=== PATIENT | male | born 1975 | race Caucasian/White ===

== ENCOUNTER 2018-08-10 09:22 | Emergency (ER) | payer OTHER ==
--- OUTSIDE RECORDS SUMMARY | 2018-08-10 09:33 | XMS REPORT ---
:1975 Author Organization [facility] Address [address] [place] [address] Care Team Providers Name Role Phone Emmie Moore Unavailable Unavailable PROBLEMS Type Condition ICD9-CM LSO20-[id number] Onset Condition SNOMED Code Code Code Dates Status Problem Essential (primary) I10 Active 58795881 hypertension Problem Obstructive sleep apnea G47.33 Active 65528391 (adult) (pediatric) Problem Edema, unspecified R60.9 Active 80894766 Problem Abscess L02.91 Active 017271002 Problem Lung nodule < 6cm on CT R91.1 Active 418787057 Problem Major depressive F32.9 Active 45635117 disorder, single episode, unspecified Problem Generalized anxiety F41.1 Active 11218681 disorder Problem Body mass index (BMI) of Z68.34 Active 883415801 34.0-34.9 in adult Problem Other obesity due to E66.09 Active 617436454 excess calories Problem COPD with acute J44.1 Active 555996843 exacerbation Problem Nicotine dependence, F17.200 Active 514579376 uncomplicated, unspecified nicotine product type Problem Morbid (severe) obesity E66.01 Active 856525216 due to excess calories Problem Venous insufficiency I87.2 Active 68709493 Problem 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 Problem Pure E78.00 Active 553047782 hypercholesterolemia ALLERGIES No Information ENCOUNTERS Encounter Location Date Diagnosis [facility] [address] [facility], [place], [place] [id number] [facility] [address] [facility], [place], [place] [id number] [facility] [address] [facility], [place], Pure hypercholesterolemia E78.00 ; [place] [address] Type 2 diabetes mellitus with diabetic polyneuropathy E11.42 ; Generalized anxiety disorder F41.1 ; Essential (primary) hypertension I10 ; Vitamin deficiency E56.9 ; Encounter for drug screening Z02.83 and COPD with acute exacerbation J44.[address], [place], [place] [id number] [address], [place], [place] [id number] [address], [place] Jun, [address], Mar, Abscess L02.91 ; Lung nodule < 6cm [place] [id number] on [place] R91.1 and Generalized anxiety disorder F41.[address], [place] Mar, Generalized anxiety disorder F41.1 [address], January, Groin abscess L02.214 [place] [id number] [address], [place] January, [address], [place], [place] [id number] [address], [place], Generalized anxiety disorder F41.1 [place] [id number] [address], [place] Nov, [address], [place], [address], [place], [place] [id number] [address], [place], Other obesity due to excess calories [place] [address] E66.09 ; Body mass index (BMI) of 34.0-34.9 in adult Z68.34 and Generalized anxiety disorder F41.[address], [place] Oct, [address], Sep, COPD with acute exacerbation J44.1 ; [place] [id number] Type 2 diabetes mellitus with diabetic polyneuropathy E11.42 ; Major depressive disorder, single episode, unspecified F32.9 ; Pure hypercholesterolemia E78.00 and Nicotine dependence, uncomplicated, unspecified nicotine product type F17.200 [facility] [address] [place], [place] Aug, [address] IMMUNIZATIONS No Known Immunizations SOCIAL HISTORY Never Assessed REASON FOR REFERRAL FUNCTIONAL STATUS PLAN OF CARE VITAL SIGNS MEDICATIONS Unknown Medications PROCEDURES No Known procedures RESULTS No Results REASON FOR VISIT lyrica- no pills left Insurance Providers [facility] Member Patient Patient Patient Patient Patient Subscriber Subscriber Subscriber Group Insurance Plan Plan Plan Plan ID Relationship Address Phone Name Date of ID Name Date of No Type Insurance Insurance Insurance Coverage to Subscriber Address Phone Name Dates BC [address] self Bhargav [id number] Medicaid [id number] [address] [place] [address] [place] self Bhargav [id number] MEDICAID [place] MEDICAID [facility] [id number] Medicaid Computer Medicaid self Bhargav [id number] [facility] Corpor[employer] n [address] [facility] [id number] MEDICAL (GENERAL) HISTORY Type Description Date Medical History Obstructive sleep apnea (adult) (pediatric) Medical History Type 2 diabetes mellitus with diabetic polyneuropathy Medical History COPD with acute exacerbation Medical History Essential (primary) hypertension Medical History Generalized anxiety disorder Medical History Pneumonia, unspecified organism Medical History Morbid (severe) obesity due to excess calories Medical History Major depressive disorder, single episode, unspecified Medical History Acquired absence of other right toe(s) Medical History Pain in right ankle and joints of right foot Medical History Pain in right knee Medical History Pain in right hip Medical History Non-pressure chronic ulcer of other part of unspecified foot with unspecified severity Medical History Venous insufficiency Medical History 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, subsequent encounter Medical History Edema, unspecified Medical History Peripheral vascular disease, unspecified Medical History Venous insufficiency (chronic) (peripheral) Medical History Pure hypercholesterolemia Medical History Nicotine dependence, uncomplicated, unspecified nicotine product type Medical History Allergic rhinitis, unspecified Medical History Dermatophytosis, unspecified Medical History Goiter Medical History History of gastric bypass Surgical History cholecystectomy 1995 Surgical History 3/4 amputation left thumb 2000 Surgical History Thyroid biopsy (benign) 2013 Surgical History drainage Right Groin Abcess with Drain 02/08/2018 placement Hospitalization History chronic obstruction pulmonary disease 12/04-12/07/16 exacerbation & pneumonia Hospitalization History underwent cardiac cath (-) dx with pneumonia 08/28- Hospitalization History pneumonia 09/17--03-01 Hospitalization History gastric bypass 03/2017 Hospitalization History Right Groin Abcess 02/07-02/10/18
--- NOTE | 2018-08-10 10:12 | ED ---
Upper Extremity Pain - HPI Summary HPI Summary: Patient is a 43-year-old male with history of diabetes presenting to the ED after a fall approximately 1 week ago and now complaining of left shoulder pain. He states the pain is not worsening, helpers remaining consistent. Unable to abduct the shoulder, pain improves with abduction and internal rotation. Denies any bruising or ecchymosis. Denies any numbness or tingling. There is no radiation of the pain. The pain is most notable over the superior portion of the shoulder as well as down the humerus midway to the elbow. He is also complaining of a open laceration/sore to the left great toe which is approximately 1.5 cm in length and approximately 0.5 cm in width. He has been using vinegar to cleanse the wound. He does not see a crucible packer, but has good follow-up with his PCP. - History of Current Complaint Chief Complaint: EDShoulderCkatelinvicleInj Stated Complaint: LEFT SHOULDER INJURY FALL A WEEK AGO Time Seen by Provider: 08/10/18 09:28 Hx Obtained From: Patient Mechanism Of Injury: Direct Blow Onset/Duration: Started Hours Ago Timing: Constant Severity Initially: Mild Severity Currently: Mild Character: Aching Aggravating Factor(s): Movement, Lifting, Extension Alleviating Factor(s): Rest, Ice, Compression Associated Signs & Symptoms: Negative: Swelling, Redness, Bruising, Numbness/ Tingling, Nausea, Vomiting Related History: Dominant Hand Right - Risk Factors Non-Orthopedic Risk Factor: Negative Septic Arthritis Risk Factor: Negative Compartment Syndrome Risk Factors: Pain - Allergies/Home Medications Allergies/Adverse Reactions: Allergies Allergy/AdvReac Type Severity Reaction Status Date / Time gabapentin Allergy See Comment Verified 08/10/18 09:30 Home Medications: Home Medications Atorvastatin* [Lipitor*] 80 mg PO 1700 08/10/18 [History Confirmed 08/10/18] Ca/D3/Mag/Zinc/Felicia/Tyron/Mgbor [Caltrate 600-D3-Min Chew Tab] 1 tab PO DAILY [History Confirmed 08/10/18] Cholecalciferol TAB* [Vitamin D TAB*] 5,000 unit PO DAILY 08/10/18 [History Confirmed 08/10/18] Cyanocobalamin TAB* [Vitamin B12 TAB*] 500 mcg PO DAILY 08/10/18 [History Confirmed 08/10/18] Lisinopril/HCTZ 20/12.5(NF) [Zestoretic 20/12.5(NF)] 12.5 mg PO DAILY 08/10/18 [ History Confirmed 08/10/18] Ped Multivit 43/Iron Fumarate [Flintstones Complete Chew Tab] 18 mg PO DAILY [History Confirmed 08/10/18] Pregabalin CAP(*) [Lyrica CAP(*)] 400 mg PO TID 08/10/18 [History Confirmed ] busPIRone TAB* [Buspar *] 30 mg PO BID 08/10/18 [History Confirmed 08/10/18] metFORMIN* [Glucophage 1000 MG TAB *] 1,000 mg PO BID 08/10/18 [History Confirmed 08/10/18] PMH/Surg Hx/FS Hx/Imm Hx Previously Healthy: Yes - Immunization History Hx Pertussis Vaccination: No Immunizations Up to Date: Yes Infectious Disease History: No Infectious Disease History: Denies: Traveled Outside the [place] in Last 30 Days - Social History Occupation: Unemployed Lives: With Family Alcohol Use: None Hx Substance Use: No Substance Use Type: Reports: None Hx Tobacco Use: Yes Smoking Status (MU): Heavy Every Day Tobacco Smoker Review of Systems Negative: Fever, Chills, Fatigue, Skin Diaphoresis Negative: Palpitations, Chest Pain Negative: Abdominal Pain, Vomiting, Diarrhea, Nausea Genitourinary: Negative Positive: no symptoms reported, see HPI Positive: Arthralgia - left shoulder pain Neurological: Negative All Other Systems Reviewed And Are Negative: Yes Physical Exam Triage Information Reviewed: Yes Vital Signs On Initial Exam: Initial Vitals Temp Pulse Resp BP Pulse Ox 98.5 F 51 18 179/96 97 08/10/18 09:26 08/10/18 09:26 08/10/18 09:26 08/10/18 09:26 08/10/18 09:26 Vital Signs Reviewed: Yes Appearance: Positive: Well-Appearing, Well-Nourished Skin: Positive: Warm, Skin Color Reflects Adequate Perfusion Head/Face: Positive: Normal Head/Face Inspection Eyes: Positive: EOMI, FLAVIA, Conjunctiva Clear Neck: Positive: No Lymphadenopathy Respiratory/Lung Sounds: Positive: Clear to Auscultation, Breath Sounds Present Cardiovascular: Positive: RRR, Pulses are Symmetrical in both Upper and Lower Extremities Musculoskeletal: Positive: Pain @ - left shoulder pain Neurological: Positive: Sensory/Motor Intact, Alert, Oriented to Person Place, Time, Speech Normal Psychiatric: Positive: Normal, Affect/Mood Appropriate AVPU Assessment: Alert Diagnostics - Vital Signs Vital Signs Temp Pulse Resp BP Pulse Ox 08/10/18 09:26 98.5 F 51 18 179/96 97 - Laboratory Lab Statement: Any lab studies that have been ordered have been reviewed, and results considered in the medical decision making process. Course/Dx - Course Course Of Treatment: Patient is evaluated for left shoulder pain after a fall approximately one week ago. He denies any ecchymosis, erythema, abrasions or any other signs of trauma. He is unable to abduct the shoulder past 90. Is endorsing pain most notably over the superior and anterior portion of the shoulder which radiates down midway through the humerus to the elbow. Denies any numbness or tingling. Denies any color or temperature changes. Full strength into the ipsilateral arm and hand. He denies any back pain, neck pain or head injury. He is endorsing a laceration/sore to the left great toe which occurred approximately 2 weeks ago after he pulled off a callus. Since that he has been using vinegar and bacitracin, however the area continues to be open. The area does not have any drainage. Patient is a diabetic. X-ray of the shoulder obtained. This shows soft tissue calcification suggestive of a calcific tendinopathy. No acute osseous injury. If symptoms persist, recommend repeat imaging. Discussed with patient the importance of follow soaks , antibiotic ointment and will give 7 days Keflex. He will follow up with his PCP on Friday, 2 days from now as scheduled. - Diagnoses Differential Diagnosis/HQI/PQRI: Positive: Fracture (Open), Fracture (Closed), Strain, Sprain Provider Diagnoses: Calcific tendinitis, Fall, Open toe wound Discharge - Sign-Out/Discharge Documenting (check all that apply): Patient Departure - Discharge Plan Condition: Stable Disposition: HOME Prescriptions: Cephalexin CAP* [Keflex CAP*] 500 mg PO BID #14 cap MDD 2 Patient Education Materials: Acute Wound Care (ED), Calcific Tendinitis (ED) Referrals: No Primary Care Phys,NOPCP [Primary Care Provider] - Additional Instructions: Soak the foot twice daily Keflex twice daily 7 days Arm sling for comfort Ibuprofen 600mg 3 times daily May use [id number]-[id number] icy hot as well Moist heat to the area Follow-up with your PCP in 2 days as scheduled for a wound recheck - Billing Disposition and Condition Condition: STABLE Disposition: Home
[2018-08-10 10:43] VITALS: BP 134/91
== END 2018-08-10 10:49 | disposition home or self-care (01) ==
LOC: ED 09:22
DX: M75.32 Calcific tendinitis of left shoulder (principal); S91.102A Unspecified open wound of left great toe without damage to nail, initial encounter; X58.XXXA Exposure to other specified factors, initial encounter; Y92.9 Unspecified place or not applicable; Z88.8 Allergy status to other drugs, medicaments and biological substances; F17.200 Nicotine dependence, unspecified, uncomplicated
CPT/HCPCS: 99283

== ENCOUNTER 2019-01-06 09:04 | Emergency (ER) | payer BC, MEDICAID ==
--- OUTSIDE RECORDS SUMMARY | 2019-01-06 09:18 | XMS REPORT ---
:1975 Author Organization [facility] Address [address] [place] [address] Care Team Providers Name Role Phone Emmie Moore Unavailable Unavailable PROBLEMS Type Condition ICD9-CM [id number] Onset Condition SNOMED Code Code Code Dates Status Problem 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 392702397 with diabetic polyneuropathy Problem Morbid (severe) obesity E66.01 Active 474003268 due to excess calories Problem Nicotine dependence, F17.200 Active 995220560 uncomplicated, unspecified nicotine product type Problem COPD with acute J44.1 Active 589268084 exacerbation Problem Essential (primary) I10 Active 62392213 hypertension Problem Edema, unspecified R60.9 Active 62761285 Problem Obstructive sleep apnea G47.33 Active 02852851 (adult) (pediatric) Problem Lung nodule < 6cm on CT R91.1 Active 503336120 Problem Pure E78.00 Active 573746911 hypercholesterolemia Problem Abscess L02.91 Active 793814140 Problem Venous insufficiency I87.2 Active 62640904 Problem Generalized anxiety F41.1 Active 70553886 disorder Problem Major depressive F32.9 Active 74267795 disorder, single episode, unspecified Problem Other obesity due to E66.09 Active 408534902 excess calories Problem Body mass index (BMI) of Z68.34 Active 353409212 34.0-34.9 in adult ALLERGIES No Information ENCOUNTERS Encounter Location Date Diagnosis [facility] [address] [facility], [place], [place] [id number] [facility] [address] [facility], [place], Generalized anxiety disorder F41.1 [place] [id number] [facility] [address] [facility], [place], [place] [id number] [facility] [place] [address] [facility], [place], [place] [id number] [address], Nov, Type 2 diabetes mellitus with [place] [address] diabetic polyneuropathy E11.[address], Sep, Type 2 diabetes mellitus with [place] [address] diabetic polyneuropathy E11.[address], [place], [place] [address] [address], [place] Sep, [address], Aug, Type 2 diabetes mellitus with [place] [address] diabetic polyneuropathy E11.42 ; Blister (nonthermal), left great toe, initial encounter S90.422A and Local infection of the skin and subcutaneous tissue, unspecified L08.[address], [place] Jul, [address], [place], [place] [id number] [address], [place], [place] [id number] [address], [place], [place] [id number] [address], Jun, Pure hypercholesterolemia E78.00 ; [place] [address] Type 2 diabetes mellitus with diabetic polyneuropathy E11.42 ; Generalized anxiety disorder F41.1 ; Essential (primary) hypertension I10 ; Vitamin deficiency E56.9 ; Encounter for drug screening Z02.83 and COPD with acute exacerbation J44.[address], [place], [place] [id number] [address], [place], [place] [id number] [address], [place], [address], Mar, Abscess L02.91 ; Lung nodule < 6cm [place] [id number] [place] R91.1 and Generalized anxiety disorder F41.[address], [place] Mar, Generalized anxiety disorder F41.1 [address], January, Groin abscess L02.214 [place] [id number] [address], [place] January, [address], [place], [place] [id number] [address], Dec, Generalized anxiety disorder F41.1 [place] [id number] [address], [place] Nov, [address], [place] Nov, [address], [place], [place] [id number] [address], Nov, Other obesity due to excess calories [place] [address] E66.09 ; Body mass index (BMI) of 34.0-34.9 in adult Z68.34 and Generalized anxiety disorder F41.[address], [place] Oct, [address], Sep, COPD with acute exacerbation J44.1 ; [place] [address] Type 2 diabetes mellitus with diabetic polyneuropathy E11.42 ; Major depressive disorder, single episode, unspecified F32.9 ; Pure hypercholesterolemia E78.00 and Nicotine dependence, uncomplicated, unspecified nicotine product type F17.[address], [place] Aug, [address] IMMUNIZATIONS No Known Immunizations SOCIAL HISTORY Never Assessed REASON FOR REFERRAL FUNCTIONAL STATUS PLAN OF CARE VITAL SIGNS MEDICATIONS Medication Instructions Dosage Frequency Start Date End Date Duration Status Spiriva Inhalation Once a 2 puffs 24h 30 days Active Respimat 2.5 day MCG/ACT PROCEDURES No Known procedures RESULTS No Results REASON FOR VISIT REFILL AND ALSO REFERRAL ISSUE Insurance Providers [facility] Member Patient Patient Patient Patient Patient Subscriber Subscriber Subscriber Group Insurance Plan Plan Plan Plan ID Relationship Address Phone Name Date of ID Name Date of No Type Insurance Insurance Insurance Coverage to Subscriber Address Phone Name Dates Medicaid Computer Medicaid self Bhargav [id number] [facility] [place] [employer] [address] [facility] [id number] [address] self Bhargav [id number] Medicaid [id number] Medicaid [place] [address] [facility] [id number] [address] [place] self Bhargav [id number] MEDICAID [place] [id number] MEDICAL (GENERAL) HISTORY Type Description Date Medical [...]
--- OUTSIDE RECORDS SUMMARY | 2019-01-06 09:18 | XMS REPORT ---
:1975 Author Organization [facility] Address [address] [place] [address] Care Team Providers Name Role Phone Emmie Moore Unavailable Unavailable PROBLEMS Type Condition ICD9-CM [id number] Onset Condition SNOMED Code Code Code Dates Status Problem 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 336732204 with diabetic polyneuropathy Problem Morbid (severe) obesity E66.01 Active 036462179 due to excess calories Problem Nicotine dependence, F17.200 Active 832209372 uncomplicated, unspecified nicotine product type Problem COPD with acute J44.1 Active 684477617 exacerbation Problem Essential (primary) I10 Active 99211368 hypertension Problem Edema, unspecified R60.9 Active 62376658 Problem Obstructive sleep apnea G47.33 Active 12509731 (adult) (pediatric) Problem Lung nodule < 6cm on CT R91.1 Active 821973536 Problem Pure E78.00 Active 274287212 hypercholesterolemia Problem Abscess L02.91 Active 224218633 Problem Venous insufficiency I87.2 Active 23269955 Problem Generalized anxiety F41.1 Active 82803628 disorder Problem Major depressive F32.9 Active 22143307 disorder, single episode, unspecified Problem Other obesity due to E66.09 Active 302008923 excess calories Problem Body mass index (BMI) of Z68.34 Active 159380280 34.0-34.9 in adult ALLERGIES No Information ENCOUNTERS Encounter Location Date Diagnosis [facility] [place] [address] [facility], [place], Generalized anxiety disorder F41.1 [place] [id number] [facility] [place] [address] [place], [place], [place] [id number] [facility] [place] [address] [facility], [place], [place] [id number] [facility] [place] [address] [facility], Nov, Type 2 diabetes mellitus with [place] [address] diabetic polyneuropathy E11.[address], Sep, Type 2 diabetes mellitus with [place] [address] diabetic polyneuropathy E11.[address], [place], [place] [id number] [address], [place] Sep, [address], Aug, Type 2 diabetes mellitus with [place] [address] diabetic polyneuropathy E11.42 ; Blister (nonthermal), left great toe, initial encounter S90.422A and Local infection of the skin and subcutaneous tissue, unspecified L08.[address], [place], [address], [place], [place] [id number] [address], [place], [place] [id number] [address], [place], [place] [address] [address], Jun, Pure hypercholesterolemia E78.00 ; [place] [address] Type 2 diabetes mellitus with diabetic polyneuropathy E11.42 ; Generalized anxiety disorder F41.1 ; Essential (primary) hypertension I10 ; Vitamin deficiency E56.9 ; Encounter for drug screening Z02.83 and COPD with acute exacerbation J44.[address], [place], [place] [id number] [address], [place], [place] [id number] [address], [place], [address], Mar, Abscess L02.91 ; Lung nodule < 6cm [place] [address] on [address] R91.1 and Generalized anxiety disorder F41.[address], [place] Mar, Generalized anxiety disorder F41.1 [address], January, Groin abscess L02.214 [place] [id number] [address], [place] January, [address] [facility] [address] [facility], [place], [place] [id number] [address], [place], Generalized anxiety disorder F41.1 [place] [id number] [address], [place], [address], [place], [address], [place], [place] [id number] [address], Nov, Other obesity due to excess calories [place] [address] E66.09 ; Body mass index (BMI) of 34.0-34.9 in adult Z68.34 and Generalized anxiety disorder F41.[address], [place] Oct, [address], Sep, COPD with acute exacerbation J44.1 ; [place] [address] Type 2 diabetes mellitus with diabetic polyneuropathy E11.42 ; Major depressive disorder, single episode, unspecified F32.9 ; Pure hypercholesterolemia E78.00 and Nicotine dependence, uncomplicated, unspecified nicotine product type F17.[address], [place] Aug, [address] IMMUNIZATIONS No Known Immunizations SOCIAL HISTORY Never Assessed REASON FOR REFERRAL FUNCTIONAL STATUS PLAN OF CARE VITAL SIGNS MEDICATIONS Medication Instructions Dosage Frequency Start Date End Date Duration Status BusPIRone HCl Orally Twice a 1 tablet 12h Nov, 30 days Active 30 MG day 2017 PROCEDURES No Known procedures RESULTS No Results REASON FOR VISIT REFILL Insurance Providers [facility] Member Patient Patient Patient Patient Patient Subscriber Subscriber Subscriber Group Insurance Plan Plan Plan Plan ID Relationship Address Phone Name Date of ID Name Date of No Type Insurance Insurance Insurance Coverage to Subscriber Address Phone Name Dates BC [address] self Bhargav 1975 [id number] Medicaid [facility] Medicaid [facility] [address] [place] [address] [place] [address] [place] self Bhargav [id number] MEDICAID [place] MEDICAID [facility] [id number] Medicaid Computer Medicaid self Bhargav [id number] [facility] [address] [facility] [id number] MEDICAL (GENERAL) HISTORY Type Description Date Medical [...] bypass Surgical History cholecystectomy 1995 Surgical History 11/16 amputation left thumb 2000 Surgical History Thyroid biopsy (benign) 2013 Surgical History drainage Right Groin Abcess with Drain 02/08/2018 placement Hospitalization History chronic obstruction pulmonary disease 12/04-12/07/16 exacerbation & pneumonia Hospitalization History underwent cardiac cath (-) dx with pneumonia 08/28- Hospitalization History pneumonia 09/17--03-01 Hospitalization History gastric bypass 03/2017 Hospitalization History Right Groin Abcess 02/07-02/10/18
--- NOTE | 2019-01-06 11:54 | ED ---
Lower Extremity - HPI Summary HPI Summary: Patient is a 43-year-old male who presents emergency department for a wound to the bottom of his right foot times one week. Patient with a history of diabetes. Patient states he noticed a wound above his right foot about a week ago that is progressed in size and now has a foul odor. Patient has not been on antibiotics for this wound. Patient denies fever, chills, nausea, vomiting. Symptoms are moderate in severity. No current modifying factors. - History of Current Complaint Chief Complaint: EDExtremityLower Stated Complaint: ABCESS ON BOTTOM OF FOOT PER PT Time Seen by Provider: 01/06/19 11:18 Hx Obtained From: Patient Pain Intensity: 0 - Allergies/Home Medications Allergies/Adverse Reactions: Allergies Allergy/AdvReac Type Severity Reaction Status Date / Time gabapentin Allergy See Comment Verified 01/06/19 09:10 PMH/Surg Hx/FS Hx/Imm Hx Previously Healthy: Yes Infectious Disease History: No Infectious Disease History: Denies: Traveled Outside the [place] in Last 30 Days - Family History Known Family History: Positive: Non-Contributory - Social History Occupation: Unemployed Lives: With Family Alcohol Use: None Hx Substance Use: No Substance Use Type: Reports: None Hx Tobacco Use: Yes Smoking Status (MU): Heavy Every Day Tobacco Smoker Review of Systems Constitutional: Negative Negative: Fever, Chills Gastrointestinal: Negative Negative: Vomiting, Nausea Positive: Other - Wound to bottom of right foot All Other Systems Reviewed And Are Negative: Yes Physical Exam Triage Information Reviewed: Yes Vital Signs On Initial Exam: Initial Vitals Temp Pulse Resp BP Pulse Ox 97.0 F 97 17 160/91 100 01/06/19 09:06 01/06/19 09:06 01/06/19 09:06 01/06/19 09:06 01/06/19 09:06 Vital Signs Reviewed: Yes Appearance: Positive: Well-Appearing - Pt. lying on bed in NAD. present. Skin: Positive: Warm, Dry Head/Face: Positive: Normal Head/Face Inspection Eyes: Positive: Normal, EOMI, FLAVIA Neck: Positive: Supple Musculoskeletal: Positive: Other - Chronic venous stasis changes to LEs. Noted to plantar aspect of right foot there is a roughly 4 superficial ulcer with mild surrounding erythema to wound edges. No signficant drainage but wound dressing is wet. Malodorous. No surrounding cellulitis. Neurological: Positive: Normal, CN Intact II-III Psychiatric: Positive: Affect/Mood Appropriate Diagnostics - Vital Signs Vital Signs Temp Pulse Resp BP Pulse Ox 01/06/19 10:14 97.8 F 77 18 124/79 96 01/06/19 09:06 97.0 F 97 17 160/91 100 - Laboratory Result Diagrams: 01/06/19 12:09 01/06/19 12:09 Lab Statement: Any lab studies that have been ordered have been reviewed, and results considered in the medical decision making process. Lower Extremity Course/Dx - Course Course Of Treatment: Pt. presenting for wound to right foot. There does appear to be a localized infection. Pt. is not on antibiotics. Patient is afebrile and well-appearing. Basic labs and x-ray obtained. Labs showed mild elevation of WBC and CRP. X-ray shows no signs of osteomyelitis, reading per radiology. We'll start patient on clindamycin. Patient notes he sees a psychiatrist locally and advised to schedule close follow-up appointment. Return to the ER for worsening drainage, fever, redness, vomiting or if concerned. Patient understands and agrees with plan. - Diagnoses Differential Diagnosis/HQI/PQRI: Positive: Infection, Osteomyelitis Provider Diagnoses: Diabetic foot ulcer, Infected wound Discharge - Sign-Out/Discharge Documenting (check all that apply): Patient Departure Patient Received Moderate/Deep Sedation with Procedure: No - Discharge Plan Condition: Good Disposition: HOME Prescriptions: Clindamycin HCl 300 mg PO QID #40 capsule Patient Education Materials: Acute Wounds (ED) Referrals: [facility] [Outside] Additional Instructions: Call your blending tank tender today to schedule a close follow up appointment for a wound check Take antibiotic as directed Avoid applying pressure to wound Return to ER for fever, increased drainage, redness, vomiting or if concerned - Billing Disposition and Condition Condition: GOOD Disposition: Home
[2019-01-06 12:22] LABS: ABS Basophils 0.1 10^3/ul (0-0.2); ABS Eosinophils 0.3 10^3/ul (0-0.6); ABS Lymphocytes 2.7 10^3/ul (1.0-4.8); ABS Monocytes 0.8 10^3/ul (0-0.8); ABS Neutrophils 8.4 10^3/ul (1.5-7.7); ABS Nucleated RBC 0 10^3/ul; Eosinophil % 2.2 %; Hematocrit 45 % (36-46); Hemoglobin 15.1 g/dL (14.0-18.0); Lymphocyte % 21.7 %; Mean Corpuscular HGB Conc 33 g/dL (31-36); Mean Corpuscular Hemoglobin 29 pg (27-31); Mean Corpuscular Volume 88 fL (80-94); Mean Platelet Volume 8.7 fL (7.4-10.4); Nucleated Red Blood Cells % 0.1; Platelet Count 287 10^3/uL (150-450); Red Blood Count 5.13 10^6 /uL (4.18-5.48); Red Cell Distribution Width 14 % (10.5-15); White Blood Count 12.2 10^3/uL (3.5-10.8)
[2019-01-06 12:37] LABS: Albumin 4.2 g/dL (3.2-5.2); Albumin/Globulin Ratio 1.2 (1-3); BUN/Creatinine Ratio 11.9 (8-20); C Reactive Protein 12.98 mg/L (<8.01); Calcium 9.4 mg/dL (8.6-10.3); EGFR African American 119.6 (>60); EGFR Non-African American 98.8 (>60); Globulin 3.5 g/dL (2-4); Potassium 4.3 mmol/L (3.5-5.0); Total Bilirubin 0.7 mg/dL (0.2-1.0); Total Protein 7.7 g/dL (6.4-8.9)
[2019-01-06 13:15] VITALS: BP 133/83
--- NOTE | 2019-01-08 07:05 | PN ---
Progress Note - Progress Note Date of Service: 01/06/19 Note: Preliminary wound culture growing enterococcus and pasteurella. Pt. on Clindamycin for infected diabetic foot ulcer. Will wait for final sensitivity. No change in treatment at this time.
--- NOTE | 2019-01-09 08:29 | PN ---
Progress Note - Progress Note Date of Service: 01/06/19 Note: Wound culture final grew MRSA negative and staph aureus positive Patient was placed on clindamycin Sensitivities not routinely done with this antibiotic Called patient at 8:30 AM on 01/09/19 Patient states he is feeling improved and also saw his aeronautical project engineer yesterday further opened the wound He denies any worsening symptoms, fevers, sweats, chills At this time we will leave the patient on clindamycin He is encouraged to return to the ED if he develops any worsening symptoms, fevers, sweats, chills Og return precautions
== END 2019-01-06 13:14 | disposition home or self-care (01) ==
LOC: ED 09:04
DX: E11.621 Type 2 diabetes mellitus with foot ulcer (principal); L97.519 Non-pressure chronic ulcer of other part of right foot with unspecified severity; L08.9 Local infection of the skin and subcutaneous tissue, unspecified; M84.477A Pathological fracture, right toe(s), initial encounter for fracture; M19.90 Unspecified osteoarthritis, unspecified site; F17.210 Nicotine dependence, cigarettes, uncomplicated; Z88.8 Allergy status to other drugs, medicaments and biological substances; Z89.411 Acquired absence of right great toe
CPT/HCPCS: 36415; 80053; 85025; 86140; 87070; 87077; 87186; 87205; 87640; 87641; 99282

== ENCOUNTER 2019-09-27 14:36 | Inpatient (IN) | payer BC, OTHER ==
--- OUTSIDE RECORDS SUMMARY | 2019-09-27 14:52 | XMS REPORT | Continuity of Care Document ---
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 Problems Description No Information Available Social History Type Date Description Comments Sex Unknown Tobacco Use Start: 09/15/88 Current Cigarette Smoker 1 Pack Daily Smoking Status Reviewed: 08/31/19 Current Cigarette Smoker 1 Pack Daily ETOH Use Rarely consumes alcohol Tobacco Use Start: Unknown Patient is a current smoker, smokes every day Recreational Drug Use Denies Drug Use Exercise Type/Frequency Does not exercise Limited by physical disability (diabetic foot ulcer) Allergies, Adverse Reactions, Alerts Active Allergies Reaction Severity Comments Date Augmentin rash 06/25/2019 Gabapentin 06/25/2019 Medications Active Medications SIG Qnty Indications Ordering Date Provider Albuterol Sulfate HFA 2 puffs every 8.500gm Unknown 6 hours as 108(90Base) mcg/Act needed Aerosol Atorvastatin Calcium 1 by mouth Unknown 80mg every day Tablets Symbicort 2 puffs twice Unknown 160-4.5mcg/Act a day Aerosol Buspirone HCL take 1 tablet Unknown 30mg Tablets twice a day Cholecalciferol 5000 units by Unknown mouth Furosemide 1 by mouth Unknown 20mg Tablets every day Ertugliflozin 15 MG daily Unknown Ipratropium 1 unit as Unknown [place]/Albuterol needed Sulfate 0.5-2.5(3)mg/3ML Solution Victoza inject 1.8 mg Unknown 18mg/3ML Solution Pen-Inject Losartan 1 by mouth Unknown Potassium/Hydrochlorothi every day azide 50-12.5mg Tablets Metformin HCL take one Unknown 1000mg Tablets tablet by mouth daily Pregabalin 1 by mouth Unknown 150mg Capsules daily Sertraline HCL 2 by mouth Unknown 100mg Tablets every day (currently out 08/31/19) Tiotropium [place] 2 puffs by Unknown mouth every day Immunizations Description No Information Available Vital Signs Date Vital Result Comment 08/31/2019 10:25am Height 76 inches 6'4" Weight 336.00 lb Per pt Heart Rate 98 /min BP Systolic Sitting 124 mmHg Lue large cuff BP Diastolic Sitting 82 mmHg Lue large cuff O2 % BldC Oximetry 96 % On Ra BMI (Body Mass Index) 40.9 kg/m2 Results Description No Information Available Procedures Description No Information Available Medical Devices Description No Information Available Encounters Description No Information Available Assessments Date Code Description Provider 08/31/2019 J44.9 Chronic obstructive pulmonary disease, unspecified Quoc Del Real MD 08/31/2019 G47.30 Sleep apnea, unspecified Quoc Del Real MD Plan of Treatment 08/31/2019 - Quoc Del Real MDJ44.9 Chronic obstructive pulmonary disease, unspecifiedComments:We will continue Symbicort Spiriva and albuterol as needed. The patient will need a chest x-ray full pulmonary function tests. I have also instructed the patient to use a nettipot for sinus difficulties. I have also instructed the patient on abstaining from smoking. The patient reports that he started everything Chantix nicotine patch and gum. He is not willing to quit at this time.Follow up:3 [id number] Sleep apnea, unspecifiedComments:We will start with an overnight oximetry. He may need a CPAP titration. He should exercise care ofand operating machinery. Functional Status Description No Information Available Mental Status Description No Information Available Referrals Description No Information Available
--- OUTSIDE RECORDS SUMMARY | 2019-09-27 14:52 | XMS REPORT | Summary of Care ---
:1975 Author Organization [facility] Address [address] [place] [address] Care Team Providers Name Role Phone Ekaterina Rodriguez Primary Care Provider Reason for Referral Durable Medical Equipment (Routine) Status Reason Specialty Diagnoses / Referred By Referred To Procedures Contact Contact Pending Review Diagnoses JODIE (obstructive sleep apnea) Ekaterina Rodriguez NP [address] [place] [address] Durable Medical Equipment (Routine) Status Reason Specialty Diagnoses / Referred By Referred To Procedures Contact Contact Pending Review Diagnoses JODIE (obstructive sleep apnea) Ekaterina Rodriguez NP [address] [place] [address] Scheduling Instructions When selecting a vendor: [employer]: The order will automatically print to [employer] as well as a copy to the ordering department printer should you want to provide a copy to the patient. ANY OTHER DME VENDOR: The order will print to the department printer and must be faxed to the vendor. 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 (HCC); [address] Chronic obstructive pulmonary disease, unspecified COPD type (HCC); [place], [place] [id number] [place] [address] Essential hypertension; [phone] Dyslipidemia; Diabetic ulcer of right heel associated with type 2 diabetes mellitus, unspecified ulcer stage (HCC) Allergies Active Allergy Reactions Severity Noted Date Comments Augmentin Rash 04/27/2019 Gabapentin Other 04/27/2019 Mood effects (reverse effects) documented as of this encounter (statuses as of 07/31/2019) Medications Medication Sig Dispensed Refills Start End Date Status Date Insulin Pen Needle by Does not 0 Active 30G X 5 MM Does not apply route. apply Misc becaplermin by Topical 0 Active (REGRANEX) 0.01 % route DAILY. Apply externally Gel sertraline (ZOLOFT) Take 200 mg by 0 Active 100 MG Oral Tab mouth DAILY. Cholecalciferol Take 5,000 0 Active (VITAMIN D3) 1000 Units by units Oral Tab mouth. busPIRone HCl 30 MG Take 1 Tab by 60 Tab 0 Active Oral Tab mouth TWICE 9 DAILY. budesonide-formotero Take 2 INHL by 2 Inhaler 0 Active l fumarate inhalation 9 (SYMBICORT) 160-4.5 TWICE DAILY. MCG/ACT Inhalation AerosolIndications: Chronic obstructive pulmonary disease, unspecified COPD type ([facility]) Empagliflozin 10 MG Take 1 Tab by 30 Tab 0 Active Oral Tab mouth DAILY. 9 albuterol Take 2 Puffs 0 Active (PROVENTIL,VENTOLIN) by inhalation 90 mcg/act NEEDED. ipratropium-albutero Take 3 mL by 0 Active l (DUONEB) inhalation NEEDED. atorvastatin Take 1 Tab by 90 Tab 0 Active (LIPITOR) 80 MG Oral mouth DAILY. 9 Tab metFORMIN HCL 1000 Take 1 Tab by 180 Tab 1 Active MG Oral Tab mouth TWICE 9 DAILY. Losartan-Hydrochloro Take 1 Tab by 90 Tab 1 Active thiazide 50-12.5 MG mouth DAILY. 9 Oral Tab furosemide (LASIX) Take 1 Tab by 90 Tab 1 Active 20 MG Oral Tab mouth DAILY. 9 Tiotropium [place] Take 2 Puffs 1 Inhaler 1 Active Monohydrate (SPIRIVA by inhalation 9 RESPIMAT) 2.5 DAILY. MCG/ACT Inhalation Aero SolnIndications: Chronic obstructive pulmonary disease, unspecified COPD type (HCC) Liraglutide Inject 1.8 mg 3 Pre-filled 11 Active (VICTOZA) 18 MG/3ML beneath the Pen Syringe 9 Subcutaneous skin DAILY. Solution Pen-injector Ertugliflozin Take 15 mg by 30 Tab 3 Active L-PyroglutamicAc mouth DAILY. 9 (STEGLATRO) 15 MG Oral TabIndications: Type 2 diabetes mellitus with other circulatory complication, without long-term current use of insulin (HCC) Ertugliflozin Take 1 Tab by 30 Tab 1 07/30/20 Discontinued L-PyroglutamicAc mouth DAILY. 9 19 (STEGLATRO) 5 MG Oral Tab documented as of this encounter (statuses as of 07/31/2019) Active Problems Problem Noted Date JODIE (obstructive sleep apnea) 07/30/2019 COPD (chronic obstructive pulmonary disease) Type 2 diabetes mellitus HTN (hypertension) Dyslipidemia Open wound Overview: seeing podiatry [place] documented as of this encounter (statuses as of 07/31/2019) Immunizations Name Administration Dates Next Due Influenza (IM) Preservative Free 05/28/2019 documented as of this encounter Social History Tobacco Use Types Packs/Day Years Used Date Current Every Day Smoker 2 Smokeless Tobacco: Never Used Alcohol Use Drinks/Week oz/Week Comments Yes rare Sex Assigned at Date Recorded Not on file Job Start Date Occupation Industry Not on file Not on file Not on file Travel History Travel Start Travel End No recent travel history available. documented as of this encounter Last Filed Vital Signs Vital Sign Reading Time Taken Comments Blood Pressure 136/72 07/30/2019 1:33 PM EST Pulse 100 07/30/2019 1:33 PM EST Temperature - - Respiratory Rate - - Oxygen Saturation 97% 07/30/2019 1:33 PM EST Inhaled Oxygen Concentration - - Weight 155.4 kg (342 lb 9.6 oz) 07/30/2019 1:33 PM EST Height 193 cm (6' 4") 07/30/2019 1:33 PM EST Body Mass Index 41.7 07/30/2019 1:33 PM EST documented in this encounter Patient Instructions Patient InstructionsEkaterina Rodriguez NP - 07/30/2019 1:00 PM ESTOrder for new cpap and supplies. Reschedule appointment with wind energy systems installer. Increase Steglatro - 10 mg once daily for the next week, then 15 mg daily. Repeat labs in 3 months - follow up with me one week after labs done. documented in this encounter Progress Notes Ekaterina Rodriguez NP - 07/30/2019 1:00 PM EST PATIENT: Bhargav Castanon : 1975 DATE OF SERVICE: 07/30/2019 CHIEF COMPLAINT: Chief Complaint Patient presents with Follow Up Subjective HISTORY OF PRESENT ILLNESS: Bhargav Castanon is a 44-y.o. male. HPI Follow up on chronic conditions. Chronic wounds on legs - Cellulitis taken care of by dye line operator, put on antibiotics clindamycin and keflex about 10 days ago, infection clearing up, last pill tonight. Has follow up with dye line operator onFriday. He goes weekly. Will get a wound vac on the right side soon. COPD - Usually bad this time of year. Had flare up recently, almost went to the hospital had trouble breathing and sleeping. Increased his neb treatments which helped. He was referred to pulmonary at last visit but missed the appointment. He is going to reschedule this. He needs a new cpap machine. Breathing is better now. Hypertension - taking losartan-hctz, doing well on this medication, no adverse side effects, BP wellcontrolled today in office, not checking at home. Diabetes: Checking sugars twice daily - 160's - 190's consistently. Higher while cellulitis in legs. No hypoglycemia. He gets symptomatic around 130. Diet: Breakfast - coffee Lunch - Apple Dinner: soup Snacks: Bag of potato chips (snack pack bag, bbq). Coffee througout the day, sometimes soda (one glass every 2 days). Activity: Now on scooter, last visit in a wheelchair - able to move around a bit more[place] and scooter doesn't move on dirt road. Feet: Goes to podiatry weekly. Eye Exam: 02/25/19 - no retinopathy. He started steglatro 5mg daily in April. Also currently taking metformin 1000mg bid, and victoza 1.8mg subcu injection daily. Results for BHARGAV CASTANON ( ) as of 07/31/2019 10:28 Ref. Range 04/27/2019 15:32 07/26/2019 08:20 Glycohemoglobin - POCT Latest Ref Range: <=5.6 % 8.0 (H) 8.6 (H) Hyperlipidemia: He stopped the atorvastatin previously, LDL in April was 134. Restarted atorvastatin at last visit, LDL rechecked 07/26/19, result 85. 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 Diabetes Sister Hypertension Brother Lipids Brother hyperlipidemia Lipids Brother hyperlipidemia Hypertension Brother Cancer Sister Thyroid cancer No Known Problems Sister Current Outpatient Medications Medication Sig albuterol (PROVENTIL,VENTOLIN) 90 mcg/act Take 2 Puffs by inhalation NEEDED. atorvastatin (LIPITOR) 80 MG Oral Tab Take 1 Tab by mouth DAILY. becaplermin (REGRANEX) 0.01 % Apply externally Gel by Topical route DAILY. budesonide-formoterol fumarate (SYMBICORT) 160-4.5 MCG/ACT Inhalation Aerosol Take 2 INHL by inhalation TWICE DAILY. busPIRone HCl 30 MG Oral Tab Take 1 Tab by mouth TWICE DAILY. Cholecalciferol (VITAMIN D3) 1000 units Oral Tab Take 5,000 Units by mouth. Empagliflozin 10 MG Oral Tab Take 1 Tab by mouth DAILY. Ertugliflozin L-PyroglutamicAc (STEGLATRO) 15 MG Oral Tab Take 15 mg by mouth DAILY. furosemide (LASIX) 20 MG Oral Tab Take 1 Tab by mouth DAILY. Insulin Pen Needle 30G X 5 MM Does not apply Misc by Does not apply route. ipratropium-albuterol (DUONEB) Take 3 mL by inhalation NEEDED. Liraglutide (VICTOZA) 18 MG/3ML Subcutaneous Solution Pen-injector Inject 1.8 mg beneath the skin DAILY. Losartan-Hydrochlorothiazide 50-12.5 MG Oral Tab Take 1 Tab by mouth DAILY. metFORMIN HCL 1000 MG Oral Tab Take 1 Tab by mouth TWICE DAILY. sertraline (ZOLOFT) 100 MG Oral Tab Take 200 mg by mouth DAILY. Tiotropium [place] Monohydrate (SPIRIVA RESPIMAT) 2.5 MCG/ACT Inhalation Aero Soln Take 2 Puffs by inhalation DAILY. No current facility-administered medications for this visit. Allergies Allergen Reactions Augmentin Rash Gabapentin Other Mood effects (reverse effects) Social History Socioeconomic History Marital status: Spouse name: Not on file Number of children: Not on file Years of education: Not on file Highest education level: Not on file Occupational History Not on file Social Needs Financial resource strain: Not on file Food insecurity: Worry: Not on file Inability: Not on file Transportation needs: Medical: Not on file Non-medical: Not on file Tobacco Use Smoking status: Current Every Day Smoker Packs/day: 2.00 Smokeless tobacco: Never Used Substance and Sexual Activity Alcohol use: Yes Comment: rare Drug use: Not Currently Sexual activity: Not on file Lifestyle Physical activity: Days per week: Not on file Minutes per session: Not on file Stress: Not on file Relationships Social connections: Talks on phone: Not on file Gets together: Not on file Attends nondenominational service: Not on file Active member of club or organization: Not on file Attends meetings of clubs or organizations: Not on file Relationship status: Not on file Intimate partner violence: Fear of current or ex partner: Not on file Emotionally abused: Not on file Physically abused: Not on file Forced sexual activity: Not on file Other Topics Concern Not on file 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 Respiratory: Negative for cough and shortness of breath. Cardiovascular: Negative for chest pain and palpitations. Gastrointestinal: Negative for abdominal pain. Musculoskeletal: Positive for back pain and joint pain (chronic wounds). Skin: Cellulitis healing Objective PHYSICAL EXAM: VITALS: BP 136/72 (BP Location: Left arm, Patient Position: Sitting) | Pulse 100 | Ht 6' 4" (1.93m) | Wt 342 lb 9.6 oz (155.4 kg) | SpO2 97% | BMI 41.70 kg/m Body mass index is 41.7 kg/m. Physical Exam Vitals signs and nursing note reviewed. Constitutional: General: He is not in acute distress. Appearance: Normal appearance. He is well-developed. Cardiovascular: Rate and Rhythm: Normal rate and regular rhythm. Heart sounds: Normal heart sounds. No murmur. No friction rub. No gallop. Pulmonary: Effort: Pulmonary effort is normal. No respiratory distress. Breath sounds: Normal breath sounds. Neurological: Mental Status: He is alert. Psychiatric: Mood and Affect: Mood and affect normal. Speech: Speech normal. Behavior: Behavior normal. Behavior is cooperative. ASSESSMENT / IMPRESSION: ICD-9-CM ICD-10-CM 1. JODIE (obstructive sleep apnea) 327.23 G47.33 DME RESPITATORY ASSIST DEVICE ( AMB) DME RESPIRATORY ASSIST DEVICE (BIPAP/CPAP SUPPLIES) 2. 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 Chronic obstructive pulmonary disease, unspecified COPD type ([facility]) 496 J44.9 4. Essential hypertension 401.9 I10 5. Dyslipidemia 272.4 E78.5 6. Diabetic ulcer of right heel associated with type 2 diabetes mellitus, unspecified ulcer stage ([facility]) 250.80 E11.621 707.14 L97.419 Plan 1. JODIE (obstructive sleep apnea) - DME RESPITATORY ASSIST DEVICE (AMB) - DME RESPIRATORY ASSIST DEVICE (BIPAP/CPAP SUPPLIES) 2. Type 2 diabetes mellitus with other circulatory complication, without long- term current use of insulin ([facility]) Increase steglatro to 15mg - 10mg daily for the next week and then up to 15 mg daily. Recheck a1c in 3 months. - Ertugliflozin L-PyroglutamicAc (STEGLATRO) 15 MG Oral Tab; Take 15 mg by mouth DAILY. Dispense: 30 Tab; Refill: 3 - BASIC METABOLIC PANEL; Future - GLYCOHEMOGLOBIN A1C; Future 3. Chronic obstructive pulmonary disease, unspecified COPD type (HCC) Make appointment with pulmonary as per previous referral. 4. Essential hypertension BP ok today - continue current treatment. 5. Dyslipidemia LDL back down to 85 since restarting statin. Goal <70. Continue atorvastatin. 6. Diabetic ulcer of right heel associated with type 2 diabetes mellitus, unspecified ulcer stage (HCC) Seeing dye line operator twice weekly, will get wound vac in the next couple of weeks. Author: Ekaterina Rodriguez NP 07/31/2019 10:42 documented in this encounter Plan of Treatment Date Type Specialty Care Team Description 10/26/2019 Lab Internal Medicine 11/02/2019 Office Visit Family Practice Ekaterina Rodriguez NP [address] [id number] [phone] Name Type Priority Associated Diagnoses Order Schedule GLYCOHEMOGLOBIN A1C Lab Routine Type 2 diabetes mellitus Expected: 2018 with other circulatory (Approximate), complication, without Expires: 07/30/2020 long-term current use of insulin (HCC) GLUCOSE, BLOOD FASTING Lab Routine Type 2 diabetes mellitus Expected: 07/31 with other circulatory (Approximate), complication, without Expires: 07/31/2020 long-term current use of insulin (HCC) Name Type Priority Associated Diagnoses Order Schedule DME RESPITATORY ASSIST Referral Routine JODIE (obstructive sleep Ordered: DEVICE (AMB) apnea) DME RESPIRATORY ASSIST Referral Routine JODIE (obstructive sleep Ordered: DEVICE (BIPAP/CPAP apnea) SUPPLIES) Health Maintenance Due Date Last Done Comments PNEUMOCOCCAL 0-64 YRS (1 of 1979 1 - PPSV23) HEMOGLOBIN A1C 10/26/2019 07/26/2019, 04/27/2019 Diabetic Eye Exam 02/26/2020 02/25/2019 DEPRESSION SCREENING 04/27/2020 04/27/2019, 04/27/2019 FOOT EXAM 05/28/2020 05/28/2019, 05/28/2019, 05/28/2019, Additional history exists LIPID DISORDER SCREENING 07/26/2020 07/26/2019, 05/31/2019, 04/27/2019 HIV SCREENING Completed 05/28/2014 INFLUENZA VACCINE Completed 05/28/2019 HPV IMMUNIZATION SERIES Aged Out No longer eligible based on patient's age to complete this topic MENINGOCOCCAL VACCINE IMM Aged Out No longer eligible based on patient's age to complete this topic documented as of this encounter Goals Goal Patient Goal Associated Recent Patient-Stated? Author Type Problems Progress Blood Pressure Blood Pressure 136/72 No Michael, < 140/90 (07/30/2019 Ekaterina, 1:33 PM EST) KAILA Note: This is an individualized treatment (blood pressure) goal for Bhargav Castanon: Displayed above (on the left) is your goal for blood pressure control. Your most recent blood pressure is also shown above, on the right. You should try to achieve blood pressures that are lower than your goal listed above (on the left). Smoking Cessation COPD Ekaterina Valderrama NP Note: This is an individualized treatment (COPD) goal for Bhargav Castanon: Quit smoking immediately! Your provider has information and resources that may help you to quit. Glycohemoglobin A1c < 7.0 Diabetes 8.6 (07/26/2019 8:20 Ekaterina Valderrama NP AM EST) Note: This is an individualized treatment (diabetes control, HgbA1C) goal for Bhargav Castanon: Displayed above is your progress towards your HgbA1C goal. Your goal is shown above (on the left); your most recent HgbA1C is shown on the right. Note that lower numbers are better. Weight loss vs. 18 mo Lifestyle 2.8 (07/30/2019 1:33 PM Ekaterina Valderrama NP max (lbs) >= 10 EST) Note: This is an individualized lifestyle goal for Bhargav Castanon: Your body mass index (BMI) is more than 30. You should lose weight. A reasonable starting goal is to lose 10 pounds. Displayed above is how many pounds you have lost thus far towards your 10 pound weight loss goal. Keep immunizations current Lifestyle Ekaterina Valderrama NP Note: This is an individualized lifestyle goal for Bhargav Castanon: Please be sure to keep up-to-date on recommended immunizations. For example, this would include a yearly influenza vaccine. Immunization status can be seen by looking at the Health Maintenance sections of your [facility], Plan of Care, and any After Visit Summaries. Take all prescribed medications as Self-management Ekaterina Valderrama NP directed Note: This is an individualized self-management goal for Bhargav Castanon: Please take all prescribed medications as directed. 1. Do not skip doses. If you cannot afford your medications, talk with your doctor. 2. Use a pill reminder system such as a pill box if needed. Your pharmacist can help you with this. 3. Contact your Pharmacy 5 days before your medication runs out. If you cannot take your medications for any reasons, talk with your doctor. 4. Please bring all of your medication bottles and inhalers (or a list of all your medications/inhalers) with you to every visit. Potential barriers to meeting all of your care plan goals will continue to be addressed on an ongoing basis. documented as of this encounter Results Not on filedocumented in this encounter Visit Diagnoses Diagnosis JODIE (obstructive sleep apnea) - Primary Obstructive sleep apnea (adult) (pediatric) Type 2 diabetes mellitus with other circulatory complication, without long-term current use of insulin (HCC) Chronic obstructive pulmonary disease, unspecified COPD type (HCC) Essential hypertension Unspecified essential hypertension Dyslipidemia Other and unspecified hyperlipidemia Diabetic ulcer of right heel associated with type 2 diabetes mellitus, unspecified ulcer stage (HCC) documented in this encounter
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
[2019-09-27 15:36] LABS: ABS Basophils 0.1 10^3/ul (0-0.2); ABS Eosinophils 0.1 10^3/ul (0-0.6); ABS Lymphocytes 2.1 10^3/ul (1.0-4.8); ABS Monocytes 0.8 10^3/ul (0-0.8); ABS Neutrophils 8.9 10^3/ul (1.5-7.7); Eosinophil % 1.2 %; Hematocrit 47 % (42-52); Hemoglobin 15.9 g/dL (14.0-18.0); Lymphocyte % 17.3 %; Mean Corpuscular HGB Conc 34 g/dL (31-36); Mean Corpuscular Hemoglobin 30 pg (27-31); Mean Corpuscular Volume 88 fL (80-94); Mean Platelet Volume 8.7 fL (7.4-10.4); Platelet Count 237 10^3/uL (150-450); Red Blood Count 5.38 10^6 /uL (4.18-5.48); Red Cell Distribution Width 15 % (10-15)
[2019-09-27 16:13] LABS: ALT 17 U/L (7-52); AST 15 U/L (13-39); Albumin 4.1 g/dL (3.2-5.2); Albumin/Globulin Ratio 1.2 (1-3); Alkaline Phosphatase 78 U/L (34-104); Anion Gap 8 mmol/L (2-11); BUN/Creatinine Ratio 13.3 (8-20); Blood Urea Nitrogen 10 mg/dL (6-24); CO2 Carbon Dioxide 24 mmol/L (22-32); Calcium 8.9 mg/dL (8.6-10.3); Chloride 103 mmol/L (101-111); EGFR African American 135.7 (>60); EGFR Non-African American 112.1 (>60); Globulin 3.4 g/dL (2-4); Glucose 194 mg/dL (70-100); Potassium 3.7 mmol/L (3.5-5.0); Sodium 135 mmol/L (135-145); Total Protein 7.5 g/dL (6.4-8.9)
[2019-09-27] MEDS ORDERED: Acetaminophen TAB* 325 MG PO ONE (16:17)
[2019-09-27 16:28] LABS: Acetaminophen < 15 mcg/mL; Alcohol < 10 mg/dL (<10); Salicylate < 2.50 mg/dL (<30)
[2019-09-27 16:36] LABS: TSH (Thyroid Stimulating Horm) 1.09 mcIU/mL (0.34-5.60)
[2019-09-27 16:37] LABS: Urine Appearance Cloudy; Urine Bilirubin Negative (Negative); Urine Blood Negative (Negative); Urine Color Yellow; Urine Glucose 1+(50 mg/dL) (Negative); Urine Ketones Negative (Negative); Urine Nitrite Negative (Negative); Urine Protein 2+(100 mg/dL) (Negative); Urine Specific Gravity 1.023 (1.010-1.030); Urine Urobilinogen Negative (Negative)
[2019-09-27 16:40] LABS: Urine Bacteria 1+ (Absent); Urine Red Blood Cell 1+(3-5/hpf) (Absent); Urine Squamous Epithelial Cell Present (Absent); Urine White Blood Cell 2+(11-20/hpf) (Absent)
[2019-09-27] MEDS ORDERED: Acetaminophen TAB* 325 MG PO PRN (16:42)
[2019-09-27] MEDS ORDERED: Al Hydrox/Mg Hydrox/Simet LIQ* 30 ML UDC PO PRN (16:42)
[2019-09-27] MEDS ORDERED: Albuterol HFA INHALER* 8 gm MDI INH PRN ×2 (16:43→22:00)
[2019-09-27] MEDS ORDERED: Albuterol/Ipratropium NEB.SOL* Albuterol 2.5 MG/Ipratropium 0.5 MG 3 ML INH PRN (16:43)
[2019-09-27 17:29] LABS: Urine Benzodiazepine Screen None Detected (None Detect); Urine Opiates Screen None Detected (None Detect)
[2019-09-27] MEDS: Atorvastatin* 80 MG TAB PO SCH (18:33)
[2019-09-27] MEDS ORDERED: Budesonide/Formote 160/4.5(NF) MDI INH SCH (21:00)
[2019-09-27] MEDS ORDERED: metFORMIN* 1,000 MG TAB PO SCH (21:00)
[2019-09-27] MEDS ORDERED: busPIRone TAB* 30 MG PO SCH (21:00)
[2019-09-27] MEDS: metFORMIN* 1,000 MG TAB PO SCH ×2 (22:40→22:41)
[2019-09-27] MEDS: busPIRone TAB* 30 MG PO SCH (22:41)
--- NOTE | 2019-09-27 23:38 | CONSULT ---
Subjective Date of Service: 09/27/19 Interval History: Hospitalist Consult Note 44 M PMH NIDDM c/b R foot ulcer, currently on wound vac, depression and anxiety , and s/p gastric bypass who presented for voluntary admission to the [facility] in the setting of acute SI with plan. Hospitalist asked to evaluate pt's wound vac and involve wound care. pt reports R heel ulcer has been healing well, albeit slowly and he has bee compliant with wound recommendations. he denies fever worsening foot pain or any other associated sx of uncontrolled cellultitis. His VSS and labs show mild leukocytosis and hypergly to the 190s. He is seen in the ER and is pleasant and well with no other acute medical complaints. PMH: As above PSHx: As per H&P Family Hx: As per H&P Social Hx: As per H&P Family History: Unchanged from Admission Social History: Unchanged from Admission Past Medical History: Unchanged from Admission Review of Systems - Measurements Intake and Output: Intake and Output Last 24 Hours 09/25/19 09/26/19 09/27/19 09/28/19 06:59 06:59 06:59 06:59 Weight 337 lb - Review of Systems General Comments: As per HPI Objective Active Medications: Acetaminophen (Tylenol Tab*) 650 mg PO Q4H PRN PRN Reason: for pain; or Temp >101 F Al Hydrox/Mg Hydrox/Simethicone (Maalox Plus*) 30 ml PO Q4H PRN PRN Reason: INDIGESTION Albuterol (Ventolin Hfa Inhaler*) 2 puff INH Q6H PRN PRN Reason: SHORTNESS OF BREATH Albuterol/Ipratropium (Duoneb (Albuterol 2.5 Mg/Ipratropium 0.5 Mg)) 1 neb INH Q6H PRN PRN Reason: SHORTNESS OF BREATH Atorvastatin Calcium (Lipitor*) 80 mg PO 1700 [facility] Last Admin: 09/27/19 18:33 Dose: 80 mg Buspirone HCl (Buspar Tab*) 30 mg PO BID [facility] Last Admin: 09/27/19 22:41 Dose: 30 mg Cholecalciferol (Vitamin D Tab*) 5,000 units PO DAILY [facility] Empagliflozin (Jardiance (Nf)) 10 mg PO DAILY [facility] Furosemide (Lasix Tab*) 20 mg PO DAILY [facility] Hydrochlorothiazide (Hydrodiuril Tab*) 12.5 mg PO DAILY [facility] Hydroxyzine HCl (Atarax Tab*) 50 mg PO Q6H PRN PRN Reason: anxiety Liraglutide (Victoza (Nf)) 1.8 mg SUBCUT DAILY [facility] Losartan Potassium (Cozaar Tab*) 50 mg PO DAILY [facility] Metformin HCl (Glucophage*) 1,000 mg PO BID [facility] Last Admin: 09/27/19 22:41 Dose: 1,000 mg Mometasone Furoate/Formoterol Fumar (Dulera 200/5 Mdi*) 2 puff INH BID [facility]; Protocol Nft: Ertugliflozin Pidolate [Steglatro] 15 Mg) 15 mg PO DAILY [facility] Sertraline HCl (Zoloft*) 200 mg PO DAILY [facility] Tiotropium [place] (Spiriva Respimat 2.5 Mcg) 2 puff INH DAILY [facility] Vital Signs - 8 hr 09/27/19 09/27/19 09/27/19 18:35 21:24 22:10 Temperature 98.1 F 98.0 F Pulse Rate 102 100 Respiratory 16 16 20 Rate Blood Pressure 161/90 159/87 (mmHg) O2 Sat by Pulse 97 98 Oximetry 09/27/19 23:14 Temperature 97.5 F Pulse Rate 94 Respiratory 20 Rate Blood Pressure 149/82 (mmHg) O2 Sat by Pulse 96 Oximetry Appearance: Pleasant well appearing man laying on bed Eyes: No Scleral Icterus, PERRLA Ears/Nose/Mouth/Throat: NL Teeth, Lips, Gums Neck: NL Appearance and Movements; NL JVP Respiratory: Symmetrical Chest Expansion and Respiratory Effort, Clear to Auscultation Cardiovascular: NL Sounds; No Murmurs; No JVD, RRR Abdominal: NL Sounds; No Tenderness; No Distention Lymphatic: No Cervical Adenopathy Extremities: - - R foot wrapped with wound vac attatched, LLE with chronic venous stasis Skin: No Rash or Ulcers Neurological: Alert and Oriented x 3 Result Diagrams: 09/27/19 15:29 09/27/19 15:29 Assessment/Plan - Billing 44 M PMH NIDDM c/b R foot ulcer, currently on wound vac, depression and anxiety , and s/p gastric bypass who presented for voluntary admission to the [facility] in the setting of acute SI with plan. Hospitalist asked to evaluate pt's wound vac and involve wound care. pt reports R heel ulcer has been healing well, albeit slowly and he has bee compliant with wound recommendations. he denies fever worsening foot pain or any other associated sx of uncontrolled cellultitis. 1. R foot DM Ulcer: Wound Care Consult in place, keep current dressing in place until recommendations are put forth -Order for wound vac to be on and continued is placed. 2. NIDDM: On Metformin, of note, on med rec pt is listed to be on both Jardiance and Steglator-this is inappropriate to be on 2 meds of the same class and there is no indication for this, I suspect it is actually an error in med rec, I have placed the order to stop Steglaro -Victoza and metformin can be continued as pharmacy allows -Pt is appropriately optimized on BP meds ARB, and statin -No indication for daily blood glu at this time as he is not insulin dependent 3. Chronic Venous Stasis: Can continue Lasix 4. HTN On Lasix and HCTZ and [place] -If SBP sustained > 130 over 4 seperate readings, please increase the Losartan from 50mg to 100mg 5. Anxiety and depression: Per psych recommendations DVT PPX: NA, ambulatory Thanks for this consult, we will sign off for now but don't hesitate to re contact us if help is needed. Anticipate wound care to leave recs in the next 24 -48 hours.
[2019-09-28] MEDS ORDERED: ERTUGLIFLOZIN PIDOLATE 15 MG PO SCH ×2 (09:00)
[2019-09-28] MEDS ORDERED: Liraglutide (NF) 18 MG/3 ML SUBCUT SCH (09:00)
[2019-09-28] MEDS ORDERED: LOSARTAN PO SCH (09:00)
[2019-09-28] MEDS ORDERED: HYDROCHLOROTHIAZIDE PO SCH (09:00)
[2019-09-28] MEDS ORDERED: Cholecalciferol TAB* 1000 UNITS PO SCH (09:00)
[2019-09-28] MEDS ORDERED: Empaglifozin (NF) 10 MG TABLET PO SCH (09:00)
[2019-09-28] MEDS: Losartan TAB* 25 MG PO SCH (09:43)
[2019-09-28] MEDS: metFORMIN* 1,000 MG TAB PO SCH ×2 (09:44→21:27)
[2019-09-28] MEDS: Cholecalciferol TAB* 1000 UNITS PO SCH (09:44)
[2019-09-28] MEDS: Sertraline* 100 MG TAB PO SCH (09:45)
[2019-09-28] MEDS: busPIRone TAB* 30 MG PO SCH ×2 (09:45→21:26)
[2019-09-28] MEDS: SPIRIVA Respimat* (tiotropium) 2.5 mcg/inh Inhaler INH SCH (09:47)
[2019-09-28] MEDS: Hydrochlorothiazide TAB* 25 MG PO SCH (09:48)
[2019-09-28] MEDS: Mometasone/Formoter 200/5 MDI INH SCH ×2 (09:48→21:28)
[2019-09-28] MEDS: Empaglifozin (NF) 10 MG TABLET PO SCH (09:53)
[2019-09-28] MEDS: PTO - Liraglutide (NF) 18 MG/3 ML SUBCUT SCH (09:53)
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
[2019-09-28] MEDS: Furosemide TAB* 20 MG PO SCH (10:43)
[2019-09-28] MEDS: Venlafaxine EXT RELEASE CAP* 75 MG PO SCH (12:22)
[2019-09-28] MEDS: Pregabalin 50 mg CAP (*) PO SCH ×2 (15:20→21:27)
[2019-09-28] MEDS: Atorvastatin* 80 MG TAB PO SCH (17:33)
--- NOTE | 2019-09-28 18:07 | CONSULT ---
Subjective Date of Service: 09/28/19 Interval History: Mr. Dean is a 44 yo male with PMH significant for chronic right foot ulcers, depression, anxiety, s/p gastric bypass, morbid obesity, venous stasis, DM2, sleep apnea, COPD, and HTN; who presented to the hospital with reports of SI in the setting of depression and chronic foot wounds. He was admitted to the Behavioral Services Unit. He presented to the hospital with a known chronic right heel ulcer. He states that this wound has been present for about 8 months. He has been following with Dr. Huitron (Podiatry) for this. He has been using a wound vac for 7 weeks with plans for about 4 more weeks. He also has a chronic wound to the midfoot that was initially being treated with Regranex, but now being treated with Medihoney gel. He reports that the midfoot wound is improving since switching to Medihoney. Patient seen and examined at bedside. Verbal consent obtained for wound consultation and photography. Family History: Unchanged from Admission Social History: Unchanged from Admission Past Medical History: Unchanged from Admission Review of Systems - Measurements Intake and Output: Intake and Output Last 24 Hours 09/26/19 09/27/19 09/28/19 09/29/19 06:59 06:59 06:59 06:59 Weight 337 lb - Review of Systems Constitutional Symptoms: Negative: Fever, Other Dermatology: Positive: Other - Ulcers to left foot Endocrinology: Positive: Obesity, Diabetes Mellitus Objective Active Medications: Acetaminophen (Tylenol Tab*) 650 mg PO Q4H PRN Reason: for pain; or Temp >101 F Al Hydrox/Mg Hydrox/Simethicone (Maalox Plus*) 30 ml PO Q4H PRN Reason: INDIGESTION Albuterol (Ventolin Hfa Inhaler*) 2 puff INH Q6H PRN Reason: SHORTNESS OF BREATH Albuterol/Ipratropium (Duoneb (Albuterol 2.5 Mg/Ipratropium 0.5 Mg)) 1 neb INH Q6H PRN Reason: SHORTNESS OF BREATH Atorvastatin Calcium (Lipitor*) 80 mg PO 1700 [facility] Buspirone HCl (Buspar Tab*) 30 mg PO BID [facility] Cholecalciferol (Vitamin D Tab*) 5,000 units PO DAILY [facility] Empagliflozin (Jardiance (Nf)) 10 mg PO DAILY [facility] Furosemide (Lasix Tab*) 20 mg PO DAILY [facility] Hydrochlorothiazide (Hydrodiuril Tab*) 12.5 mg PO DAILY [facility] Hydroxyzine HCl (Atarax Tab*) 50 mg PO Q6H PRN Reason: anxiety Liraglutide (Victoza (Nf)) 1.8 mg SUBCUT DAILY [facility] Losartan Potassium (Cozaar Tab*) 50 mg PO DAILY [facility] Metformin HCl (Glucophage*) 1,000 mg PO BID [facility] Mometasone Furoate/Formoterol Fumar (Dulera 200/5 Mdi*) 2 puff INH BID [facility]; Protocol Pregabalin (Lyrica 50 Mg Cap (*)) 150 mg PO TID [facility] Sertraline HCl (Zoloft*) 200 mg PO DAILY [facility] Tiotropium [place] (Spiriva Respimat 2.5 Mcg) 2 puff INH DAILY [facility] Venlafaxine HCl (Effexor Xr Cap*) 75 mg PO DAILY [facility] Vital Signs - 8 hr 09/28/19 09/28/19 09/28/19 13:19 15:20 17:32 Temperature 97.8 F Pulse Rate 116 Respiratory 18 16 18 Rate Blood Pressure 159/83 (mmHg) O2 Sat by Pulse 97 Oximetry Appearance: NAD, sitting up on the side of the bed Ears/Nose/Mouth/Throat: Mucous Membranes Moist Respiratory: Symmetrical Chest Expansion and Respiratory Effort Extremities: No Edema, - - + DP pulse on the right Skin: - - See skin note below Neurological: Alert and Oriented x 3 Nutrition: Taking PO's Result Diagrams: 09/27/19 15:29 09/27/19 15:29 Additional Lab and Data: Laboratory Tests 09/27/19 09/27/19 15:29 15:29 Total Protein 7.5 Albumin 4.1 Microbiology and Other Data: Microbiology 07/15/19 13:52 Foot Right Gram Stain - Final 07/15/19 13:52 Foot Right Wound Culture - Final Pseudomonas Aeruginosa Strep Dysgalactiae (Grp C) 01/06/19 12:11 Foot Right Skin and Soft Tissue MRSA/MSSA (PCR - Final 01/06/19 12:11 Foot Right Wound Culture - Final Mrsa Negative S.aureus Positive Enterococcus Faecalis Pasteurella Multocida Normal Alanis Staphylococcus Aureus Diagnostic Imagin. Exam Date: 07/16/19 - MRI LOWER EXTREMITY RIGHT W/WO IMPRESSION: #. Soft tissue ulcer at the lateral plantar aspect of the heel with associated soft tissue inflammatory change without soft tissue plane abscess. #. No evidence for osteomyelitis. 2. Exam Date: 09/18/18 - VL ANK/BRACHIAL INDICES Ankle-brachial index on the right 1.77. Ankle-brachial index on the left is 1.1. Doppler interrogation demonstrates triphasic waveform throughout the dorsalis pedis and posterior tibial arteries bilaterally. Plethysmography demonstrates sharp upstroke and adequate amplitudes. IMPRESSION: Normal ankle-brachial indices. Skin Deviation Note - Skin Deviation Findings Right plantar foot - There are 2 ulcers present on the plantar aspect of the foot. The ulcer on the midfoot, measures 1 cm x 0.8 cm x 0.6 cm. The wound base is 100% dark red granulation tissue. The surrounding skin is intact and calloused. No erythema. There is scant serous drainage present. The ulcer on the heel, measures 2.3 cm x 2.1 cm x 1.3 cm. The wound base is 100% dark red granulation tissue. The immediate periwound is macerated. The surrounding skin is calloused and the total area involved measures 3.7 cm x 3.2 cm. There is scan serous drainage. Wound Problem/Plan Assessment: Mr. Dean is a 44 yo male with PMH significant for chronic right foot ulcers, depression, anxiety, s/p gastric bypass, morbid obesity, venous stasis, DM2, sleep apnea, COPD, and HTN; who presented to the hospital with reports of SI in the setting of depression and chronic foot wounds. He presented to the hospital with a known chronic right heel and midfoot ulcers. 1. Right foot, chronic non-pressure ulcers. Suspect these are multifactorial ( Charcot foot and neuropathic). Normal ABIs 1 year ago in 09/2018. MRI in July 2019 with no signs of osteomyelitis. NO signs of infection at this time. Recommend washing the foot with soap and water on day of dressing changes (can shower prior to dressing changes). Continue wound vac to heel, set at 125 mmHg. Dressing change dressing every Friday, Friday, and Friday. This week the dressing will be changed on Friday, then resume regular schedule. Midfoot ulcer - Apply medihoney gel, followed by non-adherent dressing (i.e. Telfa), can use rolled gauze or tape to hold in place, change daily or as needed for soiling. Continue following with Podiatry outpatient, consider referral to wound clinic at discharge. He may also benefit from an orthopedic consult in the setting of Charcot foot. 2. DM2. No HgA1C in our system, could consider adding on here or have PCP follow -up outpatient. Maintain good glycemic control to allow for wound healing. 3. Morbid obesity with sleep apnea. BMI ~ 41. 4. Nutrition. Recommend meeting nutrition requirements to assist with wound healing (Protein 1.2-1.5 grams/kg per day and Calories 30-35 kcal/kg per day). Regular diet with limited caffeine. 5. Code Status. Full Code Status. 6. Disposition. Inpatient, disposition per primary team. TIME SPENT: Time for this wound consultation was 60 minutes and 45 minutes was spent with the patient discussing past medical history; removing the old dressing; assessing, measuring, and photographing the wounds; and replacing the wound vac and midfoot dressing. Is Patient a Wound Clinic Patient: No Attending: Keya Valenzuela
[2019-09-29] MEDS: Venlafaxine EXT RELEASE CAP* 75 MG PO SCH (08:51)
[2019-09-29] MEDS: busPIRone TAB* 30 MG PO SCH ×2 (08:51→20:48)
[2019-09-29] MEDS: Losartan TAB* 25 MG PO SCH (08:52)
[2019-09-29] MEDS: Hydrochlorothiazide TAB* 25 MG PO SCH (08:53)
[2019-09-29] MEDS: metFORMIN* 1,000 MG TAB PO SCH ×2 (08:54→20:49)
[2019-09-29] MEDS: Cholecalciferol TAB* 1000 UNITS PO SCH (08:54)
[2019-09-29] MEDS: Sertraline* 100 MG TAB PO SCH (08:55)
[2019-09-29] MEDS: Pregabalin 50 mg CAP (*) PO SCH ×3 (08:55→20:51)
[2019-09-29] MEDS: Mometasone/Formoter 200/5 MDI INH SCH ×2 (08:56→20:52)
[2019-09-29] MEDS: Furosemide TAB* 20 MG PO SCH (08:57)
[2019-09-29] MEDS: SPIRIVA Respimat* (tiotropium) 2.5 mcg/inh Inhaler INH SCH (08:57)
[2019-09-29] MEDS: Empaglifozin (NF) 10 MG TABLET PO SCH (08:57)
[2019-09-29] MEDS: PTO - Liraglutide (NF) 18 MG/3 ML SUBCUT SCH (08:59)
--- NOTE | 2019-09-29 09:57 | PN ---
Subjective - Subjective Date of Service: 09/29/19 Service Type: 17405 Hosp care 35 min high complexity Subjective: Nursing Report: Patient was visible on unit, no behavioral incidents. Slept overnight. He is attending group activities. CC: " I want to get through this" Patient was seen and evaluated in the common room. The patient is sad that his wants to leave him. He reported he feels that she was everything to him. Patient reported feeling less anxious today. He reported having adequate sleep. The patient reports attending and participating in day groups. Per nursing no behavioral issues or overnight events reported. Patient reported that he is tolerating medications without side effects. Patient expressed it is hard to ask for help, his brought his wound vac candy starch mold printer and told him not to contact her. Objective - General Observations Appearance: Neat Appears Stated Age: Yes Stature: Overweight Posture: Slumped Eye Contact: Average Behavior/Activity: Slowed - Interaction Observations Attitude Towards Examiner: Anxious Stated Mood: Dysphoric Affect: Restricted Speech Pattern/Tone: Appropriate Thought Process: Goal Directed Perception: WNL Thought Content: Self-Deprecatory Thought Process: Lethality: Passive Wish Hallucination Type: Denies Delusion Type: Denies - Cognitive Function Orientation: A&O x 4 Level of Consciousness: Awake - Medication Compliance Cooperative with Inpatient Medication Regimen: Yes - Group Participation Participates in Group Activities: Yes Assessment - Assessment Merits Inpatient Hospitalization: For Immediate Safety Clinical Impression: 44 year old male with history of depression came to the hospital with suicidal ideation and plan to cut his wrist with a knife and was admitted to the [facility] at [facility]. Plan - Plan Treatment Plan: Name: LEONEL CASTANON Birthdate: 1975 [id number] #Constant observation. # The patient requires psychiatric inpatient admission at this time to assure safety, receive treatment and work toward stabilization. # Right foot diabetic foot ulcer - Wound care consulted and appreciate recommendations # Obtain collateral information once release is signed. # Collaboration with Social Work, patients claims he is unable to return home. # Continue to Monitor Vital signs # Continue Effexor 75mg daily blood pressure doesnt seem to be increasing as a result of starting medication. #Decrease zoloft to 150mg daily with plan to taper down Tobacco use disorder: nicotine supplement offered and put in place. #Goals before discharge include: To eliminate/ reduce suicidal ideation Tentative Discharge: Pending psychiatric stabilization Vital Signs Temp Pulse Resp BP Pulse Ox 97.6 F 88 16 148/73 98 09/29/19 08:13 09/29/19 08:13 09/29/19 08:55 09/29/19 08:13 09/29/19 08:13 Continued Medication Management: Continue Outpt Medication Medications: Current Medications Acetaminophen (Tylenol Tab*) 650 mg PO Q4H PRN PRN Reason: for pain; or Temp >101 F Al Hydrox/Mg Hydrox/Simethicone (Maalox Plus*) 30 ml PO Q4H PRN PRN Reason: INDIGESTION Albuterol (Ventolin Hfa Inhaler*) 2 puff INH Q6H PRN PRN Reason: SHORTNESS OF BREATH Albuterol/Ipratropium (Duoneb (Albuterol 2.5 Mg/Ipratropium 0.5 Mg)) 1 neb INH Q6H PRN PRN Reason: SHORTNESS OF BREATH Atorvastatin Calcium (Lipitor*) 80 mg PO 1700 [facility] Last Admin: 09/28/19 17:33 Dose: 80 mg Buspirone HCl (Buspar Tab*) 30 mg PO BID [facility] Last Admin: 09/29/19 08:51 Dose: 30 mg Cholecalciferol (Vitamin D Tab*) 5,000 units PO DAILY [facility] Last Admin: 09/29/19 08:54 Dose: 5,000 units Empagliflozin (Jardiance (Nf)) 10 mg PO DAILY [facility] Last Admin: 09/29/19 08:57 Dose: Not Given Furosemide (Lasix Tab*) 20 mg PO DAILY [facility] Last Admin: 09/29/19 08:57 Dose: 20 mg Hydrochlorothiazide (Hydrodiuril Tab*) 12.5 mg PO DAILY [facility] Last Admin: 09/29/19 08:53 Dose: 12.5 mg Hydroxyzine HCl (Atarax Tab*) 50 mg PO Q6H PRN PRN Reason: anxiety Liraglutide (Victoza (Nf)) 1.8 mg SUBCUT DAILY [facility] Last Admin: 09/29/19 08:59 Dose: 1.8 mg Losartan Potassium (Cozaar Tab*) 50 mg PO DAILY [facility] Last Admin: 09/29/19 08:52 Dose: 50 mg Metformin HCl (Glucophage*) 1,000 mg PO BID [facility] Last Admin: 09/29/19 08:54 Dose: 1,000 mg Mometasone Furoate/Formoterol Fumar (Dulera 200/5 Mdi*) 2 puff INH BID [facility]; Protocol Last Admin: 09/29/19 08:56 Dose: 2 puff Pregabalin (Lyrica 50 Mg Cap (*)) 150 mg PO TID [facility] Last Admin: 09/29/19 08:55 Dose: 150 mg Sertraline HCl (Zoloft*) 200 mg PO DAILY [facility] Last Admin: 09/29/19 08:55 Dose: 200 mg Tiotropium [place] (Spiriva Respimat 2.5 Mcg) 2 puff INH DAILY [facility] Last Admin: 09/29/19 08:57 Dose: 2 puff Venlafaxine HCl (Effexor Xr Cap*) 75 mg PO DAILY [facility] Last Admin: 09/29/19 08:51 Dose: 75 mg - Discharge Plan Discharge Plan: Inpatient Hospitalization
[2019-09-29] MEDS: Nicotine PATCH 14 MG/24 HR* PATCH TRANSDERM SCH (15:31)
[2019-09-29] MEDS: Atorvastatin* 80 MG TAB PO SCH (17:45)
[2019-09-30] MEDS: Nicotine Patch Removal NOTE PATCH OFF SCH (06:09)
[2019-09-30] MEDS: PTO - Liraglutide (NF) 18 MG/3 ML SUBCUT SCH (07:46)
[2019-09-30] MEDS: Hydrochlorothiazide TAB* 25 MG PO SCH (07:48)
[2019-09-30] MEDS: metFORMIN* 1,000 MG TAB PO SCH ×2 (07:50→20:36)
[2019-09-30] MEDS: Cholecalciferol TAB* 1000 UNITS PO SCH (07:50)
[2019-09-30] MEDS: Venlafaxine EXT RELEASE CAP* 75 MG PO SCH (07:51)
[2019-09-30] MEDS: Losartan TAB* 25 MG PO SCH (07:51)
[2019-09-30] MEDS: busPIRone TAB* 30 MG PO SCH ×2 (07:51→20:35)
[2019-09-30] MEDS: Furosemide TAB* 20 MG PO SCH (07:52)
[2019-09-30] MEDS: Empaglifozin (NF) 10 MG TABLET PO SCH (07:53)
[2019-09-30] MEDS: SPIRIVA Respimat* (tiotropium) 2.5 mcg/inh Inhaler INH SCH (07:54)
[2019-09-30] MEDS: Mometasone/Formoter 200/5 MDI INH SCH ×2 (07:55→20:39)
[2019-09-30] MEDS: Sertraline* 100 MG TAB PO SCH (07:56)
[2019-09-30] MEDS ORDERED: Sertraline* 100 MG TAB PO SCH (09:00)
[2019-09-30] MEDS: Pregabalin 50 mg CAP (*) PO SCH ×3 (09:00→20:37)
[2019-09-30] MEDS ORDERED: Venlafaxine EXT RELEASE CAP* 75 MG PO SCH (09:00)
[2019-09-30] MEDS ORDERED: Venlafaxine EXT RELEASE CAP* 37.5 MG PO SCH (09:00)
--- NOTE | 2019-09-30 09:02 | PN ---
Subjective - Subjective Date of Service: 09/30/19 Service Type: 08012 Hosp care 35 min high complexity Subjective: Nursing Report: Patient was visible on unit, no behavioral incidents. Slept overnight. He is attending group activities. CC: "I received a protection order from my " Patient was seen and evaluated in the common room. The patient reported he feels suicidal and is thinking about putting his head through the window. Patient said that his support includes his Niece and that he can stay with her. He has questions about his diabetic foot ulcer and the possibility of a skin flap. He reported having adequate appetite and sleep. The patient reports attending and participating in day groups. Per nursing no behavioral issues or overnight events reported. Patient reported that he is tolerating medications without side effects. Patient reported that zoloft is not working, he said I have stopped taking it for several days and did not notice a difference. He mentions a decreased level of anxiety. Objective - General Observations Appearance: Neat Appears Stated Age: Yes Stature: WNL Posture: Slumped Eye Contact: Avoidant Behavior/Activity: Slowed - Interaction Observations Attitude Towards Examiner: Cooperative Stated Mood: Dysphoric Affect: Restricted Speech Pattern/Tone: Appropriate Thought Process: Coherent Perception: WNL Thought Content: Self-Deprecatory Thought Process: Lethality: Suicidal Planning Hallucination Type: None Delusion Type: None - Cognitive Function Orientation: A&O x 4 Level of Consciousness: Awake - Medication Compliance Cooperative with Inpatient Medication Regimen: Yes - Group Participation Participates in Group Activities: Yes Assessment - Assessment Merits Inpatient Hospitalization: For Immediate Safety Clinical Impression: 44 year old male with history of depression came to the hospital with suicidal ideation and plan to cut his wrist with a knife and was admitted to the B[facility] at [facility]. Plan - Plan Treatment Plan: Name: LEONEL CASTANON Birthdate: 1975 [id number] #Continue constant observation. # The patient requires psychiatric inpatient admission at this time to assure safety, receive treatment and work toward stabilization. # Right foot diabetic foot ulcer - Wound care contacted today and plan to follow up with the patient. # Obtain collateral information once release is signed. # Collaboration with Social Work, # Patient received protection order from his , # Plans to live with Niece upon discharge # Continue to Monitor Vital signs # Increase Effexor 112.5 mg daily - Vital signs show so far no effect on increasing blood pressure. #Decrease zoloft to 100mg daily with plan to taper down Tobacco use disorder: nicotine supplement offered and put in place. #Goals before discharge include: To eliminate/ reduce suicidal ideation Tentative Discharge: Pending psychiatric stabilization Vital Signs Temp Pulse Resp BP Pulse Ox 97.9 F 83 16 128/78 98 09/30/19 07:45 09/30/19 07:45 09/30/19 07:45 09/30/19 07:45 09/30/19 07:45 Continued Medication Management: Continue Outpt Medication Medications: Current Medications Acetaminophen (Tylenol Tab*) 650 mg PO Q4H PRN PRN Reason: for pain; or Temp >101 F Al Hydrox/Mg Hydrox/Simethicone (Maalox Plus*) 30 ml PO Q4H PRN PRN Reason: INDIGESTION Albuterol (Ventolin Hfa Inhaler*) 2 puff INH Q6H PRN PRN Reason: SHORTNESS OF BREATH Albuterol/Ipratropium (Duoneb (Albuterol 2.5 Mg/Ipratropium 0.5 Mg)) 1 neb INH Q6H PRN PRN Reason: SHORTNESS OF BREATH Atorvastatin Calcium (Lipitor*) 80 mg PO 1700 [facility] Last Admin: 09/29/19 17:45 Dose: 80 mg Buspirone HCl (Buspar Tab*) 30 mg PO BID [facility] Last Admin: 09/30/19 07:51 Dose: 30 mg Cholecalciferol (Vitamin D Tab*) 5,000 units PO DAILY [facility] Last Admin: 09/30/19 07:50 Dose: 5,000 units Empagliflozin (Jardiance (Nf)) 10 mg PO DAILY [facility] Last Admin: 09/30/19 07:53 Dose: Not Given Furosemide (Lasix Tab*) 20 mg PO DAILY [facility] Last Admin: 09/30/19 07:52 Dose: 20 mg Hydrochlorothiazide (Hydrodiuril Tab*) 12.5 mg PO DAILY [facility] Last Admin: 09/30/19 07:48 Dose: 12.5 mg Hydroxyzine HCl (Atarax Tab*) 50 mg PO Q6H PRN PRN Reason: anxiety Liraglutide (Victoza (Nf)) 1.8 mg SUBCUT DAILY [facility] Last Admin: 09/30/19 07:46 Dose: 1.8 mg Losartan Potassium (Cozaar Tab*) 50 mg PO DAILY [facility] Last Admin: 09/30/19 07:51 Dose: 50 mg Metformin HCl (Glucophage*) 1,000 mg PO BID [facility] Last Admin: 09/30/19 07:50 Dose: 1,000 mg Mometasone Furoate/Formoterol Fumar (Dulera 200/5 Mdi*) 2 puff INH BID [facility]; Protocol Last Admin: 09/30/19 07:55 Dose: 2 puff Nicotine (Nicotine Patch 14 Mg/24 Hr*) 1 patch TRANSDERM DAILY [facility] Last Admin: 09/29/19 15:31 Dose: 1 patch Pharmacy Profile Note (Nicotine Patch Removal Note*) 1 note PATCH OFF 0600 [facility] Last Admin: 09/30/19 06:09 Dose: 1 note Pregabalin (Lyrica 50 Mg Cap (*)) 150 mg PO TID [facility] Last Admin: 09/29/19 20:51 Dose: 150 mg Sertraline HCl (Zoloft*) 150 mg PO DAILY [facility] Last Admin: 09/30/19 07:56 Dose: 150 mg Tiotropium [place] (Spiriva Respimat 2.5 Mcg) 2 puff INH DAILY [facility] Last Admin: 09/30/19 07:54 Dose: 2 puff Venlafaxine HCl (Effexor Xr Cap*) 75 mg PO DAILY [facility] Last Admin: 09/30/19 08:57 Dose: Not Given Venlafaxine HCl (Effexor Xr Cap*) 37.5 mg PO DAILY [facility] - Discharge Plan Discharge Plan: Inpatient Hospitalization
[2019-09-30] MEDS: Nicotine PATCH 14 MG/24 HR* PATCH TRANSDERM SCH (12:25)
[2019-09-30] MEDS: Atorvastatin* 80 MG TAB PO SCH (17:02)
[2019-09-30] MEDS ORDERED: Pantoprazole TAB * 40 MG TAB ONE (18:36)
[2019-09-30] MEDS: Pantoprazole TAB * 40 MG TAB PO SCH (22:12)
[2019-10-01] MEDS: Nicotine PATCH 14 MG/24 HR* PATCH TRANSDERM SCH (07:36)
[2019-10-01] MEDS: Cholecalciferol TAB* 1000 UNITS PO SCH (08:54)
[2019-10-01] MEDS: Hydrochlorothiazide TAB* 25 MG PO SCH (08:55)
--- NOTE | 2019-10-01 08:55 | PN ---
Subjective - Subjective Date of Service: 10/01/19 Service Type: 14557 Hosp care 35 min high complexity Subjective: Nursing Report: Patient was visible on unit, no behavioral incidents. He is attending group activities. CC: "My roommate woke me up" Patient reported that his roommate woke him up playing a game and he did not get good sleep because of it. He spoke to his niece who he plans to stay with upon discharge. He expressed that he knows he will get through his leaving him. He was hoping to get foot surgery while he was in the hospital but the executive relations specialist recommended that he have it done in the outpatient setting. Patient was seen and evaluated in the common room. He reported having adequate appetite. The patient reports attending and participating in day groups. Per nursing no behavioral issues or overnight events reported. Patient reported that he is tolerating medications without side effects. Objective - General Observations Appearance: Disheveled Appears Stated Age: Yes Stature: WNL Posture: Slumped Eye Contact: Average Behavior/Activity: WNL - Interaction Observations Attitude Towards Examiner: Cooperative Stated Mood: Dysphoric Affect: Restricted Speech Pattern/Tone: Appropriate Thought Process: Coherent Perception: WNL Thought Content: Self-Deprecatory Hallucination Type: None Delusion Type: None - Cognitive Function Orientation: A&O x 4 Level of Consciousness: Awake - Medication Compliance Cooperative with Inpatient Medication Regimen: Yes - Group Participation Participates in Group Activities: Yes Assessment - Assessment Merits Inpatient Hospitalization: For Immediate Safety Clinical Impression: 44 year old male with history of depression came to the hospital with suicidal ideation and plan to cut his wrist with a knife and was admitted to the BSU at [facility]. Plan - Plan Treatment Plan: Name: LEONEL CASTANON Birthdate: 1975 [id number] #Continue constant observation while patient is in his room due to wound vac equipment. # The patient requires psychiatric inpatient admission at this time to assure safety, receive treatment and work toward stabilization. # Right foot diabetic foot ulcer - Wound care followed up yesterday and answered patients questions # Obtain collateral information once release is signed. # Collaboration with Social Work # Patient received protection order from his # Plans to live with Niece upon discharge # Will follow up with PCP and [facility] # Continue to Monitor Vital signs # Increase Effexor 150 mg daily - Vital signs show so far no effect on increasing blood pressure. #Decrease zoloft to 50mg daily with plan to taper off Tobacco use disorder: nicotine supplement offered and put in place. #Goals before discharge include: To eliminate/ reduce suicidal ideation Tentative Discharge: Friday Vital Signs Temp Pulse Resp BP Pulse Ox 97.8 F 81 16 128/66 98 10/01/19 08:00 10/01/19 08:00 10/01/19 10:34 10/01/19 08:00 10/01/19 08:00 Continued Medication Management: Continue Outpt Medication Medications: Current Medications Acetaminophen (Tylenol Tab*) 650 mg PO Q4H PRN PRN Reason: for pain; or Temp >101 F Al Hydrox/Mg Hydrox/Simethicone (Maalox Plus*) 30 ml PO Q4H PRN PRN Reason: INDIGESTION Albuterol (Ventolin Hfa Inhaler*) 2 puff INH Q6H PRN PRN Reason: SHORTNESS OF BREATH Albuterol/Ipratropium (Duoneb (Albuterol 2.5 Mg/Ipratropium 0.5 Mg)) 1 neb INH Q6H PRN PRN Reason: SHORTNESS OF BREATH Atorvastatin Calcium (Lipitor*) 80 mg PO 1700 [facility] Last Admin: 09/30/19 17:02 Dose: 80 mg Buspirone HCl (Buspar Tab*) 30 mg PO BID [facility] Last Admin: 09/30/19 20:35 Dose: 30 mg Cholecalciferol (Vitamin D Tab*) 5,000 units PO DAILY [facility] Last Admin: 09/30/19 07:50 Dose: 5,000 units Empagliflozin (Jardiance (Nf)) 10 mg PO DAILY [facility] Last Admin: 09/30/19 07:53 Dose: Not Given Furosemide (Lasix Tab*) 20 mg PO DAILY [facility] Last Admin: 09/30/19 07:52 Dose: 20 mg Hydrochlorothiazide (Hydrodiuril Tab*) 12.5 mg PO DAILY [facility] Last Admin: 09/30/19 07:48 Dose: 12.5 mg Hydroxyzine HCl (Atarax Tab*) 50 mg PO Q6H PRN PRN Reason: anxiety Liraglutide (Victoza (Nf)) 1.8 mg SUBCUT DAILY [facility] Last Admin: 09/30/19 07:46 Dose: 1.8 mg Losartan Potassium (Cozaar Tab*) 50 mg PO DAILY [facility] Last Admin: 09/30/19 07:51 Dose: 50 mg Metformin HCl (Glucophage*) 1,000 mg PO BID [facility] Last Admin: 09/30/19 20:36 Dose: 1,000 mg Mometasone Furoate/Formoterol Fumar (Dulera 200/5 Mdi*) 2 puff INH BID [facility]; Protocol Last Admin: 09/30/19 20:39 Dose: 2 puff Nicotine (Nicotine Patch 14 Mg/24 Hr*) 1 patch TRANSDERM DAILY [facility] Last Admin: 10/01/19 07:36 Dose: 1 patch Pantoprazole Sodium (Protonix Tab*) 40 mg PO DAILY [facility] Last Admin: 09/30/19 22:12 Dose: Not Given Pharmacy Profile Note (Nicotine Patch Removal Note*) 1 note PATCH OFF 0600 [facility] Last Admin: 09/30/19 06:09 Dose: 1 note Pregabalin (Lyrica 50 Mg Cap (*)) 150 mg PO TID [facility] Last Admin: 09/30/19 20:37 Dose: 150 mg Sertraline HCl (Zoloft*) 150 mg PO DAILY [facility] Last Admin: 09/30/19 07:56 Dose: 150 mg Tiotropium [place] (Spiriva Respimat 2.5 Mcg) 2 puff INH DAILY [facility] Last Admin: 09/30/19 07:54 Dose: 2 puff Venlafaxine HCl (Effexor Xr Cap*) 75 mg PO DAILY [facility] Last Admin: 09/30/19 08:57 Dose: Not Given Venlafaxine HCl (Effexor Xr Cap*) 37.5 mg PO DAILY [facility] Last Admin: 09/30/19 08:59 Dose: 37.5 mg - Discharge Plan Discharge Plan: Inpatient Hospitalization
[2019-10-01] MEDS: busPIRone TAB* 30 MG PO SCH ×2 (08:56→20:34)
[2019-10-01] MEDS: metFORMIN* 1,000 MG TAB PO SCH ×2 (08:56→20:34)
[2019-10-01] MEDS: Pregabalin 50 mg CAP (*) PO SCH ×3 (08:57→20:35)
[2019-10-01] MEDS: Sertraline* 100 MG TAB PO SCH (08:58)
[2019-10-01] MEDS: Pantoprazole TAB * 40 MG TAB PO SCH (08:59)
[2019-10-01] MEDS ORDERED: Sertraline* 100 MG TAB PO SCH (09:00)
[2019-10-01] MEDS: SPIRIVA Respimat* (tiotropium) 2.5 mcg/inh Inhaler INH SCH (09:00)
[2019-10-01] MEDS: Losartan TAB* 25 MG PO SCH (09:00)
[2019-10-01] MEDS: Furosemide TAB* 20 MG PO SCH (09:01)
[2019-10-01] MEDS: Empaglifozin (NF) 10 MG TABLET PO SCH (09:01)
[2019-10-01] MEDS: Mometasone/Formoter 200/5 MDI INH SCH ×2 (09:01→20:37)
[2019-10-01] MEDS: PTO - Liraglutide (NF) 18 MG/3 ML SUBCUT SCH (09:04)
[2019-10-01] MEDS: Venlafaxine EXT RELEASE CAP* 75 MG PO SCH (09:08)
--- NOTE | 2019-10-01 11:23 | PN ---
BSU: Group Therapy Note - Service Type Service Type: 26608 Group Psychotherapy - Cognitive Behavioral Group Therapy ( CBT):Patient was attentive and participatory in CBT programming this morning, and remained in good behavioral control. Patient expressed positive insights regarding relevant treatment interventions and goals.
--- NOTE | 2019-10-01 17:13 | PN ---
Progress Note - Progress Note Date of Service: 10/01/19 Note: Wound Care Consult Followup: S: Pt requesting to see wound care yesterday. Pt was seen at bedside and discussed with Pt regarding his concerns about the wound not healing and possible need for a skin graft as the next option. I told him that I would call Dr. Huitron today and discuss the case with him. Called Dr. Huitron today and discussed the case with him. He has been treating the wound with a wound vac, and reports that the last time he measured the heel ulcer it was 0.5 cm deep. He states that if the patient needs to have a flap procedure he will need to be seen by plastics. He recommended wound consult while the patient was in the hospital. Patient seen at bedside and discussed Dr. Huitron's recommendations for plastics referral if the patient is interested in flap procedure. We discussed that local plastics doesn't perform flaps for wounds and that he would need to be referred out of the area. O: Wound vac changed with Wound Clinic RN. Right heel ulcer measures 1.9 cm x 1.8 cm x 1 cm. The wound base is 100% red granulation tissue. The surrounding skin is calloused. Midfoot plantar wound not visualized as DSG had already been changed today. There is no surrounding erythema or warmth. No signs of infection. A: 1. Chronic right heel neuropathic ulcer. No signs of infection. Wound vac changed today. 2. DM2 with peripheral neuropathy. Maintain good glycemic control to allow for wound healing. P: Discussed with Pt that if he is is interested in a possible flap he would need to go outside the area for a plastics consultation, he would like to go to [place]. Recommend that he followup with Dr. Huitron outpatient and he can refer the patient to plastics. We also discussed that he could get another opinion from the wound clinic or orthopedics. Consider referral to [facility] for Wound healing at discharge and/or Orthopedics. Pt would like to continue to follow with Dr. Huitron for the time being. Continue wound vac at current settings. Next dressing change due Friday10/04/19. He will likely require debridement of the periwound soon, as it appears he is starting to develop an area of epibole along the wound edge. TIME SPENT: Time for this wound consultation followup was 90 minutes, with > 50 % face to face with the patient at bedside assisting with dressing change, and discussing recommendations with the patient.
[2019-10-01] MEDS: Nicotine Patch Removal NOTE PATCH OFF SCH (18:03)
[2019-10-01] MEDS: Atorvastatin* 80 MG TAB PO SCH (18:04)
[2019-10-02] MEDS: Nicotine Patch Removal NOTE PATCH OFF SCH (08:17)
[2019-10-02] MEDS: Mometasone/Formoter 200/5 MDI INH SCH ×2 (08:18→20:17)
[2019-10-02] MEDS: SPIRIVA Respimat* (tiotropium) 2.5 mcg/inh Inhaler INH SCH (08:19)
[2019-10-02] MEDS: Sertraline* 50 MG TAB PO SCH (08:20)
[2019-10-02] MEDS: Venlafaxine EXT RELEASE CAP* 75 MG PO SCH (08:21)
[2019-10-02] MEDS: Losartan TAB* 25 MG PO SCH (08:21)
[2019-10-02] MEDS: Hydrochlorothiazide TAB* 25 MG PO SCH (08:21)
[2019-10-02] MEDS: metFORMIN* 1,000 MG TAB PO SCH ×2 (08:21→20:14)
[2019-10-02] MEDS: busPIRone TAB* 30 MG PO SCH ×2 (08:21→20:14)
[2019-10-02] MEDS: Cholecalciferol TAB* 1000 UNITS PO SCH (08:22)
[2019-10-02] MEDS: Furosemide TAB* 20 MG PO SCH (08:22)
[2019-10-02] MEDS: PTO - Liraglutide (NF) 18 MG/3 ML SUBCUT SCH (08:23)
[2019-10-02] MEDS: Empaglifozin (NF) 10 MG TABLET PO SCH (08:24)
[2019-10-02] MEDS: Nicotine PATCH 14 MG/24 HR* PATCH TRANSDERM SCH (08:24)
[2019-10-02] MEDS: Pantoprazole TAB * 40 MG TAB PO SCH (08:27)
[2019-10-02] MEDS: Pregabalin 50 mg CAP (*) PO SCH ×3 (10:33→20:15)
[2019-10-02] MEDS: hydrOXYzine HCL TAB* 50 MG PO PRN (17:42)
[2019-10-02] MEDS: Atorvastatin* 80 MG TAB PO SCH (17:42)
[2019-10-03] MEDS: PTO - Liraglutide (NF) 18 MG/3 ML SUBCUT SCH (08:57)
[2019-10-03] MEDS: Mometasone/Formoter 200/5 MDI INH SCH ×2 (08:57→19:36)
[2019-10-03] MEDS: SPIRIVA Respimat* (tiotropium) 2.5 mcg/inh Inhaler INH SCH (08:57)
[2019-10-03] MEDS: Furosemide TAB* 20 MG PO SCH (08:58)
[2019-10-03] MEDS: Pregabalin 50 mg CAP (*) PO SCH ×3 (08:59→19:35)
[2019-10-03] MEDS: Losartan TAB* 25 MG PO SCH (08:59)
[2019-10-03] MEDS: Pantoprazole TAB * 40 MG TAB PO SCH (08:59)
[2019-10-03] MEDS: Venlafaxine EXT RELEASE CAP* 75 MG PO SCH (08:59)
[2019-10-03] MEDS: metFORMIN* 1,000 MG TAB PO SCH ×2 (08:59→19:35)
[2019-10-03] MEDS: Sertraline* 50 MG TAB PO SCH (09:00)
[2019-10-03] MEDS: Hydrochlorothiazide TAB* 25 MG PO SCH (09:00)
[2019-10-03] MEDS: Cholecalciferol TAB* 1000 UNITS PO SCH (09:00)
[2019-10-03] MEDS: Nicotine PATCH 14 MG/24 HR* PATCH TRANSDERM SCH (09:01)
[2019-10-03] MEDS: Empaglifozin (NF) 10 MG TABLET PO SCH (09:01)
[2019-10-03] MEDS: busPIRone TAB* 30 MG PO SCH ×2 (09:01→19:34)
[2019-10-03] MEDS: Nicotine Patch Removal NOTE PATCH OFF SCH (09:01)
[2019-10-03] MEDS: Atorvastatin* 80 MG TAB PO SCH (16:49)
--- NOTE | 2019-10-03 19:23 | PN ---
Subjective - Subjective Date of Service: 10/03/19 Service Type: 33610 Hosp care 25 min moderate complexity Subjective: Bhargav appears to be at his baseline mental status and didn't have any psychiatric or physical complaints. Says he hasn't been suicidal for last 3 days. Toleratind medication titration well. Objective - General Observations Appearance: Disheveled Stature: Overweight Posture: WNL Eye Contact: Average Behavior/Activity: WNL - Interaction Observations Attitude Towards Examiner: Cooperative Stated Mood: Euthymic Affect: Full Speech Pattern/Tone: Clear, Appropriate, Normal Volume Thought Process: Coherent, Goal Directed Perception: WNL Thought Content: WNL Hallucination Type: Denies Delusion Type: Denies - Cognitive Function Orientation: A&O x 4 Level of Consciousness: Awake, Alert, Appropriate Cognition: WNL Estimated Intelligence: Normal Insight: WNL Judgment Within Normal Limits: Yes - Medication Compliance Cooperative with Inpatient Medication Regimen: Yes - Group Participation Participates in Group Activities: Yes Assessment - Assessment Merits Inpatient Hospitalization: Consolidate Improvements, For Discharge Planning Clinical Impression: 44 year old male with history of depression came to the hospital with suicidal ideation and plan to cut his wrist with a knife and was admitted to the [facility] at [facility]. Plan - Plan Treatment Plan: Name: BHARGAV CASTANON Birthdate: 1975 [id number] #Continue constant observation while patient is in his room due to wound vac equipment. # The patient requires psychiatric inpatient admission at this time to assure safety, receive treatment and work toward stabilization. # Right foot diabetic foot ulcer - Wound care followed up yesterday and answered patients questions # Obtain collateral information once release is signed. # Collaboration with Social Work # Patient received protection order from his # Plans to live with Niece upon discharge # Will follow up with PCP and [facility] # Continue to Monitor Vital signs # Increase Effexor 150 mg daily - Vital signs show so far no effect on increasing blood pressure. #Decrease zoloft to 50mg daily with plan to taper off Tobacco use disorder: nicotine supplement offered and put in place. #Goals before discharge include: To eliminate/ reduce suicidal ideation Tentative Discharge: Friday Vital Signs Temp Pulse Resp BP Pulse Ox 97.8 F 81 16 128/66 98 10/01/19 08:00 10/01/19 08:00 10/01/19 10:34 10/01/19 08:00 10/01/19 08:00 Continued Medication Management: Continue Outpt Medication Medications: Current Medications Acetaminophen (Tylenol Tab*) 650 mg PO Q4H PRN PRN Reason: for pain; or Temp >101 F Al Hydrox/Mg Hydrox/Simethicone (Maalox Plus*) 30 ml PO Q4H PRN PRN Reason: INDIGESTION Albuterol (Ventolin Hfa Inhaler*) 2 puff INH Q6H PRN PRN Reason: SHORTNESS OF BREATH Albuterol/Ipratropium (Duoneb (Albuterol 2.5 Mg/Ipratropium 0.5 Mg)) 1 neb INH Q6H PRN PRN Reason: SHORTNESS OF BREATH Atorvastatin Calcium (Lipitor*) 80 mg PO 1700 [facility] Last Admin: 10/03/19 16:49 Dose: 80 mg Buspirone HCl (Buspar Tab*) 30 mg PO BID [facility] Last Admin: 10/03/19 09:01 Dose: 30 mg Cholecalciferol (Vitamin D Tab*) 5,000 units PO DAILY [facility] Last Admin: 10/03/19 09:00 Dose: 5,000 units Empagliflozin (Jardiance (Nf)) 10 mg PO DAILY [facility] Last Admin: 10/03/19 09:01 Dose: Not Given Furosemide (Lasix Tab*) 20 mg PO DAILY [facility] Last Admin: 10/03/19 08:58 Dose: 20 mg Hydrochlorothiazide (Hydrodiuril Tab*) 12.5 mg PO DAILY [facility] Last Admin: 10/03/19 09:00 Dose: 12.5 mg Hydroxyzine HCl (Atarax Tab*) 50 mg PO Q6H PRN PRN Reason: anxiety Last Admin: 10/02/19 17:42 Dose: 50 mg Liraglutide (Victoza (Nf)) 1.8 mg SUBCUT DAILY [facility] Last Admin: 10/03/19 08:57 Dose: 1.8 mg Losartan Potassium (Cozaar Tab*) 50 mg PO DAILY [facility] Last Admin: 10/03/19 08:59 Dose: 50 mg Metformin HCl (Glucophage*) 1,000 mg PO BID [facility] Last Admin: 10/03/19 08:59 Dose: 1,000 mg Mometasone Furoate/Formoterol Fumar (Dulera 200/5 Mdi*) 2 puff INH BID [facility]; Protocol Last Admin: 10/03/19 08:57 Dose: 2 puff Nicotine (Nicotine Patch 14 Mg/24 Hr*) 1 patch TRANSDERM DAILY [facility] Last Admin: 10/03/19 09:01 Dose: 1 patch Pantoprazole Sodium (Protonix Tab*) 40 mg PO DAILY [facility] Last Admin: 10/03/19 08:59 Dose: Not Given Pharmacy Profile Note (Nicotine Patch Removal Note*) 1 note PATCH OFF 0600 [facility] Last Admin: 10/03/19 09:01 Dose: Not Given Pregabalin (Lyrica 50 Mg Cap (*)) 150 mg PO TID [facility] Last Admin: 10/03/19 13:40 Dose: 150 mg Sertraline HCl (Zoloft*) 50 mg PO DAILY [facility] Last Admin: 10/03/19 09:00 Dose: 50 mg Tiotropium [place] (Spiriva Respimat 2.5 Mcg) 2 puff INH DAILY [facility] Last Admin: 10/03/19 08:57 Dose: 2 puff Venlafaxine HCl (Effexor Xr Cap*) 150 mg PO DAILY [facility] Last Admin: 10/03/19 08:59 Dose: 150 mg - Discharge Plan Discharge Plan: Outpatient Follow Up Outpatient Program: [facility]
[2019-10-03] MEDS: hydrOXYzine HCL TAB* 50 MG PO PRN (19:34)
[2019-10-04] MEDS ORDERED: Pregabalin 25 mg CAP (*) PO ONE ×2 (08:00→14:30)
[2019-10-04] MEDS ORDERED: Pregabalin 100 mg CAP (*) PO ONE ×2 (08:00→14:30)
[2019-10-04] MEDS: Nicotine Patch Removal NOTE PATCH OFF SCH (08:41)
[2019-10-04] MEDS: PTO - Liraglutide (NF) 18 MG/3 ML SUBCUT SCH (08:42)
[2019-10-04] MEDS: Hydrochlorothiazide TAB* 25 MG PO SCH (08:43)
[2019-10-04] MEDS: metFORMIN* 1,000 MG TAB PO SCH (08:45)
[2019-10-04] MEDS: busPIRone TAB* 30 MG PO SCH (08:46)
[2019-10-04] MEDS: Furosemide TAB* 20 MG PO SCH (08:46)
[2019-10-04] MEDS: Venlafaxine EXT RELEASE CAP* 75 MG PO SCH (08:47)
[2019-10-04] MEDS: SPIRIVA Respimat* (tiotropium) 2.5 mcg/inh Inhaler INH SCH (08:49)
[2019-10-04] MEDS: Losartan TAB* 25 MG PO SCH (08:49)
[2019-10-04] MEDS: Mometasone/Formoter 200/5 MDI INH SCH (08:50)
[2019-10-04] MEDS: Cholecalciferol TAB* 1000 UNITS PO SCH (08:51)
[2019-10-04] MEDS: Empaglifozin (NF) 10 MG TABLET PO SCH (08:52)
[2019-10-04] MEDS: Nicotine PATCH 14 MG/24 HR* PATCH TRANSDERM SCH (08:53)
[2019-10-04 08:55] VITALS: BP 139/72
[2019-10-04] MEDS: Pantoprazole TAB * 40 MG TAB PO SCH (10:10)
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
[2019-10-04] MEDS ORDERED: Pregabalin 50 mg CAP (*) PO SCH ×2 (14:00→21:00)
== END 2019-10-04 15:00 | disposition home or self-care (01) | DRG 751 ==
LOC: ED 14:36 → BSU 16:42 → ED 21:24
PROVIDERS: ADMIT Psychiatry & Neurology Psychiatry; ATTEND Psychiatry & Neurology Psychiatry
PROC: GZHZZZZ Group Psychotherapy (ICD-10-PCS; principal; 2019-10-01)
DX: F32.2 Major depressive disorder, single episode, severe without psychotic features (principal); R45.851 Suicidal ideations; L97.419 Non-pressure chronic ulcer of right heel and midfoot with unspecified severity; Z68.41 Body mass index [BMI] 40.0-44.9, adult; F17.210 Nicotine dependence, cigarettes, uncomplicated; Z62.810 Personal history of physical and sexual abuse in childhood; F41.9 Anxiety disorder, unspecified; E78.5 Hyperlipidemia, unspecified; I10 Essential (primary) hypertension; E11.65 Type 2 diabetes mellitus with hyperglycemia; D72.829 Elevated white blood cell count, unspecified; E11.621 Type 2 diabetes mellitus with foot ulcer; I87.8 Other specified disorders of veins; E66.01 Morbid (severe) obesity due to excess calories; J44.9 Chronic obstructive pulmonary disease, unspecified; G47.30 Sleep apnea, unspecified; E11.42 Type 2 diabetes mellitus with diabetic polyneuropathy; Z88.1 Allergy status to other antibiotic agents; Z88.0 Allergy status to penicillin; Z98.84 Bariatric surgery status; Z91.5 Personal history of self-harm; Z79.84 Long term (current) use of oral hypoglycemic drugs; Z88.8 Allergy status to other drugs, medicaments and biological substances
CPT/HCPCS: 36415; 80053; 80307; 80320; 80329; 81003; 81015; 84443; 85025; 87086; 90853; 99222; 99232; 99233; 99238; 99284; A9270-GY; G0480; J3535

== ENCOUNTER 2019-10-24 15:13 | Inpatient (IN) | payer OTHER ==
--- NOTE | 2019-10-24 15:32 | ED ---
Lower Extremity - HPI Summary HPI Summary: This patient is a 44 year old male brought in by EMS with a Hx of diabetes presenting to [facility] with a chief complaint of right foot pain/ulcer. The patient states he was changing the dressing on his right foot when he noticed another bleeding blister. He states he first noticed pain two days ago. Earlier this week he stated he experienced nausea and vomiting. He states he still has nausea. - History of Current Complaint Stated Complaint: RIGHT FOOT PAIN AND A BLISTER PER EMS Time Seen by Provider: 10/24/19 15:25 Hx Obtained From: Patient Onset of Pain: Hours - Allergies/Home Medications Allergies/Adverse Reactions: Allergies Allergy/AdvReac Type Severity Reaction Status Date / Time amoxicillin [From Augmentin] Allergy Anaphylatic Verified 10/24/19 16:17 Shock clavulanic acid Allergy Anaphylatic Verified 10/24/19 16:17 [From Augmentin] Shock gabapentin Allergy See Comment Verified 10/24/19 16:17 PMH/Surg Hx/FS Hx/Imm Hx Endocrine/Hematology History: Reports: Hx Diabetes Cardiovascular History: Reports: Hx Hypercholesterolemia, Hx Hypertension Denies: Hx Pacemaker/ICD Respiratory History: Reports: Hx Chronic Obstructive Pulmonary Disease (COPD) Denies: Hx Sleep Apnea GI History: Reports: Other GI Disorders - gall bladder removed for gall stones History: Denies: Hx Renal Disease Sensory History: Reports: Hx Contacts or Glasses - glasses Denies: Hx Hearing Aid Opthamlomology History: Reports: Hx Contacts or Glasses - glasses Neurological History: Reports: Other Neuro Impairments/Disorders - neuropathy Psychiatric History: Reports: Hx Anxiety, Hx Depression, Hx Community Mental Health Tx, Hx Suicide Attempt Denies: Hx Eating Disorder, Hx Panic Disorder, Hx Post Traumatic Stress Disorder, Hx Inpatient Treatment, Hx Schizophrenia, Hx Bipolar Disorder, Hx of Violent Episodes Against Others, Hx Substance Abuse - Surgical History Surgery Procedure, Year, and Place: GASTRIC BYPASS. GALLBLADDER. RIGHT TOE REMOVED. REATTACHED PART OF LEFT THUMB - Family History Known Family History: Positive: Non-Contributory Negative: Renal Disease - Social History Alcohol Use: None Alcohol Amount: 1 beer a month Hx Substance Use: No Substance Use Type: Reports: Marijuana Substance Use Comment - Amount & Last Used: once and a while Hx Tobacco Use: Yes Smoking Status (MU): Heavy Every Day Tobacco Smoker Type: Cigarettes Review of Systems Positive: Vomiting, Nausea Positive: Other - Right foot/leg pain Positive: Other - Foot blister/ulcer All Other Systems Reviewed And Are Negative: Yes Physical Exam - Summary Physical Exam Summary: Appearance: The patient is well-nourished in no acute distress and in no acute pain. Skin: The skin is warm and dry and skin color reflects adequate perfusion. HEENT: The head is normocephalic and atraumatic. The pupils are equal and reactive. The conjunctivae are clear and without drainage. Nares are patent and without drainage. Mouth reveals moist mucous membranes and the throat is without erythema and exudate. The external ears are intact. The ear canals are patent and without drainage. The tympanic membranes are intact. Neck: The neck is supple with full range of motion and non-tender. There are no carotid bruits. There is no neck vein distension. Respiratory: Chest is non-tender. Lungs are clear to auscultation and breath sounds are symmetrical and equal. Cardiovascular: Heart is regular rate and rhythm. There is no murmur or rub auscultated. There is no peripheral edema and pulses are symmetrical and equal. Abdomen: The abdomen is soft and non-tender. There are normal bowel sounds heard in all four quadrants and there is no organomegaly palpated. Musculoskeletal: There is no back tenderness noted. Extremities are non-tender with full range of motion. There is good capillary refill. There is no peripheral edema or calf tenderness elicited. Right foot swelling, two ulcers and an erythemetous blister, previous great toe amputation. Neurological: Patient is alert and oriented to person, place and time. The patient has symmetrical motor strength in all four extremities. Cranial nerves are grossly intact. Deep tendon reflexes are symmetrical and equal in all four extremities. Psychiatric: The patient has an appropriate affect and does not exhibit any anxiety or depression. Triage Information Reviewed: Yes Vital Signs Reviewed: Yes Procedures - Sedation Patient Received Moderate/Deep Sedation with Procedure: No Diagnostics - Laboratory Result Diagrams: 10/24/19 17:55 10/24/19 17:55 Lab Statement: Any lab studies that have been ordered have been reviewed, and results considered in the medical decision making process. - Radiology Right foot XR Radiology Interpretation Completed By: ED Physician Summary of Radiographic Findings: Cellulitis. Pending official radiologist report. Lower Extremity Course/Dx - Course Course Of Treatment: Mr. Dean presented with a diabetic foot ulcer. He was seen in the wound clinic last week but has worsened. He has begun to experience pain in his right below the knee area. He has neuropathy and does not normally experience pain in his lower leg. Labs revealed a leukocytosis of 21,000. X-ray did not show any gas in the tissue but looked more like a cellulitic picture to me. I did not see any evidence for osteomyelitis. He is allergic to Augmentin and was given Levaquin and Flagyl here in the department as well as IV fluids. I spoke with the hospitalist service about admission. - Diagnoses Provider Diagnoses: Diabetic foot ulcer - Critical Care Time Critical Care Time: 30-74 min Discharge ED - Sign-Out/Discharge Documenting (check all that apply): Patient Departure - Admission, accepted by Dr. Trevino. - Discharge Plan Condition: Stable Disposition: ADMITTED TO [facility] Referrals: Ekaterina Rodriguez, MVA OPERATOR [Primary Care Provider] - - Billing Disposition and Condition Condition: STABLE Disposition: Admitted to [facility] - Attestation Statements Document Initiated by Zenaida: Yes Documenting Laylaibe: Giuliano Schroeder Provider For Whom Zenaida is Documenting (Include Credential): Kun Grover MD Scribe Attestation: I, Giuliano Schroeder, scribed for Kun Grover MD on 10/24/19 at 1911. Scribe Documentation Reviewed: Yes Provider Attestation: The documentation as recorded by the Giuliano knapp accurately reflects the service I personally performed and the decisions made by me, Kun Grover MD Status of Scribe Document: Viewed
[2019-10-24] MEDS: NS 0.9% 1000 ML** 1,000 ML IV ONE ×2 (17:58→19:20)
[2019-10-24 18:10] LABS: Hematocrit 45 % (42-52); Hemoglobin 15.1 g/dL (14.0-18.0); Mean Corpuscular HGB Conc 33 g/dL (31-36); Mean Corpuscular Hemoglobin 29 pg (27-31); Mean Corpuscular Volume 86 fL (80-94); Mean Platelet Volume 8.8 fL (7.4-10.4); Platelet Count 303 10^3/uL (150-450); Red Blood Count 5.26 10^6 /uL (4.18-5.48); Red Cell Distribution Width 15 % (10-15); White Blood Count 21.3 10^3/uL (3.5-10.8)
[2019-10-24 18:27] LABS: Albumin/Globulin Ratio 0.9 (1-3); BUN/Creatinine Ratio 9.1 (8-20); C Reactive Protein 313.33 mg/L (<8.01); Calcium 9.3 mg/dL (8.6-10.3); EGFR African American 131.6 (>60); EGFR Non-African American 108.8 (>60); Globulin 4.7 g/dL (2-4); Potassium 3.1 mmol/L (3.5-5.0); Total Bilirubin 1.5 mg/dL (0.2-1.0); Total Protein 8.7 g/dL (6.4-8.9)
[2019-10-24 18:33] LABS: ABS Basophils 0.1 10^3/ul (0-0.2); ABS Eosinophils 0.1 10^3/ul (0-0.6); ABS Monocytes 2.1 10^3/ul (0-0.8); Eosinophil % 0.5 %; Lymphocyte % 4.8 %
[2019-10-24] MEDS ORDERED: Levofloxacin 750 MG IVPREMIX(* 750 MG/150 ML BAG IVPB ONE (18:37)
[2019-10-24] MEDS ORDERED: metroNIDAZOLE IV 500 MG/100ML* 500 MG/100 ML BAG IVPB ONE (18:37)
[2019-10-24] MEDS ORDERED: Vancomycin(*) 1,000 MG in NS 0.9% 250 ML* 250 ML IVPB ONE (19:37)
[2019-10-24] MEDS ORDERED: Dextrose 50% Syringe 50 ML* 25 GM/50 ML SYRINGE IV PUSH PRN (19:37)
[2019-10-24] MEDS ORDERED: Ondansetron INJ* 2 MG/ML VIAL IV PRN (19:37)
[2019-10-24] MEDS ORDERED: NS 0.9% IV ONE (19:45)
[2019-10-24] MEDS ORDERED: Vancomycin(*) 2,000 MG in NS 0.9% 500 ML* 500 ML IVPB ONE (20:00)
[2019-10-24] MEDS ORDERED: Vancomycin per Pharmacy* NOTE FOLLOW UP SCH (20:00)
[2019-10-24 20:05] LABS: Activated Partial Thrombo Time 38.5 seconds (26.0-38.0); INR 1.29 (0.82-1.09)
[2019-10-24] MEDS: Cefepime 1 GM in Dextrose(*) 1 GM/50 ML BAG IV SCH (20:41)
[2019-10-24] MEDS ORDERED: Insulin GLARGINE(*) 1 UNITS UNIT SUBCUT SCH (21:00)
[2019-10-24 21:01] LABS: Erythrocyte Sed Rate 52 mm/Hr (0-14)
[2019-10-24] MEDS: Pregabalin 50 mg CAP (*) PO SCH (21:36)
[2019-10-24] MEDS: busPIRone TAB* 30 MG PO SCH (21:37)
[2019-10-24] MEDS: Heparin VIAL(*) 5000 UNITS/ML VIAL (FIVE THOUSAND) SUBCUT SCH (21:38)
[2019-10-24] MEDS: Mometasone/Formoter 200/5 MDI INH SCH (21:38)
[2019-10-24] MEDS: KCL 10 MEQ/50 ML IVPREMIX* 10 MEQ/50 ML BAG IV SCH (22:10)
--- NOTE | 2019-10-24 22:45 | HP ---
CC: Ekaterina Rodriguez NP; Dr. Sandoval, Dr. Farr * HISTORY AND PHYSICAL: DATE OF ADMISSION: 10/24/19 PRIMARY CARE PROVIDER: Ekaterina Rodriguez NP ATTENDING PHYSICIAN WHILE IN THE HOSPITAL: Dr. Molina * (report dictated by Edgardo Telles NP) CHIEF COMPLAINT: 1. Not feeling well. 2. Blister on right foot. HISTORY OF PRESENT ILLNESS: Mr. Dean is a 44-year-old male patient, he carries a history of depression, recently admitted for a suicidal ideation about a month ago, history of diabetes, hypertension, hyperlipidemia, venous stasis, COPD, he has a chronic right foot and heel ulcer and the history of neuropathy. He comes in to our ER today stating that on Friday he was at the wound clinic. He had a wound VAC on his chronic heel ulcer, this was removed. There was some local debridement that was done and the patient initially was feeling well, however, over the weekend he started feeling nauseated. He was not feeling well. He felt warm. He noted that today that he developed a new ulcer on the plantar aspect of his foot in the midfoot area on the lateral side. He does not know how it happened. He was concerned because he was not feeling well, the new blister forming, the foot was reddened. He came into the ER, ultimately was evaluated and found to be septic and we are asked to evaluate for admission. He denies any chest pain. He does admit to feeling nauseated, but denies any abdominal pain. Denies any shortness of breath, no recent cough or cold like symptoms. REVIEW OF SYSTEMS: There is no documented fever. He denied having any significant weight change. There is no double vision. He denied having any ear discharge. There is no rhinorrhea. There is no sore throat, no thyroid enlargement. He denied having any chest pain. There was no orthopnea, no nocturnal dyspnea. There was no abdominal pain. There was nausea, but no vomiting, no dysuria, no frequency, no seizure. There was no loss of consciousness. There are skin ulcers. Review of 14 systems completed, all others negative. PAST MEDICAL HISTORY: Significant for: 1. Depression. 2. Diabetes. 3. Hypertension. 4. Hyperlipidemia. 5. Venous stasis. 6. COPD. 7. Right heel ulcer. 8. Neuropathy. PAST SURGICAL HISTORY: 1. The patient has had gastric bypass. 2. Cardiac catheterization. 3. Right great toe amputation. 4. Right thumb surgery. FAMILY HISTORY: The patient and his mother was a diabetic. She had end-stage renal disease. Father of a heart attack. SOCIAL HISTORY: He is a 3-pack a day smoker for about 35 years. He does not drink alcohol. He smokes marijuana occasionally. Surrogate decision maker is his . He is . MEDICATIONS: Home medications include: 1. Metformin 1000 mg p.o. b.i.d. 2. BuSpar 30 mg p.o. b.i.d. 3. Effexor 150 mg p.o. daily. 4. Spiriva 1 cap inhaled daily. 5. Lyrica 150 mg p.o. t.i.d. 6. Protonix 40 mg daily. 7. Dulera 2 puffs inhaled b.i.d. 8. Losartan/hydrochlorothiazide 1 tablet daily. 9. Victoza 1.8 mg subcu daily. 10. Hydrochlorothiazide 12.5 mg daily. 11. Lasix 20 mg daily. 12. Steglatro 15 mg daily. 13. Jardiance 10 mg p.o. daily. 14. Vitamin D 5000 units p.o. daily. 15. Symbicort 2 puffs inhaled b.i.d. 16. Regranex 15 g topically daily. 17. Lipitor 80 mg daily. 18. DuoNeb 1 neb inhaled every 6 hours as needed. 19. Ventolin 2 puffs inhaled every 6 hours as needed. ALLERGIES TO MEDICATIONS: Include AUGMENTIN, which causes hives and GABAPENTIN , he has tolerated Keflex in the past. PHYSICAL EXAMINATION GENERAL: At this time, Mr. Dean is a 44-year-old male patient. He is morbidly obese, he is sitting in the ED stretcher. He does not appear to be in any acute distress. VITAL SIGNS: Blood pressure 119/80 with a pulse 108, respirations 20, O2 sat 95 %, temperature 99.7. HEENT: Head: Atraumatic, normocephalic. Eyes: EOMs are intact. Sclerae anicteric and not pale. Throat: Oral mucosa appears to be moist. No oropharyngeal erythema. NECK: Supple. LUNGS: Clear to auscultation. No wheezes, rales, or rhonchi. HEART: Heart sounds S1, S2. He is tachycardic. No murmurs, rubs, or gallops. ABDOMEN: Soft, flat, nontender. Bowel sounds present. EXTREMITIES: Pulses 2+ throughout. He is moving all 4 extremities with 5/5 strength. NEUROLOGICAL: He is awake, alert, oriented x3. Tongue is midline revolving field assembler are equal. He has no gross focal deficits. SKIN: He has an open ulcer to the right heel. He also has again noted a blister formed to the lateral aspect of his right midfoot area. There is an erythema surrounding that area in the midfoot as well as the blister is filled with what appears to be a sanguineous type fluid. DIAGNOSTIC STUDIES/LAB DATA: Old medical records were reviewed. ASSESSMENT AND PLAN: Mr. Dean is a 44-year-old male patient coming into the ED today with complaints of right foot pain, new blistering, evaluation found that he is septic. He will be admitted under inpatient status for: 1. Sepsis. I suspect the source is related to the patient's right foot. He has had blood cultures obtained. A lactic acid has been ordered and is received. I do note that he has again an elevated heart rate greater than 90 and his white count is greater than 12,000. I do not see any end-organ dysfunction, however, that being said. I will be giving him 30 cc/kg fluid bolus given the sepsis. I do note that his blood pressure is trending down and because of this, I do want to be aggressive and get his blood pressure little bit better controlled. When he was here last month, his baseline appeared to be between 140 and 150. His last blood pressure was 119/88, so again I am going to give him the fluid bolus. I will place him on cefepime, vancomycin, and Flagyl. I will also consult Infectious Disease and Orthopedics and I also ordered an MRI of that foot to make sure we are not dealing with the osteomyelitis. I do note that his CRP was greater than 300. I will also check ESR tomorrow and a CRP tomorrow and we will continue to follow for the time being. I also have consulted wound care, advised nursing staff to change the dressing to a dry sterile dressing for the time being. We will continue to follow. 2. Diabetes. We will place him on Lispro sliding scale and small dose of 24- hour long-acting Lantus. We will hold his home medications. 3. Depression. Continue with supportive care and his meds prescribed. He was recently here with the suicidal ideation. He denied that today. 4. Hypertension. In the setting of his acute illness, I am holding all of his blood pressure meds. 5. Hyperlipidemia. Continue statin therapy. 6. History of venous status. Continue with current medical regimen. 7. Chronic obstructive pulmonary disease. He does not appear to be in any acute flare. I will continue his p.r.n. albuterol. I will continue his Spiriva and I will also continue his Symbicort. 8. Right heel ulcer. Again, we will be consulting wound care and again Orthopedics has been consulted as well. 9. Neuropathy. Continue with Lyrica. 10. DVT prophylaxis: He is high risk. He will be placed on heparin subcu. 11. Code status: Full code. 12. Fluids, electrolytes, and nutrition: He can have a consistent carb diet. I do note that he has some hypokalemia. I am replacing his potassium and we will repeat this in the morning. TIME SPENT: On the admission 60 minutes, greater than half the time was spent face- to-face with the patient obtaining my history and physical. Other half of the time was spent going over the plan of care with the patient and implementing the plan of care. I did discuss the plan of care with my attending Dr. Molina, he is in agreement. [place]O TE[place]ES NP [id number]/[facility] #: [id number] GAGAN
[2019-10-24] MEDS ORDERED: NS 0.9% 1000 ML** 1,000 ML IV SCH (23:30)
[2019-10-25] MEDS: KCL 10 MEQ/50 ML IVPREMIX* 10 MEQ/50 ML BAG IV SCH ×2 (00:01→03:06)
[2019-10-25] MEDS: metroNIDAZOLE IV 500 MG/100ML* 500 MG/100 ML BAG IVPB SCH ×4 (05:14→22:32)
[2019-10-25] MEDS: Heparin VIAL(*) 5000 UNITS/ML VIAL (FIVE THOUSAND) SUBCUT SCH ×3 (05:14→20:47)
[2019-10-25 06:44] LABS: ABS Basophils 0.1 10^3/ul (0-0.2); ABS Eosinophils 0.2 10^3/ul (0-0.6); ABS Lymphocytes 1.4 10^3/ul (1.0-4.8); ABS Monocytes 1.5 10^3/ul (0-0.8); ABS Neutrophils 13.2 10^3/ul (1.5-7.7); Eosinophil % 1.3 %; Hematocrit 37 % (42-52); Hemoglobin 12.8 g/dL (14.0-18.0); Lymphocyte % 8.8 %; Mean Corpuscular HGB Conc 34 g/dL (31-36); Mean Corpuscular Hemoglobin 29 pg (27-31); Mean Corpuscular Volume 85 fL (80-94); Mean Platelet Volume 8.4 fL (7.4-10.4); Platelet Count 220 10^3/uL (150-450); Red Blood Count 4.36 10^6 /uL (4.18-5.48); Red Cell Distribution Width 15 % (10-15); White Blood Count 16.5 10^3/uL (3.5-10.8)
[2019-10-25 06:48] LABS: INR 1.47 (0.82-1.09)
[2019-10-25 06:59] LABS: BUN/Creatinine Ratio 12.5 (8-20); C Reactive Protein 271.15 mg/L (<8.01); Calcium 8.1 mg/dL (8.6-10.3); EGFR African American 190.1 (>60); EGFR Non-African American 157.1 (>60)
[2019-10-25] MEDS: Insulin LISPRO* 1 UNITS UNIT SUBCUT SCH ×5 (07:57→20:46)
[2019-10-25] MEDS: Cefepime 1 GM in Dextrose(*) 1 GM/50 ML BAG IV SCH (08:19)
[2019-10-25] MEDS: Pregabalin 50 mg CAP (*) PO SCH ×3 (08:20→20:52)
[2019-10-25] MEDS: Venlafaxine EXT RELEASE CAP* 75 MG PO SCH (08:20)
[2019-10-25] MEDS: Pantoprazole TAB * 40 MG TAB PO SCH ×2 (08:21→13:28)
[2019-10-25] MEDS: Mometasone/Formoter 200/5 MDI INH SCH ×2 (08:32→19:39)
[2019-10-25] MEDS: SPIRIVA Respimat* (tiotropium) 2.5 mcg/inh Inhaler INH SCH (08:32)
[2019-10-25] MEDS: Vancomycin(*) 1,500 MG in NS 0.9% 250 ML* 250 ML IVPB SCH ×2 (09:10→20:01)
[2019-10-25] MEDS: busPIRone TAB* 30 MG PO SCH ×2 (09:10→22:32)
[2019-10-25 10:19] LABS: Erythrocyte Sed Rate 110 mm/Hr (0-14)
[2019-10-25 11:22] LABS: Urine Appearance Cloudy; Urine Bilirubin Negative (Negative); Urine Blood Negative (Negative); Urine Color Amber; Urine Glucose 3+(>=500 mg/dL) (Negative); Urine Ketones 1+ (Negative); Urine Nitrite Negative (Negative); Urine Protein 1+(30 mg/dL) (Negative); Urine Specific Gravity 1.029 (1.010-1.030); Urine Urobilinogen Positive (Negative)
[2019-10-25 11:25] LABS: Urine Bacteria Absent (Absent); Urine Red Blood Cell 3+(>10/hpf) (Absent); Urine Squamous Epithelial Cell Present (Absent); Urine White Blood Cell 3+(>20/hpf) (Absent)
[2019-10-25] MEDS ORDERED: DiMENhydriNATE IV* 50 MG/ML VIAL IV PUSH ONE (11:48)
[2019-10-25] MEDS ORDERED: Buffered Lidocaine 1% SYRIN* 1 ML/SYRINGE INTRADERM ONE (11:48)
[2019-10-25] MEDS ORDERED: Ondansetron ODT TAB* 4 MG PO ONE (11:48)
[2019-10-25] MEDS ORDERED: Lactated Ringers 1000 ML Bag* 1,000 ML IV SCH ×2 (12:00→19:15)
[2019-10-25] MEDS: KCL 20 MEQ/100 ML IVPREMIX* 20 MEQ/100 ML BAG IV SCH ×2 (13:05→18:15)
[2019-10-25] MEDS: Acetaminophen TAB* 325 MG PO PRN (13:27)
--- NOTE | 2019-10-25 13:30 | CONS ---
CONSULTATION REPORT: DATE OF CONSULT: 10/25/19 REQUESTING PROVIDER: Edgardo Telles NP. CONSULTING SERVICE: Infectious Disease. REASON FOR CONSULT: Right foot infection. IMPRESSION: 1. Chronic wounds on the right foot with an abscess on the right plantar and lateral foot arising from chronic wound on the calcaneus. He has an abscess that has started to drain on its own with particularly foul odor and I suspect polymicrobial with definite anaerobic component. 2. Type 2 diabetes with peripheral neuropathy. 3. Chronic right heel ulcer. 4. History of right great toe amputation. 5. Sepsis present on admission, resolved. RECOMMENDATIONS: Continue vancomycin and Flagyl. Increase cefepime 2 g IV every 12 hours and take a culture of purulent fluid, currently flowing from the large blister on his medial foot. He is going to be taken to the OR later today for incision and debridement and will stay n.p.o. at this point. Probability of underlying osteomyelitis is high. HISTORY OF PRESENT ILLNESS: This is a 44-year-old diabetic man with right foot wound and swelling. He had been following with the Wound Clinic for calcaneus and 2 other distal foot wounds, had a VAC dressing of his calcaneus until last week. It came off and then shortly thereafter that he developed fevers, sweats, and chills on Friday. He sat it out at home for couple days before coming to the hospital last night. He was febrile and tachycardic and started on hydration and broad-spectrum antibiotics. He had noticed a new blister arising from the heel out to the medial foot which was filled with fluid over the last day or so as well. He does not have any prosthetic material present. This morning, he feels overall little bit better but the left foot collection had opened up when he was walking and significant amount of bloody purulent fluid spread out, which he had noticed had quite a foul odor. PAST MEDICAL HISTORY: 1. Morbid obesity. 2. Type 2 diabetes mellitus. 3. Peripheral neuropathy. 4. Depression. 5. Hypertension. 6. Hyperlipidemia. 7. Venous stasis. 8. COPD. 9. Chronic foot ulcer. 10. Status post gastric bypass surgery. 11. Status post right great toe amputation. 12. Status post right thumb surgery. MEDICATIONS: 1. Lipitor. 2. BuSpar. 3. Cefepime 1 g IV every 12 hours. 4. Heparin subcutaneous injection. 5. Insulin glargine. 6. Flagyl 500 mg every 8 hours. 7. Pantoprazole. 8. Pregabalin. 9. Vancomycin 1500 mg IV every 8 hours. 10. Effexor. ALLERGIES: AMOXICILLIN cause hives, GABAPENTIN. FAMILY HISTORY: Mother was diabetic and father had coronary artery disease. SOCIAL HISTORY: He smokes tobacco and marijuana. He does not drink alcohol. He is from his , who is his surrogate decision maker. REVIEW OF SYSTEMS: All negative except as noted above to a 14-point review of systems. PHYSICAL EXAM: Vital Signs: Temperature is 36.8, heart rate 77, respiratory rate 18, blood pressure 107/66, oxygen saturation 97% on room air. In general, he is awake, not in distress. Neurologic: He is oriented x3, follows all commands. HEENT: There is no conjunctival hemorrhage. Oropharynx without lesions. Teeth in poor dentition. Neck: Neck is supple without mass. Heart is regular rate and rhythm without murmurs, rubs, or gallops. Lungs are clear to auscultation bilaterally. Abdomen: Soft, nontender, nondistended. There are bowel sounds present. Skin: There is no rash or splinter hemorrhage. Musculoskeletal: Right foot, there is diffuse erythema on the medial foot and calcaneus up to the distal leg. There is a 6 cm area of fluctuance on the medial foot with easily expressible purulent bloody fluid with foul odor. His right great toe was surgically absent, that incision is healed. I do not palpate the dorsalis pedis pulse but is detected by Doppler. DIAGNOSTIC STUDIES/LAB DATA: White blood cell count 15 down from 21, hemoglobin 12.8, platelets 220. Creatinine 0.5. CRP 271. Please see impression and recommendations outlined above, which I have discussed with GAVIOTA Harley. Thank you for asking me to see Mr. Dean in consultation. [id number]/[facility] #: [id number] GAGAN
--- NOTE | 2019-10-25 13:40 | PN ---
Progress Note - Progress Note Date of Service: 10/25/19 Note: Please see full dictated note for detail. Patient has infection of RLE with ulceration and probable osteomyelitis. Will have an MRI to evaluate extent of infection. I have tentatively booked him for a R BKA today with Dr Alvarado, with the suspicion that there is osteomyelitis as well as extensive soft tissue infection of the foot and ankle. The patient is aware of and in agreement to this procedure. If infection is more limited and BKA is not required, he agrees to I&D of the right foot.
--- NOTE | 2019-10-25 15:04 | PN ---
Subjective Date of Service: 10/25/19 Interval History: No pain. Feet are numb. Appetite diminished. Objective Active Medications: Acetaminophen (Tylenol Tab*) 650 mg PO Q4H PRN PRN Reason: PAIN - MILD Last Admin: 10/25/19 13:27 Dose: 650 mg Albuterol/Ipratropium (Duoneb (Albuterol 2.5 Mg/Ipratropium 0.5 Mg)) 1 neb INH Q6H PRN PRN Reason: SHORTNESS OF BREATH Atorvastatin Calcium (Lipitor*) 80 mg PO DAILY@1700 [facility] Buspirone HCl (Buspar Tab*) 30 mg PO BID [facility] Last Admin: 10/25/19 09:10 Dose: 30 mg Dextrose (D50w Syringe 50 Ml*) 12.5 gm IV PUSH .FOR FS < 60 - SS PRN PRN Reason: FS < 60 Dimenhydrinate (Dramamine Iv*) 25 mg IV PUSH ONCE ONE Stop: 10/25/19 11:49 Heparin Sodium (Porcine) (Heparin Vial(*)) 5,000 units SUBCUT Q8HR [facility] Last Admin: 10/25/19 12:32 Dose: Not Given Metronidazole/Sodium Chloride (Flagyl 500 Mg Ivpb*) 500 mg in 100 mls @ 100 mls /hr IVPB Q8H [facility] Last Admin: 10/25/19 13:26 Dose: 100 mls/hr Vancomycin HCl 1,500 mg/ (Sodium Chloride) 250 mls @ 166.667 mls/hr IVPB Q8H [facility] Last Admin: 10/25/19 09:10 Dose: 166.667 mls/hr Cefepime HCl (Maxipime 2 Gm In Dextrose Duplex (*)) 2 gm in 50 mls @ 100 mls/ hr IV Q12H [facility] Lactated Ringer's (Lactated Ringers 1000 Ml Bag*) 1,000 mls @ 125 mls/hr IV PER RATE [facility] Potassium Chloride (Potassium Chloride 20 Meq/100 Ml Ivpremix*) 20 meq in 100 mls @ 50 mls/hr IV Q2H [facility] Stop: 10/25/19 16:59 Last Admin: 10/25/19 13:05 Dose: 50 mls/hr Insulin Glargine (Lantus(*)) 20 units SUBCUT Q24H [facility] Last Admin: 10/24/19 21:37 Dose: 20 unit Insulin Human Lispro (Humalog*) 0 units SUBCUT AC [facility]; Protocol Last Admin: 10/25/19 13:54 Dose: Not Given Lidocaine/Sodium Bicarbonate (Buffered Lidocaine 1% Syrin*) 0.2 ml INTRADERM ONCE ONE Stop: 10/25/19 11:49 Mometasone Furoate/Formoterol Fumar (Dulera 200/5 Mdi*) 2 puff INH BID [facility]; Protocol Last Admin: 10/25/19 08:32 Dose: 2 puff Ondansetron HCl (Zofran Inj*) 4 mg IV Q6H PRN PRN Reason: NAUSEA Pantoprazole Sodium (Protonix Tab*) 40 mg PO DAILY [facility] Last Admin: 10/25/19 13:28 Dose: 40 mg Pharmacy Consult (Vancomycin Per Pharmacy*) 1 note FOLLOW UP .VANC PER PHARMACY [facility]; Protocol Pregabalin (Lyrica 50 Mg Cap (*)) 150 mg PO TID [facility] Last Admin: 10/25/19 13:28 Dose: 150 mg Tiotropium [place] (Spiriva Respimat 2.5 Mcg) 2 puff INH DAILY [facility] Last Admin: 10/25/19 08:32 Dose: 2 puff Venlafaxine HCl (Effexor Xr Cap*) 150 mg PO DAILY [facility] Last Admin: 10/25/19 08:20 Dose: 150 mg Vital Signs - 8 hr 10/25/19 10/25/19 10/25/19 08:00 08:12 08:20 Temperature 98.3 F Pulse Rate 77 Respiratory 18 18 18 Rate Blood Pressure 107/66 (mmHg) O2 Sat by Pulse 97 Oximetry 10/25/19 10/25/19 10/25/19 08:34 11:04 11:15 Temperature 97.8 F Pulse Rate 80 80 Respiratory 15 18 24 Rate Blood Pressure 119/67 (mmHg) O2 Sat by Pulse 94 94 Oximetry 10/25/19 13:28 Temperature Pulse Rate Respiratory 20 Rate Blood Pressure (mmHg) O2 Sat by Pulse Oximetry Oxygen Devices in Use Now: None Appearance: Alert, partly up in bed. In fair spirits. Looks comfortable. Eyes: No Scleral Icterus Respiratory: Symmetrical Chest Expansion and Respiratory Effort, Clear to Auscultation, Clear to Percussion Cardiovascular: NL Sounds; No Murmurs; No JVD, RRR, No Edema, - Abdominal: NL Sounds; No Tenderness; No Distention, No Hepatosplenomegaly, - - very obese Extremities: No Clubbing, Cyanosis, - - R foot bandaged, also L great toe Skin: No Nodules or Sclerosis Neurological: Alert and Oriented x 3, - - No tremor. Result Diagrams: 10/25/19 06:34 10/25/19 06:34 Microbiology and Other Data: Microbiology 10/25/19 10:35 Skin and Soft Tissue MRSA/MSSA (PCR - Final Foot Right Mrsa Negative S.aureus Positive Gram Stain - Final 10/25/19 09:00 Gram Stain - Final Foot Right Assess/Plan/Problems-Billing Assessment: - Patient Problems (1) Chronic ulcer of right foot Current Visit: Yes Status: Acute Code(s): L97.519 - NON-PRS CHRONIC ULCER OTH PRT RIGHT FOOT W UNSP SEVERITY SNOMED Code(s): 271634416 Comment: MRI showed some fluid around 4th digit R foot. I&D planned for PM. Continue cefepime, metro, vanco. (2) Diabetes Current Visit: Yes Status: Acute Code(s): E11.9 - TYPE 2 DIABETES MELLITUS WITHOUT COMPLICATIONS SNOMED Code(s): 83439616 Comment: Reduce Lantus to 12 U start 10/25 PM. Lispro by SS. (3) Diabetic neurogenic arthropathy Current Visit: Yes Status: Acute Code(s): E11.610 - TYPE 2 DIABETES MELLITUS W DIABETIC NEUROPATHIC ARTHROPATHY SNOMED Code(s): 400935894 Comment: Patient does not think he has benefited from pregabalin. Dose reduced to 100 mg tid on 10/25, can continue to slowly taper off completely. (4) COPD (chronic obstructive pulmonary disease) Current Visit: Yes Status: Acute Code(s): J44.9 - CHRONIC OBSTRUCTIVE PULMONARY DISEASE, UNSPECIFIED SNOMED Code(s): 03940293 Comment: Continue mometasone/formoterol and prn albuterol/ipratropium (5) Tobacco abuse Current Visit: Yes Status: Acute Code(s): Z72.0 - TOBACCO USE SNOMED Code( s): 922500106 Comment: Pt states he just quit. Pt advised to quit smoking and avoid second hand smoke. (6) Morbid obesity Current Visit: Yes Status: Acute Code(s): E66.01 - MORBID (SEVERE) OBESITY DUE TO EXCESS CALORIES SNOMED Code(s): 236197171 Comment: BMI 40.2
[2019-10-25] MEDS ORDERED: Dextrose 50% VIAL 50 ml IV PUSH PRN (15:10)
--- NOTE | 2019-10-25 15:18 | CONS ---
CONSULTATION REPORT: DATE OF CONSULT: 10/25/19 ATTENDING ORTHOPEDIC PROVIDER: Dr. Giuliano Alvarado. PRIMARY CARE PROVIDER: Ekaterina Rodriguez NP CHIEF COMPLAINT: Blister, right foot. HISTORY OF PRESENT ILLNESS: The patient is a 44-year-old male. He has a history of depression, diabetes, hypertension, hyperlipidemia, venous stasis, COPD, and right heel ulcer. We have been consulted today due to worsening ulceration and sepsis. The patient reports that since December he has been seeing manager body, Dr. Huitron, for 2 chronic ulcers on the plantar aspect of his right foot. The ulcer located on the midfoot has drained clear serous fluid chronically. Roughly 1 week ago, it began to have a foul odor and began to drain purulent material. At this time, he also developed large blister over the right medial heel. He has had several bedside debridements by Dr. Huitron and was sent to the wound care clinic 1 week ago. Upon return to the wound clinic, a wound VAC was placed. The patient states that he has not been on any antibiotics. He presented to the emergency room on 10/24/19 due to fever and chills. He has densely neuropathic feet upon arrival to the emergency room. He was found to be septic. The patient has no history of heart attack, stroke, or blood clot. His last ABIs were 1 year ago, and Dr. Huitron had intended to repeat the study. PAST MEDICAL HISTORY: Depression, diabetes, hypertension, hyperlipidemia, venous stasis, COPD, right heel ulcer, neuropathy. PAST SURGICAL HISTORY: Gastric bypass, cardiac catheterization, right great toe amputation, right thumb surgery. HOME MEDICATIONS: 1. Metformin 1000 mg p.o. b.i.d. 2. BuSpar 30 mg p.o. b.i.d. 3. Effexor 150 mg p.o. daily. 4. Spiriva 1 cap inhaled daily. 5. Lyrica 150 mg p.o. t.i.d. 6. Protonix 40 mg daily. 7. Dulera 2 puffs inhaled b.i.d. 8. Losartan/hydrochlorothiazide 1 tab daily. 9. Victoza 1.8 mg subcu daily. 10. Hydrochlorothiazide 12.5 mg p.o. daily. 11. Lasix 20 mg daily. 12. Steglatro 15 mg daily. 13. Jardiance 10 mg p.o. daily. 14. Vitamin D 5000 units daily. 15. Symbicort 2 puffs inhaled b.i.d. 16. Regranex 15 g topically daily. 17. Lipitor 80 mg daily. 18. DuoNeb 1 neb inhaled every 6 hours as needed. 19. Ventolin 2 puffs inhaled q.6 hours as needed. ALLERGIES TO MEDICATIONS: AUGMENTIN, GABAPENTIN. FAMILY HISTORY: Mother was diabetic with end-stage renal disease. Father , [place]. SOCIAL HISTORY: Three-pack a day smoker for 35 years. Does not drink alcohol. Smokes marijuana. REVIEW OF SYSTEMS: General: Positive for fever and chills. HEENT: No headache. Cardiac: No history of heart attack. No chest pain. Respiratory: No shortness of breath. Abdomen: No nausea, vomiting, diarrhea. : No dysuria. Musculoskeletal: Positive for 2 chronic ulcerations and 1 new blister of the right foot. He also has a chronic ulceration on the left foot. Neuro: Neuropathy of bilateral feet to mid calf. PHYSICAL EXAM: Vital Signs: Temperature 97.8, pulse 80, respiratory rate 24, oxygen saturation 94%, and blood pressure 119/67. T-max on this admission was 101.1. General: Nontoxic-appearing, in no acute distress. HEENT: Normocephalic, atraumatic. Extraocular movements intact. Lungs: Normal rate and effort of breathing. Cardiovascular: Capillary refill roughly 3 seconds distally in the right lower extremity. DP and PT pulses are not easily palpable. Abdomen: Nondistended. Extremities: Moves bilateral upper extremities well. Skin envelope intact. Nontender to palpation. Lower extremities: Right lower extremity: The patient has 2 ulcerations on the plantar aspect of his foot roughly dime-sized, 1 over the heel and 1 over the midfoot, both of these with expressible purulent drainage. There is also a large bulla that measures roughly 6 cm across on the medial hindfoot. There is erythema on the medial foot and ankle. His right great toe is surgically absent. This incision is well healed. He is able to flex and extend MTPs and ankle without pain. The patient is nontender to palpation as he is neuropathic. Left lower extremity: The patient's skin envelope is intact aside from ulcer noted on great toe. Nontender to palpation. Neuropathy of the foot to mid calf. There is a 0.5 x 1 cm dry ulceration of the medial great toe. DIAGNOSTIC STUDIES: Foot x-ray without any acute fracture and no reported abscess. Awaiting results of MRI. Ankle-brachial index on the left side 1.48, on the right 1.18. ASSESSMENT: Cellulitis, diabetic ulcerations with possible osteomyelitis of the right lower extremity, Charcot foot. PLAN: Anticipate the patient will at very least need surgical debridement. He very well may need a below- knee amputation. He will have an MRI today to evaluate extent of infection. He has been booked for the OR for a right below- knee amputation today. Course of treatment to be finalized after MRI is complete. Dr. Alvarado is aware and in agreement with this plan for this patient. GAVIOTA MCKEON [id number]/CPS #: [id number] GAGAN
[2019-10-25] MEDS ORDERED: fentaNYL* 50 MCG/ML 2 ML VIAL (100 MCG VIAL) ONE (17:17)
[2019-10-25] MEDS: Cefepime 2 GM in Dextrose(*) 2 GM/50 ML BAG IV SCH (18:53)
[2019-10-25] MEDS: Atorvastatin* 80 MG TAB PO SCH (20:01)
[2019-10-25] MEDS: Insulin GLARGINE(*) 1 UNITS UNIT SUBCUT SCH (20:46)
--- NOTE | 2019-10-26 04:10 | OP ---
DATE OF OPERATION: 10/25/19 - ROOM #410 DATE OF : 71 SURGEON: Giuliano Alvarado MD. CABLE TENDER: Tanmay Valdez PA-C. PRE-OP DIAGNOSIS: Extensive soft tissue abscess, plantar aspect, right foot. POST-OP DIAGNOSIS: Extensive soft tissue abscess, plantar aspect, right foot. OPERATIVE PROCEDURE: Extensive aggressive debridement, right plantar skin, subcutaneous tissue and muscle. DESCRIPTION OF PROCEDURE: The patient was taken to the operating room where he was noted to have a chronic ulcer in the mid portion of his plantar foot and the mid portion of the heel, and then a large bullous, foul-smelling abscess along the plantar medial aspect of the mid foot. With the thigh tourniquet inflated, I used a 10 blade to circumferentially excise this large soft tissue defect. The foul-smelling petrified tissues were removed en catherine back to good clean tissue leaving a defect at least 8 cm x 8 cm. Also, I circumferentially excised the ulcer at the heel as well as the mid foot. There was some petrified soft tissue tracking down to mid foot ulcer. These were scraped and debrided back to what appeared to be healthy tissue. Cultures were sent. We then used a 3 L pulsatile lavage to clean the bottom of the foot and tourniquet was dropped to allow hemostasis. We packed the big soft tissue defect with Betadine-soaked Kerlix and then a compression dressing over the top. All of the soft tissues were sent to Pathology as well as the cultures to the lab. [id number]/CPS #: [id number] MTDRuben
[2019-10-26] MEDS: Cefepime 2 GM in Dextrose(*) 2 GM/50 ML BAG IV SCH ×2 (04:21→15:49)
[2019-10-26] MEDS: Vancomycin(*) 1,500 MG in NS 0.9% 250 ML* 250 ML IVPB SCH ×2 (04:21→13:32)
[2019-10-26] MEDS: metroNIDAZOLE IV 500 MG/100ML* 500 MG/100 ML BAG IVPB SCH ×3 (05:38→21:30)
[2019-10-26] MEDS: Heparin VIAL(*) 5000 UNITS/ML VIAL (FIVE THOUSAND) SUBCUT SCH ×4 (05:38→21:24)
[2019-10-26] MEDS: SPIRIVA Respimat* (tiotropium) 2.5 mcg/inh Inhaler INH SCH (07:28)
[2019-10-26] MEDS: Mometasone/Formoter 200/5 MDI INH SCH ×2 (07:28→19:52)
[2019-10-26] MEDS: Insulin LISPRO* 1 UNITS UNIT SUBCUT SCH ×4 (07:37→21:19)
--- NOTE | 2019-10-26 09:49 | PN ---
Subjective Date of Service: 10/26/19 Interval History: HOSPITALIST PROGRESS NOTE Patient seen and examined at bedside. Care reviewed and d/w Andreina Sharp RN. He offers no new complaints today. Denies pain. Received his wound vac that had been ordered as outpatient prior to admission and surgery. Family History: Unchanged from Admission Social History: Unchanged from Admission Past Medical History: Unchanged from Admission Objective Active Medications: Acetaminophen (Tylenol Tab*) 650 mg PO Q4H PRN PRN Reason: PAIN - MILD Last Admin: 10/25/19 13:27 Dose: 650 mg Albuterol/Ipratropium (Duoneb (Albuterol 2.5 Mg/Ipratropium 0.5 Mg)) 1 neb INH Q6H PRN PRN Reason: SHORTNESS OF BREATH Atorvastatin Calcium (Lipitor*) 80 mg PO DAILY@1700 [facility] Last Admin: 10/25/19 20:01 Dose: 80 mg Buspirone HCl (Buspar Tab*) 30 mg PO BID [facility] Last Admin: 10/25/19 22:32 Dose: 30 mg Dextrose (Dextrose 50% Vial 50 Ml*) 25 ml IV PUSH .FOR FS < 60 - SS PRN PRN Reason: FS < 60 Heparin Sodium (Porcine) (Heparin Vial(*)) 5,000 units SUBCUT Q8HR [facility] Last Admin: 10/26/19 05:38 Dose: 5,000 units Metronidazole/Sodium Chloride (Flagyl 500 Mg Ivpb*) 500 mg in 100 mls @ 100 mls /hr IVPB Q8H [facility] Last Admin: 10/26/19 05:38 Dose: 100 mls/hr Cefepime HCl (Maxipime 2 Gm In Dextrose Duplex (*)) 2 gm in 50 mls @ 100 mls/ hr IV Q12H [facility] Last Admin: 10/26/19 04:21 Dose: 100 mls/hr Lactated Ringer's (Lactated Ringers 1000 Ml Bag*) 1,000 mls @ 125 mls/hr IV PER RATE [facility] Vancomycin HCl 1,500 mg/ (Sodium Chloride) 250 mls @ 166.667 mls/hr IVPB 0400, 1200,2200 [facility] Last Admin: 10/26/19 04:21 Dose: 166.667 mls/hr Insulin Glargine (Lantus(*)) 12 units SUBCUT Q24H [facility] Last Admin: 10/25/19 20:46 Dose: 12 unit Insulin Human Lispro (Humalog*) 0 units SUBCUT ACHS [facility]; Protocol Last Admin: 10/26/19 07:37 Dose: Not Given Mometasone Furoate/Formoterol Fumar (Dulera 200/5 Mdi*) 2 puff INH BID [facility]; Protocol Last Admin: 10/26/19 07:28 Dose: 2 puff Ondansetron HCl (Zofran Inj*) 4 mg IV Q6H PRN PRN Reason: NAUSEA Oxycodone HCl (Roxycodone Tab*) 5 mg PO Q4H PRN PRN Reason: PAIN - SEVERE Pantoprazole Sodium (Protonix Tab*) 40 mg PO DAILY [facility] Last Admin: 10/25/19 13:28 Dose: 40 mg Pharmacy Consult (Vancomycin Per Pharmacy*) 1 note FOLLOW UP .VANC PER PHARMACY [facility]; Protocol Pregabalin (Lyrica 50 Mg Cap (*)) 100 mg PO TID [facility] Last Admin: 10/25/19 20:52 Dose: Not Given Tiotropium [place] (Spiriva Respimat 2.5 Mcg) 2 puff INH DAILY [facility] Last Admin: 10/26/19 07:28 Dose: 2 puff Tramadol HCl (Ultram*) 50 mg PO Q6H PRN PRN Reason: PAIN - MODERATE Venlafaxine HCl (Effexor Xr Cap*) 150 mg PO DAILY [facility] Last Admin: 10/25/19 08:20 Dose: 150 mg Vital Signs - 8 hr 10/26/19 10/26/19 10/26/19 03:15 07:15 07:29 Temperature 97.4 F 97.4 F Pulse Rate 65 76 79 Respiratory 18 18 16 Rate Blood Pressure 100/56 110/78 (mmHg) O2 Sat by Pulse 92 96 90 Oximetry 10/26/19 07:39 Temperature Pulse Rate Respiratory 18 Rate Blood Pressure (mmHg) O2 Sat by Pulse Oximetry Oxygen Devices in Use Now: None Appearance: Pleasant middle aged gentleman sitting up in bed in NAD Eyes: No Scleral Icterus Ears/Nose/Mouth/Throat: Mucous Membranes Moist Neck: Trachea Midline Respiratory: Symmetrical Chest Expansion and Respiratory Effort, Clear to Auscultation Cardiovascular: RRR - Normal S1 and S2 Abdominal: NL Sounds; No Tenderness; No Distention Extremities: - - CDI to right foot Neurological: Alert and Oriented x 3, NL Muscle Strength and Tone, - - No sensation to feet Result Diagrams: 10/25/19 06:34 10/25/19 06:34 Microbiology and Other Data: Microbiology 10/25/19 10:35 Skin and Soft Tissue MRSA/MSSA (PCR - Final Foot Right Mrsa Negative S.aureus Positive Gram Stain - Final 10/25/19 09:00 Gram Stain - Final Foot Right Assess/Plan/Problems-Billing Assessment: Mr Dean is a 44yo M with PMH of depression, type 2 DM with peripheral neuropathy, HTN, HLD, chronic venous insufficiency, chronic right heel ulcer, who presented to ED with diabetic foot infection. - Patient Problems (1) Sepsis Comment: - Presentation compatible with sepsis with tachycardia and leukocytosis. - Source is diabetic foot infection. (2) Diabetic foot infection Comment: - Has chronic heel ulcer, now found to have plantar medial abscess s/p aggressive debridment by Dr Alvarado 10/25/2019. - Continue Cefepime and Flagyl, d/c Vanco as per ID and follow cultures. - D/c planning pending decision about outpatient IV antibiotics and wound vac placement. (3) Diabetes Comment: - Check A1c. - FS are controlled for now - continue Lantus 12 units and Lispro SS. (4) Diabetic neuropathy Comment: - As per Dr Obrien's note, patient does not think he has benefited from pregabalin. Dose reduced to 100 mg tid on 10/25, can continue to slowly taper off completely. (5) COPD (chronic obstructive pulmonary disease) Comment: - Continue bronchodilators and inhaled steroids. (6) Tobacco abuse Comment: Pt states he just quit. Pt advised to quit smoking and avoid second hand smoke. (7) DVT prophylaxis Comment: - SQ heparin. (8) Full code status Status and Disposition: Inpatient.
[2019-10-26] MEDS: Pregabalin 50 mg CAP (*) PO SCH ×3 (11:25→21:26)
[2019-10-26] MEDS: Pantoprazole TAB * 40 MG TAB PO SCH (11:26)
[2019-10-26] MEDS: Venlafaxine EXT RELEASE CAP* 75 MG PO SCH (11:26)
[2019-10-26] MEDS ORDERED: Vancomycin Trough Check NOTE FOLLOW UP ONE (11:30)
[2019-10-26] MEDS: busPIRone TAB* 30 MG PO SCH ×2 (12:02→21:25)
--- NOTE | 2019-10-26 15:31 | PN ---
Progress Note - Progress Note Date of Service: 10/26/19 SOAP: Subjective: CC: right foot infection HPI: 44 year old man with diabetic neuropathy and chronic wounds right foot, developed fever and malaise along with swelling and redness right foot. Abscess started draining purulent fluid here. Had I&D which he tolerated well. No foot pain. Redness receding down his leg. Appetite is excellent. No fever, rash, or diarrhea. Objective: Vital Signs Temp 36.5 C 10/26/19 11:15 Pulse 74 10/26/19 11:15 Resp 18 10/26/19 11:25 BP 102/59 10/26/19 11:15 Pulse Ox 98 10/26/19 11:15 Intake & Output 10/25/19 10/26/19 10/26/19 18:59 06:59 18:59 Intake Total 970 3170 1200 Output Total 650 1200 Balance 970 2520 0 Weight 330 lb Intake: IV Fluids 160 2690 Flagyl 200 LR 100 1900 NS 60 90 Vanco 500 IVPB 450 Flagyl 200 Vanco 250 Oral 656 767 5072 Output: Urine 650 1200 Other: Estimated Void Large Date of Last Bowel [id number] Movement # Bowel Movements 1 0 # Voids 2 1 Gen:awake, no distress HEENT: no thrush Heart:Regular, no murmur Lungs:CTA BL ABd:+BS NTND soft Skin: no rash MSK: R foot wrapped, erythema lower leg Microbiology 10/25/19 09:00 Gram Stain - Final Foot Right Wound Culture - Preliminary Strep Agalactiae - (Group B) Staphylococcus Aureus 10/25/19 10:35 Skin and Soft Tissue MRSA/MSSA (PCR - Final Foot Right Mrsa Negative S.aureus Positive Gram Stain - Final Wound Culture - Preliminary Strep Agalactiae - (Group B) 10/25/19 16:41 Skin and Soft Tissue MRSA/MSSA (PCR - Final Foot Right Mrsa Negative S.aureus Positive Gram Stain - Final Wound Culture - Preliminary Strep Agalactiae - (Group B) 10/25/19 10:30 Urine Culture - Final Urine Nisa Albicans 10/25/19 16:41 Anaerobic Culture - Preliminary Wound 10/24/19 17:55 Aerobic Blood Culture - Preliminary Blood Venous No Growth Day 1 Anaerobic Blood Culture - Preliminary No Growth Day 1 10/24/19 17:55 Aerobic Blood Culture - Preliminary Blood Venous No Growth Day 1 Anaerobic Blood Culture - Preliminary No Growth Day 1 Assessment: 1. polymicrobial right foot abscess, infectious mysositis, limb threatening infection 2. morbid obesity 3. diabetes with neuropathy 4. tobacco abuse in brief remission Plan: 1. DC vancomycin, continue cefepime and flagyl, final cultures pending, will plan on long course of antibiotics, hold on PICC for now pending cultures.
--- NOTE | 2019-10-26 16:25 | PN ---
Progress Note - Progress Note Date of Service: 10/26/19 SOAP: Subjective: []Pt seen at bedside. He feels well without fever, chills, CP, SOB, dizziness, nausea. Objective: []Gen: NAD, nontoxic appearing RLE: Dressing CDI, insensate midcalf distally which is baseline. Cap refill less than two seconds distally calves supple without palpable cords Assessment: []POD 1 sp I&D right foot soft tissue abscess Plan: []NWB RLE Plan for return to OR thurs for probable BKA, possible syme amputation ABX per ID Vital Signs Temp 98.6 F 10/27/19 07:15 Pulse 76 10/27/19 07:45 Resp 19 10/27/19 10:09 BP 107/64 10/27/19 07:15 Pulse Ox 97 10/27/19 07:45 Intake & Output 10/26/19 10/27/19 10/27/19 18:59 06:59 18:59 Intake Total 3179 200 120 Output Total 1750 780 Balance 1429 -580 120 Intake: IV Fluids 1438 200 Flagyl 200 LR 1438 IVPB 436 ABX - CEFEPIME 56 Flagyl 108 Vanco 272 Oral 1305 0 120 Output: Urine 1750 780 Other: Estimated Void Large Medium Date of Last Bowel 10/25/19 Movement # Bowel Movements 0 # Voids 1 1 Laboratory Last Values WBC 11.5 10^3/uL (3.5-10.8) H 10/27/19 07:37 RBC 4.27 10^6 /uL (4.18-5.48) 10/27/19 07:37 Hgb 12.3 g/dL (14.0-18.0) L 10/27/19 07:37 Hct 37 % (42-52) L 10/27/19 07:37 MCV 86 fL (80-94) 10/27/19 07:37 MCH 29 pg (27-31) 10/27/19 07:37 MCHC 34 g/dL (31-36) 10/27/19 07:37 RDW 15 % (10-15) 10/27/19 07:37 Plt Count 226 10^3/uL (150-450) 10/27/19 07:37 MPV 9.0 fL (7.4-10.4) 10/27/19 07:37 Neut % (Auto) 78.0 % 10/27/19 07:37 Lymph % (Auto) 10.6 % 10/27/19 07:37 [place] % (Auto) 9.3 % 10/27/19 07:37 Eos % (Auto) 1.6 % 10/27/19 07:37 Baso % (Auto) 0.5 % 10/27/19 07:37 Absolute Neuts (auto) 8.9 10^3/ul (1.5-7.7) H 10/27/19 07:37 Absolute Lymphs (auto) 1.2 10^3/ul (1.0-4.8) 10/27/19 07:37 Absolute Monos (auto) 1.1 10^3/ul (0-0.8) H 10/27/19 07:37 Absolute Eos (auto) 0.2 10^3/ul (0-0.6) 10/27/19 07:37 Absolute Basos (auto) 0.1 10^3/ul (0-0.2) 10/27/19 07:37 Absolute Nucleated RBC 0.0 10^3/ul 10/27/19 07:37 Nucleated RBC % 0.1 10/27/19 07:37 ESR 110 mm/Hr (0-14) H 10/25/19 06:34 INR (Anticoag Therapy) 1.47 (0.82-1.09) H 10/25/19 06:34 APTT 38.5 seconds (26.0-38.0) H 10/24/19 17:55 Sodium 133 mmol/L (135-145) L 10/27/19 07:37 Potassium 3.0 mmol/L (3.5-5.0) L 10/27/19 07:37 Chloride 99 mmol/L (101-111) L 10/27/19 07:37 Carbon Dioxide 25 mmol/L (22-32) 10/27/19 07:37 Anion Gap 9 mmol/L (2-11) 10/27/19 07:37 BUN 6 mg/dL (6-24) 10/27/19 07:37 Creatinine 0.66 mg/dL (0.67-1.17) L 10/27/19 07:37 Est GFR ( Amer) 157.2 (>60) 10/27/19 07:37 Est GFR (Non-Af Amer) 129.9 (>60) 10/27/19 07:37 BUN/Creatinine Ratio 9.1 (8-20) 10/27/19 07:37 Glucose 106 mg/dL (70-100) H 10/27/19 07:37 POC Glucose (mg/dL) 149 mg/dL (70-100) H 10/27/19 11:46 Glucose Meter Confirm 132 mg/dL (70-100) H 10/26/19 20:33 Hemoglobin A1c 7.8 % (4.0-5.6) H 10/27/19 07:37 Lactic Acid 1.2 mmol/L (0.5-2.0) 10/24/19 19:57 Calcium 8.0 mg/dL (8.6-10.3) L 10/27/19 07:37 Total Bilirubin 1.50 mg/dL (0.2-1.0) H 10/24/19 17:55 AST 33 U/L (13-39) 10/24/19 17:55 ALT 27 U/L (7-52) 10/24/19 17:55 Alkaline Phosphatase 115 U/L (34-104) H 10/24/19 17:55 C-Reactive Protein 271.15 mg/L (<8.01) H 10/25/19 06:34 Total Protein 8.7 g/dL (6.4-8.9) 10/24/19 17:55 Albumin 4.0 g/dL (3.2-5.2) 10/24/19 17:55 Globulin 4.7 g/dL (2-4) H 10/24/19 17:55 Albumin/Globulin Ratio 0.9 (1-3) L 10/24/19 17:55 Urine Color Lynnette 10/25/19 10:30 Urine Appearance Cloudy 10/25/19 10:30 Urine pH 6.0 (5-9) 10/25/19 10:30 Ur Specific [place] 1.029 (1.010-1.030) 10/25/19 10:30 Urine Protein 1+(30 mg/dl) (Negative) A 10/25/19 10:30 Urine Ketones 1+ (Negative) A 10/25/19 10:30 Urine Blood Negative (Negative) 10/25/19 10:30 Urine Nitrate Negative (Negative) 10/25/19 10:30 Urine Bilirubin Negative (Negative) 10/25/19 10:30 Urine Urobilinogen Positive (Negative) A 10/25/19 10:30 Ur Leukocyte Esterase 3+ (Negative) A 10/25/19 10:30 Urine WBC (Auto) 3+(>20/hpf) (Absent) A 10/25/19 10:30 Urine RBC (Auto) 3+(>10/hpf) (Absent) A 10/25/19 10:30 Ur Squamous Epith Cells Present (Absent) A 10/25/19 10:30 Urine Bacteria Absent (Absent) 10/25/19 10:30 Urine Glucose 3+(>=500 mg/dl) (Negative) A 10/25/19 10:30 Vancomycin Trough 9.3 mcg/mL 10/26/19 12:20
[2019-10-26] MEDS: Atorvastatin* 80 MG TAB PO SCH (17:01)
[2019-10-26] MEDS: Insulin GLARGINE(*) 1 UNITS UNIT SUBCUT SCH (21:22)
[2019-10-27] MEDS: Acetaminophen TAB* 325 MG PO PRN (00:13)
[2019-10-27] MEDS: Cefepime 2 GM in Dextrose(*) 2 GM/50 ML BAG IV SCH ×2 (03:36→14:54)
[2019-10-27] MEDS: metroNIDAZOLE IV 500 MG/100ML* 500 MG/100 ML BAG IVPB SCH ×3 (04:32→20:12)
[2019-10-27] MEDS: Heparin VIAL(*) 5000 UNITS/ML VIAL (FIVE THOUSAND) SUBCUT SCH ×3 (05:42→21:47)
[2019-10-27] MEDS: SPIRIVA Respimat* (tiotropium) 2.5 mcg/inh Inhaler INH SCH (07:42)
[2019-10-27] MEDS: Mometasone/Formoter 200/5 MDI INH SCH ×2 (07:42→19:35)
[2019-10-27 08:14] LABS: ABS Basophils 0.1 10^3/ul (0-0.2); ABS Eosinophils 0.2 10^3/ul (0-0.6); ABS Lymphocytes 1.2 10^3/ul (1.0-4.8); ABS Monocytes 1.1 10^3/ul (0-0.8); ABS Neutrophils 8.9 10^3/ul (1.5-7.7); Eosinophil % 1.6 %; Hematocrit 37 % (42-52); Hemoglobin 12.3 g/dL (14.0-18.0); Lymphocyte % 10.6 %; Mean Corpuscular HGB Conc 34 g/dL (31-36); Mean Corpuscular Hemoglobin 29 pg (27-31); Mean Corpuscular Volume 86 fL (80-94); Nucleated Red Blood Cells % 0.1; Platelet Count 226 10^3/uL (150-450); Red Blood Count 4.27 10^6 /uL (4.18-5.48); Red Cell Distribution Width 15 % (10-15); White Blood Count 11.5 10^3/uL (3.5-10.8)
[2019-10-27] MEDS: Insulin LISPRO* 1 UNITS UNIT SUBCUT SCH ×4 (08:17→20:12)
[2019-10-27 08:25] LABS: BUN/Creatinine Ratio 9.1 (8-20); EGFR African American 157.2 (>60); EGFR Non-African American 129.9 (>60)
[2019-10-27] MEDS: busPIRone TAB* 30 MG PO SCH ×2 (10:09→20:12)
[2019-10-27] MEDS: Pregabalin 50 mg CAP (*) PO SCH ×3 (10:09→20:11)
[2019-10-27] MEDS: Venlafaxine EXT RELEASE CAP* 75 MG PO SCH (10:09)
[2019-10-27] MEDS: Pantoprazole TAB * 40 MG TAB PO SCH (10:09)
[2019-10-27] MEDS ORDERED: Vancomycin Trough Check NOTE FOLLOW UP ONE (11:30)
--- NOTE | 2019-10-27 11:49 | PN ---
Progress Note - Progress Note Date of Service: 10/27/19 SOAP: Subjective: CC: Right foot infection with abscess HPI: Mr. Dean is a 44 yo male with PMH significant for morbid obesity, DM2, peripheral neuropathy, depression, HTN, HLD, venous insufficiency, COPD, and chronic right foot ulcers; who presented to the hospital with right foot abscess. Denies chills, nausea, diarrhea. Reports intermittent fevers, and emesis this AM. Objective: Vital Signs - 8 hr 10/27/19 10/27/19 10/27/19 07:15 07:45 08:00 Temperature 98.6 F Pulse Rate 76 76 Respiratory 20 15 20 Rate Blood Pressure 107/64 (mmHg) O2 Sat by Pulse 96 97 Oximetry Physical Exam: General: NAD, sitting up in a chair Neurological: Alert and Oriented HEENT: Moist MM Cardiovascular: Heart rate regular. Edema to the right LE Respiratory: Lung sounds clear Abdominal: Bowel sounds present; ABD soft, large, and non tender MSK: BOBO Skin: DIANE wrap dressing to the right foot. Mild erythema above the dressing on the lower leg Laboratory Results - last 24 hr 10/26/19 10/27/19 10/27/19 20:33 07:37 07:37 WBC 11.5 H RBC 4.27 Hgb 12.3 L Hct 37 L MCV 86 MCH 29 MCHC 34 RDW 15 Plt Count 226 MPV 9.0 Neut % (Auto) 78.0 Lymph % (Auto) 10.6 [place] % (Auto) 9.3 Eos % (Auto) 1.6 Baso % (Auto) 0.5 Absolute Neuts (auto) 8.9 H Absolute Lymphs (auto) 1.2 Absolute Monos (auto) 1.1 H Absolute Eos (auto) 0.2 Absolute Basos (auto) 0.1 Absolute Nucleated RBC 0.0 Nucleated RBC % 0.1 Sodium 133 L Potassium 3.0 L Chloride 99 L Carbon Dioxide 25 Anion Gap 9 BUN 6 Creatinine 0.66 L Est GFR ( Amer) 157.2 Est GFR (Non-Af Amer) 129.9 BUN/Creatinine Ratio 9.1 Glucose 106 H POC Glucose (mg/dL) Glucose Meter Confirm 132 H Hemoglobin A1c Calcium 8.0 L Vancomycin Trough Microbiology 10/25/19 10:35 Skin and Soft Tissue MRSA/MSSA (PCR - Final Foot Right Mrsa Negative S.aureus Positive Gram Stain - Final Wound Culture - Preliminary Strep Agalactiae - (Group B) 10/25/19 09:00 Gram Stain - Final Foot Right Wound Culture - Preliminary Strep Agalactiae - (Group B) Staphylococcus Aureus 10/24/19 17:55 Aerobic Blood Culture - Preliminary Blood Venous No Growth Day 2 Anaerobic Blood Culture - Preliminary No Growth Day 2 10/24/19 17:55 Aerobic Blood Culture - Preliminary Blood Venous No Growth Day 2 Anaerobic Blood Culture - Preliminary No Growth Day 2 10/25/19 16:41 Skin and Soft Tissue MRSA/MSSA (PCR - Final Foot Right Mrsa Negative S.aureus Positive Gram Stain - Final Wound Culture - Preliminary Strep Agalactiae - (Group B) 10/25/19 10:30 Urine Culture - Final Urine Nisa Albicans 10/25/19 16:41 Anaerobic Culture - Preliminary Wound Assessment: 1. Right foot abscess, infectious mysositis, with limb threatening infection. Polymicrobial. Low grade fever of 100.0 overnight. Leukopcytosis and CRP trending down. Blood cultures with no growth to date. 2. DM2 with peripheral neuropathy. 3. Morbid obesity. BMI 40.2. Plan: Continue cefepime and flagyl. Will plan on long course of antibiotics, final recommendations will be based on the surgical procedure tomorrow and final culture results.
[2019-10-27] MEDS ORDERED: Buffered Lidocaine 1% SYRIN* 1 ML/SYRINGE INTRADERM ONE (11:52)
--- NOTE | 2019-10-27 13:37 | PN ---
Progress Note - Progress Note Date of Service: 10/27/19 SOAP: Subjective: []Pt seen and examined at bedside. He denies fever, chills, CP, SOB, dizziness, nausea. Mild R foot pain. Objective: []Gen: NAD, nontoxic appearing RLE: Dressing CDI, insensate midcalf distally which is baseline. Cap refill less than two seconds distally calves supple without palpable cords, tender R medial calf Assessment: []POD 1 sp I&D right foot soft tissue abscess Plan: []NWB RLE Plan for return to OR thurs for probable BKA, possible syme amputation ABX per ID Dopplar ordered NPO and hold chem dvt prophy at midnight Vital Signs Temp 98.6 F 10/27/19 07:15 Pulse 76 10/27/19 07:45 Resp 19 10/27/19 10:09 BP 107/64 10/27/19 07:15 Pulse Ox 97 10/27/19 07:45 Intake & Output 10/26/19 10/27/19 10/27/19 18:59 06:59 18:59 Intake Total 3179 200 120 Output Total 1750 780 Balance 1429 -580 120 Intake: IV Fluids 1438 200 Flagyl 200 LR 1438 IVPB 436 ABX - CEFEPIME 56 Flagyl 108 Vanco 272 Oral 1305 0 120 Output: Urine 1750 780 Other: Estimated Void Large Medium Date of Last Bowel 10/25/19 Movement # Bowel Movements 0 # Voids 1 1 Laboratory Last Values WBC 11.5 10^3/uL (3.5-10.8) H 10/27/19 07:37 RBC 4.27 10^6 /uL (4.18-5.48) 10/27/19 07:37 Hgb 12.3 g/dL (14.0-18.0) L 10/27/19 07:37 Hct 37 % (42-52) L 10/27/19 07:37 MCV 86 fL (80-94) 10/27/19 07:37 MCH 29 pg (27-31) 10/27/19 07:37 MCHC 34 g/dL (31-36) 10/27/19 07:37 RDW 15 % (10-15) 10/27/19 07:37 Plt Count 226 10^3/uL (150-450) 10/27/19 07:37 MPV 9.0 fL (7.4-10.4) 10/27/19 07:37 Neut % (Auto) 78.0 % 10/27/19 07:37 Lymph % (Auto) 10.6 % 10/27/19 07:37 [place] % (Auto) 9.3 % 10/27/19 07:37 Eos % (Auto) 1.6 % 10/27/19 07:37 Baso % (Auto) 0.5 % 10/27/19 07:37 Absolute Neuts (auto) 8.9 10^3/ul (1.5-7.7) H 10/27/19 07:37 Absolute Lymphs (auto) 1.2 10^3/ul (1.0-4.8) 10/27/19 07:37 Absolute Monos (auto) 1.1 10^3/ul (0-0.8) H 10/27/19 07:37 Absolute Eos (auto) 0.2 10^3/ul (0-0.6) 10/27/19 07:37 Absolute Basos (auto) 0.1 10^3/ul (0-0.2) 10/27/19 07:37 Absolute Nucleated RBC 0.0 10^3/ul 10/27/19 07:37 Nucleated RBC % 0.1 10/27/19 07:37 ESR 110 mm/Hr (0-14) H 10/25/19 06:34 INR (Anticoag Therapy) 1.47 (0.82-1.09) H 10/25/19 06:34 APTT 38.5 seconds (26.0-38.0) H 10/24/19 17:55 Sodium 133 mmol/L (135-145) L 10/27/19 07:37 Potassium 3.0 mmol/L (3.5-5.0) L 10/27/19 07:37 Chloride 99 mmol/L (101-111) L 10/27/19 07:37 Carbon Dioxide 25 mmol/L (22-32) 10/27/19 07:37 Anion Gap 9 mmol/L (2-11) 10/27/19 07:37 BUN 6 mg/dL (6-24) 10/27/19 07:37 Creatinine 0.66 mg/dL (0.67-1.17) L 10/27/19 07:37 Est GFR ( Amer) 157.2 (>60) 10/27/19 07:37 Est GFR (Non-Af Amer) 129.9 (>60) 10/27/19 07:37 BUN/Creatinine Ratio 9.1 (8-20) 10/27/19 07:37 Glucose 106 mg/dL (70-100) H 10/27/19 07:37 POC Glucose (mg/dL) 149 mg/dL (70-100) H 10/27/19 11:46 Glucose Meter Confirm 132 mg/dL (70-100) H 10/26/19 20:33 Hemoglobin A1c 7.8 % (4.0-5.6) H 10/27/19 07:37 Lactic Acid 1.2 mmol/L (0.5-2.0) 10/24/19 19:57 Calcium 8.0 mg/dL (8.6-10.3) L 10/27/19 07:37 Total Bilirubin 1.50 mg/dL (0.2-1.0) H 10/24/19 17:55 AST 33 U/L (13-39) 10/24/19 17:55 ALT 27 U/L (7-52) 10/24/19 17:55 Alkaline Phosphatase 115 U/L (34-104) H 10/24/19 17:55 C-Reactive Protein 271.15 mg/L (<8.01) H 10/25/19 06:34 Total Protein 8.7 g/dL (6.4-8.9) 10/24/19 17:55 Albumin 4.0 g/dL (3.2-5.2) 10/24/19 17:55 Globulin 4.7 g/dL (2-4) H 10/24/19 17:55 Albumin/Globulin Ratio 0.9 (1-3) L 10/24/19 17:55 Urine Color Lynnette 10/25/19 10:30 Urine Appearance Cloudy 10/25/19 10:30 Urine pH 6.0 (5-9) 10/25/19 10:30 Ur Specific [place] 1.029 (1.010-1.030) 10/25/19 10:30 Urine Protein 1+(30 mg/dl) (Negative) A 10/25/19 10:30 Urine Ketones 1+ (Negative) A 10/25/19 10:30 Urine Blood Negative (Negative) 10/25/19 10:30 Urine Nitrate Negative (Negative) 10/25/19 10:30 Urine Bilirubin Negative (Negative) 10/25/19 10:30 Urine Urobilinogen Positive (Negative) A 10/25/19 10:30 Ur Leukocyte Esterase 3+ (Negative) A 10/25/19 10:30 Urine WBC (Auto) 3+(>20/hpf) (Absent) A 10/25/19 10:30 Urine RBC (Auto) 3+(>10/hpf) (Absent) A 10/25/19 10:30 Ur Squamous Epith Cells Present (Absent) A 10/25/19 10:30 Urine Bacteria Absent (Absent) 10/25/19 10:30 Urine Glucose 3+(>=500 mg/dl) (Negative) A 10/25/19 10:30 Vancomycin Trough 9.3 mcg/mL 10/26/19 12:20
--- NOTE | 2019-10-27 13:55 | PN ---
Subjective Date of Service: 10/27/19 Interval History: HOSPITALIST PROGRESS NOTE Patient seen and examined at bedside. Care reviewed and d/w Andreina Velazquez RN. He states he felt a little anxious this AM, but it is now improved. Denies any foot pain; both feet are numb. Denies c/o exertional chest pain or dyspnea. Family History: Unchanged from Admission Social History: Unchanged from Admission Past Medical History: Unchanged from Admission Objective Active Medications: Acetaminophen (Tylenol Tab*) 650 mg PO Q4H PRN PRN Reason: PAIN - MILD Last Admin: 10/27/19 00:13 Dose: 650 mg Albuterol/Ipratropium (Duoneb (Albuterol 2.5 Mg/Ipratropium 0.5 Mg)) 1 neb INH Q6H PRN PRN Reason: SHORTNESS OF BREATH Atorvastatin Calcium (Lipitor*) 80 mg PO DAILY@1700 [facility] Last Admin: 10/26/19 17:01 Dose: 80 mg Buspirone HCl (Buspar Tab*) 30 mg PO BID [facility] Last Admin: 10/27/19 10:09 Dose: 30 mg Dextrose (Dextrose 50% Vial 50 Ml*) 25 ml IV PUSH .FOR FS < 60 - SS PRN PRN Reason: FS < 60 Heparin Sodium (Porcine) (Heparin Vial(*)) 5,000 units SUBCUT Q8HR [facility] Stop: 10/27/19 23:59 Last Admin: 10/27/19 05:42 Dose: 5,000 units Metronidazole/Sodium Chloride (Flagyl 500 Mg Ivpb*) 500 mg in 100 mls @ 100 mls /hr IVPB Q8H [facility] Last Admin: 10/27/19 13:41 Dose: 100 mls/hr Cefepime HCl (Maxipime 2 Gm In Dextrose Duplex (*)) 2 gm in 50 mls @ 100 mls/ hr IV Q12H [facility] Last Admin: 10/27/19 03:36 Dose: 100 mls/hr Lactated Ringer's (Lactated Ringers 1000 Ml Bag*) 1,000 mls @ 125 mls/hr IV PER RATE [facility] Insulin Glargine (Lantus(*)) 12 units SUBCUT Q24H [facility] Last Admin: 10/26/19 21:22 Dose: 12 unit Insulin Human Lispro (Humalog*) 0 units SUBCUT ACHS [facility]; Protocol Last Admin: 10/27/19 12:12 Dose: 2 unit Mometasone Furoate/Formoterol Fumar (Dulera 200/5 Mdi*) 2 puff INH BID [facility]; Protocol Last Admin: 10/27/19 07:42 Dose: 2 puff Ondansetron HCl (Zofran Inj*) 4 mg IV Q6H PRN PRN Reason: NAUSEA Oxycodone HCl (Roxycodone Tab*) 5 mg PO Q4H PRN PRN Reason: PAIN - SEVERE Pantoprazole Sodium (Protonix Tab*) 40 mg PO DAILY [facility] Last Admin: 10/27/19 10:09 Dose: 40 mg Pregabalin (Lyrica 50 Mg Cap (*)) 100 mg PO TID [facility] Last Admin: 10/27/19 10:09 Dose: 100 mg Tiotropium Almyra (Spiriva Respimat 2.5 Mcg) 2 puff INH DAILY [facility] Last Admin: 10/27/19 07:42 Dose: 2 puff Tramadol HCl (Ultram*) 50 mg PO Q6H PRN PRN Reason: PAIN - MODERATE Venlafaxine HCl (Effexor Xr Cap*) 150 mg PO DAILY [facility] Last Admin: 10/27/19 10:09 Dose: 150 mg Vital Signs - 8 hr 10/27/19 10/27/19 10/27/19 07:15 07:45 08:00 Temperature 98.6 F Pulse Rate 76 76 Respiratory 20 15 20 Rate Blood Pressure 107/64 (mmHg) O2 Sat by Pulse 96 97 Oximetry 10/27/19 10:09 Temperature Pulse Rate Respiratory 19 Rate Blood Pressure (mmHg) O2 Sat by Pulse Oximetry Oxygen Devices in Use Now: None Appearance: Pleasant middle aged gentleman sitting up in a chair in NAD Eyes: No Scleral Icterus Ears/Nose/Mouth/Throat: Mucous Membranes Moist Neck: Trachea Midline Respiratory: Symmetrical Chest Expansion and Respiratory Effort, Clear to Auscultation Cardiovascular: RRR - Normal S1 and S2 Extremities: - - CDI to right foot Neurological: Alert and Oriented x 3, NL Muscle Strength and Tone, - - Bilateral feet numbness Result Diagrams: 10/27/19 07:37 10/27/19 07:37 Microbiology and Other Data: Microbiology 10/25/19 10:35 Skin and Soft Tissue MRSA/MSSA (PCR - Final Foot Right Mrsa Negative S.aureus Positive Gram Stain - Final 10/25/19 09:00 Gram Stain - Final Foot Right Assess/Plan/Problems-Billing Assessment: Mr Dean is a 44yo M with PMH of depression, type 2 DM with peripheral neuropathy, HTN, HLD, chronic venous insufficiency, chronic right heel ulcer, who presented to ED with diabetic foot infection. - Patient Problems (1) Sepsis Comment: - Presentation compatible with sepsis with tachycardia and leukocytosis. - Source is diabetic foot infection. (2) Diabetic foot infection Comment: - Has chronic heel ulcer, now found to have plantar medial abscess s/p aggressive debridment by Dr Alvarado 10/25/2019. - Continue Cefepime and Flagyl, d/c Vanco as per ID and follow cultures. - Ortho input appreciated - plan for BKA or Syme amputation on 10/28/2019. - Patient has no complaints of chest pain or dyspnea at rest or with exertion. - EKG showed NSR at 78bpm with no ischemic changes. - RCRI is 1 predicting a 1-1.3% of MACE. - As per NSQIP calculator patient is at above then average risk for surgical site infection, sepsis, and renal failure. - Patient is optimized for proposed procedures. (3) Diabetes Comment: - A1c is 7.8. - Decrease Lantus to 6 units as he'll be NPO for surgery and Lispro SS. (4) Diabetic neuropathy Comment: - As per Dr Obrien's note, patient does not think he has benefited from pregabalin. Dose reduced to 100 mg tid on 10/25, can continue to slowly taper off completely. (5) COPD (chronic obstructive pulmonary disease) Comment: - Continue bronchodilators and inhaled steroids. (6) Tobacco abuse Comment: Pt states he just quit. Pt advised to quit smoking and avoid second hand smoke. (7) DVT prophylaxis Comment: - SQ heparin on hold after MN for surgery in AM. (8) Full code status Status and Disposition: Inpatient.
[2019-10-27] MEDS: Atorvastatin* 80 MG TAB PO SCH (16:27)
[2019-10-27] MEDS: Insulin GLARGINE(*) 1 UNITS UNIT SUBCUT SCH (20:12)
--- NOTE | 2019-10-28 03:35 | CONS ---
CONSULTATION REPORT: DATE OF CONSULT: 10/27/19 HISTORY OF PRESENT ILLNESS: Bhargav is in bed 410, sitting up comfortably. He had extensive debridement of the plantar surface of his right foot yesterday. He currently just has a Betadine pack dressing. He is growing multiple romario from the cultures. He is on 2 different antibiotics and has been afebrile, but in his mind still feels like there is some infection left in his body, although it is a vague sensation. We have had together about a 20-minute discussion of options for treatment going forward. He would be a long shot to keep any of the distal right leg such as a Syme amputation because the heel pad itself is aggressively debrided except the posterior half. Also, it would require more of a marginal level in terms of the residual infection and would need extensive antibiotic coverage, possibly with high relapse as a possibility of transtibial amputation higher up would give us better blood supply, a wider margin for control of the infection and more prompt healing potential. He has elected for that latter option and I agree wholeheartedly with it. The plan tomorrow would be a right transtibial amputation. He understands my colleague most likely will be doing the surgery and I will try with my schedule to be there as well for him. [id number]/[facility] #: [id number] GAGAN
[2019-10-28] MEDS: Cefepime 2 GM in Dextrose(*) 2 GM/50 ML BAG IV SCH (04:09)
[2019-10-28] MEDS: metroNIDAZOLE IV 500 MG/100ML* 500 MG/100 ML BAG IVPB SCH ×3 (05:07→18:27)
[2019-10-28] MEDS: Lactated Ringers 1000 ML Bag* 1,000 ML IV SCH ×2 (06:01→18:24)
[2019-10-28 06:17] LABS: Hematocrit 35 % (42-52); Hemoglobin 11.8 g/dL (14.0-18.0); Mean Corpuscular HGB Conc 34 g/dL (31-36); Mean Corpuscular Hemoglobin 29 pg (27-31); Mean Corpuscular Volume 86 fL (80-94); Mean Platelet Volume 8.7 fL (7.4-10.4); Platelet Count 208 10^3/uL (150-450); Red Blood Count 4.06 10^6 /uL (4.18-5.48); Red Cell Distribution Width 15 % (10-15); White Blood Count 12.9 10^3/uL (3.5-10.8)
[2019-10-28 06:21] LABS: INR 1.5 (0.82-1.09)
[2019-10-28 06:36] LABS: BUN/Creatinine Ratio 8.8 (8-20); Calcium 7.9 mg/dL (8.6-10.3); EGFR African American 186.2 (>60); EGFR Non-African American 153.9 (>60); Potassium 2.9 mmol/L (3.5-5.0)
[2019-10-28] MEDS: Mometasone/Formoter 200/5 MDI INH SCH ×2 (07:22→20:30)
[2019-10-28] MEDS: SPIRIVA Respimat* (tiotropium) 2.5 mcg/inh Inhaler INH SCH (07:23)
[2019-10-28] MEDS: Insulin LISPRO* 1 UNITS UNIT SUBCUT SCH ×4 (07:32→21:19)
[2019-10-28 07:50] LABS: Magnesium 1.9 mg/dL (1.9-2.7)
[2019-10-28] MEDS: KCL 10 MEQ/50 ML IVPREMIX* 10 MEQ/50 ML BAG IV SCH ×4 (09:02→21:16)
--- NOTE | 2019-10-28 09:28 | PN ---
Progress Note - Progress Note Date of Service: 10/28/19 Note: I saw and examined remi and this morning. Bhargav is a 44-year-old male with diabetic neuropathy. He is currently not working. He reports that he started having his current problem of the right foot in December,. He developed an ulcer, which ended up growing and becoming 2 ulcers. He has been treated extensively at the wound care clinic. Last week, things acutely worsened and the ulcers became purulent. He is admitted to the hospital and underwent an irrigation and debridement 3 days ago with my colleague, Dr. Alvarado. There was extensive infection and extensive infected soft tissue was removed. There is exposed bone. His cultures from the surgery are growing multiple bacteria. He is followed by infectious disease and is currently on IV antibiotics. He did have ABIs were performed, which were more abnormal on the left than the right. He has an ulcer on his left great toe, which has been present for greater than one year. It is currently dry without purulence. On examination of his right lower extremity, he does have some chronic venous stasis changes of the lower leg. He has a large soft tissue wound, which takes up the majority of his plantar foot, and almost all of his heel pad. This wound is down to bone. There is no active purulence on exam today. He has diminished sensation in the foot. He has had a prior hallux amputation. On examination of his left lower extremity, he does also have some chronic venous stasis changes of the lower leg. He does have a dry ulcer at the medial aspect of the hallux, which is about 1 cm in diameter. No active drainage, erythema, or malodor. Imaging of his right foot shows a prior hallux amputation. No obvious osteomyelitis. Imaging of his left foot shows questionable osteomyelitis at the distal phalanx of the hallux. I had a long discussion with Bhargav this morning, about his difficult problem and treatment options. He is understandably frustrated by the duration of this problem and the fact that it has only worsened. Given his large soft tissue defect, I think salvaging this foot will be difficult. We did discuss that option, as well as amputation options. We discussed both a Syme amputation, as well as a below the knee amputation. We did discuss the risks and benefits of each. I think a Syme amputation may be possible, but will be difficult with his poor heel pad soft tissue. I do think there is likely a higher chance of failure with this. We also discussed a below the knee amputation. He is adamant that he would prefer to move forward with a below the knee amputation. He is reasonable and his reasoning for this. I think this is a reasonable decision given the difficult circumstances. We did discuss with the surgery and recovery would entail. We will plan on performing a right BKA later today. Again, we did also offer him limb salvage options. I would recommend getting Dr. Gonzalez involved for examination of his left lower extremity. Miquel Hernandez MD
[2019-10-28] MEDS: Venlafaxine EXT RELEASE CAP* 75 MG PO SCH (09:41)
[2019-10-28] MEDS: Pregabalin 50 mg CAP (*) PO SCH ×3 (09:42→21:17)
[2019-10-28] MEDS: Pantoprazole TAB * 40 MG TAB PO SCH (09:44)
[2019-10-28] MEDS: busPIRone TAB* 15 MG PO SCH ×2 (09:45→21:17)
--- NOTE | 2019-10-28 10:14 | PN ---
Progress Note - Progress Note Date of Service: 10/28/19 SOAP: Subjective: CC: right foot infection HPI: 44 year old man with diabetic neuropathy and chronic wounds right foot, developed fever and malaise along with swelling and redness right foot. Had I& D of abscess which he tolerated well. Initial redness receding down his leg. No fever, rash, or diarrhea. Planning for below knee amputation. Wound on left great toe for a year. Objective: Vital Signs Temp 36.8 C 10/28/19 07:15 Pulse 77 10/28/19 07:15 Resp 16 10/28/19 09:42 BP 123/72 10/28/19 07:15 Pulse Ox 94 10/28/19 07:15 Intake & Output 10/27/19 10/28/19 10/28/19 18:59 06:59 18:59 Intake Total 763 340 0 Output Total 100 1025 Balance 663 -685 0 Weight 330 lb Intake: IV Fluids 130 Flagyl 100 NS 30 IVPB 163 210 ABX - CEFEPIME 55 50 Flagyl 108 100 NS 60 Oral 600 0 0 Output: Urine 100 1025 Other: # Voids 3 Gen:awake, no distress HEENT: no thrush Heart:Regular, no murmur Lungs:CTA BL ABd:+BS NTND soft Skin: no rash MSK: R foot large defect medial foot, scant bleeding. Microbiology 10/25/19 09:00 Gram Stain - Final Foot Right Wound Culture - Preliminary Strep Agalactiae - (Group B) Staphylococcus Aureus 10/25/19 10:35 Skin and Soft Tissue MRSA/MSSA (PCR - Final Foot Right Mrsa Negative S.aureus Positive Gram Stain - Final Wound Culture - Preliminary Strep Agalactiae - (Group B) 10/25/19 16:41 Skin and Soft Tissue MRSA/MSSA (PCR - Final Foot Right Mrsa Negative S.aureus Positive Gram Stain - Final Wound Culture - Preliminary Strep Agalactiae - (Group B) 10/25/19 10:30 Urine Culture - Final Urine Nsia Albicans 10/25/19 16:41 Anaerobic Culture - Preliminary Wound 10/24/19 17:55 Aerobic Blood Culture - Preliminary Blood Venous No Growth Day 1 Anaerobic Blood Culture - Preliminary No Growth Day 1 10/24/19 17:55 Aerobic Blood Culture - Preliminary Blood Venous No Growth Day 1 Anaerobic Blood Culture - Preliminary No Growth Day 1 Assessment: 1. polymicrobial right foot abscess, infectious mysositis, BKA planned 2. left toe ulcer, MRI equivocal, nothing to culture 3. morbid obesity 4. diabetes with neuropathy 5. tobacco abuse in brief remission Plan: 1. change cefepime to ceftriaxone, continue flagyl. Long course IV antibiotics to cover left great toe infection.
--- NOTE | 2019-10-28 10:51 | PN ---
Subjective Date of Service: 10/28/19 Interval History: HOSPITALIST PROGRESS NOTE Patient seen and examined at bedside. Care reviewed and d/w Altagracia Gordon RN. He offers no new complaints today. Anxious for surgery today, "just want to get it done". Family History: Unchanged from Admission Social History: Unchanged from Admission Past Medical History: Unchanged from Admission Objective Active Medications: Acetaminophen (Tylenol Tab*) 650 mg PO Q4H PRN PRN Reason: PAIN - MILD Last Admin: 10/27/19 00:13 Dose: 650 mg Albuterol/Ipratropium (Duoneb (Albuterol 2.5 Mg/Ipratropium 0.5 Mg)) 1 neb INH Q6H PRN PRN Reason: SHORTNESS OF BREATH Atorvastatin Calcium (Lipitor*) 80 mg PO DAILY@1700 [facility] Last Admin: 10/27/19 16:27 Dose: 80 mg Buspirone HCl (Buspar Tab *) 30 mg PO BID [facility] Last Admin: 10/28/19 09:45 Dose: 30 mg Dextrose (Dextrose 50% Vial 50 Ml*) 25 ml IV PUSH .FOR FS < 60 - SS PRN PRN Reason: FS < 60 Metronidazole/Sodium Chloride (Flagyl 500 Mg Ivpb*) 500 mg in 100 mls @ 100 mls /hr IVPB Q8H [facility] Last Admin: 10/28/19 05:07 Dose: 100 mls/hr Lactated Ringer's (Lactated Ringers 1000 Ml Bag*) 1,000 mls @ 125 mls/hr IV PER RATE [facility] Last Admin: 10/28/19 06:01 Dose: 125 mls/hr Potassium Chloride (Potassium Chloride 10 Meq/50 Ml Ivpremix*) 10 meq in 50 mls @ 50 mls/hr IV Q1H [facility] Stop: 10/28/19 11:59 Last Admin: 10/28/19 09:02 Dose: 50 mls/hr Ceftriaxone Sodium 2 gm/ (Sodium Chloride) 100 mls @ 200 mls/hr IVPB Q24H [facility] Insulin Glargine (Lantus(*)) 6 units SUBCUT Q24H [facility] Last Admin: 10/27/19 20:12 Dose: 6 units Insulin Human Lispro (Humalog*) 0 units SUBCUT [facility]; Protocol Last Admin: 10/28/19 07:32 Dose: Not Given Mometasone Furoate/Formoterol Fumar (Dulera 200/5 Mdi*) 2 puff INH BID [facility]; Protocol Last Admin: 10/28/19 07:22 Dose: 2 puff Ondansetron HCl (Zofran Inj*) 4 mg IV Q6H PRN PRN Reason: NAUSEA Oxycodone HCl (Roxycodone Tab*) 5 mg PO Q4H PRN PRN Reason: PAIN - SEVERE Pantoprazole Sodium (Protonix Tab*) 40 mg PO DAILY [facility] Last Admin: 10/28/19 09:44 Dose: 40 mg Pregabalin (Lyrica 50 Mg Cap (*)) 100 mg PO TID [facility] Last Admin: 10/28/19 09:42 Dose: 100 mg Tiotropium [place] (Spiriva Respimat 2.5 Mcg) 2 puff INH DAILY [facility] Last Admin: 10/28/19 07:23 Dose: 2 puff Tramadol HCl (Ultram*) 50 mg PO Q6H PRN PRN Reason: PAIN - MODERATE Venlafaxine HCl (Effexor Xr Cap*) 150 mg PO DAILY [facility] Last Admin: 10/28/19 09:41 Dose: 150 mg Vital Signs - 8 hr 10/28/19 10/28/19 10/28/19 03:09 07:15 07:24 Temperature 97.5 F 98.2 F Pulse Rate 82 77 Respiratory 20 22 16 Rate Blood Pressure 125/61 123/72 (mmHg) O2 Sat by Pulse 93 94 Oximetry 10/28/19 10/28/19 08:00 09:42 Temperature Pulse Rate Respiratory 20 16 Rate Blood Pressure (mmHg) O2 Sat by Pulse Oximetry Oxygen Devices in Use Now: None Appearance: Middle aged gentleman sitting up in a chair in NAD Eyes: No Scleral Icterus Ears/Nose/Mouth/Throat: Mucous Membranes Moist Neck: Trachea Midline Respiratory: Symmetrical Chest Expansion and Respiratory Effort, Clear to Auscultation Cardiovascular: RRR - Normal S1 and S2 Extremities: - - CDI to right foot, left hallux ulcer Neurological: Alert and Oriented x 3, NL Muscle Strength and Tone Result Diagrams: 10/28/19 06:04 10/28/19 06:04 Microbiology and Other Data: Microbiology Microbiology 10/25/19 16:41 Foot Right Skin and Soft Tissue MRSA/MSSA (PCR - Final 10/25/19 16:41 Foot Right Gram Stain - Final Mrsa Negative S.aureus Positive 10/25/19 10:35 Foot Right Skin and Soft Tissue MRSA/MSSA (PCR - Final 10/25/19 10:35 Foot Right Gram Stain - Final Mrsa Negative S.aureus Positive 10/25/19 10:30 Urine Urine Culture - Final Nisa Albicans 10/25/19 09:00 Foot Right Gram Stain - Final 10/25/19 16:41 Wound Anaerobic Culture - Preliminary Bacteroides Species 10/25/19 16:41 Foot Right Wound Culture - Preliminary Strep Agalactiae - (Group B) 10/25/19 10:35 Foot Right Wound Culture - Preliminary Strep Agalactiae - (Group B) Staphylococcus Aureus Pasteurella Multocida Peptoniphilus Asaccharolyticus 10/25/19 09:00 Foot Right Wound Culture - Preliminary Strep Agalactiae - (Group B) Staphylococcus Aureus Alcaligenes Species 10/24/19 17:55 Blood Venous Aerobic Blood Culture - Preliminary 10/24/19 17:55 Blood Venous Anaerobic Blood Culture - Preliminary No Growth Day 3 No Growth Day 3 10/24/19 17:55 Blood Venous Aerobic Blood Culture - Preliminary 10/24/19 17:55 Blood Venous Anaerobic Blood Culture - Preliminary No Growth Day 3 No Growth Day 3 Assess/Plan/Problems-Billing Assessment: Mr Dean is a 44yo M with PMH of depression, type 2 DM with peripheral neuropathy, HTN, HLD, chronic venous insufficiency, chronic right heel ulcer, who presented to ED with diabetic foot infection. - Patient Problems (1) Sepsis Comment: - Presentation compatible with sepsis with tachycardia and leukocytosis. - Source is diabetic foot infection. (2) Diabetic foot infection Comment: - Has chronic heel ulcer, now found to have plantar medial abscess s/p aggressive debridment by Dr Alvarado 10/25/2019. - ID input appreciated - changed Cefepime to Ceftriaxone and continue Flagyl. - Ortho input appreciated - plan for BKA on 10/28/2019. - Left foot MRI shows equivocal findings for osteomyelitis - he will need a long course of antibiotics after his surgery to cover probable left hallux osteo as well. - Patient has no complaints of chest pain or dyspnea at rest or with exertion. - EKG showed NSR at 78bpm with no ischemic changes. - RCRI is 1 predicting a 1-1.3% of MACE. - As per NSQIP calculator patient is at above then average risk for surgical site infection, sepsis, and renal failure. - Patient is optimized for proposed procedure. (3) Hypokalemia Comment: - Replete. (4) Diabetes Comment: - A1c is 7.8. - Decrease Lantus to 6 units as he'll be NPO for surgery and Lispro SS. (5) Diabetic neuropathy Comment: - As per Dr Obrien's note, patient does not think he has benefited from pregabalin. Dose reduced to 100 mg tid on 10/25, can continue to slowly taper off completely. (6) COPD (chronic obstructive pulmonary disease) Comment: - Continue bronchodilators and inhaled steroids. (7) Tobacco abuse Comment: - Advised to quit smoking and avoid second hand smoke. (8) DVT prophylaxis Comment: - SQ heparin on hold for surgery. (9) Full code status Status and Disposition: Inpatient.
--- NOTE | 2019-10-28 12:14 | CONSULT ---
Consult Consult: Date of Service: 10/28/19 Admission Date: 10/24/19 Reason for Consultation: Arterial evaluation in a patient with lower extremity wounds ("right foot blister") Requesting Providers: Elissa MEEK and Dr. Shetty CC: Ekaterina Rodriguez NP; Dr. Sandoval, Dr. Farr, Giuliano Alvarado MD PRIMARY CARE PROVIDER: Ekaterina Rodriguez NP HISTORY OF PRESENT ILLNESS: Mr. Dean is a 44-year-old male patient, history of diabetes, hypertension, hyperlipidemia, venous stasis, COPD, he has a chronic right foot and heel ulcer and the history of neuropathy. He presented to the ER 10/24/19 regarding a wound on his right heel. He was not feeling well and complained of fatigue, nausea and subjective fever. He developed a new ulcer on the plantar aspect of his foot in the midfoot area on the lateral side. He denies any chest pain. He does admit to feeling nauseated, but denies any abdominal pain. Denies any shortness of breath, no recent cough or cold like symptoms. Prior to developing wounds the patient denies symptoms characteristic of claudication. He states he sometimes had right worse than left lower leg "cramps" that occurred approximately 3 times weekly. Sometimes he would "stretch out his legs in bed" and sometimes he would stand up and stretch to relieve the pain. REVIEW OF SYSTEMS: There is no documented fever. He denied having any significant weight change. There is no double vision. He denied having any ear discharge. There is no rhinorrhea. There is no sore throat, no thyroid enlargement. He denied having any chest pain. There was no orthopnea, no nocturnal dyspnea. There was no abdominal pain. There was nausea, but no vomiting, no dysuria, no frequency, no seizure. There was no loss of consciousness. There are skin ulcers. Review of 14 systems completed, all others negative. PAST MEDICAL HISTORY: 1. Depression. 2. Diabetes. 3. Hypertension. 4. Hyperlipidemia. 5. Venous stasis. 6. COPD. 7. Right heel ulcer. 8. Neuropathy. PAST SURGICAL HISTORY: 1. The patient has had gastric bypass. 2. Cardiac catheterization. 3. Right great toe amputation. 4. Right thumb surgery. FAMILY HISTORY: The patient and his mother are diabetic. Mother with end- stage renal disease. Father of a heart attack. SOCIAL HISTORY: He is a 3-pack a day smoker for about 35 years. He does not drink alcohol. He smokes marijuana occasionally. Surrogate decision maker is his . He is . (HOME) MEDICATIONS: 1. Metformin 1000 mg p.o. b.i.d. 2. BuSpar 30 mg p.o. b.i.d. 3. Effexor 150 mg p.o. daily. 4. Spiriva 1 cap inhaled daily. 5. Lyrica 150 mg p.o. t.i.d. 6. Protonix 40 mg daily. 7. Dulera 2 puffs inhaled b.i.d. 8. Losartan/hydrochlorothiazide 1 tablet daily. 9. Victoza 1.8 mg subcu daily. 10. Hydrochlorothiazide 12.5 mg daily. 11. Lasix 20 mg daily. 12. Steglatro 15 mg daily. 13. Jardiance 10 mg p.o. daily. 14. Vitamin D 5000 units p.o. daily. 15. Symbicort 2 puffs inhaled b.i.d. 16. Regranex 15 g topically daily. 17. Lipitor 80 mg daily. 18. DuoNeb 1 neb inhaled every 6 hours as needed. 19. Ventolin 2 puffs inhaled every 6 hours as needed. ALLERGIES TO MEDICATIONS: Include AUGMENTIN, which causes hives and GABAPENTIN , he has tolerated Keflex in the past. RELEVANT LABS: Laboratory Tests 10/24/19 10/24/19 10/25/19 17:55 17:55 06:34 WBC 21.3 H 16.5 H RBC Hgb Hct INR (Anticoag Therapy) APTT 38.5 H BUN Creatinine Est GFR ( Amer) Est GFR (Non-Af Amer) POC Glucose (mg/dL) Urine Protein Urine Ketones Urine Urobilinogen Ur Leukocyte Esterase Urine WBC (Auto) Urine RBC (Auto) Urine Glucose 10/25/19 10/27/19 10/27/19 10:30 07:37 11:46 WBC 11.5 H RBC Hgb Hct INR (Anticoag Therapy) APTT BUN Creatinine Est GFR ( Amer) Est GFR (Non-Af Amer) POC Glucose (mg/dL) 149 H Urine Protein 1+(30 mg/dl) A Urine Ketones 1+ A Urine Urobilinogen Positive A Ur Leukocyte Esterase 3+ A Urine WBC (Auto) 3+(>20/hpf) A Urine RBC (Auto) 3+(>10/hpf) A Urine Glucose 3+(>=500 mg/dl) A 10/27/19 10/27/19 10/28/19 17:11 19:19 06:04 WBC 12.9 H RBC 4.06 L Hgb 11.8 L Hct 35 L INR (Anticoag Therapy) APTT BUN Creatinine Est GFR ( Amer) Est GFR (Non-Af Amer) POC Glucose (mg/dL) 158 H 159 H Urine Protein Urine Ketones Urine Urobilinogen Ur Leukocyte Esterase Urine WBC (Auto) Urine RBC (Auto) Urine Glucose 10/28/19 10/28/19 10/28/19 06:04 06:04 06:21 WBC RBC Hgb Hct INR (Anticoag Therapy) 1.50 H APTT BUN 5 L Creatinine 0.57 L Est GFR ( Amer) 186.2 Est GFR (Non-Af Amer) 153.9 POC Glucose (mg/dL) 137 H Urine Protein Urine Ketones Urine Urobilinogen Ur Leukocyte Esterase Urine WBC (Auto) Urine RBC (Auto) Urine Glucose 10/28/19 11:31 WBC RBC Hgb Hct INR (Anticoag Therapy) APTT BUN Creatinine Est GFR ( Amer) Est GFR (Non-Af Amer) POC Glucose (mg/dL) 144 H Urine Protein Urine Ketones Urine Urobilinogen Ur Leukocyte Esterase Urine WBC (Auto) Urine RBC (Auto) Urine Glucose RELEVANT IMAGING: Patient Name: LEONEL DEAN Medical Record#: [id number] Ordering Physician: Elissa MEEK Acct.#: [id number] : 1975 Age: 44 Sex: M Location: [address] [place] [address] - MEDICAL Exam Date: 10/25/19 0904 ADM Status: ADM IN Order Information: VL ANK/ BRACHIAL INDICES Accession Number: [id number] CPT: 07406 Indication: Nonhealing wounds plantar aspect RIGHT foot and LEFT great toe. Post amputation RIGHT great toe in 2015. Bilateral claudication. Multiple risk factors for peripheral vascular disease. Comparison: No relevant prior exams available on the [facility] PACS for comparison. Technique: Ankle and brachial blood pressure measurement. Calculated ankle- brachial indices. REPORT: RIGHT: #. Ankle brachial index: 1.18 within normal range. #. Arterial spectral waveforms: Mildly blunted triphasic dorsalis pedis and posterior tibial waveforms. #. Ankle pulse volume recordings: Significant loss of reflected waves. LEFT: #. Ankle brachial index: 1.48 indicating reduced arterial compressibility limiting assessment. #. Arterial spectral waveforms: Normal triphasic dorsalis pedis and posterior tibial waveforms. #. Ankle pulse volume recordings: Normal. IMPRESSION: #. Reduced arterial compressibility due to calcific arteriopathy limits assessment with ankle brachial index and values may be spuriously elevated. #. Mildly blunted triphasic waveforms at the RIGHT dorsalis pedis and posterior tibial arteries and loss of significant reflected waves at the RIGHT ankle pulse volume recordings. If there is persistent clinical concern for vascular insufficiency consider exercise EVANS or CT angiogram runoff for further assessment. <Electronically signed by Jackson Wylie MD in OV> 10/25/19 1022 Dictated By: Jackson Wylie MD Dictated Date/Time: 10/25/19 1012 Transcribed Date/Time: 10/25/19 1012 PHYSICAL EXAMINATION: NAD, AAO x 3, sitting up in bed and conversant CN 2-12 are grossly intact PERLAA, EOMI RRR, S1/S2 CTAB Abdomen is soft, nontender 2+ pulses are palpated the bilateral common femoral arteries and 1+ pulses are palpated the bilateral popliteal arteries Pedal pulses are not palpable bilaterally The right lower leg is wrapped in elastic [place] wrap. Blood is noted on the plantar surface of the right foot wrapped. There is gauze surrounding the left great toe. 1+ pitting edema is observed bilaterally. Assessment: 44 -year-old male, history of (suspected) poorly controlled diabetes and tobacco abuse, with bilateral lower extremity wounds, far more severe on the right than the left. The patient's physical exam findings and recent EVANS indicate advanced infrapopliteal calcified atherosclerosis. The best means of determining if there is flow-limiting arterial insufficiency that can be corrected to support wound healing and prevent further amputation is catheter arteriography. Plan: 1. The patient is due to undergo right below the knee amputation. 2. Assuming the patient does not experience any complications related to the surgery, the plan is to perform catheter arteriography in the late morning of 10/29/2019. Selected Entries 10/28/19 11:15 Temperature 98.3 F Temperature Oral Source Pulse Rate 71 Respiratory 18 Rate Blood Pressure 112/70 (mmHg) Blood Pressure 84 Mean O2 Sat by Pulse 96 Oximetry Patient on Room Yes Air
[2019-10-28] MEDS ORDERED: Rocuronium* 10 MG/ML VIAL ONE (13:39)
[2019-10-28] MEDS ORDERED: KETAMINE HCL* 50 MG/ML 10 ML VIAL ONE (13:39)
[2019-10-28] MEDS ORDERED: fentaNYL* 50 MCG/ML 5 ML VIAL (250 MCG VIAL) ONE (13:39)
[2019-10-28] MEDS ORDERED: Midazolam* 1 MG/ML 5 ML VIAL (5 MG) ONE (13:39)
[2019-10-28] MEDS ORDERED: DiMENhydriNATE IV* 50 MG/ML VIAL IV PUSH PRN (15:18)
[2019-10-28] MEDS ORDERED: HYDROmorphone INJ1* 1 MG/ML SYRINGE IV PRN (15:18)
[2019-10-28] MEDS ORDERED: fentaNYL* 50 MCG/ML 2 ML VIAL (100 MCG VIAL) IV PRN (15:18)
[2019-10-28] MEDS ORDERED: Naloxone* 0.4 MG/ML 1 ML VIAL IV PRN (15:18)
[2019-10-28] MEDS ORDERED: PROCHLORPERAZINE INJ 5 MG/ML 2 ML VIAL IV PRN (15:18)
[2019-10-28] MEDS ORDERED: Propofol* 10 MG/ML 20 ML BTL ONE (15:30)
[2019-10-28] MEDS ORDERED: HYDROmorphone INJ1* 1 MG/ML SYRINGE ONE ×2 (15:30→17:42)
[2019-10-28] MEDS ORDERED: PROCHLORPERAZINE INJ 5 MG/ML 2 ML VIAL ONE (15:30)
[2019-10-28] MEDS ORDERED: Labetalol IV* 5 MG/ML 20 ML VIAL ONE (16:22)
--- NOTE | 2019-10-28 16:38 | OP ---
Operative Report - Blank - Operative Report Date of Operation: 10/28/19 Note: PATIENT: Bhargav Dean DATE OF : 1975 DATE OF SURGERY: 10/28/2019 SURGEON: Miquel Hernandez MD AR[facility] FURNACE OPERATOR: GAVIOTA Velez, whos assistance was necessary for positioning, retraction, help with instrumentation, and closure. ANESTHESIOLOGIST: Dr. Vela PREOPERATIVE DIAGNOSIS: Right diabetic foot infection with large plantar foot wound POSTOPERATIVE DIAGNOSIS: Right diabetic foot infection with large plantar foot wound OPERATION: Right below the knee amputation ANESTHESIA: GETA IMPLANTS: none TOURNIQUET TIME: Less than 1 hour with a well-padded thigh tourniquet at 250mmHg. SPECIMENS: Foot sent to pathology ESTIMATED BLOOD LOSS: minimal COMPLICATIONS: none STATUS: Stable from the operating room to the recovery room and then back to the hospital floor. INDICATIONS FOR PROCEDURE: Bhargav has had long-standing right-sided diabetic foot ulcers that progressed to an extensive infection. He underwent a prior debridement, which left him with a large plantar foot wound. Both operative and non operative treatment alternatives were reviewed. Limb salvage was also offered. Further, the nature and risks of surgery were reviewed in careful detail. Our discussions regarding the risks of surgery included, but were not limited to, infection, wound problems, nerve injury, neuroma, RSD, persistent symptoms, blood clot, persistent or worsening infection, phantom limb pain, failure of the surgery, need for further amputation, and even the remote chance of catastrophic complication. DESCRIPTION OF PROCEDURE: The patient was seen in the preoperative holding unit and informed written consent was obtained. The appropriate extremity was marked. The patient was then brought to the operating room and carefully positioned on the operating room table. Anesthesia was induced. All bony prominences were padded with great care. A well-padded thigh tourniquet was placed. A chlorhexidine based pre- scrub was performed followed by a chloraprep prep and drape in standard sterile fashion. A surgical safety pause was then conducted in which we confirmed the appropriate patient, extremity, planned procedure, availability of equipment, indication and administration of antibiotics, and DVT prophylaxis in the form of a compression boot on the non-surgical extremity. We began with Esmarch exsanguination of the limb, avoiding the involved foot, and inflated the tourniquet. I utilized a posterior flap-based incision. The tibial osteotomy was measured to be about 18cm below the level of the knee joint. I carefully planned out the incision and then began the incision anteriorly. I dissected down through the anterior compartment musculature and identified the peroneal nerves and anterior tibial neurovascular bundle. The bundle was carefully tied off with 0 silk hand ties and the nerves were transected proximally in the soft tissue. The dissection was carried down to the intermuscular septum. I then dissected medially from the tibial crest. The saphenous nerve and vein were identified and transected proximally and ligated, respectively. I then continued the incision distally both medially and laterally with great care taken to maintain hemostasis. At this point, a malleable retractor was placed posterior to the tibia. I performed a tibial and then fibular osteotomy with an oscillating saw. The fibular osteotomy was made a couple of centimeters proximal to the tibial osteotomy. The leg was then flexed through the osteotomy site and I dissected down the posterior aspect of the tibia and fibula and removed the specimen after completing the posterior incision and coming across the posterior flap distally. The posterior flap was maintained at approximately 18cm in length. Hemostasis was obtained after the leg was passed off to be sent to pathology. I then dissected out the posterior neurovascular bundle. The tibial artery and vein were ligated with 0 silk hand ties. The tibial nerve was then transected proximal to the stump of the remnant tibia. I debulked the posterior flap and removed excess skin and soft tissue from the posterior flap. I identified the sural nerve and transected this as far proximally as possible. I beveled the anterior tibia with a small oscillating saw and used a rasp to smooth the stump. There were no longer any sharp edges. The tourniquet was deflated and meticulous hemostasis was achieved. The wound was copiously irrigated. I then used a 2.5 mm drill to drill 2 holes into the distal tibia through which #2 Ethibond was passed and then also passed into the Achilles to perform a myodesis, bringing the gastroc-soleus complex and Achilles tendon up to the remnant tibia. This nicely covered the tibial stump. The wound was again copiously irrigated and then meticulously closed in layers utilizing #1 Vicryl, 3-0 Monocryl, and leslie on the skin. Xeroform and a sterile dressing were then applied followed by a posterior splint with the knee fully extended. The patient was then awakened from anesthesia and transferred to the recovery room in stable condition. There were no complications. All needle and sponge counts were correct at the end of the case. ATTESTATION: I attest I was present and scrubbed and performed the critical portions of the procedure myself. POSTOPERATIVE PLAN: The patient will be readmitted to the hospitalist service postoperatively. Antibiotics guided by the infectious disease service.
[2019-10-28] MEDS ORDERED: Heparin VIAL(*) 5000 UNITS/ML VIAL (FIVE THOUSAND) SUBCUT SCH (16:45)
[2019-10-28] MEDS: cefTRIAXone(*) 2 GM in NS 0.9% 100 ML* 100 ML IVPB SCH (17:34)
[2019-10-28] MEDS ORDERED: oxyCODONE TAB* 5 MG TAB ONE (17:41)
[2019-10-28] MEDS: oxyCODONE TAB* 5 MG TAB PO PRN ×2 (17:44→21:45)
[2019-10-28] MEDS ORDERED: metroNIDAZOLE IV 500 MG/100ML* 500 MG/100 ML BAG IVPB SCH (18:00)
[2019-10-28] MEDS ORDERED: KCL 10 MEQ/50 ML IVPREMIX* 10 MEQ/50 ML BAG ONE (18:19)
[2019-10-28] MEDS: Atorvastatin* 80 MG TAB PO SCH (18:35)
[2019-10-28] MEDS: Insulin GLARGINE(*) 1 UNITS UNIT SUBCUT SCH (21:17)
[2019-10-28] MEDS: traMADol TAB* 50 MG PO PRN (23:16)
[2019-10-29] MEDS ORDERED: Morphine INJ* 4 MG/ML 1 ML SYRINGE (NEW SYRINGE VERSION) IV ONE (00:13)
[2019-10-29] MEDS: metroNIDAZOLE IV 500 MG/100ML* 500 MG/100 ML BAG IVPB SCH ×3 (02:18→17:59)
[2019-10-29] MEDS: Lactated Ringers 1000 ML Bag* 1,000 ML IV SCH ×2 (02:23→16:39)
[2019-10-29] MEDS: oxyCODONE TAB* 5 MG TAB PO PRN ×2 (03:44→23:17)
[2019-10-29] MEDS ORDERED: Dextrose 50% Syringe 50 ML* 25 GM/50 ML SYRINGE IV PUSH PRN (03:55)
[2019-10-29 06:40] LABS: ABS Basophils 0.1 10^3/ul (0-0.2); ABS Eosinophils 0.1 10^3/ul (0-0.6); ABS Lymphocytes 1.3 10^3/ul (1.0-4.8); ABS Monocytes 0.8 10^3/ul (0-0.8); ABS Neutrophils 7.8 10^3/ul (1.5-7.7); Eosinophil % 1.4 %; Hematocrit 34 % (42-52); Hemoglobin 11.5 g/dL (14.0-18.0); Lymphocyte % 12.7 %; Mean Corpuscular HGB Conc 34 g/dL (31-36); Mean Corpuscular Hemoglobin 29 pg (27-31); Mean Corpuscular Volume 87 fL (80-94); Mean Platelet Volume 9.1 fL (7.4-10.4); Platelet Count 208 10^3/uL (150-450); Red Blood Count 3.94 10^6 /uL (4.18-5.48); Red Cell Distribution Width 15 % (10-15)
[2019-10-29 06:59] LABS: Potassium 3.4 mmol/L (3.5-5.0)
[2019-10-29 07:05] LABS: BUN/Creatinine Ratio 8.3 (8-20); EGFR African American 175.5 (>60)
[2019-10-29] MEDS: Pregabalin 50 mg CAP (*) PO SCH ×3 (07:37→22:32)
[2019-10-29] MEDS: Pantoprazole TAB * 40 MG TAB PO SCH (07:37)
[2019-10-29] MEDS: busPIRone TAB* 15 MG PO SCH ×2 (07:37→22:31)
[2019-10-29] MEDS: Venlafaxine EXT RELEASE CAP* 75 MG PO SCH (07:38)
[2019-10-29] MEDS ORDERED: HYDROmorphone INJ* 0.5 MG/0.5 ML SYRINGE IV SLOW PU ONE (08:31)
[2019-10-29] MEDS: Insulin LISPRO* 1 UNITS UNIT SUBCUT SCH ×4 (09:09→22:34)
[2019-10-29] MEDS: Heparin VIAL(*) 5000 UNITS/ML VIAL (FIVE THOUSAND) SUBCUT SCH ×2 (09:09→17:59)
[2019-10-29] MEDS: Mometasone/Formoter 200/5 MDI INH SCH ×2 (09:31→19:08)
[2019-10-29] MEDS: SPIRIVA Respimat* (tiotropium) 2.5 mcg/inh Inhaler INH SCH (09:31)
[2019-10-29] MEDS ORDERED: HYDROmorphone INJ* 0.5 MG/0.5 ML SYRINGE IV SLOW PU PRN (10:01)
[2019-10-29] MEDS ORDERED: Pregabalin 50 mg CAP (*) PO ONE (10:02)
--- NOTE | 2019-10-29 10:10 | PN ---
Subjective Date of Service: 10/29/19 Interval History: HOSPITALIST PROGRESS NOTE Patient seen and examined at bedside. Care reviewed and d/w Rg Hayes RN. He c/o severe right lower extremity shooting, burning, at the surgical site. Also has phantom pain around ankle level. Family History: Unchanged from Admission Social History: Unchanged from Admission Past Medical History: Unchanged from Admission Objective Active Medications: Acetaminophen (Tylenol Tab*) 650 mg PO Q4H PRN PRN Reason: PAIN - MILD Last Admin: 10/27/19 00:13 Dose: 650 mg Albuterol/Ipratropium (Duoneb (Albuterol 2.5 Mg/Ipratropium 0.5 Mg)) 1 neb INH Q6H PRN PRN Reason: SHORTNESS OF BREATH Atorvastatin Calcium (Lipitor*) 80 mg PO DAILY@1700 [facility] Last Admin: 10/28/19 18:35 Dose: 80 mg Buspirone HCl (Buspar Tab *) 30 mg PO BID [facility] Last Admin: 10/29/19 07:37 Dose: Not Given Dextrose (D50w Syringe 50 Ml*) 12.5 gm IV PUSH .FOR FS < 60 - SS PRN PRN Reason: FS < 60 Heparin Sodium (Porcine) (Heparin Vial(*)) 5,000 units SUBCUT Q8H [facility] Last Admin: 10/29/19 09:09 Dose: 5,000 units Hydromorphone HCl (Dilaudid Inj*) 1 mg IV SLOW PU Q4H PRN PRN Reason: PAIN - SEVERE Lactated Ringer's (Lactated Ringers 1000 Ml Bag*) 1,000 mls @ 125 mls/hr IV PER RATE [facility] Last Admin: 10/29/19 02:23 Dose: 125 mls/hr Ceftriaxone Sodium 2 gm/ (Sodium Chloride) 100 mls @ 200 mls/hr IVPB Q24H [facility] Last Admin: 10/28/19 17:34 Dose: Not Given Metronidazole/Sodium Chloride (Flagyl 500 Mg Ivpb*) 500 mg in 100 mls @ 100 mls /hr IVPB Q8H [facility] Last Admin: 10/29/19 09:34 Dose: 100 mls/hr Insulin Glargine (Lantus(*)) 6 units SUBCUT Q24H [facility] Last Admin: 10/28/19 21:17 Dose: 6 units Insulin Human Lispro (Humalog*) 0 units SUBCUT ACHS [facility]; Protocol Last Admin: 10/29/19 09:09 Dose: 2 unit Mometasone Furoate/Formoterol Fumar (Dulera 200/5 Mdi*) 2 puff INH BID [facility]; Protocol Last Admin: 10/29/19 09:31 Dose: 2 puff Ondansetron HCl (Zofran Inj*) 4 mg IV Q6H PRN PRN Reason: NAUSEA Oxycodone HCl (Roxycodone Tab*) 5 mg PO Q4H PRN PRN Reason: PAIN - SEVERE Last Admin: 10/29/19 03:44 Dose: 5 mg Pantoprazole Sodium (Protonix Tab*) 40 mg PO DAILY [facility] Last Admin: 10/29/19 07:37 Dose: Not Given Pregabalin (Lyrica 50 Mg Cap (*)) 150 mg PO TID [facility] Tiotropium [place] (Spiriva Respimat 2.5 Mcg) 2 puff INH DAILY [facility] Last Admin: 10/29/19 09:31 Dose: 2 puff Tramadol HCl (Ultram*) 50 mg PO Q6H PRN PRN Reason: PAIN - MODERATE Last Admin: 10/28/19 23:16 Dose: 50 mg Venlafaxine HCl (Effexor Xr Cap*) 150 mg PO DAILY [facility] Last Admin: 10/29/19 07:38 Dose: Not Given Vital Signs - 8 hr 10/29/19 10/29/19 10/29/19 03:43 03:44 06:33 Temperature 97.6 F Pulse Rate 87 Respiratory 18 18 18 Rate Blood Pressure 111/64 (mmHg) O2 Sat by Pulse 95 Oximetry 10/29/19 10/29/19 10/29/19 07:30 08:30 09:06 Temperature 97.6 F Pulse Rate 74 Respiratory 16 19 18 Rate Blood Pressure 106/61 (mmHg) O2 Sat by Pulse 93 Oximetry Oxygen Devices in Use Now: None Appearance: Middle aged gentleman lying in bed in moderate distress secondary to pain. Eyes: No Scleral Icterus Ears/Nose/Mouth/Throat: Mucous Membranes Moist Neck: Trachea Midline Respiratory: Symmetrical Chest Expansion and Respiratory Effort, Clear to Auscultation Cardiovascular: RRR - Normal S1 and S2 Extremities: - - CDI to RLE, left foot ulcer is dry Neurological: Alert and Oriented x 3, NL Muscle Strength and Tone Result Diagrams: 10/29/19 06:30 10/29/19 06:30 Microbiology and Other Data: Microbiology Microbiology 10/25/19 16:41 Foot Right Skin and Soft Tissue MRSA/MSSA (PCR - Final 10/25/19 16:41 Foot Right Gram Stain - Final Mrsa Negative S.aureus Positive 10/25/19 10:35 Foot Right Skin and Soft Tissue MRSA/MSSA (PCR - Final 10/25/19 10:35 Foot Right Gram Stain - Final Mrsa Negative S.aureus Positive 10/25/19 10:30 Urine Urine Culture - Final Nisa Albicans 10/25/19 09:00 Foot Right Gram Stain - Final 10/25/19 16:41 Wound Anaerobic Culture - Preliminary Bacteroides Species 10/25/19 16:41 Foot Right Wound Culture - Preliminary Strep Agalactiae - (Group B) 10/25/19 10:35 Foot Right Wound Culture - Preliminary Strep Agalactiae - (Group B) Staphylococcus Aureus Pasteurella Multocida Peptoniphilus Asaccharolyticus 10/25/19 09:00 Foot Right Wound Culture - Preliminary Strep Agalactiae - (Group B) Staphylococcus Aureus Alcaligenes Species 10/24/19 17:55 Blood Venous Aerobic Blood Culture - Preliminary 10/24/19 17:55 Blood Venous Anaerobic Blood Culture - Preliminary No Growth Day 3 No Growth Day 3 10/24/19 17:55 Blood Venous Aerobic Blood Culture - Preliminary 10/24/19 17:55 Blood Venous Anaerobic Blood Culture - Preliminary No Growth Day 3 No Growth Day 3 Assess/Plan/Problems-Billing Assessment: Mr Dean is a 44yo M with PMH of depression, type 2 DM with peripheral neuropathy, HTN, HLD, chronic venous insufficiency, chronic right heel ulcer, who presented to ED with diabetic foot infection. - Patient Problems (1) Sepsis Comment: - Presentation compatible with sepsis with tachycardia and leukocytosis. - Source is diabetic foot infection. (2) Diabetic foot infection Comment: - Has chronic heel ulcer, now found to have plantar medial abscess s/p aggressive debridment by Dr Alvraado 10/25/2019. - ID input appreciated - continue Ceftriaxone and continue Flagyl. 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 - Left foot MRI shows equivocal findings for osteomyelitis - he will need a long course of antibiotics after his surgery to cover probable left hallux osteo as well. - Will add hydromorphone IV for post op pain, increase Lyrica back to 150 TID. - Pain management consult requested with Dr Angel. - Dr Gonzalez input appreciated - plan for arteriography today. (3) Ventricular tachycardia, non-sustained Comment: - Patient had 7 beats of Vtach, asymptomatic. - Likely secondary to hypokalemia - already being repleted. - Continue to monitor on Telemetry. - Magnesium is 2. - Check echocardiogram. (4) Hypokalemia Comment: - Continue to replete. (5) Diabetes Comment: - A1c is 7.8. - Increase Lantus back to 12 units and continue Lispro SS. (6) COPD (chronic obstructive pulmonary disease) Comment: - Continue bronchodilators and inhaled steroids. (7) Tobacco abuse Comment: - Advised to quit smoking and avoid second hand smoke. (8) DVT prophylaxis Comment: - SQ heparin. (9) Full code status Status and Disposition: Inpatient.
[2019-10-29] MEDS ORDERED: LORazepam TAB(*) 1 MG PO ONE (12:00)
--- NOTE | 2019-10-29 12:01 | PN ---
Progress Note - Progress Note Date of Service: 10/29/19 SOAP: Subjective: CC: Right foot infection with abscess HPI: Mr. Dean is a 44 yo male with PMH significant for morbid obesity, DM2, peripheral neuropathy, depression, HTN, HLD, venous insufficiency, COPD, and chronic right foot ulcers; who presented to the hospital with a right foot abscess. Also noted to have a left 1st toe ulcer. Now s/P BKA. Denies fever, chills, nausea, vomiting, diarrhea. Reports significant amount of pain in the right LE and anxiety due to upcoming procedure for the left LE today. Objective: Vital Signs - 8 hr 10/29/19 10/29/19 10/29/19 06:33 07:30 08:30 Temperature 97.6 F Pulse Rate 74 Respiratory 18 16 19 Rate Blood Pressure 106/61 (mmHg) O2 Sat by Pulse 93 Oximetry Physical Exam: General: NAD, laying on a stretcher Neurological: Alert and Oriented HEENT: Moist MM Cardiovascular: Heart rate regular Respiratory: Lung sounds clear Abdominal: Bowel sounds present; ABD soft, large, and non tender MSK: BOBO Skin: Surgical DSG to right LE; clean, dry and intact. Chronic skin changes to the left LE. DSG to left 1st toe; clean, dry and intact and no surrounding erythema. Laboratory Results - last 24 hr 10/28/19 10/28/19 10/29/19 17:04 20:57 06:30 WBC 10.0 RBC 3.94 L Hgb 11.5 L Hct 34 L MCV 87 MCH 29 MCHC 34 RDW 15 Plt Count 208 MPV 9.1 Neut % (Auto) 77.3 Lymph % (Auto) 12.7 [place] % (Auto) 7.9 Eos % (Auto) 1.4 Baso % (Auto) 0.7 Absolute Neuts (auto) 7.8 H Absolute Lymphs (auto) 1.3 Absolute Monos (auto) 0.8 Absolute Eos (auto) 0.1 Absolute Basos (auto) 0.1 Absolute Nucleated RBC 0.0 Nucleated RBC % 0.0 POC Glucose (mg/dL) 121 H 202 H 10/29/19 Sodium 135 Potassium 3.4 L Chloride 100 L Carbon Dioxide 27 Anion Gap 8 BUN 5 L Creatinine 0.60 L Est GFR ( Amer) 175.5 Est GFR (Non-Af Amer) 145.0 BUN/Creatinine Ratio 8.3 Glucose 118 H Calcium 8.0 L Magnesium 2.0 Microbiology 10/25/19 16:41 Anaerobic Culture - Preliminary Wound Bacteroides Species 10/25/19 09:00 Gram Stain - Final Foot Right Wound Culture - Final Strep Agalactiae - (Group B) Staphylococcus Aureus Alcaligenes Species 10/25/19 10:35 Skin and Soft Tissue MRSA/MSSA (PCR - Final Foot Right Mrsa Negative S.aureus Positive Gram Stain - Final Wound Culture - Final Strep Agalactiae - (Group B) Staphylococcus Aureus Pasteurella Multocida Peptoniphilus Asaccharolyticus 10/24/19 17:55 Aerobic Blood Culture - Preliminary Blood Venous No Growth Day 4 Anaerobic Blood Culture - Preliminary No Growth Day 4 10/24/19 17:55 Aerobic Blood Culture - Preliminary Blood Venous No Growth Day 4 Anaerobic Blood Culture - Preliminary No Growth Day 4 10/25/19 16:41 Skin and Soft Tissue MRSA/MSSA (PCR - Final Foot Right Mrsa Negative S.aureus Positive Gram Stain - Final Wound Culture - Preliminary Strep Agalactiae - (Group B) 10/25/19 10:30 Urine Culture - Final Urine Nisa Albicans Assessment: 1. Right foot abscess, infectious myositis. MRI with no definitive signs of osteomyelitis. S/P BKA, POD #1. Polymicrobial with group B strep, staph aureus, pasteuella, peptoniphilis, alcaligenes, and bacteroides. Blood cultures with no growth to date. Afebrile and leukocytosis has resolved. 2. Left 1st toe ulcer. No area to culture. MRI with possible osteomyelitis. Pending catheter arteriography with Dr. Gonzalez today. 3. DM2 with peripheral neuropathy. 4. Morbid obesity. BMI 40.2. Plan: Continue ceftraixone and flagyl. Will plan on long course of antibiotics ( likely 4-6 weeks IV), final recommendations final culture results and surgical pathology. Weekly labs while on IV ABX: CBC, CMP, and CRP.
[2019-10-29] MEDS ORDERED: LORazepam TAB(*) 1 MG ONE (12:02)
[2019-10-29] MEDS: Potassium Chlor TAB* 20 MEQ TAB.ER PO SCH ×2 (12:05→16:23)
[2019-10-29] MEDS ORDERED: Iodixanol 320 (CONTRAST) 100 ML SDV ONE (12:20)
[2019-10-29] MEDS ORDERED: Heparin 2 UNITS/ML IVPREMIX* 2,000 ML IV ONE (12:20)
[2019-10-29] MEDS ORDERED: Lidocaine 1% INJ* 10 MG/ML 30 ML SDV ONE (12:20)
[2019-10-29] MEDS ORDERED: Iohexol 350 (CONTRAST) 200 ML MDV IV ONE ×2 (12:20→13:17)
[2019-10-29] MEDS ORDERED: Midazolam* 1 MG/ML 5 ML VIAL (5 MG) ONE (12:50)
[2019-10-29] MEDS ORDERED: fentaNYL* 50 MCG/ML 2 ML VIAL (100 MCG VIAL) ONE ×2 (12:50→14:07)
--- NOTE | 2019-10-29 15:12 | PN ---
Progress Note - Progress Note Date of Service: 10/29/19 SOAP: Subjective: [Pt was seen lying in bed this morning. States that he is having trouble with phantom limb pain, he complains of ankle pain in the right which no longer has an ankle present. He does not have any active pain of the left at this point. ] Objective: [General: Pt is alert and oriented x3. NAD MSK: RLE dressing is c/d/i. No TTP proximally. LLE reveals an ulcer on the left first toe. No drainage present.] Vital Signs Temp 97.6 F 10/29/19 08:30 Pulse 84 10/29/19 15:00 Resp 24 10/29/19 15:00 BP 131/81 10/29/19 14:49 Pulse Ox 94 10/29/19 15:00 Intake & Output 10/28/19 10/29/19 10/29/19 18:59 06:59 18:59 Intake Total 530 2557 Output Total 500 Balance 530 2057 Intake: IV Fluids 50 967 LR 967 NS 50ML, Ceftriazone 1G 50 IVPB 210 Flagyl 210 Oral 480 1380 Output: Urine 500 Other: Estimated Void Medium Date of Last Bowel 509000 Movement # Bowel Movements 1 Estimated Stool Amount Medium # Voids 2 1 Assessment: [POD 1 Right BKA. Left 1st toe ulcer ] Plan: Pt will obtain angiogrophy of the left leg today. We will follow up based on results PER ID: Continue ceftraixone and flagyl. Will plan on long course of antibiotics (likely 4-6 weeks IV), final recommendations final culture results and surgical pathology. Pain medication was changed per the hospitalist medicine team today ]
[2019-10-29] MEDS: cefTRIAXone(*) 2 GM in NS 0.9% 100 ML* 100 ML IVPB SCH (16:24)
[2019-10-29] MEDS: traMADol TAB* 50 MG PO PRN (16:24)
[2019-10-29] MEDS: Atorvastatin* 80 MG TAB PO SCH (16:24)
[2019-10-29] MEDS ORDERED: HYDROmorphone INJ1* 1 MG/ML SYRINGE IV SLOW PU PRN ×2 (18:25→19:50)
--- NOTE | 2019-10-29 19:33 | CONSULT ---
Consult Consult: October 29, 2019 INPATIENT PAIN CONSULTATION Bhargav Dean is a 44 year old man with a medical history significant for diabetes and obesity. He is also a 1-2 ppd smoker, and has PVD. About a year ago , he developed an ulcer over his right foot. He treated it initially with local care. The wound seemed to worsen with time. He was evfentually sent to the wound clinic by his primary care provider. He was started on a wound VAC. Last weekend, he felt warm and nauseated. He was changing his bandage when he noted a large pustule. He was brought to the ER at [facility] [place] on October 24 and found to have a white count of 21,000. He was started on antibiotics and admitted. He went to the OR for debridement and I&D of the malodorous abcess. Cultures grew out multiple organisms. He was seen by ID/Dr. Farr and was on broad spectrum antibiotics. He went back to the OR yesterday for a right BKA. He was placed in a post-op cast and had a lot of pain post op. I was asked to see him. He did have a procedure with Dr. Gonzalez today to assess his vascular status in the left leg PAST MEDICAL HISTORY: Diabetes, DPN, PVD, COPD, Depression, HTN Allergies Allergy/AdvReac Type Severity Reaction Status Date / Time amoxicillin [From Augmentin] Allergy Anaphylatic Verified 10/24/19 20:26 Shock clavulanic acid Allergy Anaphylatic Verified 10/24/19 16:17 [From Augmentin] Shock gabapentin Allergy See Comment Verified 10/24/19 16:17 Current Medications Acetaminophen (Tylenol Tab*) 650 mg PO Q4H PRN PRN Reason: PAIN - MILD Last Admin: 10/27/19 00:13 Dose: 650 mg Albuterol/Ipratropium (Duoneb (Albuterol 2.5 Mg/Ipratropium 0.5 Mg)) 1 neb INH Q6H PRN PRN Reason: SHORTNESS OF BREATH Atorvastatin Calcium (Lipitor*) 80 mg PO DAILY@1700 [facility] Last Admin: 10/29/19 16:24 Dose: 80 mg Buspirone HCl (Buspar Tab *) 30 mg PO BID [facility] Last Admin: 10/29/19 07:37 Dose: Not Given Dextrose (D50w Syringe 50 Ml*) 12.5 gm IV PUSH .FOR FS < 60 - SS PRN PRN Reason: FS < 60 Heparin Sodium (Porcine) (Heparin Vial(*)) 5,000 units SUBCUT Q8H [facility] Last Admin: 10/29/19 17:59 Dose: 5,000 units Hydromorphone HCl (Dilaudid Inj1s*) 1 mg IV SLOW PU Q3H PRN PRN Reason: PAIN - SEVERE Lactated Ringer's (Lactated Ringers 1000 Ml Bag*) 1,000 mls @ 125 mls/hr IV PER RATE [facility] Last Admin: 10/29/19 16:39 Dose: 125 mls/hr Ceftriaxone Sodium 2 gm/ (Sodium Chloride) 100 mls @ 200 mls/hr IVPB Q24H [facility] Last Admin: 10/29/19 16:24 Dose: 200 mls/hr Metronidazole/Sodium Chloride (Flagyl 500 Mg Ivpb*) 500 mg in 100 mls @ 100 mls /hr IVPB Q8H [facility] Last Admin: 10/29/19 17:59 Dose: 100 mls/hr Insulin Glargine (Lantus(*)) 12 units SUBCUT Q24H [facility] Insulin Human Lispro (Humalog*) 0 units SUBCUT ACHS [facility]; Protocol Last Admin: 10/29/19 18:03 Dose: 2 unit Mometasone Furoate/Formoterol Fumar (Dulera 200/5 Mdi*) 2 puff INH BID [facility]; Protocol Last Admin: 10/29/19 19:08 Dose: 2 puff Ondansetron HCl (Zofran Inj*) 4 mg IV Q6H PRN PRN Reason: NAUSEA Oxycodone HCl (Roxycodone Tab*) 5 mg PO Q4H PRN PRN Reason: PAIN - SEVERE Last Admin: 10/29/19 03:44 Dose: 5 mg Pantoprazole Sodium (Protonix Tab*) 40 mg PO DAILY [facility] Last Admin: 10/29/19 07:37 Dose: Not Given Pregabalin (Lyrica 50 Mg Cap (*)) 150 mg PO TID [facility] Last Admin: 10/29/19 16:23 Dose: 150 mg Tiotropium [place] (Spiriva Respimat 2.5 Mcg) 2 puff INH DAILY [facility] Last Admin: 10/29/19 09:31 Dose: 2 puff Tramadol HCl (Ultram*) 50 mg PO Q6H PRN PRN Reason: PAIN - MODERATE Last Admin: 10/29/19 16:24 Dose: 50 mg Venlafaxine HCl (Effexor Xr Cap*) 150 mg PO DAILY [facility] Last Admin: 10/29/19 07:38 Dose: Not Given SOCIAL HISTORY: Smoker, 1-2ppd, no alcohol, occasional marijuana. Was living with his niece in a trailer, plans to move in with his nephew in apartments across from hospital REVIEW OF SYSTEMS: No CP or SOB. Reports pain is much better since his post-op cast removed and placed in Ampu-Shield Vital Signs Temp Pulse Resp BP Pulse Ox 98.0 F 102 16 133/57 95 10/29/19 16:22 10/29/19 19:09 10/29/19 19:09 10/29/19 16:22 10/29/19 19:09 EXAM: HEENT: EOMI LUNGS: Clear HEART: reg rhythm ABDOMEN: Soft, +BS EXTREMITIES: Right stump in behavior management specialist and Ampu-Shield. Left great toe ulcer NEUROLOGIC: Dminished sensation, left foot. Able to move all 4 extremities ASSESSMENT: 1. Right BKA 2. DPN PLAN: He has much less pain out of the cast. Would cut back IV dilaudid and increase oral oxycodone. He is allergic to gabapentin and is on Lyrica. I will follow. Have added a probiotic.
[2019-10-29] MEDS ORDERED: traMADol TAB* 50 MG PO PRN (19:50)
[2019-10-29] MEDS ORDERED: oxyCODONE TAB* 5 MG TAB PO PRN (19:50)
[2019-10-29] MEDS: Insulin GLARGINE(*) 1 UNITS UNIT SUBCUT SCH (22:37)
[2019-10-30] MEDS: metroNIDAZOLE IV 500 MG/100ML* 500 MG/100 ML BAG IVPB SCH ×3 (02:28→17:37)
[2019-10-30] MEDS: Heparin VIAL(*) 5000 UNITS/ML VIAL (FIVE THOUSAND) SUBCUT SCH (02:28)
[2019-10-30] MEDS: Lactated Ringers 1000 ML Bag* 1,000 ML IV SCH (02:34)
[2019-10-30 06:03] LABS: Albumin 2.7 g/dL (3.2-5.2); Calcium 7.8 mg/dL (8.6-10.3); Potassium 3.3 mmol/L (3.5-5.0); Total Bilirubin 0.5 mg/dL (0.2-1.0)
[2019-10-30 06:09] LABS: Albumin/Globulin Ratio 0.6 (1-3); BUN/Creatinine Ratio 7.5 (8-20); EGFR African American 154.5 (>60); EGFR Non-African American 127.7 (>60); Globulin 4.2 g/dL (2-4); Total Protein 6.9 g/dL (6.4-8.9)
[2019-10-30] MEDS ORDERED: Potassium Chlor TAB* 20 MEQ TAB.ER PO ONE (07:36)
[2019-10-30] MEDS ORDERED: Famotidine TAB* 20 MG PO PRN (07:37)
--- NOTE | 2019-10-30 07:56 | PN ---
Subjective Date of Service: 10/30/19 Interval History: No acute events overnight. Pain well controlled. Patient very relieved after changing stump shield. Denies fevers, chills. Looking forward to rehab. Objective Active Medications: Acetaminophen (Tylenol Tab*) 650 mg PO Q4H PRN PRN Reason: PAIN - MILD Last Admin: 10/27/19 00:13 Dose: 650 mg Albuterol/Ipratropium (Duoneb (Albuterol 2.5 Mg/Ipratropium 0.5 Mg)) 1 neb INH Q6H PRN PRN Reason: SHORTNESS OF BREATH Atorvastatin Calcium (Lipitor*) 80 mg PO DAILY@1700 [facility] Last Admin: 10/29/19 16:24 Dose: 80 mg Buspirone HCl (Buspar Tab *) 30 mg PO BID [facility] Last Admin: 10/29/19 22:31 Dose: 30 mg Dextrose (D50w Syringe 50 Ml*) 12.5 gm IV PUSH .FOR FS < 60 - SS PRN PRN Reason: FS < 60 Enoxaparin Sodium (Lovenox(*)) 40 mg SUBCUT BEDTIME [facility] Famotidine (Pepcid Tab*) 20 mg PO BID PRN PRN Reason: HEARTBURN Ceftriaxone Sodium 2 gm/ (Sodium Chloride) 100 mls @ 200 mls/hr IVPB Q24H [facility] Last Admin: 10/29/19 16:24 Dose: 200 mls/hr Metronidazole/Sodium Chloride (Flagyl 500 Mg Ivpb*) 500 mg in 100 mls @ 100 mls /hr IVPB Q8H [facility] Last Admin: 10/30/19 02:28 Dose: 100 mls/hr Insulin Glargine (Lantus(*)) 12 units SUBCUT Q24H [facility] Last Admin: 10/29/19 22:37 Dose: 12 units Insulin Human Lispro (Humalog*) 0 units SUBCUT AC [facility]; Protocol Lactobacillus Rhamnosus (Lactobacillus Acidophilus*) 1 tab PO DAILY [facility] Mometasone Furoate/Formoterol Fumar (Dulera 200/5 Mdi*) 2 puff INH BID [facility]; Protocol Last Admin: 10/29/19 19:08 Dose: 2 puff Ondansetron HCl (Zofran Inj*) 4 mg IV Q6H PRN PRN Reason: NAUSEA Oxycodone HCl (Roxycodone Tab*) 5 mg PO Q4H PRN PRN Reason: PAIN - MODERATE Oxycodone HCl (Roxycodone Tab*) 10 mg PO Q4H PRN PRN Reason: PAIN - SEVERE Last Admin: 10/29/19 23:17 Dose: 10 mg Pregabalin (Lyrica 50 Mg Cap (*)) 150 mg PO TID [facility] Last Admin: 10/29/19 22:32 Dose: 150 mg Tiotropium [place] (Spiriva Respimat 2.5 Mcg) 2 puff INH DAILY [facility] Last Admin: 10/29/19 09:31 Dose: 2 puff Tramadol HCl (Ultram*) 50 mg PO Q6H PRN PRN Reason: PAIN - MILD Venlafaxine HCl (Effexor Xr Cap*) 150 mg PO DAILY [facility] Last Admin: 10/29/19 07:38 Dose: Not Given Vital Signs - 8 hr 10/30/19 10/30/19 10/30/19 00:18 03:08 07:42 Temperature 98.4 F 98.0 F 98.2 F Pulse Rate 87 80 72 Respiratory 17 16 18 Rate Blood Pressure 128/71 127/79 131/60 (mmHg) O2 Sat by Pulse 95 93 98 Oximetry Oxygen Devices in Use Now: None Appearance: well appearing, sitting on edge of bed; alert and interactive; in good spirits Eyes: No Scleral Icterus Ears/Nose/Mouth/Throat: Clear Oropharnyx, Mucous Membranes Moist Neck: NL Appearance and Movements; NL JVP, Trachea Midline Respiratory: Symmetrical Chest Expansion and Respiratory Effort, Clear to Auscultation Cardiovascular: NL Sounds; No Murmurs; No JVD, RRR Abdominal: - - protuberant, soft, ntnd Extremities: - - RLE BKA stump in c/d/i dressing Result Diagrams: 10/29/19 06:30 10/30/19 05:34 Microbiology and Other Data: Microbiology Microbiology 10/25/19 16:41 Foot Right Skin and Soft Tissue MRSA/MSSA (PCR - Final 10/25/19 16:41 Foot Right Gram Stain - Final Mrsa Negative S.aureus Positive 10/25/19 10:35 Foot Right Skin and Soft Tissue MRSA/MSSA (PCR - Final 10/25/19 10:35 Foot Right Gram Stain - Final Mrsa Negative S.aureus Positive 10/25/19 10:30 Urine Urine Culture - Final Nisa Albicans 10/25/19 09:00 Foot Right Gram Stain - Final 10/25/19 16:41 Wound Anaerobic Culture - Preliminary Bacteroides Species 10/25/19 16:41 Foot Right Wound Culture - Preliminary Strep Agalactiae - (Group B) 10/25/19 10:35 Foot Right Wound Culture - Preliminary Strep Agalactiae - (Group B) Staphylococcus Aureus Pasteurella Multocida Peptoniphilus Asaccharolyticus 10/25/19 09:00 Foot Right Wound Culture - Preliminary Strep Agalactiae - (Group B) Staphylococcus Aureus Alcaligenes Species 10/24/19 17:55 Blood Venous Aerobic Blood Culture - Preliminary 10/24/19 17:55 Blood Venous Anaerobic Blood Culture - Preliminary No Growth Day 3 No Growth Day 3 10/24/19 17:55 Blood Venous Aerobic Blood Culture - Preliminary 10/24/19 17:55 Blood Venous Anaerobic Blood Culture - Preliminary No Growth Day 3 No Growth Day 3 Assess/Plan/Problems-Billing Assessment: 44M with DM2 c/b neuropathy and chronic R heel ulcer, active tobacco use, depression, HTN, chronic venous insufficiency, presents with diabetic foot infection, now s/p R BKA. - Patient Problems (1) Diabetic foot infection Comment: Chronic heel ulcer, now found to have plantar medial abscess s/p aggressive debridment by Dr Alvarado 10/25/2019. Now s/p Right BKA 10/28. Also with possible Left foot osteomyelitis. - ID input appreciated - continue CTX/Flagyl (10/24 - ) - Pain management consult requested with Dr Angel; on pregabalin with oxycodone prns (2) Diabetes Comment: HgbA1c is 7.8%. - cont insulin glargine 12 units with insulin lispro SS. - continue statin - hold home: metformin, empaglifozin, liraglutide subq (3) COPD (chronic obstructive pulmonary disease) Comment: - continue triple therapy, tobacco cessation (4) Depression with anxiety Comment: - cont home venlafaxine and buspirone (5) Tobacco abuse Comment: - Advised to quit smoking and avoid second hand smoke. (6) DVT prophylaxis Comment: - lovenox (7) Full code status Status and Disposition: Inpatient.
[2019-10-30] MEDS ORDERED: Senna TAB 8.6 mg* TAB PO PRN (08:00)
[2019-10-30] MEDS ORDERED: Magnesium Hydroxide LIQ* 30 ML UDC PO PRN (08:00)
[2019-10-30] MEDS: Insulin LISPRO* 1 UNITS UNIT SUBCUT SCH ×3 (08:00→17:47)
[2019-10-30] MEDS: Venlafaxine EXT RELEASE CAP* 75 MG PO SCH (08:55)
[2019-10-30] MEDS: busPIRone TAB* 15 MG PO SCH ×2 (08:55→21:38)
[2019-10-30] MEDS: Pregabalin 50 mg CAP (*) PO SCH ×3 (08:55→21:38)
[2019-10-30] MEDS: Mometasone/Formoter 200/5 MDI INH SCH ×2 (08:56→19:21)
[2019-10-30] MEDS: Lactobacillus Acidophilus* 1 TAB PO SCH (08:56)
[2019-10-30] MEDS: SPIRIVA Respimat* (tiotropium) 2.5 mcg/inh Inhaler INH SCH (08:57)
--- NOTE | 2019-10-30 12:10 | PN ---
Progress Note - Progress Note Date of Service: 10/30/19 Note: POD 2 S/P right BKA: Patient resting in bed. Denies CP, SOB or dizziness. He continues to have some discomfort in the "right ankle". His dressing to the right extremity is C/D/I. Left great toe ulceration remains benign in appearance. Angiography report not available or not yet completed. Continue abx as per ID and we appreciate medicine's guidance. We will continue to follow with an evolving plan based on study results.
[2019-10-30] MEDS: cefTRIAXone(*) 2 GM in NS 0.9% 100 ML* 100 ML IVPB SCH (16:06)
[2019-10-30] MEDS: Atorvastatin* 80 MG TAB PO SCH (17:37)
[2019-10-30] MEDS: Enoxaparin(*) 40 MG/0.4 ML SYR SUBCUT SCH (21:39)
[2019-10-30] MEDS: Insulin GLARGINE(*) 1 UNITS UNIT SUBCUT SCH (21:41)
[2019-10-31] MEDS: metroNIDAZOLE IV 500 MG/100ML* 500 MG/100 ML BAG IVPB SCH ×3 (02:13→17:58)
[2019-10-31] MEDS: oxyCODONE TAB* 5 MG TAB PO PRN (03:35)
[2019-10-31 05:54] LABS: Calcium 7.9 mg/dL (8.6-10.3); Magnesium 2.1 mg/dL (1.9-2.7); Potassium 3.3 mmol/L (3.5-5.0)
[2019-10-31 06:00] LABS: C Reactive Protein 92.64 mg/L (<8.01); EGFR African American 186.2 (>60); EGFR Non-African American 153.9 (>60)
[2019-10-31] MEDS ORDERED: Potassium Chlor TAB* 20 MEQ TAB.ER PO ONE (08:15)
--- NOTE | 2019-10-31 08:17 | PN ---
Subjective Date of Service: 10/31/19 Interval History: No acute events overnight. Pt in good spirits and reading about amputations. Denies pain at stump site - currently shield is on. Sleeping well. Objective Active Medications: Acetaminophen (Tylenol Tab*) 650 mg PO Q4H PRN PRN Reason: PAIN - MILD Last Admin: 10/27/19 00:13 Dose: 650 mg Albuterol/Ipratropium (Duoneb (Albuterol 2.5 Mg/Ipratropium 0.5 Mg)) 1 neb INH Q6H PRN PRN Reason: SHORTNESS OF BREATH Atorvastatin Calcium (Lipitor*) 80 mg PO DAILY@1700 [facility] Last Admin: 10/30/19 17:37 Dose: 80 mg Buspirone HCl (Buspar Tab *) 30 mg PO BID [facility] Last Admin: 10/30/19 21:38 Dose: 30 mg Dextrose (D50w Syringe 50 Ml*) 12.5 gm IV PUSH .FOR FS < 60 - SS PRN PRN Reason: FS < 60 Enoxaparin Sodium (Lovenox(*)) 40 mg SUBCUT BEDTIME [facility] Last Admin: 10/30/19 21:39 Dose: 40 mg Famotidine (Pepcid Tab*) 20 mg PO BID PRN PRN Reason: HEARTBURN Last Admin: 10/30/19 08:02 Dose: 20 mg Ceftriaxone Sodium 2 gm/ (Sodium Chloride) 100 mls @ 200 mls/hr IVPB Q24H [facility] Last Admin: 10/30/19 16:06 Dose: 200 mls/hr Metronidazole/Sodium Chloride (Flagyl 500 Mg Ivpb*) 500 mg in 100 mls @ 100 mls /hr IVPB Q8H [facility] Last Admin: 10/31/19 02:13 Dose: 100 mls/hr Insulin Glargine (Lantus(*)) 12 units SUBCUT Q24H [facility] Last Admin: 10/30/19 21:41 Dose: 12 units Insulin Human Lispro (Humalog*) 0 units SUBCUT AC [facility]; Protocol Last Admin: 10/30/19 17:47 Dose: 2 unit Lactobacillus Rhamnosus (Lactobacillus Acidophilus*) 1 tab PO DAILY [facility] Last Admin: 10/30/19 08:56 Dose: 1 tab Magnesium Hydroxide (Milk Of Magnesia Liq*) 30 ml PO BID PRN PRN Reason: CONSTIPATION Mometasone Furoate/Formoterol Fumar (Dulera 200/5 Mdi*) 2 puff INH BID [facility]; Protocol Last Admin: 10/30/19 19:21 Dose: 2 puff Ondansetron HCl (Zofran Inj*) 4 mg IV Q6H PRN PRN Reason: NAUSEA Oxycodone HCl (Roxycodone Tab*) 5 mg PO Q4H PRN PRN Reason: PAIN - MODERATE Oxycodone HCl (Roxycodone Tab*) 10 mg PO Q4H PRN PRN Reason: PAIN - SEVERE Last Admin: 10/31/19 03:35 Dose: 10 mg Pregabalin (Lyrica 50 Mg Cap (*)) 150 mg PO TID [facility] Last Admin: 10/30/19 21:38 Dose: 150 mg Senna (Senokot 8.6 Mg Tab*) 1 tab PO BEDTIME PRN PRN Reason: CONSTIPATION Tiotropium [place] (Spiriva Respimat 2.5 Mcg) 2 puff INH DAILY [facility] Last Admin: 10/30/19 08:57 Dose: 2 puff Tramadol HCl (Ultram*) 50 mg PO Q6H PRN PRN Reason: PAIN - MILD Venlafaxine HCl (Effexor Xr Cap*) 150 mg PO DAILY [facility] Last Admin: 10/30/19 08:55 Dose: 150 mg Vital Signs - 8 hr 10/31/19 10/31/19 10/31/19 00:17 03:11 03:35 Temperature 97.6 F Pulse Rate 68 Respiratory 16 18 18 Rate Blood Pressure 117/70 (mmHg) O2 Sat by Pulse 96 Oximetry 10/31/19 10/31/19 05:39 07:32 Temperature 97.9 F Pulse Rate 85 Respiratory 16 18 Rate Blood Pressure 124/72 (mmHg) O2 Sat by Pulse 98 Oximetry Oxygen Devices in Use Now: None Appearance: well appearing, NAD Eyes: No Scleral Icterus Ears/Nose/Mouth/Throat: Clear Oropharnyx, Mucous Membranes Moist Neck: NL Appearance and Movements; NL JVP, Trachea Midline Respiratory: Symmetrical Chest Expansion and Respiratory Effort, Clear to Auscultation Cardiovascular: NL Sounds; No Murmurs; No JVD, RRR Extremities: No Edema, - - R BKA dressing c/d/i Neurological: Alert and Oriented x 3 Result Diagrams: 10/29/19 06:30 11/01/19 05:20 Assess/Plan/Problems-Billing Assessment: 44M with DM2 c/b neuropathy and chronic R heel ulcer, active tobacco use, depression, HTN, chronic venous insufficiency, presents with diabetic foot infection, now s/p R BKA. - Patient Problems (1) Diabetic foot infection Comment: Chronic heel ulcer, now found to have plantar medial abscess s/p aggressive debridment by Dr Alvarado 10/25/2019. Now s/p Right BKA 10/28. Also with possible Left foot osteomyelitis. - ID input appreciated - continue CTX/Flagyl (10/24 - ) - Pain management consult requested with Dr Angel; on pregabalin with oxycodone prns (2) Diabetes Comment: HgbA1c is 7.8%. - cont insulin glargine 12 units with insulin lispro SS. - continue statin - hold home: metformin, empaglifozin, liraglutide subq (3) COPD (chronic obstructive pulmonary disease) Comment: - continue triple therapy, tobacco cessation (4) Depression with anxiety Comment: - cont home venlafaxine and buspirone (5) Tobacco abuse Comment: - Advised to quit smoking and avoid second hand smoke. (6) DVT prophylaxis Comment: - lovenox (7) Full code status Status and Disposition: Inpatient.
[2019-10-31] MEDS: Insulin LISPRO* 1 UNITS UNIT SUBCUT SCH ×3 (09:23→17:57)
[2019-10-31] MEDS: KCL 20 MEQ/100 ML IVPREMIX* 20 MEQ/100 ML BAG IV SCH ×2 (09:24→13:28)
[2019-10-31] MEDS: Lactobacillus Acidophilus* 1 TAB PO SCH (09:31)
[2019-10-31] MEDS: busPIRone TAB* 15 MG PO SCH ×2 (09:31→21:23)
[2019-10-31] MEDS: Pregabalin 50 mg CAP (*) PO SCH ×3 (09:31→21:24)
[2019-10-31] MEDS: Venlafaxine EXT RELEASE CAP* 75 MG PO SCH (09:31)
[2019-10-31] MEDS: Mometasone/Formoter 200/5 MDI INH SCH ×2 (09:36→19:30)
[2019-10-31] MEDS: SPIRIVA Respimat* (tiotropium) 2.5 mcg/inh Inhaler INH SCH (09:37)
--- NOTE | 2019-10-31 10:20 | PN ---
Progress Note - Progress Note Date of Service: 10/31/19 Note: POD 3 S/P right BKA: Patient resting in bed. Denies CP, SOB or dizziness. He denies uncontrolled pain today. His dressing to the right extremity is C/D/I. Left great toe ulceration remains benign in appearance and is redressed today. Angiography report still not available or not yet completed. Continue abx as per ID and we appreciate medicine's guidance. Dr. Alvarado is in the OR tomorrow, so we will discuss plan for left great toe ulceration and will continue to follow.
[2019-10-31] MEDS: cefTRIAXone(*) 2 GM in NS 0.9% 100 ML* 100 ML IVPB SCH (16:12)
[2019-10-31] MEDS: Atorvastatin* 80 MG TAB PO SCH (17:13)
[2019-10-31] MEDS: Enoxaparin(*) 40 MG/0.4 ML SYR SUBCUT SCH (21:25)
[2019-10-31] MEDS: Insulin GLARGINE(*) 1 UNITS UNIT SUBCUT SCH (21:26)
[2019-11-01] MEDS: metroNIDAZOLE IV 500 MG/100ML* 500 MG/100 ML BAG IVPB SCH ×3 (02:01→16:30)
[2019-11-01 05:49] LABS: Calcium 7.9 mg/dL (8.6-10.3); Potassium 3.7 mmol/L (3.5-5.0)
[2019-11-01] MEDS ORDERED: fentaNYL* 50 MCG/ML 2 ML VIAL (100 MCG VIAL) IV PRN (05:54)
[2019-11-01] MEDS ORDERED: Naloxone* 0.4 MG/ML 1 ML VIAL IV PRN (05:54)
[2019-11-01] MEDS ORDERED: oxyCODONE TAB* 5 MG TAB PO PRN ×2 (05:54→15:17)
[2019-11-01 05:55] LABS: EGFR African American 154.5 (>60); EGFR Non-African American 127.7 (>60)
[2019-11-01] MEDS ORDERED: Potassium Chlor TAB* 20 MEQ TAB.ER PO ONE (07:41)
--- NOTE | 2019-11-01 07:47 | PN ---
Subjective Date of Service: 11/01/19 Interval History: No acute events noted overnight. Pt had 2.6 second pause on tele, asymptomatic and BP stable. Pt in good spirits and motivated to go to [facility], possibly as early as tomorrow. Denies pain, fevers, chills, night sweats. Objective Active Medications: Acetaminophen (Tylenol Tab*) 975 mg PO Q8H PRN PRN Reason: PAIN - MILD Albuterol/Ipratropium (Duoneb (Albuterol 2.5 Mg/Ipratropium 0.5 Mg)) 1 neb INH Q6H PRN PRN Reason: SHORTNESS OF BREATH Atorvastatin Calcium (Lipitor*) 80 mg PO DAILY@1700 [facility] Last Admin: 10/31/19 17:13 Dose: 80 mg Buspirone HCl (Buspar Tab *) 30 mg PO BID [facility] Last Admin: 11/01/19 11:20 Dose: Not Given Dextrose (D50w Syringe 50 Ml*) 12.5 gm IV PUSH .FOR FS < 60 - SS PRN PRN Reason: FS < 60 Enoxaparin Sodium (Lovenox(*)) 40 mg SUBCUT BEDTIME [facility] Last Admin: 10/31/19 21:25 Dose: 40 mg Famotidine (Pepcid Tab*) 20 mg PO BID PRN PRN Reason: HEARTBURN Last Admin: 10/30/19 08:02 Dose: 20 mg Ceftriaxone Sodium 2 gm/ (Sodium Chloride) 100 mls @ 200 mls/hr IVPB Q24H [facility] Last Admin: 10/31/19 16:12 Dose: 200 mls/hr Metronidazole/Sodium Chloride (Flagyl 500 Mg Ivpb*) 500 mg in 100 mls @ 100 mls /hr IVPB Q8H [facility] Last Admin: 11/01/19 10:45 Dose: 100 mls/hr Insulin Glargine (Lantus(*)) 12 units SUBCUT Q24H [facility] Last Admin: 10/31/19 21:26 Dose: 12 units Insulin Human Lispro (Humalog*) 0 units SUBCUT AC [facility]; Protocol Last Admin: 11/01/19 13:14 Dose: Not Given Lactobacillus Rhamnosus (Lactobacillus Acidophilus*) 1 tab PO DAILY [facility] Last Admin: 11/01/19 11:20 Dose: Not Given Magnesium Hydroxide (Milk Of Magnesia Liq*) 30 ml PO BID PRN PRN Reason: CONSTIPATION Mometasone Furoate/Formoterol Fumar (Dulera 200/5 Mdi*) 2 puff INH BID [facility]; Protocol Last Admin: 11/01/19 08:54 Dose: 2 puff Oxycodone HCl (Roxycodone Tab*) 5 mg PO Q4H PRN PRN Reason: Pain - Moderate to Severe Pregabalin (Lyrica 50 Mg Cap (*)) 150 mg PO TID [facility] Last Admin: 11/01/19 12:53 Dose: Not Given Senna (Senokot 8.6 Mg Tab*) 1 tab PO BEDTIME PRN PRN Reason: CONSTIPATION Tiotropium [place] (Spiriva Respimat 2.5 Mcg) 2 puff INH DAILY [facility] Last Admin: 11/01/19 08:54 Dose: 2 puff Venlafaxine HCl (Effexor Xr Cap*) 150 mg PO DAILY [facility] Last Admin: 11/01/19 11:20 Dose: Not Given Vital Signs - 8 hr 11/01/19 11/01/19 11/01/19 00:00 03:57 07:29 Temperature 98 F 97 F Pulse Rate 83 75 Respiratory 16 16 17 Rate Blood Pressure 126/73 129/75 (mmHg) O2 Sat by Pulse 98 97 Oximetry Oxygen Devices in Use Now: None Appearance: well appearing, sitting at edge of bed reading Eyes: No Scleral Icterus Ears/Nose/Mouth/Throat: Clear Oropharnyx, Mucous Membranes Moist Neck: NL Appearance and Movements; NL JVP, Trachea Midline Respiratory: Symmetrical Chest Expansion and Respiratory Effort, Clear to Auscultation Cardiovascular: NL Sounds; No Murmurs; No JVD, RRR Abdominal: - - protuberant, soft, nontender Extremities: No Edema, - - RLE with BKA dressing c/d/i and shield on; L foot with ulcer of medical first toe, no purulence Neurological: Alert and Oriented x 3 Result Diagrams: 10/29/19 06:30 11/01/19 05:20 Microbiology and Other Data: Microbiology Microbiology 10/25/19 16:41 Foot Right Skin and Soft Tissue MRSA/MSSA (PCR - Final 10/25/19 16:41 Foot Right Gram Stain - Final Mrsa Negative S.aureus Positive 10/25/19 10:35 Foot Right Skin and Soft Tissue MRSA/MSSA (PCR - Final 10/25/19 10:35 Foot Right Gram Stain - Final Mrsa Negative S.aureus Positive 10/25/19 10:30 Urine Urine Culture - Final Nisa Albicans 10/25/19 09:00 Foot Right Gram Stain - Final 10/25/19 16:41 Wound Anaerobic Culture - Preliminary Bacteroides Species 10/25/19 16:41 Foot Right Wound Culture - Preliminary Strep Agalactiae - (Group B) 10/25/19 10:35 Foot Right Wound Culture - Preliminary Strep Agalactiae - (Group B) Staphylococcus Aureus Pasteurella Multocida Peptoniphilus Asaccharolyticus 10/25/19 09:00 Foot Right Wound Culture - Preliminary Strep Agalactiae - (Group B) Staphylococcus Aureus Alcaligenes Species 10/24/19 17:55 Blood Venous Aerobic Blood Culture - Preliminary 10/24/19 17:55 Blood Venous Anaerobic Blood Culture - Preliminary No Growth Day 3 No Growth Day 3 10/24/19 17:55 Blood Venous Aerobic Blood Culture - Preliminary 10/24/19 17:55 Blood Venous Anaerobic Blood Culture - Preliminary No Growth Day 3 No Growth Day 3 Assess/Plan/Problems-Billing Assessment: 44M with DM2 c/b neuropathy and chronic R heel ulcer, active tobacco use, depression, HTN, chronic venous insufficiency, presents with diabetic foot infection, now s/p R BKA. - Patient Problems (1) Diabetic foot infection Comment: Chronic heel ulcer, now found to have plantar medial abscess s/p aggressive debridment by Dr Alvarado 10/25/2019. Now s/p Right BKA 10/28. Also with possible Left foot osteomyelitis. - ID input appreciated - continue CTX/Flagyl (10/24 - ) - Pain management consult requested with Dr Angel; on pregabalin with oxycodone prns (2) Diabetes Comment: HgbA1c is 7.8%. - cont insulin glargine 12 units with insulin lispro SS. - continue statin - hold home: metformin, empaglifozin, liraglutide subq (3) COPD (chronic obstructive pulmonary disease) Comment: - continue triple therapy, tobacco cessation (4) Depression with anxiety Comment: - cont home venlafaxine and buspirone (5) Tobacco abuse Comment: - Advised to quit smoking and avoid second hand smoke. (6) DVT prophylaxis Comment: - clairex (7) Full code status Status and Disposition: Inpatient.
[2019-11-01] MEDS: SPIRIVA Respimat* (tiotropium) 2.5 mcg/inh Inhaler INH SCH (08:54)
[2019-11-01] MEDS: Mometasone/Formoter 200/5 MDI INH SCH ×2 (08:54→20:03)
[2019-11-01] MEDS: Insulin LISPRO* 1 UNITS UNIT SUBCUT SCH ×3 (10:42→17:43)
[2019-11-01] MEDS: Pregabalin 50 mg CAP (*) PO SCH ×3 (11:20→21:26)
[2019-11-01] MEDS: busPIRone TAB* 15 MG PO SCH ×2 (11:20→21:26)
[2019-11-01] MEDS: Lactobacillus Acidophilus* 1 TAB PO SCH (11:20)
[2019-11-01] MEDS: Venlafaxine EXT RELEASE CAP* 75 MG PO SCH (11:20)
--- NOTE | 2019-11-01 13:30 | PN ---
Progress Note - Progress Note Date of Service: 11/01/19 SOAP: Subjective: CC: Right foot infection with abscess and left 1st toe infection HPI: Mr. Dean is a 44 yo male with PMH significant for morbid obesity, DM2, peripheral neuropathy, depression, HTN, HLD, venous insufficiency, COPD, and chronic right foot ulcers; who presented to the hospital with a right foot abscess. Also noted to have a left 1st toe ulcer. Now S/P right BKA. Denies fever, chills, nausea, vomiting, diarrhea. Pain in the right LE mostly resolved. He would like to have the left 1st toe amputated. Objective: Vital Signs - 8 hr 11/01/19 11/01/19 11/01/19 07:29 07:39 11:34 Temperature 97 F 98.2 F Pulse Rate 75 71 Respiratory 17 18 16 Rate Blood Pressure 129/75 120/69 (mmHg) O2 Sat by Pulse 97 95 Oximetry Physical Exam: General: NAD, laying on a stretcher Neurological: Alert and Oriented HEENT: Moist MM Cardiovascular: Heart rate regular Respiratory: Lung sounds clear Abdominal: Bowel sounds present; ABD soft, large, and non tender MSK: BOBO Skin: No rash. DSG to right LE; clean, dry and intact. Chronic skin changes to the left LE. There is an ulcer to the medial aspect of the left 1st toe with necrotic tissue in the wound base Laboratory Results - last 24 hr 10/31/19 11/01/19 17:12 05:20 Sodium 138 Potassium 3.7 Chloride 104 Carbon Dioxide 29 Anion Gap 5 BUN 6 Creatinine 0.67 Est GFR ( Amer) 154.5 Est GFR (Non-Af Amer) 127.7 BUN/Creatinine Ratio 9.0 Glucose 107 H POC Glucose (mg/dL) 210 H Calcium 7.9 L Magnesium 2.0 Microbiology 10/25/19 10:35 Skin and Soft Tissue MRSA/MSSA (PCR - Final Foot Right Mrsa Negative S.aureus Positive Gram Stain - Final Wound Culture - Final Strep Agalactiae - (Group B) Staphylococcus Aureus Pasteurella Multocida Peptoniphilus Asaccharolyticus 10/24/19 17:55 Aerobic Blood Culture - Final Blood Venous No Growth Day 5 Anaerobic Blood Culture - Final No Growth Day 5 10/24/19 17:55 Aerobic Blood Culture - Final Blood Venous No Growth Day 5 Anaerobic Blood Culture - Final No Growth Day 5 10/25/19 16:41 Skin and Soft Tissue MRSA/MSSA (PCR - Final Foot Right Mrsa Negative S.aureus Positive Gram Stain - Final Wound Culture - Final Strep Agalactiae - (Group B) Staphylococcus Aureus 10/25/19 16:41 Anaerobic Culture - Final Wound Bacteroides Species 10/25/19 09:00 Gram Stain - Final Foot Right Wound Culture - Final Strep Agalactiae - (Group B) Staphylococcus Aureus Alcaligenes Species 10/25/19 10:30 Urine Culture - Final Urine Nisa Albicans Assessment: 1. Right foot abscess and infectious myositis. MRI with no definitive signs of osteomyelitis. S/P BKA, POD #4. Polymicrobial with group B strep, staph aureus, pasteuella, peptoniphilis, alcaligenes, and bacteroides. Blood cultures with no growth to date. Surgical pathology pending. Afebrile and leukocytosis has resolved. 2. Left 1st toe ulcer. MRI with possible osteomyelitis. Plan for possible amputation of the 1st toe later today, will discuss with Orthopedics. Wound with moist necrotic base, will not obtain culture as wound is chronic and likely polymicrobial and colonized. No erythema or warmth. 3. DM2 with peripheral neuropathy. 4. Morbid obesity. BMI 40.2. Plan: Continue ceftraixone and flagyl. Will plan on long course of antibiotics ( likely 4-6 weeks IV), final recommendations based on final culture results and surgical pathology. Weekly labs while on IV ABX: CBC, CMP, and CRP. Continue wound care for the left 1st toe. 25 minutes floor time: > 50 % was spent with the patient discussing options of prolonged ABX vs left 1st toe amputation, and combination of both.
[2019-11-01] MEDS ORDERED: Acetaminophen TAB* 325 MG PO PRN (15:16)
[2019-11-01] MEDS: cefTRIAXone(*) 2 GM in NS 0.9% 100 ML* 100 ML IVPB SCH (17:29)
[2019-11-01] MEDS: Atorvastatin* 80 MG TAB PO SCH (17:33)
[2019-11-01] MEDS: Enoxaparin(*) 40 MG/0.4 ML SYR SUBCUT SCH (21:27)
[2019-11-01] MEDS: Insulin GLARGINE(*) 1 UNITS UNIT SUBCUT SCH (21:27)
--- NOTE | 2019-11-01 23:26 | DS ---
CC: Ekaterina Rodriguez NP * DISCHARGE SUMMARY: DATE OF ADMISSION: 10/24/19 DATE OF DISCHARGE: 11/03/19 PRIMARY CARE PHYSICIAN: Ekaterina Rodriguez. PRIMARY DIAGNOSES: 1. Right foot diabetic foot wound complicated by abscess. 2. Left first toe diabetic ulcer. SECONDARY DIAGNOSES: 1. Diabetes type 2, not on insulin. 2. Chronic obstructive pulmonary disease, on triple therapy. 3. Depression with anxiety. 4. Active tobacco use. CONSULTS: Dr. Gonzalez of IR; Dr. Giuliano Alvarado of Orthopedic Surgery; Dr. Jason Farr of Infectious Disease; Dr. Zack Angel of Pain Management. PROCEDURES: 1. Debridement of right foot abscess on 10/25/19. 2. [id number] amputation on the right on 10/28/19. DISCHARGE MEDICATIONS: 1. Ceftriaxone 2 g IV daily. 2. Metronidazole 500 mg IV every 8 hours. 3. Metformin 1 g twice a day. 4. Liraglutide 1.8 mg subcutaneous daily. 5. Tiotropium 1 inhalation daily. 6. Symbicort 2 puffs twice a day. 7. Venlafaxine 150 mg daily. 8. Buspirone 30 mg twice a day. 9. Pregabalin 150 mg t.i.d. 10. Acetaminophen 975 every 8 hours as needed for mild pain. 11. Oxycodone 5 mg every 4 hours as needed for itpksgla-ow-mifkot pain. 12. Albuterol 2 puffs every 6 hours as needed for shortness of breath. 13. Atorvastatin 80 mg in the evening. 14. Vitamin D3 5000 units daily. 15. Senna 8.6 mg at bedtime as needed for constipation. 16. Milk of magnesia 30 mL twice a day as needed for constipation. 17. Lactobacillus 1 capsule daily. 18. Famotidine 20 mg twice a day as needed for heartburn. HISTORY OF PRESENT ILLNESS: Mr. Dean is a 44-year-old morbidly obese man with diabetes complicated by chronic foot ulcers and neuropathy, hypertension, COPD with active tobacco use, depression with recent admission for suicidal ideation, who is presenting due to generally not feeling well. He presents to the ER stating that 4 days prior to presentation at wound clinic, he had a wound VAC on his chronic right heel ulcer removed. Local debridement was performed and the patient was initially feeling well. However, after a couple of days, he began to feel nauseated, warm and then eventually developed a new ulcer on the plantar aspect of his right mid foot. He does not remember trauma to the area. He is overall feeling malaise with new blister forming and foot with worsening erythema. He presented to the emergency room. HOSPITAL COURSE: In the emergency room, the patient was noted to have leukocytosis to 21 with temperature 101.1 and tachycardia to 106. He was given Levaquin and Flagyl with IV fluids. Orthopedic Surgery and Infectious Disease were called for consultation. Given sepsis on presentation, his antihypertensives were held. An MRI was ordered to explore for osteomyelitis. MRI showed dense soft tissue swelling without evidence of osteomyelitis. Orthopedic surgery saw and evaluated the patient and recommended surgical debridement, which was performed the next on 10/25/19. The patient had foul smelling petrified tissue in an area at least 8 cm x 8 cm and ulcer was excised at the heel as well as the mid food and was noted to have petrified soft tissue tracking down to the ulcerations. Given the extensive nature of his foot wounds, it was recommended that the patient pursue a right [id number] amputation and extensive discussion was held between the orthopedic surgery team and patient and this was performed on 10/28/19. The patient also underwent an MRI of left lower extremity, which was equivocal for osteomyelitis. Infectious Disease saw and evaluated the patient and recommended to continue the patient on cefepime and Flagyl until more culture data was back. Eventually, they recommended to narrow antibiotics to ceftriaxone with continuation on metronidazole, which the patient remained on until his discharge. Of note throughout hospitalization, the patient was not restarted on his antihypertensives and he remained with blood pressures at goal. His A1c on admission was noted to be 7.8% and his blood glucose is well controlled with glargine 12 units with low doses of short acting sliding scale with mealtime. There was discussion between Orthopedic Surgery and patient regarding left toe amputation. However, given that patient had better peripheral blood flow to this foot, decision was made to discontinue antibiotics and follow up with Orthopedic Surgery after discharge. PERTINENT DIAGNOSTIC STUDIES: CBC with WBC on presentation 21, which decreased to normal after 5 days on antibiotics. Hemoglobin 11.5 likely related to debridement and surgery with normal MCV. BMP notable for creatinine of 0.67. Also persistent hypokalemia that did not improve until the patient's PPI was discontinued. Foot x-ray, right with suspected ulceration and soft tissue swelling about the plantar surface of the heel, similar erosive changes about the second and third PIPs and MTPs, first MTP irrigation, vascular calcifications, pes planus morphology. Right foot MRI with diffuse soft tissue swelling, no definite evidence of osteomyelitis is noted. Although fluid surrounds the proximal phalanx of the fourth digit. Right lower extremity Doppler. No evidence for right lower extremity DVT. Left foot MRI with equivocal marrow edema involving the distal first phalanx. This is not confirmed in all sequences. Osteomyelitis could not be excluded. Small effusion, soft tissue swelling of the dorsum of the foot. There is a small ulceration at the plantar medial aspect of the great toe with mild swelling. Patchy muscle edema suggestive of myositis or diabetic myopathy. Right lower extremity arterial duplex scan with patent left lower extremity arteries without evidence for stenosis. DISCHARGE PLAN: 1. For patient's recent amputation, ongoing left diabetic foot wound with concern for osteomyelitis, he will be continued on IV antibiotics per Infectious Disease team. He is currently on ceftriaxone and Flagyl, which was started on 10/24/19 and is recommended that he continue these for at least a few weeks. He should follow up in orthopedic surgery clinic for his recent right lower extremity amputation and left known diabetic foot ulcer and he should also followup in ID Clinic for ongoing management of his IV antibiotics. For pain control, he will be discharged on Tylenol for mild pain and oxycodone 5 mg p.o. for moderate to severe. He is continued on venlafaxine and pregabalin for chronic pain from diabetic neuropathy. He will be discharged to [facility] for acute rehab. 2. Diabetes: The patient will be continued on his home doses of metformin and liraglutide. In rehab, he should continue a healthy diet, low in processed foods especially low in carbohydrates and sugars. His SGLT-2 inhibitors were discontinued given risk of association with lower extremity amputations. He should be continued on his home dose of atorvastatin 80 mg in the evening. 3. COPD: The patient will be continued on triple therapy with his home inhalers of Spiriva and Symbicort, with albuterol inhaler as needed and DuoNeb nebulizers as needed. The patient reports he quit smoking just 1 day prior to presenting to the hospital and he declines nicotine replacement therapy or other medical adjuncts. He should continue to abstain from cigarette smoking and avoid second hand smoke. 4. Depression with anxiety: The patient will continue on his home doses of venlafaxine and buspirone. He should be considered for referral for psychotherapy as an outpatient. 5. For hypertension, all of the patient's home blood pressure medications were held in the hospital. His blood pressures remained at goal, so he will not be continued on any blood pressure medications after discharge. 6. History of heartburn: The patient's PPI was stopped given electrolyte abnormalities, which have now resolved. He rarely used famotidine p.r.n. while admitted and can continue on H2 slaly after discharge. 7. While the patient is on narcotics for pain, he should be continued on a bowel regimen, notably with milk of magnesia and senna as needed for constipation. While on antibiotics, he can remain on lactobacillus 1 capsule daily as well. DIET: Low carbohydrate, low sugar diet for weight loss and blood glucose control. ACTIVITY: As tolerated with rehab per PMRU. DISPOSITION: PMRU. CONDITION: Good. TIME SPENT: Approximately 60 minutes was spent on discharge of this patient, more than half of which was spent with care coordination at bedside for interview and exam. [id number]/CPS #: [id number] GAGAN
[2019-11-02] MEDS: metroNIDAZOLE IV 500 MG/100ML* 500 MG/100 ML BAG IVPB SCH ×3 (02:11→18:20)
[2019-11-02] MEDS: Insulin LISPRO* 1 UNITS UNIT SUBCUT SCH ×3 (07:46→17:48)
--- NOTE | 2019-11-02 08:09 | PN ---
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 Pt was requesting psych consult but he has no acute SI/HI, and generally feels they are mostly social work issues and agrees to continue to work with social work as he does not need inpatient psych eval, did inform Dr. Garcia pt requesting a bit of a social visit. Otherwise doing OK, no acute other issues, seen Family History: Unchanged from Admission Social History: Unchanged from Admission Past Medical History: Unchanged from Admission Objective Active Medications: Acetaminophen (Tylenol Tab*) 975 mg PO Q8H PRN PRN Reason: PAIN - MILD Last Admin: 11/02/19 06:08 Dose: 975 mg Albuterol/Ipratropium (Duoneb (Albuterol 2.5 Mg/Ipratropium 0.5 Mg)) 1 neb INH Q6H PRN PRN Reason: SHORTNESS OF BREATH Atorvastatin Calcium (Lipitor*) 80 mg PO DAILY@1700 [facility] Last Admin: 11/01/19 17:33 Dose: 80 mg Buspirone HCl (Buspar Tab *) 30 mg PO BID [facility] Last Admin: 11/01/19 21:26 Dose: 30 mg Dextrose (D50w Syringe 50 Ml*) 12.5 gm IV PUSH .FOR FS < 60 - SS PRN PRN Reason: FS < 60 Enoxaparin Sodium (Lovenox(*)) 40 mg SUBCUT BEDTIME [facility] Last Admin: 11/01/19 21:27 Dose: 40 mg Famotidine (Pepcid Tab*) 20 mg PO BID PRN PRN Reason: HEARTBURN Last Admin: 10/30/19 08:02 Dose: 20 mg Metronidazole/Sodium Chloride (Flagyl 500 Mg Ivpb*) 500 mg in 100 mls @ 100 mls /hr IVPB Q8H [facility] Last Admin: 11/02/19 02:11 Dose: 100 mls/hr Ceftriaxone Sodium 2 gm/ (Sodium Chloride) 100 mls @ 200 mls/hr IVPB 1730 [facility] Insulin Glargine (Lantus(*)) 12 units SUBCUT Q24H [facility] Last Admin: 11/01/19 21:27 Dose: 12 units Insulin Human Lispro (Humalog*) 0 units SUBCUT AC [facility]; Protocol Last Admin: 11/02/19 07:46 Dose: Not Given Lactobacillus Rhamnosus (Lactobacillus Acidophilus*) 1 tab PO DAILY [facility] Last Admin: 11/01/19 11:20 Dose: Not Given Magnesium Hydroxide (Milk Of Mychal Taylorq*) 30 ml PO BID PRN PRN Reason: CONSTIPATION Mometasone Furoate/Formoterol Fumar (Dulera 200/5 Mdi*) 2 puff INH BID [facility]; Protocol Last Admin: 11/01/19 20:03 Dose: 2 puff Oxycodone HCl (Roxycodone Tab*) 5 mg PO Q4H PRN PRN Reason: Pain - Moderate to Severe Pregabalin (Lyrica 50 Mg Cap (*)) 150 mg PO TID [facility] Last Admin: 11/01/19 21:26 Dose: 150 mg Senna (Senokot 8.6 Mg Tab*) 1 tab PO BEDTIME PRN PRN Reason: CONSTIPATION Tiotropium [place] (Spiriva Respimat 2.5 Mcg) 2 puff INH DAILY [facility] Last Admin: 11/01/19 08:54 Dose: 2 puff Venlafaxine HCl (Effexor Xr Cap*) 150 mg PO DAILY [facility] Last Admin: 11/01/19 11:20 Dose: Not Given Vital Signs - 8 hr 11/02/19 11/02/19 11/02/19 00:16 03:38 07:29 Temperature 97.9 F 97.4 F 97.9 F Pulse Rate 64 69 83 Respiratory 16 16 20 Rate Blood Pressure 115/69 121/70 141/84 (mmHg) O2 Sat by Pulse 98 98 98 Oximetry 11/02/19 07:41 Temperature Pulse Rate Respiratory 18 Rate Blood Pressure (mmHg) O2 Sat by Pulse Oximetry Oxygen Devices in Use Now: None Appearance: Pleasant man in a wheelchair Eyes: No Scleral Icterus Ears/Nose/Mouth/Throat: NL Teeth, Lips, Gums Neck: NL Appearance and Movements; NL JVP Respiratory: Clear to Auscultation Cardiovascular: NL Sounds; No Murmurs; No JVD, RRR Abdominal: NL Sounds; No Tenderness; No Distention, No Hepatosplenomegaly Lymphatic: No Cervical Adenopathy Extremities: - - RLE BKA Neurological: Alert and Oriented x 3 Result Diagrams: 10/29/19 06:30 11/01/19 05:20 Microbiology and Other Data: Microbiology Microbiology 10/25/19 16:41 Foot Right Skin and Soft Tissue MRSA/MSSA (PCR - Final 10/25/19 16:41 Foot Right Gram Stain - Final Mrsa Negative S.aureus Positive 10/25/19 10:35 Foot Right Skin and Soft Tissue MRSA/MSSA (PCR - Final 10/25/19 10:35 Foot Right Gram Stain - Final Mrsa Negative S.aureus Positive 10/25/19 10:30 Urine Urine Culture - Final Nisa Albicans 10/25/19 09:00 Foot Right Gram Stain - Final 10/25/19 16:41 Wound Anaerobic Culture - Preliminary Bacteroides Species 10/25/19 16:41 Foot Right Wound Culture - Preliminary Strep Agalactiae - (Group B) 10/25/19 10:35 Foot Right Wound Culture - Preliminary Strep Agalactiae - (Group B) Staphylococcus Aureus Pasteurella Multocida Peptoniphilus Asaccharolyticus 10/25/19 09:00 Foot Right Wound Culture - Preliminary Strep Agalactiae - (Group B) Staphylococcus Aureus Alcaligenes Species 10/24/19 17:55 Blood Venous Aerobic Blood Culture - Preliminary 10/24/19 17:55 Blood Venous Anaerobic Blood Culture - Preliminary No Growth Day 3 No Growth Day 3 10/24/19 17:55 Blood Venous Aerobic Blood Culture - Preliminary 10/24/19 17:55 Blood Venous Anaerobic Blood Culture - Preliminary No Growth Day 3 No Growth Day 3 Assess/Plan/Problems-Billing Assessment: 44M PMH NIDDM c/b neuropathy and chronic R heel ulcer, active tobacco use, COPD , depression, chronic venous insufficiency, presented with R diabetic foot infection, 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 Also with possible left foot osteomyelitis. - ID input appreciated - continue CTX/Flagyl (10/24 - ) - Pain management consult requested with Dr Angel; on pregabalin with oxycodone prns (2) Diabetic neuropathy Current Visit: Yes Status: Acute Code(s): E11.40 - TYPE 2 DIABETES MELLITUS WITH DIABETIC NEUROPATHY, UNSP SNOMED Code(s): 481271862 Comment: Appreciate pain recs - Lyrica initially dose reduced to 100 mg tid on 10/25, then increased back up to 150 TID (home dose) after consultation with pain - Continue home dose Oxy (3) Diabetes Current Visit: Yes Status: Acute Code(s): E11.9 - TYPE 2 DIABETES MELLITUS WITHOUT COMPLICATIONS SNOMED Code(s): 41318141 Comment: HgbA1c is 7.8%. - Insulin glargine 12 units with insulin lispro SS-not on insulin prior to this admission - continue statin - hold home: metformin, liraglutide subq, per admission note was on Steglatro AND Jardiance, though med rec not reflecting this, will need to consult with pharmacy today (4) COPD (chronic obstructive pulmonary disease) Current Visit: Yes Status: Acute Code(s): J44.9 - CHRONIC OBSTRUCTIVE PULMONARY DISEASE, UNSPECIFIED SNOMED Code(s): 29174872 Comment: - continue triple therapy, tobacco cessation (5) Depression with anxiety Current Visit: Yes Status: Acute Code(s): F41.8 - OTHER SPECIFIED ANXIETY DISORDERS SNOMED Code(s): 665458431 Comment: Some superimposed adjustment d/o with grief appropriate, did touch base with Dr. Dahl who will come see him if he has time - cont home venlafaxine and buspirone (6) Tobacco abuse Current Visit: Yes Status: Acute Code(s): Z72.0 - TOBACCO USE SNOMED Code( s): 909229752 Comment: - Advised cessation, offered nicotine replacement therapy (7) DVT prophylaxis Current Visit: Yes Status: Acute Code(s): Z29.9 - ENCOUNTER FOR PROPHYLACTIC MEASURES, UNSPECIFIED SNOMED Code(s): 266527228 Comment: - lovenox (8) Full code status Current Visit: Yes Status: Acute Code(s): Z78.9 - OTHER SPECIFIED HEALTH STATUS SNOMED Code(s): 095741046 Status and Disposition: Inpatient. Awaiting placement
[2019-11-02] MEDS: Mometasone/Formoter 200/5 MDI INH SCH ×2 (09:06→19:58)
[2019-11-02] MEDS: Pregabalin 50 mg CAP (*) PO SCH ×3 (09:07→21:13)
[2019-11-02] MEDS: SPIRIVA Respimat* (tiotropium) 2.5 mcg/inh Inhaler INH SCH (09:07)
[2019-11-02] MEDS: Lactobacillus Acidophilus* 1 TAB PO SCH (09:07)
[2019-11-02] MEDS: busPIRone TAB* 15 MG PO SCH ×2 (09:08→21:14)
[2019-11-02] MEDS: Venlafaxine EXT RELEASE CAP* 75 MG PO SCH (09:11)
--- NOTE | 2019-11-02 12:54 | PN ---
Progress Note - Progress Note Date of Service: 11/02/19 SOAP: Subjective: []Pt seen at bedside. He feels well and is in good spirits regarding BKA. Denies fever, chills, CP, SOB, dizziness, nausea. Objective: []Gen: NAD RLE: Dressing CDI, no erythema proximal, thigh soft LLE: Great toe with ulcer dime sized on medial aspect, slough at base no active drainage. Assessment: []SP R BKA L great toe ulcer Plan: []Stump shield R side Wound care LLE - no surgical plan at this time ceftriaxone per ID, abx likely x 6 weeks lovenox 40 mg subq qd during period of immobility Ready for DC from ortho standpoint Vital Signs Temp 97.5 F 11/02/19 11:09 Pulse 75 11/02/19 11:09 Resp 17 11/02/19 11:09 BP 125/73 11/02/19 11:09 Pulse Ox 99 11/02/19 11:09 Intake & Output 11/01/19 11/02/19 11/02/19 18:59 06:59 18:59 Intake Total 560 1180 210 Output Total 500 200 Balance 560 680 10 Intake: IV Fluids 200 ABX - CEFTRIAXONE 100 Flagyl 100 IVPB 100 Flagyl 100 Oral 360 1080 210 Output: Urine 500 200 Other: Estimated Void Large Small Date of Last Bowel 11/01/2019 Movement # Bowel Movements 1 Estimated Stool Amount Medium Small Large # Voids 3 1 Laboratory Last Values WBC 10.0 10^3/uL (3.5-10.8) 10/29/19 06:30 RBC 3.94 10^6 /uL (4.18-5.48) L 10/29/19 06:30 Hgb 11.5 g/dL (14.0-18.0) L 10/29/19 06:30 Hct 34 % (42-52) L 10/29/19 06:30 MCV 87 fL (80-94) 10/29/19 06:30 MCH 29 pg (27-31) 10/29/19 06:30 MCHC 34 g/dL (31-36) 10/29/19 06:30 RDW 15 % (10-15) 10/29/19 06:30 Plt Count 208 10^3/uL (150-450) 10/29/19 06:30 MPV 9.1 fL (7.4-10.4) 10/29/19 06:30 Neut % (Auto) 77.3 % 10/29/19 06:30 Lymph % (Auto) 12.7 % 10/29/19 06:30 Sanders % (Auto) 7.9 % 10/29/19 06:30 Eos % (Auto) 1.4 % 10/29/19 06:30 Baso % (Auto) 0.7 % 10/29/19 06:30 Absolute Neuts (auto) 7.8 10^3/ul (1.5-7.7) H 10/29/19 06:30 Absolute Lymphs (auto) 1.3 10^3/ul (1.0-4.8) 10/29/19 06:30 Absolute Monos (auto) 0.8 10^3/ul (0-0.8) 10/29/19 06:30 Absolute Eos (auto) 0.1 10^3/ul (0-0.6) 10/29/19 06:30 Absolute Basos (auto) 0.1 10^3/ul (0-0.2) 10/29/19 06:30 Absolute Nucleated RBC 0.0 10^3/ul 10/29/19 06:30 Nucleated RBC % 0.0 10/29/19 06:30 ESR 110 mm/Hr (0-14) H 10/25/19 06:34 INR (Anticoag Therapy) 1.50 (0.82-1.09) H 10/28/19 06:04 APTT 38.5 seconds (26.0-38.0) H 10/24/19 17:55 Sodium 138 mmol/L (135-145) 11/01/19 05:20 Potassium 3.7 mmol/L (3.5-5.0) 11/01/19 05:20 Chloride 104 mmol/L (101-111) 11/01/19 05:20 Carbon Dioxide 29 mmol/L (22-32) 11/01/19 05:20 Anion Gap 5 mmol/L (2-11) 11/01/19 05:20 BUN 6 mg/dL (6-24) 11/01/19 05:20 Creatinine 0.67 mg/dL (0.67-1.17) 11/01/19 05:20 Est GFR ( Amer) 154.5 (>60) 11/01/19 05:20 Est GFR (Non-Af Amer) 127.7 (>60) 11/01/19 05:20 BUN/Creatinine Ratio 9.0 (8-20) 11/01/19 05:20 Glucose 107 mg/dL (70-100) H 11/01/19 05:20 POC Glucose (mg/dL) 129 mg/dL (70-100) H 11/02/19 07:35 Glucose Meter Confirm 132 mg/dL (70-100) H 10/26/19 20:33 Hemoglobin A1c 7.8 % (4.0-5.6) H 10/27/19 07:37 Lactic Acid 1.2 mmol/L (0.5-2.0) 10/24/19 19:57 Calcium 7.9 mg/dL (8.6-10.3) L 11/01/19 05:20 Magnesium 2.0 mg/dL (1.9-2.7) 11/01/19 05:20 Total Bilirubin 0.50 mg/dL (0.2-1.0) 10/30/19 05:34 AST 29 U/L (13-39) 10/30/19 05:34 ALT 21 U/L (7-52) 10/30/19 05:34 Alkaline Phosphatase 67 U/L (34-104) 10/30/19 05:34 C-Reactive Protein 92.64 mg/L (<8.01) H 10/31/19 05:32 Total Protein 6.9 g/dL (6.4-8.9) 10/30/19 05:34 Albumin 2.7 g/dL (3.2-5.2) L 10/30/19 05:34 Globulin 4.2 g/dL (2-4) H 10/30/19 05:34 Albumin/Globulin Ratio 0.6 (1-3) L 10/30/19 05:34 Urine Color Lynnette 10/25/19 10:30 Urine Appearance Cloudy 10/25/19 10:30 Urine pH 6.0 (5-9) 10/25/19 10:30 Ur Specific [place] 1.029 (1.010-1.030) 10/25/19 10:30 Urine Protein 1+(30 mg/dl) (Negative) A 10/25/19 10:30 Urine Ketones 1+ (Negative) A 10/25/19 10:30 Urine Blood Negative (Negative) 10/25/19 10:30 Urine Nitrate Negative (Negative) 10/25/19 10:30 Urine Bilirubin Negative (Negative) 10/25/19 10:30 Urine Urobilinogen Positive (Negative) A 10/25/19 10:30 Ur Leukocyte Esterase 3+ (Negative) A 10/25/19 10:30 Urine WBC (Auto) 3+(>20/hpf) (Absent) A 10/25/19 10:30 Urine RBC (Auto) 3+(>10/hpf) (Absent) A 10/25/19 10:30 Ur Squamous Epith Cells Present (Absent) A 10/25/19 10:30 Urine Bacteria Absent (Absent) 10/25/19 10:30 Urine Glucose 3+(>=500 mg/dl) (Negative) A 10/25/19 10:30 Vancomycin Trough 9.3 mcg/mL 10/26/19 12:20
--- NOTE | 2019-11-02 15:53 | CONSULT ---
Consult Consult: Consult Reason: Psychiatric Evaluation S: Psychiatry is asked to evaluate this 44 year old recently male. He is currently living with his niece and plans to live with his cousin at a [address] He is being treated on the post surgical unit for a recent below the knee amputation. He stated "I am doing well despite having my foot cut off." I plan to go full force in recovery mode. He went to [facility] and met with Henry whom he found that he could continue a therapeutic relationship with. Past Psychiatric history: Major depressive disorder in partial remission. O: 44 year old male appears older than stated age , dressed in patient gown, calm, cooperative. Euthymic affect. Linear and goal directed thoughts. No delusions or preoccupations. He denied suicidal ideation, intent or plan. He denied homicidal ideation intent or plan. No perceptual disturbances. Good Insight and judgment . He is aware of the name of his current location, month, day and year. A/P: DX: Major depressive disorder in partial remission. Patient does not require inpatient psychiatric care at this time Patient plans to follow up with [facility] for outpatient care Patient to continue Effexor 150mg daily for depression and Buspar 30mg BID for anxiety Psychiatry will sign off please call if you have any questions. Patient informed call 911 in the event of a emergency. He was also notified 24 hour/ 7 day week availability of the ER. Luigi Dahl M.D. #[id number] Acetaminophen (Tylenol Tab*) 975 mg PO Q8H PRN PRN Reason: PAIN - MILD Last Admin: 11/02/19 06:08 Dose: 975 mg Albuterol/Ipratropium (Duoneb (Albuterol 2.5 Mg/Ipratropium 0.5 Mg)) 1 neb INH Q6H PRN PRN Reason: SHORTNESS OF BREATH Atorvastatin Calcium (Lipitor*) 80 mg PO DAILY@1700 [facility] Last Admin: 11/01/19 17:33 Dose: 80 mg Buspirone HCl (Buspar Tab *) 30 mg PO BID [facility] Last Admin: 11/02/19 09:08 Dose: 30 mg Dextrose (D50w Syringe 50 Ml*) 12.5 gm IV PUSH .FOR FS < 60 - SS PRN PRN Reason: FS < 60 Enoxaparin Sodium (Lovenox(*)) 40 mg SUBCUT BEDTIME [facility] Last Admin: 11/01/19 21:27 Dose: 40 mg Famotidine (Pepcid Tab*) 20 mg PO BID PRN PRN Reason: HEARTBURN Last Admin: 10/30/19 08:02 Dose: 20 mg Metronidazole/Sodium Chloride (Flagyl 500 Mg Ivpb*) 500 mg in 100 mls @ 100 mls /hr IVPB Q8H [facility] Last Admin: 11/02/19 09:43 Dose: 100 mls/hr Ceftriaxone Sodium 2 gm/ (Sodium Chloride) 100 mls @ 200 mls/hr IVPB 1730 [place] Insulin Glargine (Lantus(*)) 12 units SUBCUT Q24H [facility] Last Admin: 11/01/19 21:27 Dose: 12 units Insulin Human Lispro (Humalog*) 0 units SUBCUT AC [facility]; Protocol Last Admin: 11/02/19 14:45 Dose: 3 unit Lactobacillus Rhamnosus (Lactobacillus Acidophilus*) 1 tab PO DAILY [facility] Last Admin: 11/02/19 09:07 Dose: 1 tab Magnesium Hydroxide (Milk Of Magnmarianne Liq*) 30 ml PO BID PRN PRN Reason: CONSTIPATION Mometasone Furoate/Formoterol Fumar (Dulera 200/5 Mdi*) 2 puff INH BID [facility]; Protocol Last Admin: 11/02/19 09:06 Dose: 2 puff Oxycodone HCl (Roxycodone Tab*) 5 mg PO Q4H PRN PRN Reason: Pain - Moderate to Severe Pregabalin (Lyrica 50 Mg Cap (*)) 150 mg PO TID [facility] Last Admin: 11/02/19 14:45 Dose: 150 mg Senna (Senokot 8.6 Mg Tab*) 1 tab PO BEDTIME PRN PRN Reason: CONSTIPATION Tiotropium [place] (Spiriva Respimat 2.5 Mcg) 2 puff INH DAILY [facility] Last Admin: 11/02/19 09:07 Dose: 2 puff Venlafaxine HCl (Effexor Xr Cap*) 150 mg PO DAILY [facility] Last Admin: 11/02/19 09:11 Dose: 150 mg
[2019-11-02] MEDS: Atorvastatin* 80 MG TAB PO SCH (17:10)
[2019-11-02] MEDS ORDERED: cefTRIAXone(*) 2 GM in NS 0.9% 100 ML* 100 ML IVPB SCH (17:30)
--- NOTE | 2019-11-02 18:30 | CONSULT ---
Subjective Date of Service: 11/02/19 Interval History: Mr. Dean is a 44 yo male with PMH significant for chronic right foot ulcers, depression, anxiety, s/p gastric bypass, morbid obesity, venous stasis, DM2, sleep apnea, COPD, and HTN; who presented to the hospital with a blister to the right foot and feeling unwell. He was admitted for a right foot infection and is S/P right BKA. He presented to the hospital with a known chronic right heel and midfoot ulcers. The wounds had been present for about 9 months. He had been following with Dr. Huitron (Podiatry) and then the wound clinic most recently. He also presented to the hospital with a known chronic ulcer to the left 1st toe, this has been present for about 1 year according to the patient. Patient seen and examined at bedside. Verbal consent obtained for wound consultation and photography. Family History: Unchanged from Admission Social History: Unchanged from Admission Past Medical History: Unchanged from Admission Review of Systems - Measurements Intake and Output: Intake and Output Last 24 Hours 10/31/19 11/01/19 11/02/19 11/03/19 06:59 06:59 06:59 06:59 Intake Total 3777 2697 1740 740 Output Total 1600 500 500 900 Balance 2177 2197 1240 -160 Intake: IV Fluids 957 857 200 ABX - CEFEPIME 105 ABX - CEFTRIAXONE 110 100 Flagyl 318 210 100 LR 474 NS 60 332 kcl 205 IVPB 100 Flagyl 100 Oral 2820 1840 1440 740 Output: Urine 1600 500 500 900 Other: Estimated Void Large Large Small Date of Last Bowel 10/30/2019 11/01/2019 Movement # Bowel Movements 2 1 1 Estimated Stool Amount Large Medium Small Large # Voids 2 1 3 1 - Review of Systems Constitutional Symptoms: Negative: Fever, Other - chills Dermatology: Positive: Other - Ulcer to left 1st toe Endocrinology: Positive: Obesity, Diabetes Mellitus Objective Active Medications: Acetaminophen (Tylenol Tab*) 975 mg PO Q8H PRN Reason: PAIN - MILD Albuterol/Ipratropium (Duoneb (Albuterol 2.5 Mg/Ipratropium 0.5 Mg)) 1 neb INH Q6H PRN Reason: SHORTNESS OF BREATH Atorvastatin Calcium (Lipitor*) 80 mg PO DAILY@1700 SALOME Buspirone HCl (Buspar Tab *) 30 mg PO BID [facility] Dextrose (D50w Syringe 50 Ml*) 12.5 gm IV PUSH PRN FS < 60 Enoxaparin Sodium (Lovenox(*)) 40 mg SUBCUT BEDTIME SALOME Famotidine (Pepcid Tab*) 20 mg PO BID PRN Reason: HEARTBURN Metronidazole/Sodium Chloride (Flagyl 500 Mg Ivpb*) 500 mg in 100 mls @ 100 mls /hr IVPB Q8H [facility]OME Ceftriaxone Sodium 2 gm/ (Sodium Chloride) 100 mls @ 200 mls/hr IVPB 1730 SALOME Insulin Glargine (Lantus(*)) 12 units SUBCUT Q24H [facility]OME Insulin Human Lispro (Humalog*) 0 units SUBCUT AC SALOME; Protocol Lactobacillus Rhamnosus (Lactobacillus Acidophilus*) 1 tab PO DAILY [facility] Magnesium Hydroxide (Milk Of Mychal Liq*) 30 ml PO BID PRN Reason: CONSTIPATION Mometasone Furoate/Formoterol Fumar (Dulera 200/5 Mdi*) 2 puff INH BID [facility]; Protocol Oxycodone HCl (Roxycodone Tab*) 5 mg PO Q4H PRN Reason: Pain - Moderate to Severe Pregabalin (Lyrica 50 Mg Cap (*)) 150 mg PO TID [facility] Senna (Senokot 8.6 Mg Tab*) 1 tab PO BEDTIME PRN Reason: CONSTIPATION Tiotropium [place] (Spiriva Respimat 2.5 Mcg) 2 puff INH DAILY [facility] Venlafaxine HCl (Effexor Xr Cap*) 150 mg PO DAILY [facility] Vital Signs 11/02/19 11/02/19 11/02/19 11:09 14:45 15:50 Temperature 97.5 F 97.4 F Pulse Rate 75 77 Respiratory 17 18 18 Rate Blood Pressure 125/73 132/71 (mmHg) O2 Sat by Pulse 99 96 Oximetry Oxygen Devices in Use Now: None Appearance: NAD, sitting up in a chair Ears/Nose/Mouth/Throat: Mucous Membranes Moist Respiratory: Symmetrical Chest Expansion and Respiratory Effort Extremities: - - 1-2+ edema in the left LE Skin: - - See skin note below Neurological: Alert and Oriented x 3 Nutrition: Taking PO's Result Diagrams: 10/29/19 06:30 11/01/19 05:20 Additional Lab and Data: Above labs were pulled into the chart, when the note was edited prior to signing. See labs below from day of consultation. Laboratory Tests 10/27/19 10/30/19 10/31/19 07:37 05:34 05:32 Hemoglobin A1c 7.8 H C-Reactive Protein 92.64 H Total Protein 6.9 Albumin 2.7 L 11/01/19 05:20 Sodium 138 Potassium 3.7 Chloride 104 Carbon Dioxide 29 BUN 6 Creatinine 0.67 Glucose 107 H Microbiology and Other Data: Microbiology 10/25/19 10:35 Skin and Soft Tissue MRSA/MSSA (PCR - Final Foot Right Mrsa Negative S.aureus Positive Gram Stain - Final Wound Culture - Final Strep Agalactiae - (Group B) Staphylococcus Aureus Pasteurella Multocida Peptoniphilus Asaccharolyticus 10/24/19 17:55 Aerobic Blood Culture - Final Blood Venous No Growth Day 5 Anaerobic Blood Culture - Final No Growth Day 5 10/24/19 17:55 Aerobic Blood Culture - Final Blood Venous No Growth Day 5 Anaerobic Blood Culture - Final No Growth Day 5 10/25/19 16:41 Skin and Soft Tissue MRSA/MSSA (PCR - Final Foot Right Mrsa Negative S.aureus Positive Gram Stain - Final Wound Culture - Final Strep Agalactiae - (Group B) Staphylococcus Aureus 10/25/19 16:41 Anaerobic Culture - Final Wound Bacteroides Species 10/25/19 09:00 Gram Stain - Final Foot Right Wound Culture - Final Strep Agalactiae - (Group B) Staphylococcus Aureus Alcaligenes Species 10/25/19 10:30 Urine Culture - Final Urine Nisa Albicans Diagnostic Imagin. Exam Date: 11/01/19 0800 - VL LOWER EXT ART DUPLEX LEFT IMPRESSION: PATENT LEFT LOWER EXTREMITY ARTERIES WITHOUT EVIDENCE FOR STENOSIS. 2. Exam Date: 10/27/19 1553 - MRI LOWER EXTREMITY LEFT W/O IMPRESSION: 1. There is equivocal marrow edema involving the distal 1st phalanx. This is not confirmed on all sequences. Osteomyelitis cannot be excluded. 2. Small effusions. 3. Soft tissue swelling of the dorsum of the foot. There is a small ulceration at the plantar medial aspect of the great toe, with mild swelling. 4. Patchy muscle edema, suggestive of myositis or diabetic myopathy. 5. Additional findings described above. 3. Exam Date: 10/27/19 1230 - VL LOWER EXT VEINS RIGHT IMPRESSION: No evidence for RIGHT lower extremity deep venous thrombosis. 4. Exam Date: 10/25/19 0904 - VL ANK/BRACHIAL INDICES RIGHT: #. Ankle brachial index: 1.18 within normal range. #. Arterial spectral waveforms: Mildly blunted triphasic dorsalis pedis and posterior tibial waveforms. #. Ankle pulse volume recordings: Significant loss of reflected waves. LEFT: #. Ankle brachial index: 1.48 indicating reduced arterial compressibility limiting assessment. #. Arterial spectral waveforms: Normal triphasic dorsalis pedis and posterior tibial waveforms. #. Ankle pulse volume recordings: Normal. IMPRESSION: #. Reduced arterial compressibility due to calcific arteriopathy limits assessment with ankle brachial index and values may be spuriously elevated. #. Mildly blunted triphasic waveforms at the RIGHT dorsalis pedis and posterior tibial arteries and loss of significant reflected waves at the RIGHT ankle pulse volume recordings. If there is persistent clinical concern for vascular insufficiency consider exercise EVANS or CT angiogram runoff for further assessment. Skin Deviation Note - Skin Deviation Findings -- -- Wound Problem/Plan Assessment: 1. Chronic neuropathic ulcer to left 1st toe, suspect there may also be a component of pressure. ABIs during this admission. MRI showed osteomyelitis. Recommend washing the foot with soap and water. Apply medihoney alginate to the open area, followed by rolled gauze and change every 3 days. 2. Left 1st toe osteomyelitis. Treatment per ID, plan for long course of IV ABX. 3. Right LE infection with abscess. S/P right BKA. 4. DM2. HgA1C was 7.8 during this admission. Maintain good glycemic control to allow for wound healing. 5. Morbid obesity with sleep apnea. BMI 40.2. 6. Nutrition. Recommend meeting nutrition requirements to assist with wound healing (Protein 1.2-1.5 grams/kg per day and Calories 30-35 kcal/kg per day). 7. Code Status. Full Code Status. 8. Disposition. Inpatient, disposition per primary team. TIME SPENT: Time for this wound consultation was 20 minutes and 10 minutes was spent with the patient discussing past medical history; removing the old dressing; assessing, measuring, and photographing the wounds; and replacing the dressing. Is Patient a Wound Clinic Patient: Yes Attending: Keya Valenzuela
[2019-11-02] MEDS: Insulin GLARGINE(*) 1 UNITS UNIT SUBCUT SCH (21:15)
[2019-11-02] MEDS: Enoxaparin(*) 40 MG/0.4 ML SYR SUBCUT SCH (21:15)
[2019-11-03] MEDS: metroNIDAZOLE IV 500 MG/100ML* 500 MG/100 ML BAG IVPB SCH ×2 (02:20→09:27)
[2019-11-03] MEDS: Albuterol/Ipratropium NEB.SOL* Albuterol 2.5 MG/Ipratropium 0.5 MG 3 ML INH PRN ×2 (03:49→09:26)
[2019-11-03 07:36] VITALS: BP 143/82
[2019-11-03] MEDS: Insulin LISPRO* 1 UNITS UNIT SUBCUT SCH (07:44)
[2019-11-03] MEDS: Mometasone/Formoter 200/5 MDI INH SCH (08:04)
[2019-11-03] MEDS: SPIRIVA Respimat* (tiotropium) 2.5 mcg/inh Inhaler INH SCH (08:04)
[2019-11-03] MEDS: Venlafaxine EXT RELEASE CAP* 75 MG PO SCH (08:27)
[2019-11-03] MEDS: Lactobacillus Acidophilus* 1 TAB PO SCH (08:28)
[2019-11-03] MEDS: busPIRone TAB* 15 MG PO SCH (08:28)
[2019-11-03] MEDS: Pregabalin 50 mg CAP (*) PO SCH (08:29)
--- NOTE | 2019-11-03 09:06 | PN ---
Progress Note - Progress Note Date of Service: 11/03/19 SOAP: Subjective: CC: Right foot infection with abscess and left 1st toe infection HPI: Mr. Dean is a 44 yo male with PMH significant for morbid obesity, DM2, peripheral neuropathy, depression, HTN, HLD, venous insufficiency, COPD, and chronic right foot ulcers; who presented to the hospital with a right foot abscess. Also noted to have a left 1st toe ulcer that has been present for 1 year. Now S/P right BKA. Denies fever, chills, nausea, vomiting. Reports a few loose/soft stools daily. Objective: Vital Signs 11/03/19 11/03/19 11/03/19 08:00 08:05 08:29 Temperature 97.4 F Pulse Rate 71 Respiratory 18 18 18 Rate Blood Pressure 143/82 (mmHg) O2 Sat by Pulse 96 Oximetry Physical Exam: General: NAD, laying on a stretcher Neurological: Alert and Oriented HEENT: Moist MM Cardiovascular: Heart rate regular Respiratory: Lung sounds clear Abdominal: Bowel sounds present; ABD soft, large, and non tender MSK: BOBO Skin: No rash. DSG to right LE; clean, dry and intact. Chronic skin changes to the left LE. DSG to the left 1st toe; clean, dry and intact Laboratory Tests 10/29/19 10/31/19 11/01/19 06:30 05:32 05:20 WBC 10.0 Hgb 11.5 L Hct 34 L Plt Count 208 Sodium 138 Potassium 3.7 Chloride 104 Carbon Dioxide 29 BUN 6 Creatinine 0.67 Glucose 107 H C-Reactive Protein 92.64 H Microbiology 10/25/19 10:35 Skin and Soft Tissue MRSA/MSSA (PCR - Final Foot Right Mrsa Negative S.aureus Positive Gram Stain - Final Wound Culture - Final Strep Agalactiae - (Group B) Staphylococcus Aureus Pasteurella Multocida Peptoniphilus Asaccharolyticus 10/24/19 17:55 Aerobic Blood Culture - Final Blood Venous No Growth Day 5 Anaerobic Blood Culture - Final No Growth Day 5 10/24/19 17:55 Aerobic Blood Culture - Final Blood Venous No Growth Day 5 Anaerobic Blood Culture - Final No Growth Day 5 10/25/19 16:41 Skin and Soft Tissue MRSA/MSSA (PCR - Final Foot Right Mrsa Negative S.aureus Positive Gram Stain - Final Wound Culture - Final Strep Agalactiae - (Group B) Staphylococcus Aureus 10/25/19 16:41 Anaerobic Culture - Final Wound Bacteroides Species 10/25/19 09:00 Gram Stain - Final Foot Right Wound Culture - Final Strep Agalactiae - (Group B) Staphylococcus Aureus Alcaligenes Species 10/25/19 10:30 Urine Culture - Final Urine Nisa Albicans Assessment: 1. Right foot abscess and infectious myositis. MRI with no definitive signs of osteomyelitis. S/P BKA, POD #6. Polymicrobial with group B strep, staph aureus, pasteurella, peptoniphilis, alcaligenes, and bacteroides. Blood cultures with no growth to date. Surgical pathology with gangrenous ischemic necrosis with ulceration, and chronic vascular stasis. Afebrile and no leukocytosis (not checked in a few days). 2. Left 1st toe ulcer. MRI with possible osteomyelitis. Wound with moist necrotic base, will not obtain culture as wound is chronic and likely polymicrobial and colonized. No erythema or warmth. 3. DM2 with peripheral neuropathy. 4. Morbid obesity. BMI 40.2. Plan: Continue ceftraixone 2 gm IV daily and flagyl 500 mg BID (can consider changing to PO); day . Will plan on long course of antibiotics (6 weeks IV). Hold on PICC/midline. Weekly labs while on IV ABX: CBC, CMP, and CRP. Continue wound care for the left 1st toe per wound care.
--- NOTE | 2019-11-03 09:50 | PN ---
Progress Note - Progress Note Date of Service: 11/03/19 SOAP: Subjective: []Pt seen at bedside. He feels well without complaint of LE pain. No fever or chills. Reports SOB that is chronic for him and relieved with breathing treatment. Will go to PMRU today Objective: []Gen: NAD RLE: Dressing CDI, no erythema proximal, thigh soft LLE: dressing CDI Assessment: []SP R BKA L great toe ulcer Plan: []Stump shield R side Wound care LLE - no surgical plan at this time ceftriaxone per ID, abx likely x 6 weeks lovenox 40 mg subq qd during period of immobility Ready for DC from ortho standpoint Vital Signs Temp 97.4 F 11/03/19 08:05 Pulse 71 11/03/19 08:05 Resp 18 11/03/19 08:29 BP 143/82 11/03/19 08:05 Pulse Ox 96 11/03/19 08:05 Intake & Output 11/02/19 11/03/19 11/03/19 18:59 06:59 18:59 Intake Total 740 1655 Output Total 835 422 6093 Balance -160 1055 -1200 Intake: IV Fluids 250 ABX - CEFTRIAXONE 100 Flagyl 125 NS 25 IVPB 105 Flagyl 105 Oral 740 1300 Output: Urine 833 831 5961 Other: Estimated Stool Amount Large Large # Voids 1 Laboratory Last Values WBC 10.0 10^3/uL (3.5-10.8) 10/29/19 06:30 RBC 3.94 10^6 /uL (4.18-5.48) L 10/29/19 06:30 Hgb 11.5 g/dL (14.0-18.0) L 10/29/19 06:30 Hct 34 % (42-52) L 10/29/19 06:30 MCV 87 fL (80-94) 10/29/19 06:30 MCH 29 pg (27-31) 10/29/19 06:30 MCHC 34 g/dL (31-36) 10/29/19 06:30 RDW 15 % (10-15) 10/29/19 06:30 Plt Count 208 10^3/uL (150-450) 10/29/19 06:30 MPV 9.1 fL (7.4-10.4) 10/29/19 06:30 Neut % (Auto) 77.3 % 10/29/19 06:30 Lymph % (Auto) 12.7 % 10/29/19 06:30 Floyd % (Auto) 7.9 % 10/29/19 06:30 Eos % (Auto) 1.4 % 10/29/19 06:30 Baso % (Auto) 0.7 % 10/29/19 06:30 Absolute Neuts (auto) 7.8 10^3/ul (1.5-7.7) H 10/29/19 06:30 Absolute Lymphs (auto) 1.3 10^3/ul (1.0-4.8) 10/29/19 06:30 Absolute Monos (auto) 0.8 10^3/ul (0-0.8) 10/29/19 06:30 Absolute Eos (auto) 0.1 10^3/ul (0-0.6) 10/29/19 06:30 Absolute Basos (auto) 0.1 10^3/ul (0-0.2) 10/29/19 06:30 Absolute Nucleated RBC 0.0 10^3/ul 10/29/19 06:30 Nucleated RBC % 0.0 10/29/19 06:30 ESR 110 mm/Hr (0-14) H 10/25/19 06:34 INR (Anticoag Therapy) 1.50 (0.82-1.09) H 10/28/19 06:04 APTT 38.5 seconds (26.0-38.0) H 10/24/19 17:55 Sodium 138 mmol/L (135-145) 11/01/19 05:20 Potassium 3.7 mmol/L (3.5-5.0) 11/01/19 05:20 Chloride 104 mmol/L (101-111) 11/01/19 05:20 Carbon Dioxide 29 mmol/L (22-32) 11/01/19 05:20 Anion Gap 5 mmol/L (2-11) 11/01/19 05:20 BUN 6 mg/dL (6-24) 11/01/19 05:20 Creatinine 0.67 mg/dL (0.67-1.17) 11/01/19 05:20 Est GFR ( Amer) 154.5 (>60) 11/01/19 05:20 Est GFR (Non-Af Amer) 127.7 (>60) 11/01/19 05:20 BUN/Creatinine Ratio 9.0 (8-20) 11/01/19 05:20 Glucose 107 mg/dL (70-100) H 11/01/19 05:20 POC Glucose (mg/dL) 115 mg/dL (70-100) H 11/03/19 07:41 Glucose Meter Confirm 132 mg/dL (70-100) H 10/26/19 20:33 Hemoglobin A1c 7.8 % (4.0-5.6) H 10/27/19 07:37 Lactic Acid 1.2 mmol/L (0.5-2.0) 10/24/19 19:57 Calcium 7.9 mg/dL (8.6-10.3) L 11/01/19 05:20 Magnesium 2.0 mg/dL (1.9-2.7) 11/01/19 05:20 Total Bilirubin 0.50 mg/dL (0.2-1.0) 10/30/19 05:34 AST 29 U/L (13-39) 10/30/19 05:34 ALT 21 U/L (7-52) 10/30/19 05:34 Alkaline Phosphatase 67 U/L (34-104) 10/30/19 05:34 C-Reactive Protein 92.64 mg/L (<8.01) H 10/31/19 05:32 Total Protein 6.9 g/dL (6.4-8.9) 10/30/19 05:34 Albumin 2.7 g/dL (3.2-5.2) L 10/30/19 05:34 Globulin 4.2 g/dL (2-4) H 10/30/19 05:34 Albumin/Globulin Ratio 0.6 (1-3) L 10/30/19 05:34 Urine Color Lynnette 10/25/19 10:30 Urine Appearance Cloudy 10/25/19 10:30 Urine pH 6.0 (5-9) 10/25/19 10:30 Ur Specific [place] 1.029 (1.010-1.030) 10/25/19 10:30 Urine Protein 1+(30 mg/dl) (Negative) A 10/25/19 10:30 Urine Ketones 1+ (Negative) A 10/25/19 10:30 Urine Blood Negative (Negative) 10/25/19 10:30 Urine Nitrate Negative (Negative) 10/25/19 10:30 Urine Bilirubin Negative (Negative) 10/25/19 10:30 Urine Urobilinogen Positive (Negative) A 10/25/19 10:30 Ur Leukocyte Esterase 3+ (Negative) A 10/25/19 10:30 Urine WBC (Auto) 3+(>20/hpf) (Absent) A 10/25/19 10:30 Urine RBC (Auto) 3+(>10/hpf) (Absent) A 10/25/19 10:30 Ur Squamous Epith Cells Present (Absent) A 10/25/19 10:30 Urine Bacteria Absent (Absent) 10/25/19 10:30 Urine Glucose 3+(>=500 mg/dl) (Negative) A 10/25/19 10:30 Vancomycin Trough 9.3 mcg/mL 10/26/19 12:20
== END 2019-11-03 10:06 | DRG 710 ==
LOC: ED 15:13 → MED 19:31 → SSU 10-28 18:03
PROVIDERS: ADMIT Internal Medicine; ATTEND Internal Medicine
PROC: 0JBQ0ZZ Excision of Right Foot Subcutaneous Tissue and Fascia, Open Approach (ICD-10-PCS; 2019-10-25)
PROC: 0Y6H0Z3 Detachment at Right Lower Leg, Low, Open Approach (ICD-10-PCS; principal; 2019-10-28 15:15)
PROC: B41G1ZZ Fluoroscopy of Left Lower Extremity Arteries using Low Osmolar Contrast (ICD-10-PCS; 2019-10-29)
PROC: B41F1ZZ Fluoroscopy of Right Lower Extremity Arteries using Low Osmolar Contrast (ICD-10-PCS; 2019-10-29)
DX: A41.01 Sepsis due to Methicillin susceptible Staphylococcus aureus (principal); M86.8X7 Other osteomyelitis, ankle and foot; L02.611 Cutaneous abscess of right foot; L97.419 Non-pressure chronic ulcer of right heel and midfoot with unspecified severity; I47.2 Ventricular tachycardia; M60.073 Infective myositis, right foot; Z68.41 Body mass index [BMI] 40.0-44.9, adult; A40.1 Sepsis due to streptococcus, group B; E11.621 Type 2 diabetes mellitus with foot ulcer; E78.00 Pure hypercholesterolemia, unspecified; I10 Essential (primary) hypertension; J44.9 Chronic obstructive pulmonary disease, unspecified; E11.42 Type 2 diabetes mellitus with diabetic polyneuropathy; F17.210 Nicotine dependence, cigarettes, uncomplicated; E11.69 Type 2 diabetes mellitus with other specified complication; L97.529 Non-pressure chronic ulcer of other part of left foot with unspecified severity; E78.5 Hyperlipidemia, unspecified; E66.01 Morbid (severe) obesity due to excess calories; E11.610 Type 2 diabetes mellitus with diabetic neuropathic arthropathy; E11.51 Type 2 diabetes mellitus with diabetic peripheral angiopathy without gangrene; F41.8 Other specified anxiety disorders; E87.6 Hypokalemia; G89.29 Other chronic pain; I87.8 Other specified disorders of veins; B96.6 Bacteroides fragilis [B. fragilis] as the cause of diseases classified elsewhere; Z88.0 Allergy status to penicillin; Z88.1 Allergy status to other antibiotic agents; Z88.8 Allergy status to other drugs, medicaments and biological substances; Z91.5 Personal history of self-harm; Z89.411 Acquired absence of right great toe; Z79.51 Long term (current) use of inhaled steroids; Z79.4 Long term (current) use of insulin
CPT/HCPCS: 36415; 71045; 75716; 75736; 76937; 80048; 80053; 80202; 81003; 81015; 82947; 83036; 83605; 83735; 85025; 85027; 85610; 85652; 85730; 86140; 87040; 87070; 87073; 87076; 87077; 87086; 87184; 87185; 87186; 87205; 87640; 87641; 88304; 88307; 88311; 93005; 93922; 94640; 96365; 96375; 99156; 99157; 99284; 99406; A9270-GY; C1760; C1769; C1887; C1894; J0692; J0696; J0780; J1170; J1644; J1650; J2250; J2270; J2704; J3010; J3370; J3480; J3535

== ENCOUNTER 2019-11-03 07:40 | Inpatient (IN) | payer OTHER ==
[2019-11-03] MEDS ORDERED: Senna TAB 8.6 mg* TAB PO PRN (12:15)
[2019-11-03] MEDS ORDERED: Acetaminophen TAB* 325 MG PO PRN (12:15)
[2019-11-03] MEDS ORDERED: Dextrose 50% Syringe 50 ML* 25 GM/50 ML SYRINGE IV PUSH PRN (12:21)
[2019-11-03] MEDS ORDERED: oxyCODONE TAB* 5 MG TAB PO PRN (12:27)
[2019-11-03] MEDS: Pregabalin 50 mg CAP (*) PO SCH ×2 (14:14→20:28)
[2019-11-03] MEDS: Atorvastatin* 80 MG TAB PO SCH (17:03)
[2019-11-03] MEDS: cefTRIAXone(*) 2 GM in NS 0.9% 100 ML* 100 ML IVPB SCH (17:04)
[2019-11-03] MEDS: Insulin LISPRO* 1 UNITS UNIT SUBCUT SCH ×2 (17:18→20:45)
[2019-11-03] MEDS: metroNIDAZOLE IV 500 MG/100ML* 500 MG/100 ML BAG IVPB SCH (17:42)
--- NOTE | 2019-11-03 20:22 | HP ---
HISTORY AND PHYSICAL: DATE OF ADMISSION: 11/03/19 REASON FOR ADMISSION: Right [id number] amputation. HISTORY OF PRESENT ILLNESS: Bhargav Dean is a 44-year-old man with medical history significant for diabetes, obesity, and long smoking history. He was a 2 -pack a day smoker prior to his being admitted. About a year ago, he developed an ulcer over his right foot. He treated it initially with local care and bandages. The wound worsened with time and he was sent to the wound clinic by his primary care provider. He was started on a wound VAC. Somewhere around on 10/22/19, the patient felt warm and nauseated and he was changing his bandage when he noticed a large pustule. He was brought to the emergency room at [facility] on 10/24/19. He was found to have white count of 21,000. He was admitted to the hospital and started on IV antibiotics. The pustule ruptured. He had a malodorous foul-smelling foot, and he was taken to the operating room for debridement and I and D of the abscess on 10/24/19. Cultures grew up multiple organisms including aerobic and anaerobic organisms. He was seen by Dr. Farr from [place]. He was put on broad-spectrum antibiotics. On 10/28/19, he went back to the operating room for right [id number] amputation. He was put in postop cast coming out of surgery. He had lot of difficulty with pain relief. He then was put in an Ampushield and his pain got better. He remains on IV antibiotics at this time. He thought to have physical and occupational therapy needs. He is now being admitted for inpatient rehab so that he might return to independent living. PAST MEDICAL HISTORY: Includes the aforementioned: 1. Diabetes. 2. He has a history of depression. 3. Hypertension. 4. Hyperlipidemia. 5. COPD. 6. Diabetic peripheral neuropathy. 7. He also has had gastric bypass. 8. He was noted to have an ulcer over his left great toe as well. MEDICATIONS: Current medications include: 1. Lipitor. 2. BuSpar. 3. Ceftriaxone IV. 4. Flagyl IV. 5. Lovenox for DVT prophylaxis. 6. Lantus insulin. 7. Humalog insulin. 8. Dulera inhaler. 9. Spiriva. 10. Oxycodone. 11. Lyrica. 12. Effexor. ALLERGIES: Include AMOXICILLIN, CLAVULANIC ACID, and GABAPENTIN. SOCIAL HISTORY: Currently, he is living with his niece in a trailer. He hopes to move in with his nephew to the apartments across the street from the hospital. The patient is a smoker but he states he quit smoking the day he was admitted on 10/24/19. Rarely drinks alcohol. Smokes marijuana about once a month. FAMILY HISTORY: Noncontributory. REVIEW OF SYSTEMS: The patient reports no current shortness of breath or chest pain. PHYSICAL EXAMINATION VITAL SIGNS: The patient's temperature is 97.7, blood pressure is 126/75, pulse 82, respirations 18. HEENT: His extraocular movements appear to be intact. Tongue is midline. NECK: Supple. LUNGS: Lung sounds clear to auscultation bilaterally. HEART: Heart sounds are regular. S1, S2 are audible. ABDOMEN: Soft and nontender. EXTREMITIES: His right stump is in a it generalist at the present time. Left foot great toe has a bandage over the ulcer. He has a scar over his left hand over the first web space where his skin graft happened. NEUROLOGIC: Sensation is diminished in his left foot. Muscle strength appears to be about 4/5 in the left leg, 4+/5 in the right thigh, his upper extremities about 4+/5. FUNCTIONAL EXAM: He transfers with mod assist. ASSESSMENT: Right [id number] amputation. PLAN: We are going to integrate him into a comprehensive and therapeutic rehab program with the following goals: 1. Physical Therapy will work with the patient. They are going to work on functional transfer training, wheelchair mobility. They will need to remember that his right knee needs to be in extension while he is sitting. 2. Occupational Therapy will see the patient, work on his activities of daily living including toileting and toilet transfers. 3. Lovenox for DVT prophylaxis. 4. For his diabetes, we will do fingersticks 4 times a day with appropriate insulin coverage. 5. We are going to continue his IV Flagyl and IV ceftriaxone, although we will check with Dr. Farr if his Flagyl can be changed to oral. 6. Adequate analgesia. 7. His bowels will be regulated. 8. For his COPD, we will continue his Dulera inhaler as well as his Spiriva. He also has a DuoNeb nebulizer treatment. 9. Continue BuSpar and Effexor for depression and anxiety. 10. Family training as indicated. 11. Home with appropriate services. ESTIMATED LENGTH OF STAY: Is 10 to 12 days. [id number]/CPS #: [id number] MTDD
[2019-11-03] MEDS: busPIRone TAB* 30 MG PO SCH (20:27)
[2019-11-03] MEDS: Mometasone/Formoter 200/5 MDI INH SCH (20:29)
[2019-11-03] MEDS: Docusate CAP* 100 MG PO SCH (20:43)
[2019-11-03] MEDS: Enoxaparin(*) 40 MG/0.4 ML SYR SUBCUT SCH (20:45)
[2019-11-03] MEDS: Insulin GLARGINE(*) 1 UNITS UNIT SUBCUT SCH (20:45)
[2019-11-03] MEDS: Albuterol/Ipratropium NEB.SOL* Albuterol 2.5 MG/Ipratropium 0.5 MG 3 ML INH PRN (21:21)
[2019-11-04] MEDS: metroNIDAZOLE IV 500 MG/100ML* 500 MG/100 ML BAG IVPB SCH ×2 (01:50→11:10)
[2019-11-04] MEDS: Albuterol/Ipratropium NEB.SOL* Albuterol 2.5 MG/Ipratropium 0.5 MG 3 ML INH PRN ×3 (03:47→23:50)
[2019-11-04] MEDS: Insulin LISPRO* 1 UNITS UNIT SUBCUT SCH ×4 (10:00→21:32)
[2019-11-04] MEDS: Mometasone/Formoter 200/5 MDI INH SCH ×2 (10:02→21:31)
[2019-11-04] MEDS: Docusate CAP* 100 MG PO SCH ×2 (10:02→21:41)
[2019-11-04] MEDS: Lactobacillus Acidophilus* 1 TAB PO SCH (10:02)
[2019-11-04] MEDS: busPIRone TAB* 30 MG PO SCH ×2 (10:02→21:30)
[2019-11-04] MEDS: Pregabalin 50 mg CAP (*) PO SCH ×3 (10:02→21:30)
[2019-11-04] MEDS: Venlafaxine EXT RELEASE CAP* 75 MG PO SCH (10:03)
[2019-11-04] MEDS: SPIRIVA Respimat* (tiotropium) 2.5 mcg/inh Inhaler INH SCH (10:03)
[2019-11-04] MEDS ORDERED: Furosemide TAB* 20 MG PO ONE (14:58)
[2019-11-04] MEDS: metroNIDAZOLE TAB* 250 MG PO SCH ×2 (17:04→23:49)
[2019-11-04] MEDS: cefTRIAXone(*) 2 GM in NS 0.9% 100 ML* 100 ML IVPB SCH (17:08)
[2019-11-04] MEDS: Atorvastatin* 80 MG TAB PO SCH (17:49)
--- NOTE | 2019-11-04 19:57 | PN ---
Progress Note Date of Service: 11/04/19 Note: LEONEL CASTANON was visited. Therapy notes read and reviewed. He notes that his left leg is swollen and that he usually takes Lasix, 20 mg daily. I will order. Pain is well controlled. Current Medications: Active Medications Generic Name Dose Route Start Last Admin Trade Name Freq PRN Reason Stop Dose Admin Acetaminophen 650 mg 11/03/19 12:15 Tylenol Tab* PO Q6H PRN MILD PAIN or TEMP > 100.4 Albuterol/Ipratropium 1 neb 11/03/19 14:41 11/04/19 15:55 Duoneb (Albuterol 2.5 Mg/Ipratropium 0.5 Mg) INH 1 neb Q6H PRN Administration SOB/WHEEZING Atorvastatin Calcium 80 mg 11/03/19 17:00 11/04/19 17:49 Lipitor* PO 80 mg 1700 SALOME Administration Buspirone HCl 30 mg 11/03/19 21:00 11/04/19 10:02 Buspar Tab* PO 30 mg BID SALOME Administration Dextrose 12.5 gm 11/03/19 12:21 D50w Syringe 50 Ml* IV PUSH .FOR FS < 60 - SS PRN FS < 60 Docusate Sodium 100 mg 11/03/19 21:00 11/04/19 10:02 Colace Cap* PO 100 mg BID SALOME Administration Enoxaparin Sodium 40 mg 11/03/19 21:00 11/03/19 20:45 Lovenox(*) SUBCUT 40 mg Q24H SALOME Administration Furosemide 20 mg 11/05/19 09:00 Lasix Tab* PO DAILY SALOME Ceftriaxone Sodium 2 gm/ 100 mls @ 200 mls/hr 11/03/19 17:00 11/04/19 17:08 Sodium Chloride IVPB 200 mls/hr Q24H SALOME Administration Insulin Glargine 12 units 11/03/19 21:00 11/03/19 20:45 Lantus(*) SUBCUT 12 units Q24H SALOME Administration Insulin Human Lispro 0 - 18 units 11/03/19 16:30 11/04/19 17:05 Humalog* SUBCUT 3 units ACHS SALOME Administration Protocol Lactobacillus Rhamnosus 1 tab 11/04/19 09:00 11/04/19 10:02 Lactobacillus Acidophilus* PO 1 tab DAILY SALOME Administration Metronidazole 500 mg 11/04/19 16:00 11/04/19 17:04 Flagyl Tab* PO 500 mg Q8H SALOME Administration Mometasone Furoate/Formoterol Fumar 2 puff 11/03/19 21:00 11/04/19 10:02 Dulera 200/5 Mdi* INH 2 puff BID SALOME Administration Oxycodone HCl 5 mg 11/03/19 12:27 Roxycodone Tab* PO Q4H PRN PAIN - SEVERE Pregabalin 150 mg 11/03/19 14:00 11/04/19 14:22 Lyrica 50 Mg Cap (*) PO 150 mg TID SALOME Administration Senna 2 tab 11/03/19 12:15 Senokot 8.6 Mg Tab* PO BEDTIME PRN CONSTIPATION Tiotropium [place] 2 puff 11/04/19 09:00 11/04/19 10:03 Spiriva Respimat 2.5 Mcg INH 2 puff DAILY SALOME Administration Venlafaxine HCl 150 mg 11/04/19 09:00 11/04/19 10:03 Effexor Xr Cap* PO 150 mg DAILY SALOME Administration Vital Signs: Vital Signs Temp Pulse Resp BP Pulse Ox 97.8 F 82 16 155/80 98 11/04/19 15:52 11/04/19 15:57 11/04/19 16:22 11/04/19 15:52 11/04/19 15:57 Lab Results: Laboratory Results - last 24 hr 11/03/19 11/04/19 11/04/19 20:27 07:53 11:54 POC Glucose (mg/dL) 143 H 155 H 143 H 11/04/19 16:47 POC Glucose (mg/dL) 183 H Exam: GENERAL: Alert and oriented, no distress HEENT: EOMI LUNGS: CLear HEART: reg rhythm ABDOMEN: Soft, +BS EXTREMITIES: Edema, LLE. NEUROLOGIC: Decreased sensation, left foot. Muscle strength 4+/5, LLE, right stump/quads Assessment/Plan: 1. Right BKA: PT/OT. Have reminded patient needs to straighten his right knee 2. Diabetes: FS QAC. SSI. Lantus. BS in good control. 3. Osteomyelitis/sepsis: Continue ceftriaxone 2 gm IV q24H. Flagyl can be converted to PO, 500 mg Q8 4. Left toe blister: medi-honey 5. Anxiety: Buspar/Effexor. The patient has asked to see Dr. Dahl again 6. DVT Prophylaxis: Lovenox 7. COPD: Spiriva/Dulera/DuoNeb 11/04/19 19:54 11/04/19 19:57 11/04/19 19:59
[2019-11-04] MEDS: Insulin GLARGINE(*) 1 UNITS UNIT SUBCUT SCH (21:32)
[2019-11-04] MEDS: Enoxaparin(*) 40 MG/0.4 ML SYR SUBCUT SCH (21:33)
[2019-11-05 05:21] LABS: ABS Eosinophils 0.2 10^3/ul (0-0.6); ABS Monocytes 0.7 10^3/ul (0-0.8); ABS Neutrophils 7.2 10^3/ul (1.5-7.7); Eosinophil % 2.3 %; Hematocrit 37 % (42-52); Hemoglobin 12.3 g/dL (14.0-18.0); Lymphocyte % 19.7 %; Mean Corpuscular HGB Conc 33 g/dL (31-36); Mean Corpuscular Hemoglobin 29 pg (27-31); Mean Corpuscular Volume 88 fL (80-94); Mean Platelet Volume 8.7 fL (7.4-10.4); Platelet Count 356 10^3/uL (150-450); Red Cell Distribution Width 16 % (10-15); White Blood Count 10.2 10^3/uL (3.5-10.8)
[2019-11-05 05:45] LABS: Albumin 3.1 g/dL (3.2-5.2); Albumin/Globulin Ratio 0.7 (1-3); BUN/Creatinine Ratio 14.7 (8-20); C Reactive Protein 9.9 mg/L (<8.01); Calcium 8.4 mg/dL (8.6-10.3); EGFR African American 151.9 (>60); EGFR Non-African American 125.5 (>60); Globulin 4.5 g/dL (2-4); Total Bilirubin 0.4 mg/dL (0.2-1.0); Total Protein 7.6 g/dL (6.4-8.9)
[2019-11-05] MEDS: Albuterol/Ipratropium NEB.SOL* Albuterol 2.5 MG/Ipratropium 0.5 MG 3 ML INH PRN ×3 (08:26→20:40)
[2019-11-05] MEDS: Mometasone/Formoter 200/5 MDI INH SCH ×2 (08:26→20:03)
[2019-11-05] MEDS: SPIRIVA Respimat* (tiotropium) 2.5 mcg/inh Inhaler INH SCH (08:27)
--- NOTE | 2019-11-05 08:39 | CONSULT ---
Consult Consult: Consult Reason: Psychiatric Evaluation S: Psychiatry is asked to evaluate this 44 year old recently male. He is currently in the rehabilitation unit recovering from a below the knee amputation. He acknowledged that recovery is not easy. He reported being spiritual lately and enjoyed talking with Bry Gutierrez. He would like to get back into being more christianity. He said " I am a fighter I can get through this." Patient is currently living with his niece and plans to live with his cousin at a 2 bedroom apartment nearby. Henry Wyatt from [facility] called him to schedule a appointment for when he is discharged from the hospital. He is looking forward to seeing his new therapist Sudheer. The patient denied suicidal and or homicidal ideation intent or plan. The patient denied auditory and/ or visual hallucinations. The patient expressed that he wanted to say hello and does not have any Psychiatric changes. Past Psychiatric history: Major depressive disorder in partial remission. O: 44 year old male appears older than stated age , dressed in patient gown, calm, cooperative. Euthymic affect. Linear and goal directed thoughts. No delusions or preoccupations. He denied suicidal ideation, intent or plan. He denied homicidal ideation intent or plan. No perceptual disturbances. Good Insight and judgment . He is aware of the name of his current location, month, day and year. A/P: DX: Major depressive disorder in partial remission. Patient does not require inpatient psychiatric care at this time Patient plans to follow up with [facility] for outpatient care Patient would benefit from weekly CBT in the outpatient setting Patient to continue Effexor 150mg daily for depression and Buspar 30mg BID for anxiety Psychiatry will sign off please call if you have any questions. Patient is not suicidal, no firearms, christianity, has children and is future orientated. Patient informed call 911 in the event of a emergency. He was also notified 24 hour/ 7 day week availability of the ER. Luigi Dahl M.D. #[id number]
[2019-11-05] MEDS: metroNIDAZOLE TAB* 250 MG PO SCH ×2 (09:38→16:22)
[2019-11-05] MEDS: Docusate CAP* 100 MG PO SCH ×3 (09:38→20:57)
[2019-11-05] MEDS: Insulin LISPRO* 1 UNITS UNIT SUBCUT SCH ×4 (09:38→20:54)
[2019-11-05] MEDS: busPIRone TAB* 30 MG PO SCH ×2 (09:38→20:53)
[2019-11-05] MEDS: Pregabalin 50 mg CAP (*) PO SCH ×3 (09:39→20:53)
[2019-11-05] MEDS: Lactobacillus Acidophilus* 1 TAB PO SCH (09:39)
[2019-11-05] MEDS: Venlafaxine EXT RELEASE CAP* 75 MG PO SCH (09:39)
[2019-11-05] MEDS: Furosemide TAB* 20 MG PO SCH (09:39)
--- NOTE | 2019-11-05 12:55 | PMRUTEAM ---
PMRU: Team Meeting Current Status: Physical Therapy: Current Status Current Rolling Status Independent Current Supine <-> Sit Status Independent Current Sit <-> Stand Status Supervision/Touching Current Bed <-> Chair Status Supervision/Touching Transfer/Bed Mobility Rolling Walker Recommended Devices Current Picking Up Object Partial/Moderate Status Current Car Transfer Status Partial/Moderate Current Ambulation Assistance Dependent Status Ambulation Assistive Device Rolling Walker Ambulation Conditions Two or More Turns Current Ambulation Distance 50' Manual Wheelchair Control/ Bilateral UE's Technique Current Wheelchair Propulsion Supervision/Touching Ability Status Wheelchair Distance (ft) 150' Current Stair Climbing Status Partial/Moderate Number of Stairs Climbed 3 Current Curb Assistance Status Partial/Moderate Curb Assistive Devices Rolling Walker Objective Comments AmpuShield on RLE Occupational Therapy: Current Status Current Upper Body Dressing Independent Status Current Lower Body Dressing Supervision/Touching Status Current Footwear Status Partial/Moderate Current Bathing Status Supervision/Touching Current Grooming Status Setup or Clean-up Assist Current Toileting Status Supervision/Touching Current Toilet Transfer Status Supervision/Touching Current Eating Status Independent Nursing: Current Status Skin Deviations [Right BKA] Incision Skin Deviations [Left Heel] Other Skin Deviations [Left 1st Toe] Wound Skin Deviation Description [ 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 no orders to change dressing. Rec Therapy: Current Status Summary of Assessment and Pt was open to meet with staff to discuss leisure Clinical Impression interests and involvement. Pt was pleasant and cooperative throughout conversation. Pt shared that he is having some family struggles recently and is looking into getting new housing. Pt brought his phone with his games on [employer] and word searches to have in his room. Pt expressed interest in having a journal to write things down, and cards, which were provided to him. Treatment Goals Pt will engage in leisure activities while on the unit, as tolerated Treatment Plan Provide recreation therapy services and encourage involvement Social Work: Current Status Discharge Plan return home with home care svs and family support Potential for Family Training TBD Anticipated Discharge Home Destination Discharge With home care svs and family support Goals: Physical Therapy: Goals Goals to Be Accomplished in ( 7-10 Days) Goal: Rolling Assistance Independent Goal Supine <-> Sit Status Independent Goal Sit <-> Stand Status Independent Goal Bed <-> Chair Status Independent Transfer/Bed Mobility None Recommended Devices Goal: Picking Up Object Independent Goal: Car Transfer Status Setup or Clean-up Assist Goal: Ambulation Assistance Independent Ambulation Assistive Devices Rolling Walker Ambulation Distance (ft) 150' Goal: Wheelchair Propulsion Independent Ability Wheelchair Distance (ft) 150'x2 Goal: Stairs Assistance Supervision/Touching Stairs Recommended Devices Two Rails Number of Stairs 4 Goal: Curb Assistance Supervision/Touching Goal: Home Exercise Program Independent Assistance Occupational Therapy: Goals Goals to be Completed in (Days 7-10 days ) Goal Upper Body Dressing Independent Routine Goal Lower Body Dressing Independent Routine Goal Footwear Status Independent Goal Bathing Routine (OT) Independent Goal Grooming Routine Independent Goal Toilet Hygiene and Independent Clothing Management Routine Goal Toilet Transfer Routine Independent Goal Functional Transfers for Independent ADL Goal Feeding Routine Independent Goal Light Housekeeping Tasks Setup or Clean-up Assist Social Work: Goals Discharge Plan return home with home care svs and family support Potential for Family Training TBD Anticipated Discharge Home Destination Discharge With home care svs and family support Care Plan: Care Plan DVT Prophylaxis- Improve/Maintain Start: 11/03/19 21:18 Freq: DAILY@0700,1900 Status: Active Target: 11/15/19 Protocol: Activity Type Activity Date Activity User E-Sign Co-Sign Detail Recorded Client Recorded Date Recorded By Document 11/05/19 01:12 [id number] [id number] 11/05/19 01:14 [id number] 11/05/19 01:12 PMRU Outcome: DVT Prophylaxis Current DVT Outcome/Goals Remains Free of DVT Progression Toward Outcome/Goals Progressing Discharge Planning - Improve/Maintain Start: 11/03/19 21:18 Freq: DAILY@0700,1900 Status: Active Target: 11/15/19 Protocol: Activity Type Activity Date Activity User E-Sign Co-Sign Detail Recorded Client Recorded Date Recorded By Document 11/05/19 01:12 [id number] [email or web address] 11/05/19 01:14 [id number] 11/05/19 01:12 PMRU Outcome: Discharge Planning Update Patient Family No Current Discharge Planning Outcome/Goals Demonstrates Understanding of Discharge Plan Progression Toward Outcome/Goals Progressing Education-Improve/Maintain Start: 11/03/19 21:18 Freq: DAILY@0700,1900 Status: Active Target: 11/15/19 Protocol: Activity Type Activity Date Activity User E-Sign Co-Sign Detail Recorded Client Recorded Date Recorded By Document 11/05/19 01:12 [id number] [email or web address] 11/05/19 01:14 [id number] 11/05/19 01:12 PMRU Outcome: Education Current Education Outcome/Goals Demonstrate/ Verbalize Understanding of Written Discharge Instructions Demonstrates Skills Encourage Questions Progression Toward Outcome/Goals Progressing /GI-Improve/Maintain Start: 11/03/19 21:18 Freq: DAILY@0700,1900 Status: Active Target: 11/15/19 Protocol: Activity Type Activity Date Activity User E-Sign Co-Sign Detail Recorded Client Recorded Date Recorded By Document 11/05/19 01:12 [id number] [email or web address] 11/05/19 01:14 [id number] 11/05/19 01:12 PMRU Outcome: Genitourinary/ Gastrointestinal Current Gastrointestinal Outcome/Goals Maintain/ Achieve Bowel Regularity in Accordance with Pt's Baseline Prevent Constipation Progression Toward Outcome/Goals Progressing Current Genitourinary Outcome/Goals Maintain/ Achieve Urinary Continence Progression Toward Outcome/Goals Progressing Metabolic Status- Improve/Maintain Start: 11/03/19 21:18 Freq: DAILY@0700,1900 Status: Active Target: 11/15/19 Protocol: Activity Type Activity Date Activity User E-Sign Co-Sign Detail Recorded Client Recorded Date Recorded By Document 11/05/19 01:12 [id number] 11/05/19 01:14 [id number] 11/05/19 01:12 PMRU Outcome: Metabolic Status Have Fingersticks Been Ordered Yes Fingerstick Order Frequency AC & HS Current Metabolic Status Outcome/Goals Maintain/ Improve Metabolic Status Demonstrate Knowledge of Prevention/ Treatment of Metabolic Imbalances Progression Toward Outcome/Goals Progressing Mobility- Improve/Maintain Start: 11/03/19 21:18 Freq: DAILY@0700,1900 Status: Active Target: 11/04/19 Protocol: Activity Type Activity Date Activity User E-Sign Co-Sign Detail Recorded Client Recorded Date Recorded By Document 11/04/19 09:30 [id number] 11/04/19 09:30 [id number] 11/04/19 09:30 PMRU Outcome: Mobility Physical Therapy Evaluation and Yes Treatment Activity OOB with Assistance Yes WBAT Yes: LLE NWB Yes: RLE TTWB No Device Yes Assistance Yes Patient to be seen 5x/wk for 60-120 min/ Therex day for: Mobility Training Gait Training W/C Mobility Balance Other Other Therapy Comment Discharge training/ education Current Mobility Outcome/Goals Maintain/ Achieve Baseline Mobility Status Improve Mobility Status Demonstrates Proper Use of Assistive Devices Free from Complications of Immobility Progression Toward Outcome/Goals Progressing Bed Mobility Yes: Independent Transfers Yes: Independent with RW Gait x ft Yes: 150' Independent with RW W/C Mobility x ft Yes: 150' Independent Up/Down Stairs Yes: 4 with 2 rails supervision With HEP Yes: Independent Rec Therapy- Improve/Maintain Start: 11/03/19 16:29 Freq: DAILY@699,1899 Status: Active Target: 11/09/19 Protocol: Activity Type Activity Date Activity User E-Sign Co-Sign Detail Recorded Client Recorded Date Recorded By Document 11/04/19 17:03 [id number] [email or web address] 11/04/19 17:04 [id number] 11/04/19 17:03 PMRU Outcome: Recreation Therapy Current Rec Ther Outcome/Goals Complete Rec Therapy Assessment Meet with Patient Regularly for Support Encourage Leisure Involvement Progression Toward Outcome/Goals Progressing Lack of Progression Comment Pt played a board game with staff and peers. Outcome/Goals Met Complete Rec Therapy Assessment Respiratory - Improve/Maintain Start: 11/03/19 21:18 Freq: DAILY@699,1899 Status: Active Target: 11/15/19 Protocol: Activity Type Activity Date Activity User E-Sign Co-Sign Detail Recorded Client Recorded Date Recorded By Document 11/05/19 01:12 [id number] [email or web address] 11/05/19 01:14 [id number] 11/05/19 01:12 PMRU Outcome: Respiratory Does Patient Have a Trach No Current Respiratory Outcome/Goals Maintain/ Improve O2 Sat per MD Order Maintain/ Improve Activity Tolerance Progression Toward Outcome/Goals Progressing Outcome/Goals Met Comment nebulizer treatment given Safety- Improve/Maintain Start: 11/03/19 10:10 Freq: DAILY@699,1899 Status: Active Target: 11/15/19 Protocol: Activity Type Activity Date Activity User E-Sign Co-Sign Detail Recorded Client Recorded Date Recorded By Document 11/05/19 01:12 [id number] [email or web address] 11/05/19 01:14 [id number] 11/05/19 01:12 PMRU Outcome: Safety Current Safety Outcome/Goals Remain Free of Injury or Harm Cooperates with Safety Measures for Least Restrictive Environment Progression Toward Outcome/Goals Progressing Skin- Improve/Maintain Start: 11/03/19 21:18 Freq: DAILY@0700,1900 Status: Active Target: 11/15/19 Protocol: Activity Type Activity Date Activity User E-Sign Co-Sign Detail Recorded Client Recorded Date Recorded By Document 11/05/19 01:12 [id number] [email or web address] 11/05/19 01:14 [id number] 11/05/19 01:12 PMRU Outcome: Skin Skin Risk Level Mild Risk Skin Orders Dressing Change Skin Orders Comment as needed Current Skin Outcome/Goals Maintain/ Improve Skin Integrity Surgical Incisions Healing Progression Toward Outcome/Goals Progressing - Interdisciplinary Staff Present Water Filterer Helper/Social Work Staff Present: Kamilla Lopez LMSW Nursing Staff Present: Inez Benítez, RN OT Staff Present: Shelley Almeida PT Staff Present: Tarun Newman LOOP DRIER OPERATOR Staff Present: John Hall Medicine Note: Length of Stay: 5 days Anticipated Discharge Destination: Home Tentative Discharge Date: November 10, 2019 Discharged to: home
[2019-11-05] MEDS: Atorvastatin* 80 MG TAB PO SCH (17:03)
[2019-11-05] MEDS: cefTRIAXone(*) 2 GM in NS 0.9% 100 ML* 100 ML IVPB SCH (17:11)
--- NOTE | 2019-11-05 17:35 | PN ---
Progress Note Date of Service: 11/05/19 Note: LEONEL CASTANON was visited. Therapy notes read and reviewed. He was discussed in interdisciplinary plan of care rounds. He is moving ok and feels the lasix is helping. Current Medications: Active Medications Generic Name Dose Route Start Last Admin Trade Name Freq PRN Reason Stop Dose Admin Acetaminophen 650 mg 11/03/19 12:15 Tylenol Tab* PO Q6H PRN MILD PAIN or TEMP > 100.4 Albuterol/Ipratropium 1 neb 11/03/19 14:41 11/05/19 14:56 Duoneb (Albuterol 2.5 Mg/Ipratropium 0.5 Mg) INH 1 neb Q6H PRN Administration SOB/WHEEZING Atorvastatin Calcium 80 mg 11/03/19 17:00 11/05/19 17:03 Lipitor* PO 80 mg 1700 SALOME Administration Buspirone HCl 30 mg 11/03/19 21:00 11/05/19 09:38 Buspar Tab* PO 30 mg BID SALOME Administration Dextrose 12.5 gm 11/03/19 12:21 D50w Syringe 50 Ml* IV PUSH .FOR FS < 60 - SS PRN FS < 60 Docusate Sodium 100 mg 11/03/19 21:00 11/05/19 09:45 Colace Cap* PO Not Given BID SALOME Enoxaparin Sodium 40 mg 11/03/19 21:00 11/04/19 21:33 Lovenox(*) SUBCUT 40 mg Q24H SALOME Administration Furosemide 20 mg 11/05/19 09:00 11/05/19 09:39 Lasix Tab* PO 20 mg DAILY SALOME Administration Ceftriaxone Sodium 2 gm/ 100 mls @ 200 mls/hr 11/03/19 17:00 11/05/19 17:11 Sodium Chloride IVPB 200 mls/hr Q24H SALOME Administration Insulin Glargine 12 units 11/03/19 21:00 11/04/19 21:32 Lantus(*) SUBCUT 12 units Q24H SALOME Administration Insulin Human Lispro 0 - 18 units 11/03/19 16:30 11/05/19 17:03 Humalog* SUBCUT 3 units ACHS SALOME Administration Protocol Lactobacillus Rhamnosus 1 tab 11/04/19 09:00 11/05/19 09:39 Lactobacillus Acidophilus* PO 1 tab DAILY SALOME Administration Metronidazole 500 mg 11/04/19 16:00 11/05/19 16:22 Flagyl Tab* PO 500 mg Q8H SALOME Administration Mometasone Furoate/Formoterol Fumar 2 puff 11/03/19 21:00 11/05/19 08:26 Dulera 200/5 Mdi* INH 2 puff BID SALOME Administration Oxycodone HCl 5 mg 11/03/19 12:27 Roxycodone Tab* PO Q4H PRN PAIN - SEVERE Pregabalin 150 mg 11/03/19 14:00 11/05/19 14:18 Lyrica 50 Mg Cap (*) PO 150 mg TID SALOME Administration Senna 2 tab 11/03/19 12:15 Senokot 8.6 Mg Tab* PO BEDTIME PRN CONSTIPATION Tiotropium [place] 2 puff 11/04/19 09:00 11/05/19 08:27 Spiriva Respimat 2.5 Mcg INH 2 puff DAILY SALOME Administration Venlafaxine HCl 150 mg 11/04/19 09:00 11/05/19 09:39 Effexor Xr Cap* PO 150 mg DAILY SALOME Administration Vital Signs: Vital Signs Temp Pulse Resp BP Pulse Ox 97.7 F 87 16 117/68 94 11/05/19 15:42 11/05/19 15:42 11/05/19 15:42 11/05/19 15:42 11/05/19 15:42 Lab Results: Laboratory Results - last 24 hr 11/04/19 11/05/19 11/05/19 21:09 04:39 04:39 WBC 10.2 RBC 4.20 Hgb 12.3 L Hct 37 L MCV 88 MCH 29 MCHC 33 RDW 16 H Plt Count 356 MPV 8.7 Neut % (Auto) 70.5 Lymph % (Auto) 19.7 [place] % (Auto) 7.1 Eos % (Auto) 2.3 Baso % (Auto) 0.4 Absolute Neuts (auto) 7.2 Absolute Lymphs (auto) 2.0 Absolute Monos (auto) 0.7 Absolute Eos (auto) 0.2 Absolute Basos (auto) 0.0 Absolute Nucleated RBC 0.0 Nucleated RBC % 0.0 Sodium 139 Potassium 4.0 Chloride 106 Carbon Dioxide 30 Anion Gap 3 BUN 10 Creatinine 0.68 Est GFR ( Amer) 151.9 Est GFR (Non-Af Amer) 125.5 BUN/Creatinine Ratio 14.7 Glucose 118 H POC Glucose (mg/dL) 158 H Calcium 8.4 L Total Bilirubin 0.40 AST 22 ALT 21 Alkaline Phosphatase 58 C-Reactive Protein 9.90 H Total Protein 7.6 Albumin 3.1 L Globulin 4.5 H Albumin/Globulin Ratio 0.7 L 11/05/19 11/05/19 11/05/19 07:46 12:06 16:25 WBC RBC Hgb Hct MCV MCH MCHC RDW Plt Count MPV Neut % (Auto) Lymph % (Auto) [place] % (Auto) Eos % (Auto) Baso % (Auto) Absolute Neuts (auto) Absolute Lymphs (auto) Absolute Monos (auto) Absolute Eos (auto) Absolute Basos (auto) Absolute Nucleated RBC Nucleated RBC % Sodium Potassium Chloride Carbon Dioxide Anion Gap BUN Creatinine Est GFR ( Amer) Est GFR (Non-Af Amer) BUN/Creatinine Ratio Glucose POC Glucose (mg/dL) 135 H 141 H 151 H Calcium Total Bilirubin AST ALT Alkaline Phosphatase C-Reactive Protein Total Protein Albumin Globulin Albumin/Globulin Ratio Exam: GENERAL: Alert and oriented, no distress HEENT: EOMI LUNGS: CLear HEART: reg rhythm ABDOMEN: Soft, +BS EXTREMITIES: Edema, LLE. NEUROLOGIC: Decreased sensation, left foot. Muscle strength 4+/5, LLE, right stump/quads Assessment/Plan: 1. Right BKA: PT/OT. Have reminded patient needs to straighten his right knee 2. Diabetes: FS QAC. SSI. Lantus. BS in good control. 3. Osteomyelitis/sepsis: Continue ceftriaxone 2 gm IV q24H. Flagyl 500 mg PO Q8 4. Left toe blister: medi-honey 5. Anxiety: Buspar/Effexor. Dr. Dahl's help appreciated 6. DVT Prophylaxis: Lovenox 7. COPD: Spiriva/Dulera/DuoNeb 11/05/19 17:36
[2019-11-05] MEDS: Insulin GLARGINE(*) 1 UNITS UNIT SUBCUT SCH (20:54)
[2019-11-05] MEDS: Enoxaparin(*) 40 MG/0.4 ML SYR SUBCUT SCH (20:54)
[2019-11-06] MEDS: metroNIDAZOLE TAB* 250 MG PO SCH ×3 (00:10→16:05)
[2019-11-06] MEDS: Albuterol/Ipratropium NEB.SOL* Albuterol 2.5 MG/Ipratropium 0.5 MG 3 ML INH PRN ×3 (05:44→19:37)
[2019-11-06] MEDS: Pregabalin 50 mg CAP (*) PO SCH ×3 (08:21→20:49)
[2019-11-06] MEDS: Furosemide TAB* 20 MG PO SCH (08:21)
[2019-11-06] MEDS: Lactobacillus Acidophilus* 1 TAB PO SCH (08:22)
[2019-11-06] MEDS: busPIRone TAB* 30 MG PO SCH ×2 (08:22→20:48)
[2019-11-06] MEDS: Docusate CAP* 100 MG PO SCH ×2 (08:22→20:48)
[2019-11-06] MEDS: Mometasone/Formoter 200/5 MDI INH SCH ×2 (08:23→20:50)
[2019-11-06] MEDS: SPIRIVA Respimat* (tiotropium) 2.5 mcg/inh Inhaler INH SCH (08:23)
[2019-11-06] MEDS: Venlafaxine EXT RELEASE CAP* 75 MG PO SCH (08:23)
[2019-11-06] MEDS: Insulin LISPRO* 1 UNITS UNIT SUBCUT SCH ×4 (08:27→20:49)
[2019-11-06] MEDS: cefTRIAXone(*) 2 GM in NS 0.9% 100 ML* 100 ML IVPB SCH (17:00)
[2019-11-06] MEDS: Atorvastatin* 80 MG TAB PO SCH (17:01)
--- NOTE | 2019-11-06 20:17 | PN ---
Progress Note Date of Service: 11/06/19 Note: LEONEL CASTANON was visited. Therapy notes read and reviewed. He feels like his pain is controlled. Still gets anxious Current Medications: Active Medications Generic Name Dose Route Start Last Admin Trade Name Freq PRN Reason Stop Dose Admin Acetaminophen 650 mg 11/03/19 12:15 Tylenol Tab* PO Q6H PRN MILD PAIN or TEMP > 100.4 Albuterol/Ipratropium 1 neb 11/03/19 14:41 11/06/19 19:37 Duoneb (Albuterol 2.5 Mg/Ipratropium 0.5 Mg) INH 1 neb Q6H PRN Administration SOB/WHEEZING Atorvastatin Calcium 80 mg 11/03/19 17:00 11/06/19 17:01 Lipitor* PO 80 mg 1700 SALOME Administration Buspirone HCl 30 mg 11/03/19 21:00 11/06/19 08:22 Buspar Tab* PO 30 mg BID SALOME Administration Dextrose 12.5 gm 11/03/19 12:21 D50w Syringe 50 Ml* IV PUSH .FOR FS < 60 - SS PRN FS < 60 Docusate Sodium 100 mg 11/03/19 21:00 11/06/19 08:22 Colace Cap* PO Not Given BID SALOME Enoxaparin Sodium 40 mg 11/03/19 21:00 11/05/19 20:54 Lovenox(*) SUBCUT 40 mg Q24H SALOME Administration Furosemide 20 mg 11/05/19 09:00 11/06/19 08:21 Lasix Tab* PO 20 mg DAILY SALOME Administration Ceftriaxone Sodium 2 gm/ 100 mls @ 200 mls/hr 11/03/19 17:00 11/06/19 17:00 Sodium Chloride IVPB 200 mls/hr Q24H SALOME Administration Insulin Glargine 12 units 11/03/19 21:00 11/05/19 20:54 Lantus(*) SUBCUT 12 units Q24H SALOME Administration Insulin Human Lispro 0 - 18 units 11/03/19 16:30 11/06/19 17:01 Humalog* SUBCUT 3 units ACHS SALOME Administration Protocol Lactobacillus Rhamnosus 1 tab 11/04/19 09:00 11/06/19 08:22 Lactobacillus Acidophilus* PO 1 tab DAILY SALOME Administration Metronidazole 500 mg 11/04/19 16:00 11/06/19 16:05 Flagyl Tab* PO 500 mg Q8H SALOME Administration Mometasone Furoate/Formoterol Fumar 2 puff 11/03/19 21:00 11/06/19 08:23 Dulera 200/5 Mdi* INH 2 puff BID SALOME Administration Oxycodone HCl 5 mg 11/03/19 12:27 Roxycodone Tab* PO Q4H PRN PAIN - SEVERE Pregabalin 150 mg 11/03/19 14:00 11/06/19 15:09 Lyrica 50 Mg Cap (*) PO 150 mg TID SALOME Administration Senna 2 tab 11/03/19 12:15 Senokot 8.6 Mg Tab* PO BEDTIME PRN CONSTIPATION Tiotropium [place] 2 puff 11/04/19 09:00 11/06/19 08:23 Spiriva Respimat 2.5 Mcg INH 2 puff DAILY SALOME Administration Venlafaxine HCl 150 mg 11/04/19 09:00 11/06/19 08:23 Effexor Xr Cap* PO 150 mg DAILY SALOME Administration Vital Signs: Vital Signs Temp Pulse Resp BP Pulse Ox 97.3 F 83 18 110/75 97 11/06/19 15:55 11/06/19 15:55 11/06/19 17:30 11/06/19 15:55 11/06/19 16:15 Lab Results: Laboratory Results - last 24 hr 11/05/19 11/06/19 11/06/19 20:05 07:50 11:47 POC Glucose (mg/dL) 150 H 147 H 159 H Exam: GENERAL: Alert and oriented, no distress HEENT: EOMI LUNGS: CLear HEART: reg rhythm ABDOMEN: Soft, +BS EXTREMITIES: Edema, LLE. NEUROLOGIC: Decreased sensation, left foot. Muscle strength 4+/5, LLE, right stump/quads Assessment/Plan: 1. Right BKA: PT/OT. Have reminded patient needs to straighten his right knee 2. Diabetes: FS QAC. SSI. Lantus. BS in good control. 3. Osteomyelitis/sepsis: Continue ceftriaxone 2 gm IV q24H. Flagyl 500 mg PO Q8 4. Left toe blister: medi-honey Q72hr 5. Anxiety: Buspar/Effexor. Dr. Dahl's help appreciated 6. DVT Prophylaxis: Lovenox 7. COPD: Brody/Areli/JomaroNeb 11/06/19 20:18
[2019-11-06] MEDS: Insulin GLARGINE(*) 1 UNITS UNIT SUBCUT SCH (20:49)
[2019-11-06] MEDS: Enoxaparin(*) 40 MG/0.4 ML SYR SUBCUT SCH (20:50)
[2019-11-07] MEDS: metroNIDAZOLE TAB* 250 MG PO SCH ×3 (00:02→17:00)
[2019-11-07] MEDS: Albuterol/Ipratropium NEB.SOL* Albuterol 2.5 MG/Ipratropium 0.5 MG 3 ML INH PRN ×4 (01:29→18:56)
[2019-11-07] MEDS: Insulin LISPRO* 1 UNITS UNIT SUBCUT SCH ×4 (08:05→21:25)
[2019-11-07] MEDS: SPIRIVA Respimat* (tiotropium) 2.5 mcg/inh Inhaler INH SCH (08:33)
[2019-11-07] MEDS: Mometasone/Formoter 200/5 MDI INH SCH ×2 (08:33→21:26)
[2019-11-07] MEDS: Pregabalin 50 mg CAP (*) PO SCH ×3 (08:33→21:23)
[2019-11-07] MEDS: busPIRone TAB* 30 MG PO SCH ×2 (08:34→21:24)
[2019-11-07] MEDS: Venlafaxine EXT RELEASE CAP* 75 MG PO SCH (08:34)
[2019-11-07] MEDS: Lactobacillus Acidophilus* 1 TAB PO SCH (08:34)
[2019-11-07] MEDS: Furosemide TAB* 20 MG PO SCH (08:34)
[2019-11-07] MEDS: Docusate CAP* 100 MG PO SCH ×2 (08:35→21:23)
--- NOTE | 2019-11-07 16:32 | PN ---
Progress Note Date of Service: 11/07/19 Note: LEONEL CASTANON was visited. Therapy notes read and reviewed. His blood sugars have been okay. At home, he normally takes metformin, Victoza and Steglatro. Will resume Metformin at half the dose Current Medications: Active Medications Generic Name Dose Route Start Last Admin Trade Name Freq PRN Reason Stop Dose Admin Acetaminophen 650 mg 11/03/19 12:15 Tylenol Tab* PO Q6H PRN MILD PAIN or TEMP > 100.4 Albuterol/Ipratropium 1 neb 11/03/19 14:41 11/07/19 14:00 Duoneb (Albuterol 2.5 Mg/Ipratropium 0.5 Mg) INH 1 neb Q6H PRN Administration SOB/WHEEZING Atorvastatin Calcium 80 mg 11/03/19 17:00 11/06/19 17:01 Lipitor* PO 80 mg 1700 SALOME Administration Buspirone HCl 30 mg 11/03/19 21:00 11/07/19 08:34 Buspar Tab* PO 30 mg BID SALOME Administration Dextrose 12.5 gm 11/03/19 12:21 D50w Syringe 50 Ml* IV PUSH .FOR FS < 60 - SS PRN FS < 60 Docusate Sodium 100 mg 11/03/19 21:00 11/07/19 08:35 Colace Cap* PO Not Given BID SALOME Enoxaparin Sodium 40 mg 11/03/19 21:00 11/06/19 20:50 Lovenox(*) SUBCUT 40 mg Q24H SALOME Administration Furosemide 20 mg 11/05/19 09:00 11/07/19 08:34 Lasix Tab* PO 20 mg DAILY SALOME Administration Ceftriaxone Sodium 2 gm/ 100 mls @ 200 mls/hr 11/03/19 17:00 11/06/19 17:00 Sodium Chloride IVPB 200 mls/hr Q24H SALOME Administration Insulin Glargine 10 units 11/07/19 16:29 Lantus(*) SUBCUT Q24H SALOME Insulin Human Lispro 0 - 18 units 11/03/19 16:30 11/07/19 11:56 Humalog* SUBCUT 2 units ACHS SALOME Administration Protocol Lactobacillus Rhamnosus 1 tab 11/04/19 09:00 11/07/19 08:34 Lactobacillus Acidophilus* PO 1 tab DAILY SALOME Administration Metformin HCl 500 mg 11/07/19 17:00 Glucophage* PO 0800,1700 SALOME Metronidazole 500 mg 11/04/19 16:00 11/07/19 08:34 Flagyl Tab* PO 500 mg Q8H SALOME Administration Mometasone Furoate/Formoterol Fumar 2 puff 11/03/19 21:00 11/07/19 08:33 Dulera 200/5 Mdi* INH 2 puff BID SALOME Administration Oxycodone HCl 5 mg 11/03/19 12:27 Roxycodone Tab* PO Q4H PRN PAIN - SEVERE Pregabalin 150 mg 11/03/19 14:00 11/07/19 13:59 Lyrica 50 Mg Cap (*) PO 150 mg TID SALOME Administration Senna 2 tab 11/03/19 12:15 Senokot 8.6 Mg Tab* PO BEDTIME PRN CONSTIPATION Tiotropium [place] 2 puff 11/04/19 09:00 11/07/19 08:33 Spiriva Respimat 2.5 Mcg INH 2 puff DAILY SALOME Administration Venlafaxine HCl 150 mg 11/04/19 09:00 11/07/19 08:34 Effexor Xr Cap* PO 150 mg DAILY SALOME Administration Vital Signs: Vital Signs Temp Pulse Resp BP Pulse Ox 97.6 F 88 18 130/78 94 11/07/19 15:37 11/07/19 15:37 11/07/19 15:47 11/07/19 15:37 11/07/19 15:47 Lab Results: Laboratory Results - last 24 hr 11/06/19 11/06/19 16:39 20:15 POC Glucose (mg/dL) 160 H 155 H Exam: GENERAL: Alert and oriented, no distress HEENT: EOMI LUNGS: CLear HEART: reg rhythm ABDOMEN: Soft, +BS EXTREMITIES: Edema, LLE. NEUROLOGIC: Decreased sensation, left foot. Muscle strength 4+/5, LLE, right stump/quads Assessment/Plan: 1. Right BKA: PT/OT. Have reminded patient needs to straighten his right knee 2. Diabetes: FS QAC. SSI. Lantus. BS in good control. Add in metformin 3. Osteomyelitis/sepsis: Continue ceftriaxone 2 gm IV q24H. Flagyl 500 mg PO Q8 4. Left toe blister: medi-honey Q72hr 5. Anxiety: Buspar/Effexor. Dr. Dahl's help appreciated 6. DVT Prophylaxis: Lovenox 7. COPD: Spiriva/Dulera/DuGelab 11/07/19 16:33
[2019-11-07] MEDS: metFORMIN* 500 MG TAB PO SCH (16:59)
[2019-11-07] MEDS: Atorvastatin* 80 MG TAB PO SCH (16:59)
[2019-11-07] MEDS: Insulin GLARGINE(*) 1 UNITS UNIT SUBCUT SCH (17:01)
[2019-11-07] MEDS: cefTRIAXone(*) 2 GM in NS 0.9% 100 ML* 100 ML IVPB SCH (17:09)
[2019-11-07] MEDS: Enoxaparin(*) 40 MG/0.4 ML SYR SUBCUT SCH (21:25)
[2019-11-08] MEDS: metroNIDAZOLE TAB* 250 MG PO SCH ×3 (00:17→16:19)
[2019-11-08] MEDS: Albuterol/Ipratropium NEB.SOL* Albuterol 2.5 MG/Ipratropium 0.5 MG 3 ML INH PRN ×3 (03:45→19:18)
[2019-11-08] MEDS: Insulin LISPRO* 1 UNITS UNIT SUBCUT SCH ×4 (08:38→21:40)
[2019-11-08] MEDS: Mometasone/Formoter 200/5 MDI INH SCH ×2 (08:38→21:34)
[2019-11-08] MEDS: metFORMIN* 500 MG TAB PO SCH ×2 (08:39→16:19)
[2019-11-08] MEDS: Docusate CAP* 100 MG PO SCH ×2 (08:39→21:39)
[2019-11-08] MEDS: Pregabalin 50 mg CAP (*) PO SCH ×3 (08:39→21:39)
[2019-11-08] MEDS: Lactobacillus Acidophilus* 1 TAB PO SCH (08:39)
[2019-11-08] MEDS: Furosemide TAB* 20 MG PO SCH (08:39)
[2019-11-08] MEDS: busPIRone TAB* 30 MG PO SCH ×2 (08:39→21:39)
[2019-11-08] MEDS: Venlafaxine EXT RELEASE CAP* 75 MG PO SCH (08:40)
[2019-11-08] MEDS: SPIRIVA Respimat* (tiotropium) 2.5 mcg/inh Inhaler INH SCH (08:40)
--- NOTE | 2019-11-08 12:14 | PN ---
Progress Note - Progress Note Date of Service: 11/08/19 Note: Patient is sp R ALLI on 10/28/19. Seen at bedside in PMRU today. Wound is well approximated, CDI. There is some mild redness around the incision that is nontender, not hot, no fluctuance. No discharge. L toe wound being treated with medi-honey. There is no erythema surrounding, f/ e mtp intact without pain. Cap refill less than two sec distally. He should follow up with Dr Hernandez roughly 2 weeks post op. [place] to remain in place until removed by ortho, probable 3 weeks duration. Continue abx per ID. Continue with lovenox DVT prophy. Dr Hernandez made aware of appearance, I will follow daily while in house. L toe wound cont wound care.
--- NOTE | 2019-11-08 13:34 | PN ---
Progress Note - Progress Note Date of Service: 11/08/19 SOAP: Subjective: CC: Right foot infection and left 1st toe infection HPI: Mr. Dean is a 44 yo male with PMH significant for morbid obesity, DM2, peripheral neuropathy, depression, HTN, HLD, venous insufficiency, COPD, and chronic right foot ulcer and chronic left 1st toe ulcer; who presented to the hospital with a right foot abscess. S/P right BKA and now on inpatient rehab. Denies fever, chills, nausea, vomiting, or diarrhea. He reports that he will be discharged home on Friday. Objective: Vital Signs 11/08/19 05:07 Temperature 97.7 F Pulse Rate 81 Respiratory 16 Rate Blood Pressure 123/80 (mmHg) Blood Pressure 94 Mean O2 Sat by Pulse 93 Oximetry Patient on Room Yes Air Physical Exam: General: NAD, sitting up in a chair Neurological: Alert and Oriented HEENT: Moist MM Cardiovascular: Heart rate regular, left LE 2+ pitting edema Respiratory: Lung sounds clear Abdominal: Bowel sounds present; ABD soft, non tender and obese MSK: BOBO Skin: No rash. Stump display manager to the right LE Laboratory Tests 11/05/19 11/05/19 04:39 04:39 WBC 10.2 Hgb 12.3 L Hct 37 L Plt Count 356 Sodium 139 Potassium 4.0 Chloride 106 Carbon Dioxide 30 BUN 10 Creatinine 0.68 Glucose 118 H C-Reactive Protein 9.90 H Microbiology 10/25/19 16:41 Wound Anaerobic Culture - Final Bacteroides Species 10/25/19 16:41 Foot Right Skin and Soft Tissue MRSA/MSSA (PCR - Final 10/25/19 16:41 Foot Right Wound Culture - Final Mrsa Negative S.aureus Positive Strep Agalactiae - (Group B) Staphylococcus Aureus 10/25/19 10:35 Foot Right Skin and Soft Tissue MRSA/MSSA (PCR - Final 10/25/19 10:35 Foot Right Wound Culture - Final Mrsa Negative S.aureus Positive Strep Agalactiae - (Group B) Staphylococcus Aureus Pasteurella Multocida Peptoniphilus Asaccharolyticus 10/25/19 09:00 Foot Right Gram Stain - Final 10/25/19 09:00 Foot Right Wound Culture - Final Strep Agalactiae - (Group B) Staphylococcus Aureus Alcaligenes Species Assessment: 1. Right foot abscess and infectious myositis. MRI with no definitive signs of osteomyelitis. S/P BKA, POD #11. Polymicrobial with group B strep, staph aureus , pasteurella, peptoniphilis, alcaligenes, and bacteroides. Blood cultures with no growth to date. Surgical pathology with gangrenous ischemic necrosis with ulceration, and chronic vascular stasis. Afebrile and no leukocytosis. 2. Left 1st toe chronic ulcer. MRI with possible osteomyelitis. 3. DM2 with peripheral neuropathy. 4. Morbid obesity. BMI 40.2. Plan: Continue Flagyl and Ceftriaxone while in the hospital, day 15 of ABX. Discharge plan: [place] 1500 mg IV once, followed by a second dose 1 week later. Follow up with ID outpatient. 25 minutes floor time: > 50% was spent with the patient discussing recommendations for ABX at discharge, followup. Outpatient ABX orders completed.
[2019-11-08] MEDS: Atorvastatin* 80 MG TAB PO SCH (16:19)
[2019-11-08] MEDS: cefTRIAXone(*) 2 GM in NS 0.9% 100 ML* 100 ML IVPB SCH (16:32)
[2019-11-08] MEDS: Insulin GLARGINE(*) 1 UNITS UNIT SUBCUT SCH (17:14)
[2019-11-08] MEDS ORDERED: Calcium Carbonate CHEW TAB* 500 MG (TUMS) PO PRN (19:31)
--- NOTE | 2019-11-08 19:31 | PN ---
Progress Note Date of Service: 11/08/19 Note: LEONEL CASTANON was visited. Therapy notes read and reviewed. He is tolerating metformin and his BS have improved. Appreciate ortho and ID notes Current Medications: Active Medications Generic Name Dose Route Start Last Admin Trade Name Freq PRN Reason Stop Dose Admin Acetaminophen 650 mg 11/03/19 12:15 11/08/19 11:16 Tylenol Tab* PO 650 mg Q6H PRN Administration MILD PAIN or TEMP > 100.4 Albuterol/Ipratropium 1 neb 11/03/19 14:41 11/08/19 19:18 Duoneb (Albuterol 2.5 Mg/Ipratropium 0.5 Mg) INH 1 neb Q6H PRN Administration SOB/WHEEZING Atorvastatin Calcium 80 mg 11/03/19 17:00 11/08/19 16:19 Lipitor* PO 80 mg 1700 SALOME Administration Buspirone HCl 30 mg 11/03/19 21:00 11/08/19 08:39 Buspar Tab* PO 30 mg BID SALOME Administration Dextrose 12.5 gm 11/03/19 12:21 D50w Syringe 50 Ml* IV PUSH .FOR FS < 60 - SS PRN FS < 60 Docusate Sodium 100 mg 11/03/19 21:00 11/08/19 08:39 Colace Cap* PO 100 mg BID SALOME Administration Enoxaparin Sodium 40 mg 11/03/19 21:00 11/07/19 21:25 Lovenox(*) SUBCUT 40 mg Q24H SALOME Administration Furosemide 20 mg 11/05/19 09:00 11/08/19 08:39 Lasix Tab* PO 20 mg DAILY SALOME Administration Ceftriaxone Sodium 2 gm/ 100 mls @ 200 mls/hr 11/03/19 17:00 11/08/19 16:32 Sodium Chloride IVPB 200 mls/hr Q24H SALOME Administration Insulin Glargine 10 units 11/07/19 16:29 11/08/19 17:14 Lantus(*) SUBCUT 10 units Q24H SALOME Administration Insulin Human Lispro 0 - 18 units 11/03/19 16:30 11/08/19 16:34 Humalog* SUBCUT Not Given ACHS SALOME Protocol Lactobacillus Rhamnosus 1 tab 11/04/19 09:00 11/08/19 08:39 Lactobacillus Acidophilus* PO 1 tab DAILY SALOME Administration Metformin HCl 500 mg 11/07/19 17:00 11/08/19 16:19 Glucophage* PO 500 mg 0800,1700 SALOME Administration Metronidazole 500 mg 11/04/19 16:00 11/08/19 16:19 Flagyl Tab* PO 500 mg Q8H SALOME Administration Mometasone Furoate/Formoterol Fumar 2 puff 11/03/19 21:00 11/08/19 08:38 Dulera 200/5 Mdi* INH 2 puff BID SALOME Administration Oxycodone HCl 5 mg 11/03/19 12:27 Roxycodone Tab* PO Q4H PRN PAIN - SEVERE Pregabalin 150 mg 11/03/19 14:00 11/08/19 14:56 Lyrica 50 Mg Cap (*) PO 150 mg TID SALOME Administration Senna 2 tab 11/03/19 12:15 Senokot 8.6 Mg Tab* PO BEDTIME PRN CONSTIPATION Tiotropium [place] 2 puff 11/04/19 09:00 11/08/19 08:40 Spiriva Respimat 2.5 Mcg INH 2 puff DAILY SALOME Administration Venlafaxine HCl 150 mg 11/04/19 09:00 11/08/19 08:40 Effexor Xr Cap* PO 150 mg DAILY SALOME Administration Vital Signs: Vital Signs Temp Pulse Resp BP Pulse Ox 98.2 F 84 18 121/82 95 11/08/19 15:00 11/08/19 15:00 11/08/19 16:56 11/08/19 15:00 11/08/19 16:52 Lab Results: Laboratory Results - last 24 hr 11/07/19 11/08/19 21:11 07:54 POC Glucose (mg/dL) 139 H 133 H Exam: GENERAL: Alert and oriented, no distress HEENT: EOMI LUNGS: CLear HEART: reg rhythm ABDOMEN: Soft, +BS EXTREMITIES: Edema, LLE. NEUROLOGIC: Decreased sensation, left foot. Muscle strength 4+/5, LLE, right stump/quads Assessment/Plan: 1. Right BKA: PT/OT. Have reminded patient needs to straighten his right knee 2. Diabetes: FS QAC. SSI. Lantus. BS in good control. Add in metformin 3. Osteomyelitis/sepsis: Continue ceftriaxone 2 gm IV q24H. Flagyl 500 mg PO Q8 4. Left toe blister: medi-honey Q72hr 5. Anxiety: Buspar/Effexor. Dr. Dahl's help appreciated 6. DVT Prophylaxis: Lovenox 7. COPD: Spiriva/Dulera/DuoNeb 11/08/19 19:31
[2019-11-08] MEDS: Enoxaparin(*) 40 MG/0.4 ML SYR SUBCUT SCH (21:41)
[2019-11-09] MEDS: metroNIDAZOLE TAB* 250 MG PO SCH ×3 (00:09→16:27)
[2019-11-09] MEDS: Albuterol/Ipratropium NEB.SOL* Albuterol 2.5 MG/Ipratropium 0.5 MG 3 ML INH PRN ×3 (05:21→19:19)
[2019-11-09] MEDS: metFORMIN* 500 MG TAB PO SCH ×2 (08:05→17:05)
[2019-11-09] MEDS: Lactobacillus Acidophilus* 1 TAB PO SCH (08:06)
[2019-11-09] MEDS: Venlafaxine EXT RELEASE CAP* 75 MG PO SCH (08:06)
[2019-11-09] MEDS: Docusate CAP* 100 MG PO SCH ×2 (08:06→20:14)
[2019-11-09] MEDS: Furosemide TAB* 20 MG PO SCH (08:06)
[2019-11-09] MEDS: busPIRone TAB* 30 MG PO SCH ×2 (08:07→20:10)
[2019-11-09] MEDS: Mometasone/Formoter 200/5 MDI INH SCH ×2 (08:07→20:09)
[2019-11-09] MEDS: SPIRIVA Respimat* (tiotropium) 2.5 mcg/inh Inhaler INH SCH (08:08)
[2019-11-09] MEDS: Insulin LISPRO* 1 UNITS UNIT SUBCUT SCH ×4 (08:20→21:08)
[2019-11-09] MEDS: Pregabalin 50 mg CAP (*) PO SCH ×3 (10:24→20:10)
--- NOTE | 2019-11-09 12:36 | PMRUTEAM ---
PMRU: Team Meeting Current Status: Physical Therapy: Current Status Current Rolling Status Independent Current Supine <-> Sit Status Independent Current Sit <-> Stand Status Supervision/Touching Current Bed <-> Chair Status Supervision/Touching Transfer/Bed Mobility Rolling Walker Recommended Devices Current Picking Up Object Not attempted Status Current Car Transfer Status Not attempted Current Ambulation Assistance Supervision/Touching Status Ambulation Assistive Device Rolling Walker Ambulation Conditions Two or More Turns Current Ambulation Distance 20' Manual Wheelchair Control/ Bilateral UE's Technique Current Wheelchair Propulsion Independent Ability Status Wheelchair Distance (ft) 150' Current Stair Climbing Status Supervision/Touching Number of Stairs Climbed 3 Current Curb Assistance Status Partial/Moderate Curb Assistive Devices Rolling Walker Objective Comments patient demosntrates good ability in mobility with W/C. patient has own chair in room -- is quite narrow for patient, however it is just barely able to make it around his current residence while wider chair willl not be able to complete basic mobility tasks. Occupational Therapy: Current Status Current Upper Body Dressing Independent Status Current Lower Body Dressing Independent Status Current Footwear Status Independent Current Bathing Status Independent Current Grooming Status Independent Current Toileting Status Independent Current Toilet Transfer Status Independent Current Eating Status Independent Nursing: Current Status Skin Deviations [Right BKA] Incision Skin Deviations [Left Heel] Other Skin Deviations [Left 1st Toe] Wound Skin Deviation Description [ well approximated, some pink area marked with Right BKA] marker and warmth to the touch Skin Deviation Description [ dry skin Left Heel] Skin Deviation Description [ dressing changed Wednesday 11/08 Left 1st Toe] Bladder Current Status 1assist from wheelchair to bathroom, & sometimes urinal Bowel Current Status 1 assist from wheelchair to bathroom, & sometimes urinal Nutrition Current Status 100% of meal Medication Current Status nurse give medication Rec Therapy: Current Status Summary of Assessment and Recreation therapy assessment complete and pt is Clinical Impression aware of services. Pt is active in participating in independent and group leisure activities. Pt is open to continued leisure visits and pet therapy. Treatment Goals Pt will engage in leisure activities while on the unit, as tolerated Treatment Plan Provide recreation therapy services and encourage involvement Social Work: Current Status Discharge Plan return home with home care svs and family support Potential for Family Training pt's niece are involved and supportive Anticipated Discharge Home Destination Discharge With VNS and family support Goals: Physical Therapy: Goals Goals to Be Accomplished in ( 7-10 Days) Goal: Rolling Assistance Independent Goal Supine <-> Sit Status Independent Goal Sit <-> Stand Status Independent Goal Bed <-> Chair Status Independent Transfer/Bed Mobility Rolling Walker Recommended Devices Goal: Picking Up Object Independent Goal: Car Transfer Status Setup or Clean-up Assist Goal: Ambulation Assistance Independent Ambulation Assistive Devices Rolling Walker Ambulation Distance (ft) 150' Goal: Wheelchair Propulsion Independent Ability Wheelchair Distance (ft) 150' Goal: Stairs Assistance Supervision/Touching Stairs Recommended Devices Two Rails Number of Stairs 1 Goal: Curb Assistance Supervision/Touching Goal: Home Exercise Program Independent Assistance Occupational Therapy: Goals Goals to be Completed in (Days 7-10 days ) Goal Upper Body Dressing Independent Routine Goal Lower Body Dressing Independent Routine Goal Footwear Status Independent Goal Bathing Routine (OT) Independent Goal Grooming Routine Independent Goal Toilet Hygiene and Independent Clothing Management Routine Goal Toilet Transfer Routine Independent Goal Functional Transfers for Independent ADL Goal Feeding Routine Independent Goal Light Housekeeping Tasks Setup or Clean-up Assist Social Work: Goals Discharge Plan return home with home care svs and family support Potential for Family Training pt's niece are involved and supportive Anticipated Discharge Home Destination Discharge With VNS and family support Nursing: Goals Bladder Goal independent Bowel Goal independent Nutrition Goal continue to eat 100% of meal Medication Goal independent Care Plan: Care Plan ADL's - Improve/Maintain Start: 11/03/19 21:18 Freq: DAILY@[id number],1900 Status: Active Target: 11/04/19 Protocol: Activity Type Activity Date Activity User E-Sign Co-Sign Detail Recorded Client Recorded Date Recorded By Document 11/08/19 12:44 [id number] 11/08/19 12:44 [id number] 11/08/19 12:44 PM Outcome: ADL's/ADL Transfers Orders/Interventions Occupational Therapy Evaluation & Treatment Device Yes Address Deficits Secondary To: R BKA Patient to receive OT 5x/wk for 60-120 Therex min/day Self Care Management Group Therapy UE/LE ADL's with Assist Yes: Independent ADL Transfers with Assist Yes: Independent Toileting: Transfers,Clothing Management Yes: ,Hygeine w/Assist Independent Light Kitchen/Laundry w/Assist Yes: Independent Other Outcome/Goals Pt tolerates OT tx session well this date. Plan for him to be d/c to his niece's house on 11/10. She has 3 CHARLES and a garden tub. Recommend TTB. Progression Toward Outcome/Goals Progressing DVT Prophylaxis- Improve/Maintain Start: 11/03/19 21:18 Freq: [id number] Status: Active Target: 11/10/19 Protocol: Activity Type Activity Date Activity User E-Sign Co-Sign Detail Recorded Client Recorded Date Recorded By Document 11/09/19 07:00 [id number] 11/09/19 09:49 [id number] 11/09/19 07:00 PMRU Outcome: DVT Prophylaxis Current DVT Outcome/Goals Remains Free of DVT Progression Toward Outcome/Goals Progressing Discharge Planning - Improve/Maintain Start: 11/03/19 21:18 Freq: DAILY@[id number] Status: Active Target: 11/10/19 Protocol: Activity Type Activity Date Activity User E-Sign Co-Sign Detail Recorded Client Recorded Date Recorded By Document 11/09/19 07:00 [id number] 11/09/19 09:49 [id number] 11/09/19 07:00 PMRU Outcome: Discharge Planning Update Patient Family No Current Discharge Planning Outcome/Goals Demonstrates Understanding of Discharge Plan Homecare Referral - See Comment Progression Toward Outcome/Goals Progressing Education-Improve/Maintain Start: 11/03/19 21:18 Freq: DAILY@ Status: Active Target: 11/10/19 Protocol: Activity Type Activity Date Activity User E-Sign Co-Sign Detail Recorded Client Recorded Date Recorded By Document 11/09/19 07:00 [id number] [email or web address] 11/09/19 09:49 [id number] 11/09/19 07:00 PMRU Outcome: Education Current Education Outcome/Goals Demonstrate/ Verbalize Understanding of Written Discharge Instructions Demonstrates Skills Progression Toward Outcome/Goals Progressing /GI-Improve/Maintain Start: 11/03/19 21:18 Freq: [id number]@[id number] Status: Active Target: 11/10/19 Protocol: Activity Type Activity Date Activity User E-Sign Co-Sign Detail Recorded Client Recorded Date Recorded By Document 11/09/19 07:00 [id number] [email or web address] 11/09/19 09:49 [id number] 11/09/19 07:00 PMRU Outcome: Genitourinary/ Gastrointestinal Current Gastrointestinal Outcome/Goals Maintain/ Achieve Bowel Regularity in Accordance with Pt's Baseline Progression Toward Outcome/Goals Progressing Current Genitourinary Outcome/Goals Maintain/ Achieve Adequate Urinary Output Progression Toward Outcome/Goals Progressing Metabolic Status- Improve/Maintain Start: 11/03/19 21:18 Freq: [id number] Status: Active Target: 11/10/19 Protocol: Activity Type Activity Date Activity User E-Sign Co-Sign Detail Recorded Client Recorded Date Recorded By Document 11/09/19 07:00 [id number] [email or web address] 11/09/19 09:49 [id number] 11/09/19 07:00 PMRU Outcome: Metabolic Status Have Fingersticks Been Ordered Yes Fingerstick Order Frequency AC & HS Current Metabolic Status Outcome/Goals Maintain/ Improve Metabolic Status Demonstrate Knowledge of Prevention/ Treatment of Metabolic Imbalances Progression Toward Outcome/Goals Progressing Mobility- Improve/Maintain Start: 11/03/19 21:18 Freq: DAILY@ Status: Active Target: 11/10/19 Protocol: Activity Type Activity Date Activity User E-Sign Co-Sign Detail Recorded Client Recorded Date Recorded By Document 11/04/19 09:30 [id number] 11/04/19 09:30 [id number] 11/04/19 09:30 PMRU Outcome: Mobility Physical Therapy Evaluation and Yes Treatment Activity OOB with Assistance Yes WBAT Yes: LLE NWB Yes: RLE TTWB No Device Yes Assistance Yes Patient to be seen 5x/wk for 60-120 min/ Therex day for: Mobility Training Gait Training W/C Mobility Balance Other Other Therapy Comment Discharge training/ education Current Mobility Outcome/Goals Maintain/ Achieve Baseline Mobility Status Improve Mobility Status Demonstrates Proper Use of Assistive Devices Free from Complications of Immobility Progression Toward Outcome/Goals Progressing Bed Mobility Yes: Independent Transfers Yes: Independent with RW Gait x ft Yes: 150' Independent with RW W/C Mobility x ft Yes: 150' Independent Up/Down Stairs Yes: 4 with 2 rails supervision With HEP Yes: Independent Rec Therapy- Improve/Maintain Start: 11/03/19 16:29 Freq: DAILY@[id number] Status: Active Target: 11/10/19 Protocol: Activity Type Activity Date Activity User E-Sign Co-Sign Detail Recorded Client Recorded Date Recorded By Document 11/08/19 16:12 [id number] [email or web address] 11/08/19 16:12 [id number] 11/08/19 16:12 PMRU Outcome: Recreation Therapy Current Rec Ther Outcome/Goals Complete Rec Therapy Assessment Meet with Patient Regularly for Support Encourage Leisure Involvement Progression Toward Outcome/Goals Progressing Lack of Progression Comment Pt participated in playing a board game with staff. Outcome/Goals Met Complete Rec Therapy Assessment Respiratory - Improve/Maintain Start: 11/03/19 21:18 Freq: DAILY@[id number] Status: Active Target: 11/10/19 Protocol: Activity Type Activity Date Activity User E-Sign Co-Sign Detail Recorded Client Recorded Date Recorded By Document 11/09/19 07:00 [id number] [email or web address] 11/09/19 09:49 [id number] 11/09/19 07:00 PMRU Outcome: Respiratory Does Patient Have a Trach No Current Respiratory Outcome/Goals Maintain/ Improve O2 Sat per MD Order Maintain/ Improve Baseline Respiratory Status Maintain/ Improve Activity Tolerance Progression Toward Outcome/Goals Progressing Safety- Improve/Maintain Start: 11/03/19 10:10 Freq: DAILY@ Status: Active Target: 11/10/19 Protocol: Activity Type Activity Date Activity User E-Sign Co-Sign Detail Recorded Client Recorded Date Recorded By Document 11/09/19 07:00 [id number] [email or web address] 11/09/19 09:49 [id number] 11/09/19 07:00 PMRU Outcome: Safety Current Safety Outcome/Goals Remain Free of Injury or Harm Cooperates with Safety Measures for Least Restrictive Environment Prevent Falls/ Injury Progression Toward Outcome/Goals Progressing Skin- Improve/Maintain Start: 11/03/19 21:18 Freq: DAILY@ Status: Active Target: 11/10/19 Protocol: Activity Type Activity Date Activity User E-Sign Co-Sign Detail Recorded Client Recorded Date Recorded By Document 11/09/19 07:00 [id number] [email or web address] 11/09/19 09:49 [id number] 11/09/19 07:00 PMRU Outcome: Skin Skin Risk Level No Risk Current Skin Outcome/Goals Maintain/ Improve Skin Integrity Surgical Incisions Healing Progression Toward Outcome/Goals Progressing - Interdisciplinary Staff Present Sheeter Waxer Operator/Social Work Staff Present: Lynnette Espino Nursing Staff Present: Rose Mary Sanford OT Staff Present: Shelley Almeida PT Staff Present: Tarun Newman Rec Therapy Staff Present: Lissa Mata TRACK REPAIR PERSON Staff Present: John Hall Medicine Note: Length of Stay: 1 day Anticipated Discharge Destination: Home Tentative Discharge Date: 11/10/19 Discharged to: Home
--- NOTE | 2019-11-09 12:53 | PN ---
Progress Note - Progress Note Date of Service: 11/09/19 SOAP: Subjective: [] Pt seen at bedside. He feels well without CP, SOB, dizziness, nausea, fever, chills. Feels R stump redness improved today. Objective: []Gen: NAD RLE: Wound is well approximated, CDI. There is some mild redness with small improvement from yesterday around the incision that is nontender, not hot, no fluctuance, No discharge. Assessment: []Quinn CARSON L great toe wound Plan: []He should follow up with Dr. Hernandez roughly 2 weeks post op ( Fri or Mon after DC). [place] to remain in place until removed by ortho, probable 3 weeks duration. Continue abx per ID. Continue with lovenox DVT prophy. L toe wound cont wound care. Vital Signs Temp 97.4 F 11/09/19 05:00 Pulse 89 11/09/19 05:00 Resp 20 11/09/19 10:24 BP 133/84 11/09/19 05:00 Pulse Ox 96 11/09/19 08:00 Intake & Output 11/08/19 11/09/19 11/09/19 18:59 06:59 18:59 Intake Total 655 320 Output Total 550 1140 Balance 105 -1140 320 Intake: Oral 655 320 Output: Urine 550 1140 Other: # Voids 1 Laboratory Last Values WBC 10.2 10^3/uL (3.5-10.8) 11/05/19 04:39 RBC 4.20 10^6 /uL (4.18-5.48) 11/05/19 04:39 Hgb 12.3 g/dL (14.0-18.0) L 11/05/19 04:39 Hct 37 % (42-52) L 11/05/19 04:39 MCV 88 fL (80-94) 11/05/19 04:39 MCH 29 pg (27-31) 11/05/19 04:39 MCHC 33 g/dL (31-36) 11/05/19 04:39 RDW 16 % (10-15) H 11/05/19 04:39 Plt Count 356 10^3/uL (150-450) 11/05/19 04:39 MPV 8.7 fL (7.4-10.4) 11/05/19 04:39 Neut % (Auto) 70.5 % 11/05/19 04:39 Lymph % (Auto) 19.7 % 11/05/19 04:39 [place] % (Auto) 7.1 % 11/05/19 04:39 Eos % (Auto) 2.3 % 11/05/19 04:39 Baso % (Auto) 0.4 % 11/05/19 04:39 Absolute Neuts (auto) 7.2 10^3/ul (1.5-7.7) 11/05/19 04:39 Absolute Lymphs (auto) 2.0 10^3/ul (1.0-4.8) 11/05/19 04:39 Absolute Monos (auto) 0.7 10^3/ul (0-0.8) 11/05/19 04:39 Absolute Eos (auto) 0.2 10^3/ul (0-0.6) 11/05/19 04:39 Absolute Basos (auto) 0.0 10^3/ul (0-0.2) 11/05/19 04:39 Absolute Nucleated RBC 0.0 10^3/ul 11/05/19 04:39 Nucleated RBC % 0.0 11/05/19 04:39 Sodium 139 mmol/L (135-145) 11/05/19 04:39 Potassium 4.0 mmol/L (3.5-5.0) 11/05/19 04:39 Chloride 106 mmol/L (101-111) 11/05/19 04:39 Carbon Dioxide 30 mmol/L (22-32) 11/05/19 04:39 Anion Gap 3 mmol/L (2-11) 11/05/19 04:39 BUN 10 mg/dL (6-24) 11/05/19 04:39 Creatinine 0.68 mg/dL (0.67-1.17) 11/05/19 04:39 Est GFR ( Amer) 151.9 (>60) 11/05/19 04:39 Est GFR (Non-Af Amer) 125.5 (>60) 11/05/19 04:39 BUN/Creatinine Ratio 14.7 (8-20) 11/05/19 04:39 Glucose 118 mg/dL (70-100) H 11/05/19 04:39 POC Glucose (mg/dL) 127 mg/dL (70-100) H 11/09/19 11:28 Calcium 8.4 mg/dL (8.6-10.3) L 11/05/19 04:39 Total Bilirubin 0.40 mg/dL (0.2-1.0) 11/05/19 04:39 AST 22 U/L (13-39) 11/05/19 04:39 ALT 21 U/L (7-52) 11/05/19 04:39 Alkaline Phosphatase 58 U/L (34-104) 11/05/19 04:39 C-Reactive Protein 9.90 mg/L (<8.01) H 11/05/19 04:39 Total Protein 7.6 g/dL (6.4-8.9) 11/05/19 04:39 Albumin 3.1 g/dL (3.2-5.2) L 11/05/19 04:39 Globulin 4.5 g/dL (2-4) H 11/05/19 04:39 Albumin/Globulin Ratio 0.7 (1-3) L 11/05/19 04:39
[2019-11-09] MEDS: Atorvastatin* 80 MG TAB PO SCH (17:04)
[2019-11-09] MEDS: Insulin GLARGINE(*) 1 UNITS UNIT SUBCUT SCH (17:05)
[2019-11-09] MEDS: cefTRIAXone(*) 2 GM in NS 0.9% 100 ML* 100 ML IVPB SCH (17:07)
--- NOTE | 2019-11-09 18:55 | PN ---
Progress Note Date of Service: 11/09/19 Note: LEONEL CASTANON was visited. Therapy notes read and reviewed. He was discussed in interdisciplinary team rounds. He is getting ready for discharge. Appreciate ortho note, blood sugars in good control Current Medications: Active Medications Generic Name Dose Route Start Last Admin Trade Name Freq PRN Reason Stop Dose Admin Acetaminophen 650 mg 11/03/19 12:15 11/08/19 11:16 Tylenol Tab* PO 650 mg Q6H PRN Administration MILD PAIN or TEMP > 100.4 Albuterol/Ipratropium 1 neb 11/03/19 14:41 11/09/19 13:48 Duoneb (Albuterol 2.5 Mg/Ipratropium 0.5 Mg) INH 1 neb Q6H PRN Administration SOB/WHEEZING Atorvastatin Calcium 80 mg 11/03/19 17:00 11/09/19 17:04 Lipitor* PO 80 mg 1700 SALOME Administration Buspirone HCl 30 mg 11/03/19 21:00 11/09/19 08:07 Buspar Tab* PO 30 mg BID SALOME Administration Calcium Carbonate 500 mg 11/08/19 19:31 Tums* PO Q4H PRN DYSPEPSIA Dextrose 12.5 gm 11/03/19 12:21 D50w Syringe 50 Ml* IV PUSH .FOR FS < 60 - SS PRN FS < 60 Docusate Sodium 100 mg 11/03/19 21:00 11/09/19 08:06 Colace Cap* PO 100 mg BID SALOME Administration Enoxaparin Sodium 40 mg 11/03/19 21:00 11/08/19 21:41 Lovenox(*) SUBCUT 40 mg Q24H SALOME Administration Furosemide 20 mg 11/05/19 09:00 11/09/19 08:06 Lasix Tab* PO 20 mg DAILY SALOME Administration Ceftriaxone Sodium 2 gm/ 100 mls @ 200 mls/hr 11/03/19 17:00 11/09/19 17:07 Sodium Chloride IVPB 200 mls/hr Q24H SALOME Administration Insulin Glargine 10 units 11/07/19 16:29 11/09/19 17:05 Lantus(*) SUBCUT 10 units Q24H SALOME Administration Insulin Human Lispro 0 - 18 units 11/03/19 16:30 11/09/19 17:06 Humalog* SUBCUT 2 units ACHS SALOME Administration Protocol Lactobacillus Rhamnosus 1 tab 11/04/19 09:00 11/09/19 08:06 Lactobacillus Acidophilus* PO 1 tab DAILY SALOME Administration Metformin HCl 1,000 mg 11/09/19 08:00 11/09/19 17:05 Glucophage* PO 1,000 mg 0800,1700 SALOME Administration Metronidazole 500 mg 11/04/19 16:00 11/09/19 16:27 Flagyl Tab* PO 500 mg Q8H SALOME Administration Mometasone Furoate/Formoterol Fumar 2 puff 11/03/19 21:00 11/09/19 08:07 Dulera 200/5 Mdi* INH 2 puff BID SALOME Administration Oxycodone HCl 5 mg 11/03/19 12:27 Roxycodone Tab* PO Q4H PRN PAIN - SEVERE Pregabalin 150 mg 11/03/19 14:00 11/09/19 14:29 Lyrica 50 Mg Cap (*) PO 150 mg TID SALOME Administration Senna 2 tab 11/03/19 12:15 Senokot 8.6 Mg Tab* PO BEDTIME PRN CONSTIPATION Tiotropium [place] 2 puff 11/04/19 09:00 11/09/19 08:08 Spiriva Respimat 2.5 Mcg INH 2 puff DAILY SALOME Administration Venlafaxine HCl 150 mg 11/04/19 09:00 11/09/19 08:06 Effexor Xr Cap* PO 150 mg DAILY SALOME Administration Vital Signs: Vital Signs Temp Pulse Resp BP Pulse Ox 98.7 F 105 18 138/86 94 11/09/19 15:16 11/09/19 15:16 11/09/19 17:57 11/09/19 15:16 11/09/19 17:58 Lab Results: Laboratory Results - last 24 hr 11/08/19 11/08/19 11/08/19 11:30 16:22 20:26 POC Glucose (mg/dL) 160 H 120 H 150 H 11/09/19 11/09/19 11/09/19 07:19 11:28 16:30 POC Glucose (mg/dL) 118 H 127 H 147 H Exam: GENERAL: Alert and oriented, no distress HEENT: EOMI LUNGS: CLear HEART: reg rhythm ABDOMEN: Soft, +BS EXTREMITIES: Edema, LLE. NEUROLOGIC: Decreased sensation, left foot. Muscle strength 4+/5, LLE, right stump/quads Assessment/Plan: 1. Right BKA: PT/OT. Have reminded patient needs to straighten his right knee 2. Diabetes: FS QAC. SSI. Lantus. BS in good control. Add in metformin 3. Osteomyelitis/sepsis: Continue ceftriaxone 2 gm IV q24H. Flagyl 500 mg PO Q8 , ID will do infusion after discharge 4. Left toe blister: medi-honey Q72hr 5. Anxiety: Buspar/Effexor. Dr. Dahl's help appreciated 6. DVT Prophylaxis: Lovenox 7. COPD: Spiriva/Dulera/DuoNeb 11/09/19 18:55
[2019-11-09] MEDS: Enoxaparin(*) 40 MG/0.4 ML SYR SUBCUT SCH (20:11)
[2019-11-10] MEDS: metroNIDAZOLE TAB* 250 MG PO SCH ×3 (00:01→16:17)
[2019-11-10] MEDS: Albuterol/Ipratropium NEB.SOL* Albuterol 2.5 MG/Ipratropium 0.5 MG 3 ML INH PRN (04:23)
[2019-11-10] MEDS: Insulin LISPRO* 1 UNITS UNIT SUBCUT SCH ×4 (07:45→20:19)
--- NOTE | 2019-11-10 08:32 | PN ---
Progress Note - Progress Note Date of Service: 11/10/19 SOAP: Subjective: CC: Right foot infection and left 1st toe infection HPI: Mr. Dean is a 44 yo male with PMH significant for morbid obesity, DM2, peripheral neuropathy, depression, HTN, HLD, venous insufficiency, COPD, and chronic right foot ulcer and chronic left 1st toe ulcer; who presented to the hospital with a right foot abscess. S/P right BKA and now on inpatient rehab. Denies fever, chills, nausea, vomiting, or diarrhea. Left LE edema has improved since Friday, he has been working on keeping the leg elevated. Objective: Vital Signs - 8 hr 11/10/19 04:52 Temperature 97.5 F Pulse Rate 97 Respiratory 16 Rate Blood Pressure 129/76 (mmHg) O2 Sat by Pulse 94 Oximetry Physical Exam: General: NAD, sitting up in a chair Neurological: Alert and Oriented HEENT: Moist MM Cardiovascular: Heart rate regular, left LE 1+ pitting edema Respiratory: Lung sounds clear Abdominal: Bowel sounds present; ABD soft, non tender and obese MSK: BOBO Skin: No rash. Stump sfdc consultant to the right LE Laboratory Last Values WBC 10.2 10^3/uL (3.5-10.8) 11/05/19 04:39 RBC 4.20 10^6 /uL (4.18-5.48) 11/05/19 04:39 Hgb 12.3 g/dL (14.0-18.0) L 11/05/19 04:39 Hct 37 % (42-52) L 11/05/19 04:39 MCV 88 fL (80-94) 11/05/19 04:39 MCH 29 pg (27-31) 11/05/19 04:39 MCHC 33 g/dL (31-36) 11/05/19 04:39 RDW 16 % (10-15) H 11/05/19 04:39 Plt Count 356 10^3/uL (150-450) 11/05/19 04:39 MPV 8.7 fL (7.4-10.4) 11/05/19 04:39 Neut % (Auto) 70.5 % 11/05/19 04:39 Lymph % (Auto) 19.7 % 11/05/19 04:39 [place] % (Auto) 7.1 % 11/05/19 04:39 Eos % (Auto) 2.3 % 11/05/19 04:39 Baso % (Auto) 0.4 % 11/05/19 04:39 Absolute Neuts (auto) 7.2 10^3/ul (1.5-7.7) 11/05/19 04:39 Absolute Lymphs (auto) 2.0 10^3/ul (1.0-4.8) 11/05/19 04:39 Absolute Monos (auto) 0.7 10^3/ul (0-0.8) 11/05/19 04:39 Absolute Eos (auto) 0.2 10^3/ul (0-0.6) 11/05/19 04:39 Absolute Basos (auto) 0.0 10^3/ul (0-0.2) 11/05/19 04:39 Absolute Nucleated RBC 0.0 10^3/ul 11/05/19 04:39 Nucleated RBC % 0.0 11/05/19 04:39 Sodium 139 mmol/L (135-145) 11/05/19 04:39 Potassium 4.0 mmol/L (3.5-5.0) 11/05/19 04:39 Chloride 106 mmol/L (101-111) 11/05/19 04:39 Carbon Dioxide 30 mmol/L (22-32) 11/05/19 04:39 Anion Gap 3 mmol/L (2-11) 11/05/19 04:39 BUN 10 mg/dL (6-24) 11/05/19 04:39 Creatinine 0.68 mg/dL (0.67-1.17) 11/05/19 04:39 Est GFR ( Amer) 151.9 (>60) 11/05/19 04:39 Est GFR (Non-Af Amer) 125.5 (>60) 11/05/19 04:39 BUN/Creatinine Ratio 14.7 (8-20) 11/05/19 04:39 Glucose 118 mg/dL (70-100) H 11/05/19 04:39 POC Glucose (mg/dL) 134 mg/dL (70-100) H 11/09/19 20:14 Calcium 8.4 mg/dL (8.6-10.3) L 11/05/19 04:39 Total Bilirubin 0.40 mg/dL (0.2-1.0) 11/05/19 04:39 AST 22 U/L (13-39) 11/05/19 04:39 ALT 21 U/L (7-52) 11/05/19 04:39 Alkaline Phosphatase 58 U/L (34-104) 11/05/19 04:39 C-Reactive Protein 9.90 mg/L (<8.01) H 11/05/19 04:39 Total Protein 7.6 g/dL (6.4-8.9) 11/05/19 04:39 Albumin 3.1 g/dL (3.2-5.2) L 11/05/19 04:39 Globulin 4.5 g/dL (2-4) H 11/05/19 04:39 Albumin/Globulin Ratio 0.7 (1-3) L 11/05/19 04:39 Assessment: 1. Right foot abscess and infectious myositis. MRI with no definitive signs of osteomyelitis. S/P BKA, POD #13. Polymicrobial with group B strep, staph aureus , pasteurella, peptoniphilis, alcaligenes, and bacteroides. Blood cultures with no growth to date. Surgical pathology with gangrenous ischemic necrosis with ulceration, and chronic vascular stasis. Afebrile and no leukocytosis. 2. Left 1st toe chronic ulcer. MRI with possible osteomyelitis. 3. DM2 with peripheral neuropathy. 4. Morbid obesity. BMI 40.2. Plan: Continue Flagyl and Ceftriaxone while in the hospital, day 17 of ABX. Discharge plan: [place] 1500 mg IV once (Appointment scheduled for 11/11 at 12pm) , followed by a second dose 1 week later. Follow up with ID outpatient. 25 minutes floor time: > 50% was spent with the patient discussing recommendations for ABX at discharge, followup, when to call the office (fever, rash, diarrhea, or other concerns).
[2019-11-10] MEDS: metFORMIN* 500 MG TAB PO SCH ×2 (08:40→16:16)
[2019-11-10] MEDS: Lactobacillus Acidophilus* 1 TAB PO SCH (08:41)
[2019-11-10] MEDS: Furosemide TAB* 20 MG PO SCH (08:41)
[2019-11-10] MEDS: Mometasone/Formoter 200/5 MDI INH SCH ×2 (08:41→20:17)
[2019-11-10] MEDS: busPIRone TAB* 30 MG PO SCH ×2 (08:41→20:12)
[2019-11-10] MEDS: SPIRIVA Respimat* (tiotropium) 2.5 mcg/inh Inhaler INH SCH (08:42)
[2019-11-10] MEDS: Pregabalin 50 mg CAP (*) PO SCH ×3 (08:42→20:11)
[2019-11-10] MEDS: Venlafaxine EXT RELEASE CAP* 75 MG PO SCH (08:42)
[2019-11-10] MEDS: Docusate CAP* 100 MG PO SCH ×2 (09:24→20:19)
[2019-11-10] MEDS: Atorvastatin* 80 MG TAB PO SCH (16:17)
[2019-11-10] MEDS: Insulin GLARGINE(*) 1 UNITS UNIT SUBCUT SCH (17:03)
[2019-11-10] MEDS: cefTRIAXone(*) 2 GM in NS 0.9% 100 ML* 100 ML IVPB SCH (17:04)
--- NOTE | 2019-11-10 18:13 | PN ---
Progress Note Date of Service: 11/10/19 Note: LEONEL CASTANON was visited. Therapy notes read and reviewed. He will go home tomorrow. Per ID, he does not need oral Flagyl after discharge. Current Medications: Active Medications Generic Name Dose Route Start Last Admin Trade Name Freq PRN Reason Stop Dose Admin Acetaminophen 650 mg 11/03/19 12:15 11/08/19 11:16 Tylenol Tab* PO 650 mg Q6H PRN Administration MILD PAIN or TEMP > 100.4 Albuterol/Ipratropium 1 neb 11/03/19 14:41 11/10/19 04:23 Duoneb (Albuterol 2.5 Mg/Ipratropium 0.5 Mg) INH 1 neb Q6H PRN Administration SOB/WHEEZING Atorvastatin Calcium 80 mg 11/03/19 17:00 11/10/19 16:17 Lipitor* PO 80 mg 1700 SALOME Administration Buspirone HCl 30 mg 11/03/19 21:00 11/10/19 08:41 Buspar Tab* PO 30 mg BID SALOME Administration Calcium Carbonate 500 mg 11/08/19 19:31 Tums* PO Q4H PRN DYSPEPSIA Dextrose 12.5 gm 11/03/19 12:21 D50w Syringe 50 Ml* IV PUSH .FOR FS < 60 - SS PRN FS < 60 Docusate Sodium 100 mg 11/03/19 21:00 11/10/19 09:24 Colace Cap* PO Not Given BID SALOME Enoxaparin Sodium 40 mg 11/03/19 21:00 11/09/19 20:11 Lovenox(*) SUBCUT 40 mg Q24H SALOME Administration Furosemide 20 mg 11/05/19 09:00 11/10/19 08:41 Lasix Tab* PO 20 mg DAILY SALOME Administration Ceftriaxone Sodium 2 gm/ 100 mls @ 200 mls/hr 11/03/19 17:00 11/10/19 17:04 Sodium Chloride IVPB 200 mls/hr Q24H SALOME Administration Insulin Glargine 10 units 11/07/19 16:29 11/10/19 17:03 Lantus(*) SUBCUT 10 units Q24H SALOME Administration Insulin Human Lispro 0 - 18 units 11/03/19 16:30 11/10/19 16:21 Humalog* SUBCUT Not Given ACHS SALOME Protocol Lactobacillus Rhamnosus 1 tab 11/04/19 09:00 11/10/19 08:41 Lactobacillus Acidophilus* PO 1 tab DAILY SALOME Administration Metformin HCl 1,000 mg 11/09/19 08:00 11/10/19 16:16 Glucophage* PO 1,000 mg 0800,1700 SALOME Administration Metronidazole 500 mg 11/04/19 16:00 11/10/19 16:17 Flagyl Tab* PO 500 mg Q8H SALOME Administration Mometasone Furoate/Formoterol Fumar 2 puff 11/03/19 21:00 11/10/19 08:41 Dulera 200/5 Mdi* INH 2 puff BID SALOME Administration Oxycodone HCl 5 mg 11/03/19 12:27 Roxycodone Tab* PO Q4H PRN PAIN - SEVERE Pregabalin 150 mg 11/03/19 14:00 11/10/19 13:35 Lyrica 50 Mg Cap (*) PO 150 mg TID SALOME Administration Senna 2 tab 11/03/19 12:15 Senokot 8.6 Mg Tab* PO BEDTIME PRN CONSTIPATION Tiotropium [place] 2 puff 11/04/19 09:00 11/10/19 08:42 Spiriva Respimat 2.5 Mcg INH 2 puff DAILY SALOME Administration Venlafaxine HCl 150 mg 11/04/19 09:00 11/10/19 08:42 Effexor Xr Cap* PO 150 mg DAILY SALOME Administration Vital Signs: Vital Signs Temp Pulse Resp BP Pulse Ox 97.7 F 96 18 125/78 92 11/10/19 16:12 11/10/19 16:12 11/10/19 16:44 11/10/19 16:12 11/10/19 16:51 Lab Results: Laboratory Results - last 24 hr 11/09/19 11/10/19 11/10/19 20:14 07:30 11:51 POC Glucose (mg/dL) 134 H 117 H 145 H 11/10/19 16:19 POC Glucose (mg/dL) 121 H Exam: GENERAL: Alert and oriented, no distress HEENT: EOMI LUNGS: CLear HEART: reg rhythm ABDOMEN: Soft, +BS EXTREMITIES: Edema, LLE. NEUROLOGIC: Decreased sensation, left foot. Muscle strength 4+/5, LLE, right stump/quads Assessment/Plan: 1. Right BKA: PT/OT. Have reminded patient needs to straighten his right knee 2. Diabetes: FS QAC. SSI. Lantus. BS in good control. Add in metformin 3. Osteomyelitis/sepsis: Continue ceftriaxone 2 gm IV q24H. Flagyl 500 mg PO Q8 , ID will do infusion after discharge 4. Left toe blister: medi-honey Q72hr 5. Anxiety: Buspar/Effexor. Dr. Dahl's help appreciated 6. DVT Prophylaxis: Lovenox 7. COPD: Spiriva/Dulera/DuoNeb 11/10/19 18:13
[2019-11-10] MEDS: Enoxaparin(*) 40 MG/0.4 ML SYR SUBCUT SCH (20:13)
[2019-11-11] MEDS: metroNIDAZOLE TAB* 250 MG PO SCH ×2 (00:17→07:43)
[2019-11-11] MEDS: Albuterol/Ipratropium NEB.SOL* Albuterol 2.5 MG/Ipratropium 0.5 MG 3 ML INH PRN ×2 (00:19→07:42)
[2019-11-11 04:30] VITALS: BP 131/84
[2019-11-11] MEDS: metFORMIN* 500 MG TAB PO SCH (07:43)
[2019-11-11] MEDS: SPIRIVA Respimat* (tiotropium) 2.5 mcg/inh Inhaler INH SCH (07:57)
[2019-11-11] MEDS: Mometasone/Formoter 200/5 MDI INH SCH (07:57)
[2019-11-11] MEDS: Insulin LISPRO* 1 UNITS UNIT SUBCUT SCH ×2 (09:15→12:02)
[2019-11-11] MEDS: busPIRone TAB* 30 MG PO SCH (09:16)
[2019-11-11] MEDS: Lactobacillus Acidophilus* 1 TAB PO SCH (09:17)
[2019-11-11] MEDS: Furosemide TAB* 20 MG PO SCH (09:17)
[2019-11-11] MEDS: Docusate CAP* 100 MG PO SCH (09:17)
[2019-11-11] MEDS: Venlafaxine EXT RELEASE CAP* 75 MG PO SCH (09:17)
[2019-11-11] MEDS: Pregabalin 50 mg CAP (*) PO SCH ×2 (09:17→14:03)
--- NOTE | 2019-11-12 01:00 | DS ---
CC: Ekaterina Rodriguez NP * DISCHARGE SUMMARY: DATE OF ADMISSION: 11/03/19 DATE OF DISCHARGE: 11/11/19 DISCHARGE DIAGNOSES: 1. Right suqiw-dqx-dwsh amputation. 2. Ulcer, left great toe. 3. Diabetes. 4. Peripheral vascular disease. 5. Anxiety. 6. Chronic obstructive pulmonary disease. 7. Diabetic peripheral neuropathy. 8. Gastric bypass, remote. 9. Hypertension. HISTORY OF PRESENT ILLNESS AND HOSPITAL COURSE: For complete history of the events leading up to his rehab stay, please see the history and physical dictated by me on 11/03/19. While on the rehab unit, the patient's blood sugars remained in fairly good control. His metformin was restarted. He remained on a small amount of Lantus insulin. At the time of discharge, he was told to resume his Victoza and Steglatro. The patient did request a meeting with Dr. Dahl, the psychiatrist who came to see the patient and help him work through some of his anxiety and depression issues. He remained on Effexor as well as BuSpar while on the rehab unit. As far as the patient's infection in his leg, he had an abscess that grew out both anaerobic and aerobic organisms. He was kept on intravenous ceftriaxone and oral Flagyl while on the rehab unit. Infectious Disease did see him on the rehab unit. After discharge, both these medications were stopped. He will come in to infusion tomorrow for a dose of Dalvance 1500 mg intravenously once and will receive another dose next week. Followup labs including C-reactive protein will be followed by Dr. Farr. The patient also on his left toe was treated with Medihoney every 3 days. His Lasix was restarted while on the rehab unit. The patient's wound on his right lfume-xlf-ivuj amputation was seen by orthopedist while on the rehab unit. They recommended a dry sterile dressing. The wound seemed to be healing nicely. The patient otherwise was medically stable. He was seen by both physical and occupational therapy while on the rehab unit. He made good gains with both disciplines. With physical therapy at the time of admission, the patient required mod assist to do a transfer. He was dependent to ambulate a few steps. By the time of discharge, he was independent in transfers and independently ambulated 10 feet. He could propel a wheelchair independently. With Occupational Therapy at the time of admission, the patient required set up for upper body dressing, mod assist for lower body dressing, mod assist for donning and doffing footwear on his left foot. He was mod assist for toileting and mod assist for toilet transfers. By the time of discharge, he was independent in his activities. The patient was discharged home with his niece on 11/11/19. DISPOSITION: Home. CONDITION AT DISCHARGE: Fair. DISCHARGE DIET: Consistent carbohydrate. DISCHARGE MEDICATIONS: Included: 1. DuoNeb inhaler 1 nebulizer treatment every 6 hours as needed. 2. Lipitor 80 mg daily. 3. BuSpar 30 mg twice daily. 4. Lovenox 40 mg subcutaneously every 24 hours for 10 days. 5. Lasix 20 mg daily. 6. Metformin 1000 mg at 8 a.m. and 5 p.m. 7. Lyrica 150 mg 3 times a day. 8. Effexor XR 150 mg daily. 9. Symbicort 160/4.5 two puffs twice daily. 10. Victoza 1.8 mg subcutaneously daily. 11. Omeprazole 20 mg daily. 12. Hyzaar 50/12.5 one tablet daily. 13. Steglatro 15 mg daily. SERVICES AFTER DISCHARGE: Through visiting nurse service. He will have home nursing, home physical therapy, and a home health aide as well as home bilingual social worker. FOLLOWUP: The patient will follow up in the infusion center tomorrow, 11/12/09 for a dose of Dalvance 1500 mg intravenously. He will also follow up with his orthopedic surgeon, Dr. Hernandez as well as Dr. Farr. He will follow up also with his primary care provider, Ekaterina Rodriguez. TIME SPENT: Time for this discharge was approximately 50 minutes, greater than half of which was spent with the patient discussing post-rehab services, medications and therapies. [id number]/[facility] #: [id number] GAGAN
== END 2019-11-11 15:00 | disposition home health service (06) | DRG 860 ==
LOC: PMRU 10:05
PROVIDERS: ADMIT Physical Medicine & Rehabilitation; ATTEND Physical Medicine & Rehabilitation
PROC: F07Z5ZZ Bed Mobility Treatment (ICD-10-PCS; principal; 2019-11-03)
PROC: F07Z9ZZ Gait Training/Functional Ambulation Treatment (ICD-10-PCS; 2019-11-03)
PROC: F07Z8ZZ Transfer Training Treatment (ICD-10-PCS; 2019-11-03)
PROC: F07Z4ZZ Wheelchair Mobility Treatment (ICD-10-PCS; 2019-11-03)
PROC: F08Z0ZZ Bathing/Showering Techniques Treatment (ICD-10-PCS; 2019-11-03)
PROC: F08Z1ZZ Dressing Techniques Treatment (ICD-10-PCS; 2019-11-03)
PROC: F08Z3ZZ Feeding/Eating Treatment (ICD-10-PCS; 2019-11-03)
PROC: F08Z2ZZ Grooming/Personal Hygiene Treatment (ICD-10-PCS; 2019-11-03)
DX: Z47.81 Encounter for orthopedic aftercare following surgical amputation (principal); M60.073 Infective myositis, right foot; M86.9 Osteomyelitis, unspecified; Z68.41 Body mass index [BMI] 40.0-44.9, adult; L02.611 Cutaneous abscess of right foot; Z89.511 Acquired absence of right leg below knee; E11.42 Type 2 diabetes mellitus with diabetic polyneuropathy; E11.69 Type 2 diabetes mellitus with other specified complication; L97.529 Non-pressure chronic ulcer of other part of left foot with unspecified severity; E66.01 Morbid (severe) obesity due to excess calories; F41.9 Anxiety disorder, unspecified; B95.1 Streptococcus, group B, as the cause of diseases classified elsewhere; B95.61 Methicillin susceptible Staphylococcus aureus infection as the cause of diseases classified elsewhere; B96.6 Bacteroides fragilis [B. fragilis] as the cause of diseases classified elsewhere; F32.4 Major depressive disorder, single episode, in partial remission; J44.9 Chronic obstructive pulmonary disease, unspecified; I10 Essential (primary) hypertension; F17.210 Nicotine dependence, cigarettes, uncomplicated; I87.2 Venous insufficiency (chronic) (peripheral); E78.5 Hyperlipidemia, unspecified; L08.89 Other specified local infections of the skin and subcutaneous tissue; M79.89 Other specified soft tissue disorders; Z79.4 Long term (current) use of insulin; Z98.84 Bariatric surgery status; Z79.51 Long term (current) use of inhaled steroids; Z79.899 Other long term (current) drug therapy; Z88.1 Allergy status to other antibiotic agents; Z88.8 Allergy status to other drugs, medicaments and biological substances
CPT/HCPCS: 36415; 80053; 85025; 86140; 94640; A9270-GY; J0696; J1650; J3535

== ENCOUNTER 2019-11-11 19:40 | Inpatient (IN) | payer OTHER ==
--- NOTE | 2019-11-11 20:05 | ED ---
HPI Cardiac - HPI Summary HPI Summary: Patient is a 44 y/o M presenting to [facility] via EMS for SOB and chest pressure. He states that he had a right BKA on 10/30/19 and has been SOB since this operation. He states that he experienced a worsening of SOB this evening and experienced a syncopal episode with fall. He denies head injury and LOC. Fever, cough, N/V are denied as well. Patient characterizes his chest pressures as feeling like, "an elephant is sitting on my chest". He reports Hx of PNA x5, COPD, diabetes, HLD, HTN, anxiety, and depression. He was on 80% o2 saturation on RA initially. EMS had administered epinephrine 0.3 IM, duoneb x2, and albuterol x1. Patient reports some improvement with treatments but states that his breathing is not at his baseline. Allergy to gabapentin, amoxicillin, and clavulanic acid noted. PSHx of thumb surgery and gastric bypass noted. FMHx of diabetes and HTN reported. He is a former smoker. Home medications and allergies are reviewed. - History of Current Complaint Stated Complaint: SOB PER EMS Hx Obtained From: Patient Onset/Duration: Still Present Timing: Constant Pain Scale Used: 0-10 Numeric Character: Dyspnea at Rest, Pressure/Squeezing Associated Signs and Symptoms: Positive: Chest Pain, Shortness of Breath, Other : - positive - syncope with fall; negative - head injury and LOC. Negative: Fever, Nausea, Cough, Productive Cough, Nonproductive Cough, Vomiting - Additional Pertinent History Primary Care Physician: [id number] - Allergy/Home Medications Allergies/Adverse Reactions: Allergies Allergy/AdvReac Type Severity Reaction Status Date / Time amoxicillin [From Augmentin] Allergy Anaphylatic Verified 11/11/19 20:06 Shock clavulanic acid Allergy Anaphylatic Verified 11/11/19 20:06 [From Augmentin] Shock gabapentin Allergy See Comment Verified 11/11/19 20:06 Home Medications: Home Medications Budesonide/Formote 160/4.5(NF) [Symbicort 160/4.5 (NF)] 2 puff INH BID 09/27/19 [History Confirmed 11/11/19] Tiotropium CAPSULE (NF) [Spiriva CAPSULE (NF)] 1 cap.inh INH DAILY 09/27/19 [ History Confirmed 11/11/19] Albuterol HFA INHALER* [Ventolin HFA Inhaler*] 2 puff INH Q6H PRN mdi 10/04/19 [Rx Confirmed 11/11/19] Liraglutide (NF) [Victoza (NF)] 1.8 mg SUBCUT DAILY ml 10/04/19 [Rx Confirmed 11/11/19] Acetaminophen TAB* [Tylenol TAB*] 975 mg PO Q8H PRN tab 11/01/19 [Rx Confirmed 11/11/19] Cholecalciferol (Vitamin D3) [Vitamin D3] 5,000 unit PO DAILY 11/03/19 [History Confirmed 11/11/19] Cyanocobalamin (Vitamin B-12) [B-12] 2,500 mcg PO DAILY 11/03/19 [History Confirmed 11/11/19] Ertugliflozin Pidolate [Steglatro] 15 mg PO DAILY 11/03/19 [History Confirmed ] Furosemide [Lasix] 20 mg PO DAILY 11/03/19 [History Confirmed 11/11/19] Losartan/Hydrochlorothiazide [Losartan-Hctz 50-12.5 mg Tab] 1 tab PO DAILY 11/03 [History Confirmed 11/11/19] Omeprazole 20 mg PO DAILY PRN 11/03/19 [History Confirmed 11/11/19] Albuterol/Ipratropium NEB.HAL* [Duoneb (Albuterol 2.5 MG/Ipratropium 0.5 MG)] 1 neb INH Q6H PRN neb.soln 11/09/19 [Rx Confirmed 11/11/19] Atorvastatin* [Lipitor 80 MG*] 80 mg PO 1700 tab 11/09/19 [Rx Confirmed ] Enoxaparin(*) [Lovenox(*)] 40 mg SUBCUT Q24H #10 syringe 11/09/19 [Rx Confirmed 11/11/19] Pregabalin 50 mg CAP (*) [Lyrica 50 mg CAP (*)] 150 mg PO TID cap 11/09/19 [Rx Confirmed 11/11/19] Venlafaxine EXT RELEASE CAP* [Effexor Xr CAP*] 150 mg PO DAILY cap.sr 11/09/19 [Rx Confirmed 11/11/19] busPIRone TAB* [Buspar TAB*] 30 mg PO BID tab 11/09/19 [Rx Confirmed 11/11/19] metFORMIN* [Glucophage 500 MG TAB *] 1,000 mg PO 0800,1700 tab 11/09/19 [Rx Confirmed 11/11/19] metroNIDAZOLE TAB* [Flagyl 250 mg TAB*] 500 mg PO Q8H #180 tab 11/09/19 [Rx Confirmed 11/11/19] PMH/Surg Hx/FS Hx/Imm Hx Endocrine/Hematology History: Reports: Hx Diabetes Cardiovascular History: Reports: Hx Hypercholesterolemia, Hx Hypertension Denies: Hx Pacemaker/ICD Respiratory History: Reports: Hx Asthma, Hx Chronic Obstructive Pulmonary Disease (COPD), Hx Sleep Apnea - clastrofobic ,noncomplient with C-PAP GI History: Reports: Hx Gall Bladder Disease, Other GI Disorders - gall bladder removed for gall stones History: Denies: Hx Renal Disease Sensory History: Denies: Hx Cataracts, Hx Contacts or Glasses, Hx Hearing Aid Opthamlomology History: Denies: Hx Cataracts, Hx Contacts or Glasses Neurological History: Reports: Other Neuro Impairments/Disorders - neuropathy Psychiatric History: Reports: Hx Anxiety, Hx Depression, Hx Community Mental Health Tx, Hx Suicide Attempt Denies: Hx Eating Disorder, Hx Panic Disorder, Hx Post Traumatic Stress Disorder, Hx Inpatient Treatment, Hx Schizophrenia, Hx Bipolar Disorder, Hx of Violent Episodes Against Others, Hx Substance Abuse - Surgical History Surgery Procedure, Year, and Place: GASTRIC BYPASS. GALLBLADDER. RIGHT GREAT TOE REMOVED. REATTACHED PART OF LEFT THUMB. RIGHT FOOT I&D- 10/25/2019. 2019- right BKA - Family History Known Family History: Positive: Hypertension, Diabetes - Social History Alcohol Use: Rare Alcohol Amount: 1 beer a month Hx Substance Use: No Substance Use Type: Reports: Marijuana Substance Use Comment - Amount & Last Used: once and a while Hx Tobacco Use: Yes Smoking Status (MU): Former Smoker Type: Cigarettes - Additional Comments History Additional Comments: PMHx of PNA x5, COPD, diabetes, HLD, HTN, anxiety, and depression PSHx of thumb surgery and gastric bypass FMHx of diabetes and HTN reported Review of Systems - ROS Summary Review of Systems Summary: Home Medications Medication Instructions Recorded Confirmed Type Budesonide/Formote 160/4.5(NF) 2 puff INH BID 09/27/19 11/03/19 History [Symbicort 160/4.5 (NF)] Tiotropium CAPSULE (NF) [Spiriva 1 cap.inh INH DAILY 09/27/19 11/03/19 History CAPSULE (NF)] Albuterol HFA INHALER* [Ventolin 2 puff INH Q6H PRN mdi 10/04/19 11/03/19 Rx HFA Inhaler*] Liraglutide (NF) [Victoza (NF)] 1.8 mg SUBCUT DAILY ml 10/04/19 11/03/19 Rx Acetaminophen TAB* [Tylenol TAB*] 975 mg PO Q8H PRN tab 11/01/19 11/03/19 Rx Cholecalciferol (Vitamin D3) 5,000 unit PO DAILY 11/03/19 11/03/19 History [Vitamin D3] Cyanocobalamin (Vitamin B-12) 2,500 mcg PO DAILY 11/03/19 11/03/19 History [B-12] Ertugliflozin Pidolate [Steglatro] 15 mg PO DAILY 11/03/19 11/03/19 History Furosemide [Lasix] 20 mg PO DAILY 11/03/19 11/03/19 History Losartan/Hydrochlorothiazide 1 tab PO DAILY 11/03/19 11/03/19 History [Losartan-Hctz 50-12.5 mg Tab] Omeprazole 20 mg PO DAILY PRN 11/03/19 11/03/19 History Albuterol/Ipratropium NEB.HAL* 1 neb INH Q6H PRN neb.soln 11/09/19 Rx [Duoneb (Albuterol 2.5 MG/Ipratropium 0.5 MG)] Atorvastatin* [Lipitor 80 MG*] 80 mg PO 1700 tab 11/09/19 Rx Enoxaparin(*) [Lovenox(*)] 40 mg SUBCUT Q24H #10 syringe 11/09/19 Rx Pregabalin 50 mg CAP (*) [Lyrica 150 mg PO TID cap 11/09/19 Rx 50 mg CAP (*)] Venlafaxine EXT RELEASE CAP* 150 mg PO DAILY cap.sr 11/09/19 Rx [Effexor Xr CAP*] busPIRone TAB* [Buspar TAB*] 30 mg PO BID tab 11/09/19 Rx metFORMIN* [Glucophage 500 MG TAB 1,000 mg PO 0800,1700 tab 11/09/19 Rx *] metroNIDAZOLE TAB* [Flagyl 250 mg 500 mg PO Q8H #180 tab 11/09/19 Rx TAB*] Negative: Fever Positive: Chest Pain Positive: Shortness Of Breath. Negative: Cough Negative: Vomiting, Nausea Positive: Other - fall Neurological/Mental Status: Other - negative - head injury and LOC Positive: Syncope All Other Systems Reviewed And Are Negative: Yes Physical Exam - Summary Physical Exam Summary: General: Well-developed, Morbidly Obese Male. Moderate Respiratory Distress. HEENT: Normocephalic, Atraumatic. Eyes: Conjuctiva normal, PERRL. Oropharynx: Clear, mucous membranes moist, (-) exudates. Neck: Soft, FROM, (-) lymphadenopathy, (-) thyromegaly, (-) JVD. Cardiovascular: Normal sinus rhythm, (-) murmur. Lungs: Decreased breath sounds bilaterally, prolonged expiration, bibasilar crackles noted. Abdomen: Soft, non-tender, non-distended, (-) organomegaly, normal bowel sounds. Back: (-) CVA tenderness Extremities: Right BKA, LLE 1+ edema Skin: Warm, dry, (-) rash. Neuro: Alert and oriented x3, moves all extremities equally. No ataxia. No gait disturbance. No sensory deficit. Normal strength, normal sensation. Psychiatric: Moderately anxious appearing Triage Information Reviewed: Yes Vital Signs On Initial Exam: Initial Vital Signs Temp 97.7 F 11/11/19 19:55 Pulse 125 11/11/19 19:55 Resp 22 11/11/19 19:55 BP 162/107 11/11/19 19:55 Pulse Ox 93 11/11/19 19:55 Vital Signs Reviewed: Yes Procedures - Sedation Patient Received Moderate/Deep Sedation with Procedure: No Diagnostics - Laboratory Result Diagrams: 11/11/19 20:20 11/11/19 20:20 Lab Statement: Any lab studies that have been ordered have been reviewed, and results considered in the medical decision making process. - Radiology CXR Radiology Interpretation Completed By: ED Physician Summary of Radiographic Findings: Increased interstitial markings and cephalization consistent with CHF. Minimal left pleural effusion noted. Pending official report. - EKG 2025 Cardiac Rate: Tachycardia - rate of 113 BPM EKG Rhythm: Sinus Tachycardia Summary of EKG Findings: EKG at 2025 reveals sinus tachycardia with rate of 113 BPM, no acute changes, no ischemic changes. This EKG was reviewed and interpreted by Dr. Kelley. Disposition - Course Course Of Treatment: 44-year-old male presents from home by ambulance with shortness of breath. Patient states he had a right BKA for osteomyelitis done earlier this month. Has been in rehabilitation for a couple weeks now. Was released today. Patient states that shortness of breath has been present since the surgery. Much worse tonight. States he felt like he was given a pass out. He remembers everything. No fevers or chills. No productive cough. Some chest tightness. On physical exam he appears in moderate respiratory distress. He had 3 nebulizers and epinephrine en route. Nebulizer initiated here as well. Patient continues with oxygen through the nebulizer. He has decreased breath sounds bilaterally. Bibasilar crackles noted. Edema. Patient has increased fluid on chest x-ray consistent with CHF. Elevated BNP greater than 400. He is given 80 mg of Lasix IV. Patient produces over 1000 cc of urine very quickly. Breathing is improved. He is able to go on nasal cannula oxygen. No history of CHF. No previous echoes. Patient was referred to hospitalist for admission. - Diagnoses Provider Diagnoses: CHF (congestive heart failure), Hypoxemia - Physician Notifications Discussed Care Of Patient With: Tatiana Gonzalez Time Discussed With Above Provider: 22:09 Instructed by Provider To: Other - Patient's case was discussed with Dr. Gonzalez , Dr. Gonzalez accepts for admission Discharge ED - Sign-Out/Discharge Documenting (check all that apply): Patient Departure - admit - Discharge Plan Condition: Fair Disposition: ADMITTED TO [facility] - Billing Disposition and Condition Condition: FAIR Disposition: Admitted to [facility] - Attestation Statements Document Initiated by Scribe: Yes Documenting Scribe: ELA STARKEY Provider For Whom Zenaida is Documenting (Include Credential): RADHA KELLEY MD Scribe Attestation: ELA Cruz, scribed for RADHA KELLEY MD on 11/11/19 at 2333. Scribe Documentation Reviewed: Yes Provider Attestation: The documentation as recorded by the ELA knapp accurately reflects the service I personally performed and the decisions made by me, RADHA KELLEY MD Status of Scribe Document: Viewed
[2019-11-11] MEDS ORDERED: Albuterol 0.5% CONC NEB.SOL* 5 MG/ML 20 ml BOT INH ONE (20:13)
[2019-11-11 20:34] LABS: ABS Basophils 0.1 10^3/ul (0-0.2); ABS Eosinophils 0.1 10^3/ul (0-0.6); ABS Lymphocytes 1.4 10^3/ul (1.0-4.8); ABS Monocytes 0.7 10^3/ul (0-0.8); ABS Neutrophils 9.5 10^3/ul (1.5-7.7); Eosinophil % 1.2 %; Hematocrit 40 % (42-52); Hemoglobin 13.2 g/dL (14.0-18.0); Lymphocyte % 11.9 %; Mean Corpuscular HGB Conc 33 g/dL (31-36); Mean Corpuscular Hemoglobin 29 pg (27-31); Mean Corpuscular Volume 88 fL (80-94); Mean Platelet Volume 9.1 fL (7.4-10.4); Platelet Count 319 10^3/uL (150-450); Red Blood Count 4.55 10^6 /uL (4.18-5.48); Red Cell Distribution Width 16 % (10-15); White Blood Count 11.8 10^3/uL (3.5-10.8)
[2019-11-11 20:42] LABS: Activated Partial Thrombo Time 38.3 seconds (26.0-38.0); INR 1.18 (0.82-1.09)
[2019-11-11 20:47] LABS: Albumin 3.7 g/dL (3.2-5.2); Albumin/Globulin Ratio 0.8 (1-3); BUN/Creatinine Ratio 16.9 (8-20); Calcium 8.9 mg/dL (8.6-10.3); EGFR African American 144.5 (>60); EGFR Non-African American 119.4 (>60); Globulin 4.8 g/dL (2-4); Potassium 3.9 mmol/L (3.5-5.0); Total Bilirubin 0.6 mg/dL (0.2-1.0); Total Protein 8.5 g/dL (6.4-8.9)
[2019-11-11 20:49] LABS: Troponin I 0.02 ng/mL (<0.03)
[2019-11-11] MEDS ORDERED: Furosemide IV* 10 MG/ML 10 ML VIAL (100 MG) IV ONE (21:12)
--- OUTSIDE RECORDS SUMMARY | 2019-11-11 22:06 | XMS REPORT ---
:1975 Author Organization [facility] Care Team Providers Name Role Phone JAUN CALVIN Primary Care Physician Unavailable Allergies, Adverse Reactions, Alerts Allergy Code CodeSystem Reaction Severity Criticality Status Start Substance Date Moderate Medications Medication Medication Medication Start Stop Route Dose Status Fill Code CodeSystem Date Date Instructions RxNorm Relevant diagnostic tests/laboratory data Narrative No Information Procedures Procedure Code CodeSystem Target Date of Status Service Device Device Device Name Site Procedure Delivery Code Name UID Location SNOMED-CT () 2019-10-[address], [id number] SNOMED-CT () 2019-10-[address], [id number] Encounters/Encounter Diagnoses Encounter Encounter Diagnosis Diagnosis Diagnosis Date of Service Name Code Code Name CodeSystem Diagnosis Delivery Location Non-Billable [address] SNOMED-CT 2019-10-27 [facility] , , , Vital Signs No Information Social History Element Description Description Start End Code CodeSystem AdditionalInfo Date Date SexAssignedAtBirth Male 1974-0 M AdministrativeGender 05-03 Hospital Discharge Instructions Reason For Referral Medical Equipment FDA Assessments
[2019-11-11] MEDS ORDERED: Pantoprazole TAB * 40 MG TAB PO PRN (22:19)
[2019-11-11] MEDS ORDERED: Albuterol/Ipratropium NEB.SOL* Albuterol 2.5 MG/Ipratropium 0.5 MG 3 ML INH PRN (22:19)
--- NOTE | 2019-11-12 00:05 | ADMNOTE ---
Subjective Interval History: This is my H/P 44 yo male with history of COPD who presented to the ED with shortness of breath and chest pressure. He was just discharged today from rehab. Pt had a right BKA last week for osteomyelitis. He was at his baseline at discharge, then as soon as he got home he started feeling short of breath. He said during rehab, he had exertional SOB that got better with duoneb. When he arrived in the ED, he was saturating in the 80s and was placed on oxygen.Bibasilar crackles noted with edema. CXR showed pulmonary edema. He was given 80 mg of lasix. His breathing improved. No hx of heart disease, no previous echoes. He denies any coughs, fevers. He in fact was on abx right until he got discharged earlier today ( he thinks it was vanc and zosyn). Family History: Unchanged from Admission Social History: Unchanged from Admission Past Medical History: Unchanged from Admission Review of Systems - Measurements Intake and Output: Intake and Output Last 24 Hours 11/09/19 11/10/19 11/11/19 11/12/19 06:59 06:59 06:59 06:59 Output Total 1730 Balance -1730 Weight 330 lb Output: Urine 1730 - Review of Systems Constitutional Symptoms: Negative: Weight Gain, Weight Loss, Weakness, Fatigue, Fever, Night Sweats, Unexplained Falls, Other Dermatology: Negative: Normal, Rash, Skin Lesions, Cancer, Skin Lumps, Other HEENT: Negative: Normal, Change in Hearing, Vertigo, Dental Problems, Tinnitus, Sinus Problem, Other Eyes: Negative: Normal, Change in Vision, Double Vision, Eye Pain, Glaucoma, Cataract, Contacts or Glasses, Other Thyroid: Negative: Normal, Goiter, Thyroid Nodule, Cold Intolerance, Heat Intolerance , Sweatiness, Tremor, Frequent Defecation, Constipation, Palpitations, Primary Hypothyroidism, Primary Hyperthyroidism, Weight Loss, Weight Gain, Change in Skin/Hair, Change in Menstruation, Radiation Exposure, Other Pulmonary: Positive: Respiratory Distress, Shortness of Breath, COPD, Exercise Intolerance Negative: Normal, Cough, Sputum, Hemoptysis, Wheezing, Asthma, Home Oxygen, Other Cardiology: Positive: Shortness of Breath, Swelling of Ankles Negative: Normal, Chest Pain, Palpitations, Peripheral Vascular Dis, Edema, Faintness, Syncope, Claudication, Proximal NocturnalDyspnea, Orthopnoea, Other Gastroenterology: Negative: Normal, Abdominal Pain, Nausea, Vomiting, Anorexia, Indigestion, Difficulty Swallowing, Heartburn, Constipation, Diarrhea, Blood in Stools, Change in Bowel Habits, Haematemesis, Melena, Other Genital - Urinary: Negative: Normal, Dysuria, Hematuria, Polyuria, Nocturia, Other Musculoskeletal: Negative: Joint Pain, Joint Stiffness, Arthritis, Osteoporosis, Low Back Pain , Sciatica, Joint Deformities, Kyphoscoliosis, Other Endocrinology: Negative: Normal, Thyroid Problems, Adrenal Problems, Gonadal Problems, Family Hx Endocrine Disorders, Obesity, Diabetes Mellitus, Hyperglycemia, Hx Hypoglycemia, Diabetic Foot Ulcers, Calluses, Hirsutism, Menstrual Abnormalities , Polydipsia, Polyuria, Gonadal Problems, Gynecomastia, Pituitary disease, Other Hematologic/Lymphatic: Negative: Anemia, Easy Bruising, Hx Leukemia, Hx Lymphoma, Use of Anticoagulant, Use of Antiplatelet Drugs, Other Neurology: Negative: Normal, Headache, Migraines, Change in Vision, Diplopia, Dizziness , Change in Balancing, Change in Coordination, Change in Memory, Change in Speech, Change in Sphincter Function, Change in Walking, Numbness\Paresthesiae, Unexplained Weakness, Hx of Stroke\TIA, Hx of Seizures, Other Objective Active Medications: Albuterol/Ipratropium (Duoneb (Albuterol 2.5 Mg/Ipratropium 0.5 Mg)) 1 neb INH Q6H PRN PRN Reason: SOB/WHEEZING Atorvastatin Calcium (Lipitor*) 80 mg PO 1700 [facility] Buspirone HCl (Buspar Tab*) 30 mg PO BID [facility] Hydrochlorothiazide (Hydrodiuril Tab*) 12.5 mg PO DAILY [facility] Losartan Potassium (Cozaar Tab*) 50 mg PO DAILY [facility] Mometasone Furoate/Formoterol Fumar (Dulera 200/5 Mdi*) 2 puff INH BID [facility]; Protocol Pantoprazole Sodium (Protonix Tab*) 40 mg PO DAILY PRN PRN Reason: INDIGESTION Tiotropium Shannon (Spiriva Respimat 2.5 Mcg) 2 puff INH DAILY [facility] Venlafaxine HCl (Effexor Xr Cap*) 150 mg PO DAILY [facility] Vital Signs - 8 hr 11/11/19 11/11/19 11/11/19 19:55 20:08 20:12 Temperature 97.7 F Pulse Rate 125 119 114 Respiratory 22 18 23 Rate Blood Pressure 162/107 155/108 (mmHg) O2 Sat by Pulse 93 95 94 Oximetry 11/11/19 11/11/19 11/11/19 21:00 21:01 21:12 Temperature Pulse Rate 107 108 108 Respiratory 11 10 27 Rate Blood Pressure 125/84 137/84 (mmHg) O2 Sat by Pulse 97 97 97 Oximetry 11/11/19 11/11/19 11/11/19 21:42 22:00 22:12 Temperature Pulse Rate 107 102 105 Respiratory 18 24 26 Rate Blood Pressure 135/88 134/84 (mmHg) O2 Sat by Pulse 97 96 96 Oximetry 11/11/19 11/11/19 11/11/19 22:42 23:00 23:10 Temperature 97.8 F Pulse Rate 97 93 96 Respiratory 18 17 20 Rate Blood Pressure 123/88 123/77 (mmHg) O2 Sat by Pulse 95 92 94 Oximetry 11/11/19 11/11/19 11/11/19 23:12 23:14 23:30 Temperature 97.8 F Pulse Rate 99 96 96 Respiratory 21 22 20 Rate Blood Pressure 113/70 123/77 123/77 (mmHg) O2 Sat by Pulse 96 94 94 Oximetry Oxygen Devices in Use Now: Nasal Cannula Appearance: morbidly obese Eyes: No Scleral Icterus, PERRLA Ears/Nose/Mouth/Throat: Mucous Membranes Moist Neck: NL Appearance and Movements; NL JVP, Trachea Midline Respiratory: Symmetrical Chest Expansion and Respiratory Effort - crackles , - Cardiovascular: NL Sounds; No Murmurs; No JVD, - - edema Abdominal: NL Sounds; No Tenderness; No Distention Lymphatic: No Cervical Adenopathy Extremities: - - R BKA Skin: No Rash or Ulcers Neurological: Alert and Oriented x 3 Result Diagrams: 11/11/19 20:20 11/11/19 20:20 Assess/Plan/Problems-Billing Assessment: - Patient Problems (1) Acute hypoxemic respiratory failure Current Visit: Yes Status: Acute Code(s): J96.01 - ACUTE RESPIRATORY FAILURE WITH HYPOXIA SNOMED Code(s): 331968264 Comment: pt presented with respiratory distress. CXR shows pulmonary edema No hx of heart disease. Will get an echo in the morning he received 80 mg of lasix, will cont with IV lasix PNA less likely as he was on broad spectrum abx while he was at rehab and he denies cough or fever. (2) COPD (chronic obstructive pulmonary disease) Current Visit: No Status: Acute Code(s): J44.9 - CHRONIC OBSTRUCTIVE PULMONARY DISEASE, UNSPECIFIED SNOMED Code(s): 22214148 Comment: - continue triple therapy, counseled on tobacco cessation -duonebs PRN -not wheezing on exam (3) DVT prophylaxis Current Visit: No Status: Acute Code(s): Z29.9 - ENCOUNTER FOR PROPHYLACTIC MEASURES, UNSPECIFIED SNOMED Code(s): 750036759 Comment: - lovenox (4) Depression with anxiety Current Visit: No Status: Acute Code(s): F41.8 - OTHER SPECIFIED ANXIETY DISORDERS SNOMED Code(s): 211823746 Comment: cont home venlafaxine and buspirone (5) Diabetes Current Visit: No Status: Acute Code(s): E11.9 - TYPE 2 DIABETES MELLITUS WITHOUT COMPLICATIONS SNOMED Code(s): 00320052 Comment: Insulin glargine 12 units with insulin lispro - continue statin - hold home: metformin, liraglutide subq (6) Hx of BKA Current Visit: No Status: Acute Code(s): Z89.519 - ACQUIRED ABSENCE OF UNSPECIFIED LEG BELOW KNEE SNOMED Code(s): 279466940 (7) Morbid obesity Current Visit: No Status: Acute Code(s): E66.01 - MORBID (SEVERE) OBESITY DUE TO EXCESS CALORIES SNOMED Code(s): 969913823 Comment: BMI 40.2 (8) Full code status Current Visit: No Status: Acute Code(s): Z78.9 - OTHER SPECIFIED HEALTH STATUS SNOMED Code(s): 385205691
[2019-11-12] MEDS ORDERED: Dextrose 50% Syringe 50 ML* 25 GM/50 ML SYRINGE IV PUSH PRN (00:46)
[2019-11-12] MEDS: Insulin GLARGINE(*) 1 UNITS UNIT SUBCUT SCH ×2 (00:56→21:34)
[2019-11-12 07:43] LABS: ABS Lymphocytes 0.7 10^3/ul (1.0-4.8); ABS Monocytes 0.3 10^3/ul (0-0.8); ABS Neutrophils 5.1 10^3/ul (1.5-7.7); Eosinophil % 0.1 %; Hematocrit 39 % (42-52); Hemoglobin 13.1 g/dL (14.0-18.0); Lymphocyte % 11.2 %; Mean Corpuscular HGB Conc 34 g/dL (31-36); Mean Corpuscular Hemoglobin 30 pg (27-31); Mean Corpuscular Volume 87 fL (80-94); Mean Platelet Volume 9.6 fL (7.4-10.4); Platelet Count 315 10^3/uL (150-450); Red Blood Count 4.45 10^6 /uL (4.18-5.48); Red Cell Distribution Width 16 % (10-15); White Blood Count 6.1 10^3/uL (3.5-10.8)
[2019-11-12 08:01] LABS: BUN/Creatinine Ratio 16.4 (8-20); EGFR African American 172.2 (>60); EGFR Non-African American 142.3 (>60); Potassium 4.3 mmol/L (3.5-5.0)
[2019-11-12] MEDS: Insulin LISPRO* 1 UNITS UNIT SUBCUT SCH ×4 (08:16→21:34)
[2019-11-12] MEDS: busPIRone TAB* 30 MG PO SCH ×2 (08:16→21:34)
[2019-11-12] MEDS: Losartan TAB* 25 MG PO SCH (08:16)
[2019-11-12] MEDS: Venlafaxine EXT RELEASE CAP* 75 MG PO SCH (08:16)
[2019-11-12] MEDS: Hydrochlorothiazide TAB* 25 MG PO SCH (08:17)
[2019-11-12] MEDS ORDERED: Perflutren Lipid Microsphere* 3 ML VIAL ONE (09:12)
--- NOTE | 2019-11-12 10:13 | ECHO ---
*[facility]* [place] [address] Fax #: [phone] Transthoracic Echocardiogram Patient: Bhargav Dean : 1975 Study Date: 11/12/2019 Age: 44 Gender: M HR: 89 bpm Height: 76 in /193 cm BSA: 2.74 m^2 Weight: 329.3 lb /149.7 kg BMI: 40.2 kg/m^2 *Manager Reporting: * Raquel Taylor [facility] *Referring Physician: * Giuliano Hanley *Reading Physician: * Daniel Tai MD Indications: Congestive Heart Failure. History: Chronic obstructive pulmonary disease. Functional status: Not following treatment plan for sleep apnea. Risk factors: Former tobacco use. Hypertension. Diabetes mellitus. Morbidly obese. Hyperlipidemia. Labs, prior tests, procedures, and surgery: Gastric bypass. Right below knee amputation. Conclusions Summary: - Left ventricle: The cavity size is mildly to moderately dilated. Wall thickness is mildly increased. Systolic function is moderately to severely reduced. The estimated ejection fraction is 30-35%. Moderate to severe diffuse hypokinesis. - Left atrium: The atrium is mildly dilated. - Right atrium: The atrium is mildly dilated. - Mitral valve: There is mild to moderate regurgitation. - Ascending aorta: The ascending aorta is mildly dilated. - There is no prior echocardiogram available to compare with at this time. - Results discussed with referring physician. Study data: Transthoracic echocardiogram. Procedure: Transthoracic echocardiography was performed. Image quality was suboptimal. The study was technically limited due to poor acoustic window availability and body habitus. Intravenous Definity , 5 mlswas administered. Complete 2D, spectral Doppler, and color flow Doppler. Location: Bedside. Patient status: Inpatient. Patient room number: 441-01. Rhythm: Normal sinus rhythm with PVC's. Findings Left ventricle: The cavity size is mildly to moderately dilated. Wall thickness is mildly increased. Systolic function is moderately to severely reduced. The estimated ejection fraction is 30-35%. Moderate to severe diffuse hypokinesis. There is no consistent Doppler evidence of clinically significant diastolic dysfunction. Right ventricle: The cavity size is normal. Systolic function is normal. Left atrium: The atrium is mildly dilated. Right atrium: The atrium is mildly dilated. Mitral valve: The Mitral valve annulus appears mildly calcified. The leaflets are mildly thickened. There is no evidence of stenosis. There is mild to moderate regurgitation. Aortic valve: The valve is trileaflet. The leaflets are mildly thickened. There is no evidence of stenosis. There is trace regurgitation. Tricuspid valve: The leaflets are normal thickness. There is trace regurgitation. Pulmonic valve: The leaflets are normal thickness. There is no evidence of stenosis. There is no regurgitation. Aorta: Aortic root: The aortic root is appears normal. Ascending aorta: The ascending aorta is mildly dilated. Aortic arch: The aortic arch is poorly visualized. Pericardium: A prominent pericardial fat pad is present. There is no significant pericardial effusion. Pulmonary arteries: The main pulmonary artery is normal-sized. Systolic pressure is within the normal range. Systemic veins: Inferior vena cava: The vessel is dilated. There is (>= 50%) respiratory change in the IVC dimension. Measurements Left ventricle Value Ref Aortic valve Value Ref JAKY, LAX (H) 6.3 cm 4.2 - 5.8 Marcel diam, ED 2.4 cm ----- ESD, LAX (H) 5.3 cm 2.5 - 4.0 Peak v, S 1.63 m/sec ----- FS, LAX (L) 17 % 25 - 43 VTI, S 30.9 cm ----- PW, ED, LAX (H) 1.1 cm 0.6 - 1.0 Mean grad, S 5.0 mm Hg ----- FS (L) 17 % 25 - 43 Peak grad, S 11.0 mm Hg ----- Mid-wall FS 9 % LVOT/AV, VTI ratio 0.71 ----- PW, ED (H) 1.1 cm 0.6 - 1.0 E', lat marcel, TDI (L) 8.1 cm/sec >=10.0 Mitral valve Value Ref E/e', lat marcel, 18 Peak E 1.44 m/sec ----- TDI Peak A 0.66 m/sec ----- E', med marcel, TDI 7.9 cm/sec >=7.0 Decel time 171 ms --- -- E/e', med marcel, 18 PHT 95 ms ----- TDI Mean grad, D 4.0 mm Hg ----- E', avg, TDI 8.0 cm/sec Peak grad, D 9.0 mm Hg ----- E/e', avg, TDI (H) 18 <=14 Peak E/A ratio 2.2 --- -- MVA, PHT 2.4 cm^2 ----- LVOT Value Ref Peak rebecca, S 1.2 m/sec Pulmonic valve Value Ref VTI, S 22.0 cm Peak v, S 1.19 m/sec ----- Peak grad, S 6 mm Hg Peak grad, S 6.0 mm Hg ----- Mean grad, S 3 mm Hg Tricuspid valve Value Ref Ventricular septum Value Ref TR peak v 2.5 m/sec <=2.8 IVS, ED (H) 1.2 cm 0.6 - 1.0 Peak RV-RA grad, S 25 mm Hg ----- Right ventricle Value Ref Aortic root Value Ref JAKY, LAX 3.2 cm Root diam 3.1 cm <4.7 JAKY minor ax, A4C (H) 4.0 cm 1.9 - 3.5 mid Ascending aorta Value Ref Pressure, S 33 mm Hg AAo AP diam, S 3.9 cm ----- Left atrium Value Ref Pulmonary artery Value Ref AP dim, ES (H) 6.30 cm 3.00 - Pressure, S 33.0 mm Hg ----- 4.00 ML dim, A4C 5.4 cm Inferior vena cava Value Ref SI dim, A4C 6.2 cm Diam 2.3 cm ----- Vol/bsa, ES, 1-p (H) 38 ml/m^2 12 - 37 A4C Vol/bsa, ES, A/L 32 ml/m^2 16 - 34 Right atrium Value Ref SI dim, ES (H) 5.5 cm 3.4 - 5.3 ML dim, ES, A4C 4.3 cm 2.6 - 4.4 Estimated RAP 8 mm Hg Legend: (L) and (H) edy values outside specified reference range. Prepared and electronically signed by Daniel Tai MD 11/12/2019 10:13
[2019-11-12] MEDS: SPIRIVA Respimat* (tiotropium) 2.5 mcg/inh Inhaler INH SCH (10:16)
[2019-11-12] MEDS: Mometasone/Formoter 200/5 MDI INH SCH ×2 (10:17→20:38)
[2019-11-12] MEDS: cefTRIAXone(*) 1 GM in NS 0.9% 50 ML* 50 ML IVPB SCH (11:09)
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
[2019-11-12] MEDS: metroNIDAZOLE * 500 MG TABLET PO SCH (17:22)
[2019-11-12] MEDS: Atorvastatin* 80 MG TAB PO SCH (17:22)
[2019-11-12] MEDS: metFORMIN* 1,000 MG TAB PO SCH (17:22)
--- NOTE | 2019-11-12 17:53 | PN ---
Subjective Date of Service: 11/12/19 Interval History: Patient denied SOB, no chest pain, no palpitation. Afebrile overnight. Right leg stump was checked by ortho before discharge. Objective Active Medications: Albuterol/Ipratropium (Duoneb (Albuterol 2.5 Mg/Ipratropium 0.5 Mg)) 1 neb INH Q6H PRN PRN Reason: SOB/WHEEZING Atorvastatin Calcium (Lipitor*) 80 mg PO 1700 [facility] Last Admin: 11/12/19 17:22 Dose: 80 mg Buspirone HCl (Buspar Tab*) 30 mg PO BID [facility] Last Admin: 11/12/19 08:16 Dose: 30 mg Carvedilol (Coreg Tab*) 3.125 mg PO BID [facility] Dextrose (D50w Syringe 50 Ml*) 25 gm IV PUSH .FOR FS < 60 - SS PRN PRN Reason: FS < 60 Furosemide (Lasix Tab*) 40 mg PO DAILY [facility] Hydrochlorothiazide (Hydrodiuril Tab*) 12.5 mg PO DAILY [facility] Last Admin: 11/12/19 08:17 Dose: 12.5 mg Ceftriaxone Sodium 1 gm/ (Sodium Chloride) 50 mls @ 100 mls/hr IVPB Q24H [facility] Last Admin: 11/12/19 11:09 Dose: 100 mls/hr Insulin Glargine (Lantus(*)) 12 units SUBCUT 2100 [facility] Last Admin: 11/12/19 00:56 Dose: 12 units Insulin Human Lispro (Humalog*) 0 units SUBCUT ACHS [facility]; Protocol Last Admin: 11/12/19 17:22 Dose: 2 units Losartan Potassium (Cozaar Tab*) 50 mg PO DAILY [facility] Last Admin: 11/12/19 08:16 Dose: 50 mg Metformin HCl (Glucophage*) 1,000 mg PO 0800,1700 [facility] Last Admin: 11/12/19 17:22 Dose: 1,000 mg Metronidazole (Flagyl) 500 mg PO Q8H [facility] Last Admin: 11/12/19 17:22 Dose: 500 mg Mometasone Furoate/Formoterol Fumar (Dulera 200/5 Mdi*) 2 puff INH BID [facility]; Protocol Last Admin: 11/12/19 10:17 Dose: 2 puff Pantoprazole Sodium (Protonix Tab*) 40 mg PO DAILY PRN PRN Reason: INDIGESTION Tiotropium [place] (Spiriva Respimat 2.5 Mcg) 2 puff INH DAILY [facility] Last Admin: 11/12/19 10:16 Dose: 2 puff Venlafaxine HCl (Effexor Xr Cap*) 150 mg PO DAILY [facility] Last Admin: 11/12/19 08:16 Dose: 150 mg Vital Signs - 8 hr 11/12/19 11/12/19 11/12/19 10:22 11:15 15:15 Temperature 97.8 F 97.7 F Pulse Rate 87 91 83 Respiratory 18 16 18 Rate Blood Pressure 134/82 127/76 (mmHg) O2 Sat by Pulse 93 99 99 Oximetry Oxygen Devices in Use Now: Nasal Cannula Exam: Appearance: morbidly obese, comfortable lying on bed Eyes: No Scleral Icterus, PERRLA Ears/Nose/Mouth/Throat: Mucous Membranes Moist Neck: NL Appearance and Movements; NL JVP, Trachea Midline Respiratory: Symmetrical Chest Expansion and Respiratory Effort, clear on auscultation Cardiovascular: NL Sounds; No Murmurs; No JVD, no peripheral edema Abdominal: NL Sounds; No Tenderness; No Distention Extremities: - - R BKA stumped dressing in situ Neurological: Alert and Oriented x 3 Result Diagrams: 11/12/19 06:50 11/12/19 06:50 Diagnostic Imaging: TTE: moderate to severe diffuse hypokinesis of left ventricle, EF 30-35%. 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 - Patient Problems (1) Acute hypoxemic respiratory failure Current Visit: Yes Status: Acute Code(s): J96.01 - ACUTE RESPIRATORY FAILURE WITH HYPOXIA SNOMED Code(s): 976083480 Comment: pt presented with respiratory distress. CXR shows pulmonary edema IV lasix 40mg today strict I/O, daily weight, watch volume status closely (2) HFrEF (heart failure with reduced ejection fraction) Current Visit: Yes Status: Acute Code(s): I50.20 - UNSPECIFIED SYSTOLIC ( CONGESTIVE) HEART FAILURE SNOMED Code(s): 702591651 Comment: - newly depressed EF revealed in echo scan - appreciate cardiology consult, start coreg, already on losartan - stress test on Friday (3) COPD (chronic obstructive pulmonary disease) Current Visit: No Status: Acute Code(s): J44.9 - CHRONIC OBSTRUCTIVE PULMONARY DISEASE, UNSPECIFIED SNOMED Code(s): 10052585 Comment: - not on exacebation - counseled on tobacco cessation - Continue Duolera and duoneb prn (4) Hx of BKA Current Visit: No Status: Acute Code(s): Z89.519 - ACQUIRED ABSENCE OF UNSPECIFIED LEG BELOW KNEE SNOMED Code(s): 487422606 Comment: - ortho will continue to follow up his right foot stump - will continue ceftriaxone and flagyl while inpatient, switch to Delvance on discharge, f/u ID (5) Morbid obesity Current Visit: No Status: Acute Code(s): E66.01 - MORBID (SEVERE) OBESITY DUE TO EXCESS CALORIES SNOMED Code(s): 964907951 Comment: BMI 40.2 (6) DVT prophylaxis Current Visit: No Status: Acute Code(s): Z29.9 - ENCOUNTER FOR PROPHYLACTIC MEASURES, UNSPECIFIED SNOMED Code(s): 064710493 Comment: - lovenox Status and Disposition: Inpatient. Attestation Documenting Resident: Stacey Hadley Supervising Physician: Giuliano Hanley Attending/Supervising Physician Comment: Agree with assessment outlined in Dr. Hadley's note unless indicated here. acute decompensated systolic heart failure improved with lasix Newly identified reduced EF, q-waves on EKG - plan stress on friday JODIE - difficulty compliance with CPAP at home 2/2 anxiety/claustrophobia. Trial here. DM2- basal/bolus insulin Osteomyelitis, post BKA - abx as indicated NSVT - seen on tele. Started coreg. Monitor Prolonged QTc. - Repeat EKG Attestation: This service has been performed in part by a resident under the direction of a teaching physician.I, Giuliano Hanley, performed the service, or was physically present during the critical, or bean portions of the service, furnished by the resident. I participated in the management of the patient.
[2019-11-12] MEDS: Carvedilol TAB* 3.125 MG PO SCH (21:34)
[2019-11-13] MEDS: metroNIDAZOLE * 500 MG TABLET PO SCH ×4 (00:49→23:38)
[2019-11-13 06:10] LABS: ABS Basophils 0.1 10^3/ul (0-0.2); ABS Eosinophils 0.1 10^3/ul (0-0.6); ABS Lymphocytes 2.6 10^3/ul (1.0-4.8); ABS Monocytes 0.6 10^3/ul (0-0.8); ABS Neutrophils 4.8 10^3/ul (1.5-7.7); Eosinophil % 1.6 %; Hematocrit 38 % (42-52); Hemoglobin 12.8 g/dL (14.0-18.0); Lymphocyte % 31.6 %; Mean Corpuscular HGB Conc 34 g/dL (31-36); Mean Corpuscular Hemoglobin 29 pg (27-31); Mean Corpuscular Volume 86 fL (80-94); Mean Platelet Volume 9.7 fL (7.4-10.4); Platelet Count 299 10^3/uL (150-450); Red Blood Count 4.37 10^6 /uL (4.18-5.48); Red Cell Distribution Width 16 % (10-15); White Blood Count 8.2 10^3/uL (3.5-10.8)
[2019-11-13 06:27] LABS: BUN/Creatinine Ratio 20.9 (8-20); Calcium 8.6 mg/dL (8.6-10.3); EGFR African American 154.5 (>60); EGFR Non-African American 127.7 (>60); Potassium 3.3 mmol/L (3.5-5.0)
[2019-11-13 06:49] LABS: TSH (Thyroid Stimulating Horm) 0.8 mcIU/mL (0.34-5.60)
[2019-11-13] MEDS: Mometasone/Formoter 200/5 MDI INH SCH ×2 (07:26→19:15)
[2019-11-13] MEDS: SPIRIVA Respimat* (tiotropium) 2.5 mcg/inh Inhaler INH SCH (07:27)
--- NOTE | 2019-11-13 09:47 | PN ---
Subjective Date of Service: 11/13/19 Interval History: Patient had no more SOB, no chest pain, no palpitation. He denied any pain. Objective Active Medications: Albuterol/Ipratropium (Duoneb (Albuterol 2.5 Mg/Ipratropium 0.5 Mg)) 1 neb INH Q6H PRN PRN Reason: SOB/WHEEZING Last Admin: 11/12/19 20:37 Dose: 1 neb Atorvastatin Calcium (Lipitor*) 80 mg PO 1700 [facility] Last Admin: 11/12/19 17:22 Dose: 80 mg Buspirone HCl (Buspar Tab*) 30 mg PO BID [facility] Last Admin: 11/12/19 21:34 Dose: 30 mg Carvedilol (Coreg Tab*) 3.125 mg PO BID [facility] Last Admin: 11/12/19 21:34 Dose: 3.125 mg Dextrose (D50w Syringe 50 Ml*) 25 gm IV PUSH .FOR FS < 60 - SS PRN PRN Reason: FS < 60 Furosemide (Lasix Tab*) 40 mg PO DAILY [facility] Hydrochlorothiazide (Hydrodiuril Tab*) 12.5 mg PO DAILY [facility] Last Admin: 11/12/19 08:17 Dose: 12.5 mg Ceftriaxone Sodium 1 gm/ (Sodium Chloride) 50 mls @ 100 mls/hr IVPB Q24H [facility] Last Admin: 11/12/19 11:09 Dose: 100 mls/hr Insulin Glargine (Lantus(*)) 12 units SUBCUT 2100 [facility] Last Admin: 11/12/19 21:34 Dose: 12 units Insulin Human Lispro (Humalog*) 0 units SUBCUT ACHS [facility]; Protocol Last Admin: 11/12/19 21:34 Dose: Not Given Losartan Potassium (Cozaar Tab*) 50 mg PO DAILY [facility] Last Admin: 11/12/19 08:16 Dose: 50 mg Metformin HCl (Glucophage*) 1,000 mg PO 0800,1700 [facility] Last Admin: 11/12/19 17:22 Dose: 1,000 mg Metronidazole (Flagyl) 500 mg PO Q8H [facility] Last Admin: 11/13/19 00:49 Dose: 500 mg Mometasone Furoate/Formoterol Fumar (Dulera 200/5 Mdi*) 2 puff INH BID [facility]; Protocol Last Admin: 11/13/19 07:26 Dose: 2 puff Pantoprazole Sodium (Protonix Tab*) 40 mg PO DAILY PRN PRN Reason: INDIGESTION Potassium Chloride (Klor Con Er Tab*) 20 meq PO DAILY [facility] Stop: 11/16/19 08:59 Tiotropium [place] (Spiriva Respimat 2.5 Mcg) 2 puff INH DAILY [facility] Last Admin: 11/13/19 07:27 Dose: 2 puff Venlafaxine HCl (Effexor Xr Cap*) 150 mg PO DAILY [facility] Last Admin: 11/12/19 08:16 Dose: 150 mg Vital Signs - 8 hr 11/13/19 11/13/19 11/13/19 03:33 07:15 07:49 Temperature 97.3 F 97.1 F Pulse Rate 77 80 Respiratory 18 16 18 Rate Blood Pressure 107/59 116/58 (mmHg) O2 Sat by Pulse 99 94 Oximetry Oxygen Devices in Use Now: None Exam: Appearance: morbidly obese,sitting out on bed edge Eyes: No Scleral Icterus, PERRLA Ears/Nose/Mouth/Throat: Mucous Membranes Moist Neck: NL Appearance and Movements; NL JVP, Trachea Midline Respiratory: Symmetrical Chest Expansion and Respiratory Effort, clear on auscultation Cardiovascular: NL Sounds; No Murmurs; No JVD, no peripheral edema Abdominal: NL Sounds; No Tenderness; No Distention Extremities: - - R BKA stumped dressing in situ, left big toe wound dressed Neurological: Alert and Oriented x 3 Result Diagrams: 11/13/19 05:43 11/14/19 06:51 Diagnostic Imaging: TTE: moderate to severe diffuse hypokinesis of left ventricle, EF 30-35%. 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 - Patient Problems (1) Acute hypoxemic respiratory failure Current Visit: Yes Status: Acute Code(s): J96.01 - ACUTE RESPIRATORY FAILURE WITH HYPOXIA SNOMED Code(s): 608317534 Comment: pt presented with respiratory distress. CXR shows pulmonary edema IV lasix 40mg today strict I/O, daily weight, watch volume status closely (2) HFrEF (heart failure with reduced ejection fraction) Current Visit: Yes Status: Acute Code(s): I50.20 - UNSPECIFIED SYSTOLIC ( CONGESTIVE) HEART FAILURE SNOMED Code(s): 034603380 Comment: - newly depressed EF revealed in echo scan - appreciate cardiology consult, start coreg, already on losartan - stress test on Friday (3) COPD (chronic obstructive pulmonary disease) Current Visit: No Status: Acute Code(s): J44.9 - CHRONIC OBSTRUCTIVE PULMONARY DISEASE, UNSPECIFIED SNOMED Code(s): 84778040 Comment: - not on exacebation - counseled on tobacco cessation - Continue Duolera and duoneb prn (4) Hx of BKA Current Visit: No Status: Acute Code(s): Z89.519 - ACQUIRED ABSENCE OF UNSPECIFIED LEG BELOW KNEE SNOMED Code(s): 164188232 Comment: - ortho will continue to follow up his right foot stump, left big toe regular dressing change - will continue ceftriaxone and flagyl while inpatient, switch to Delvance on discharge, f/u ID (5) Morbid obesity Current Visit: No Status: Acute Code(s): E66.01 - MORBID (SEVERE) OBESITY DUE TO EXCESS CALORIES SNOMED Code(s): 843999201 Comment: BMI 40.2 (6) DVT prophylaxis Current Visit: No Status: Acute Code(s): Z29.9 - ENCOUNTER FOR PROPHYLACTIC MEASURES, UNSPECIFIED SNOMED Code(s): 204162955 Comment: - lovenox Status and Disposition: Inpatient. Attestation Documenting Resident: Stacey Hadley Supervising Physician: Sekou Steward Attending/Supervising Physician Comment: Man <48 with new onset systolic heart failure. Has improved w/ diuresis. Should be candidate for spironolactone upon discharge. ETT Friday. Attestation: This service has been performed in part by a resident under the direction of a teaching physician.I, Sekou Steward, performed the service, or was physically present during the critical, or bean portions of the service, furnished by the resident. I participated in the management of the patient.
[2019-11-13] MEDS: Insulin LISPRO* 1 UNITS UNIT SUBCUT SCH ×4 (09:50→20:39)
[2019-11-13] MEDS: Venlafaxine EXT RELEASE CAP* 75 MG PO SCH (09:56)
[2019-11-13] MEDS: Hydrochlorothiazide TAB* 25 MG PO SCH (09:56)
[2019-11-13] MEDS: Potassium Chlor TAB* 20 MEQ TAB.ER PO SCH (09:56)
[2019-11-13] MEDS: metFORMIN* 1,000 MG TAB PO SCH ×2 (09:57→16:21)
[2019-11-13] MEDS: Losartan TAB* 25 MG PO SCH (09:57)
[2019-11-13] MEDS: busPIRone TAB* 30 MG PO SCH ×2 (09:57→20:38)
[2019-11-13] MEDS: Furosemide TAB* 40 MG PO SCH (09:58)
[2019-11-13] MEDS: Carvedilol TAB* 3.125 MG PO SCH ×2 (09:58→20:38)
[2019-11-13] MEDS: cefTRIAXone(*) 1 GM in NS 0.9% 50 ML* 50 ML IVPB SCH (11:09)
[2019-11-13] MEDS: Atorvastatin* 80 MG TAB PO SCH (16:21)
[2019-11-13] MEDS: Insulin GLARGINE(*) 1 UNITS UNIT SUBCUT SCH (20:38)
[2019-11-14] MEDS: SPIRIVA Respimat* (tiotropium) 2.5 mcg/inh Inhaler INH SCH (07:37)
[2019-11-14] MEDS: Mometasone/Formoter 200/5 MDI INH SCH ×2 (07:37→19:52)
[2019-11-14] MEDS: Insulin LISPRO* 1 UNITS UNIT SUBCUT SCH ×4 (07:38→21:08)
[2019-11-14 07:39] LABS: BUN/Creatinine Ratio 21.7 (8-20); Calcium 8.8 mg/dL (8.6-10.3); EGFR African American 175.5 (>60); Magnesium 1.9 mg/dL (1.9-2.7); Potassium 3.2 mmol/L (3.5-5.0)
[2019-11-14] MEDS: Hydrochlorothiazide TAB* 25 MG PO SCH (08:14)
[2019-11-14] MEDS: Venlafaxine EXT RELEASE CAP* 75 MG PO SCH (08:15)
[2019-11-14] MEDS: Losartan TAB* 25 MG PO SCH (08:16)
[2019-11-14] MEDS: Furosemide TAB* 40 MG PO SCH (08:16)
[2019-11-14] MEDS: metroNIDAZOLE * 500 MG TABLET PO SCH ×2 (08:16→16:38)
[2019-11-14] MEDS: busPIRone TAB* 30 MG PO SCH ×2 (08:16→21:07)
[2019-11-14] MEDS: Carvedilol TAB* 3.125 MG PO SCH ×2 (08:17→21:06)
[2019-11-14] MEDS: Potassium Chlor TAB* 20 MEQ TAB.ER PO SCH ×3 (08:17→21:07)
[2019-11-14] MEDS: metFORMIN* 1,000 MG TAB PO SCH ×2 (08:17→16:38)
[2019-11-14] MEDS: cefTRIAXone(*) 1 GM in NS 0.9% 50 ML* 50 ML IVPB SCH (10:21)
--- NOTE | 2019-11-14 13:27 | PN ---
Subjective Date of Service: 11/14/19 Interval History: Patient states breathing is OK, better than on admission. He can transfer bed to chair w/ arms, LT leg. He learned today that he cannot go back to where he was staying w/ his niece. He is "not welcome on the premises" due to conflict with landlord. Family History: Unchanged from Admission Social History: Unchanged from Admission Past Medical History: Unchanged from Admission Objective Active Medications: Albuterol/Ipratropium (Duoneb (Albuterol 2.5 Mg/Ipratropium 0.5 Mg)) 1 neb INH Q6H PRN PRN Reason: SOB/WHEEZING Last Admin: 11/12/19 20:37 Dose: 1 neb Atorvastatin Calcium (Lipitor*) 80 mg PO 1700 [facility] Last Admin: 11/13/19 16:21 Dose: 80 mg Buspirone HCl (Buspar Tab*) 30 mg PO BID [facility] Last Admin: 11/14/19 08:16 Dose: 30 mg Carvedilol (Coreg Tab*) 3.125 mg PO BID [facility] Last Admin: 11/14/19 08:17 Dose: 3.125 mg Dextrose (D50w Syringe 50 Ml*) 25 gm IV PUSH .FOR FS < 60 - SS PRN PRN Reason: FS < 60 Furosemide (Lasix Tab*) 40 mg PO DAILY [facility] Last Admin: 11/14/19 08:16 Dose: 40 mg Hydrochlorothiazide (Hydrodiuril Tab*) 12.5 mg PO DAILY [facility] Last Admin: 11/14/19 08:14 Dose: 12.5 mg Ceftriaxone Sodium 1 gm/ (Sodium Chloride) 50 mls @ 100 mls/hr IVPB Q24H [facility] Last Admin: 11/14/19 10:21 Dose: 100 mls/hr Insulin Glargine (Lantus(*)) 12 units SUBCUT 2100 [facility] Last Admin: 11/13/19 20:38 Dose: 12 units Insulin Human Lispro (Humalog*) 0 units SUBCUT ACHS [facility]; Protocol Last Admin: 11/14/19 11:53 Dose: 2 units Losartan Potassium (Cozaar Tab*) 50 mg PO DAILY [facility] Last Admin: 11/14/19 08:16 Dose: 50 mg Metformin HCl (Glucophage*) 1,000 mg PO 0800,1700 [facility] Last Admin: 11/14/19 08:17 Dose: 1,000 mg Metronidazole (Flagyl) 500 mg PO Q8H [facility] Last Admin: 11/14/19 08:16 Dose: 500 mg Mometasone Furoate/Formoterol Fumar (Dulera 200/5 Mdi*) 2 puff INH BID [facility]; Protocol Last Admin: 11/14/19 07:37 Dose: 2 puff Pantoprazole Sodium (Protonix Tab*) 40 mg PO DAILY PRN PRN Reason: INDIGESTION Potassium Chloride (Klor Con Er Tab*) 20 meq PO BID [facility] Stop: 11/15/19 13:59 Spironolactone (Aldactone Tab*) 25 mg PO DAILY [facility] Tiotropium [place] (Spiriva Respimat 2.5 Mcg) 2 puff INH DAILY [facility] Last Admin: 11/14/19 07:37 Dose: 2 puff Venlafaxine HCl (Effexor Xr Cap*) 150 mg PO DAILY [facility] Last Admin: 11/14/19 08:15 Dose: 150 mg Vital Signs - 8 hr 11/14/19 11/14/19 11/14/19 07:15 07:33 07:39 Temperature 36.3 C Pulse Rate 67 68 Respiratory 16 16 16 Rate Blood Pressure 110/57 (mmHg) O2 Sat by Pulse 96 95 Oximetry 11/14/19 11:15 Temperature 36.4 C Pulse Rate 68 Respiratory 18 Rate Blood Pressure 114/72 (mmHg) O2 Sat by Pulse 96 Oximetry Oxygen Devices in Use Now: None Appearance: alert, no distress Eyes: No Scleral Icterus Ears/Nose/Mouth/Throat: Clear Oropharnyx, - - poor dentition Neck: Trachea Midline Respiratory: Symmetrical Chest Expansion and Respiratory Effort, Clear to Auscultation Cardiovascular: NL Sounds; No Murmurs; No JVD, RRR Extremities: - - RT BK amp, LT gibson w/ chronic venostasis changes, 1+ edema Neurological: Alert and Oriented x 3 Lines/Tubes/Other Access: Clean, Dry and Intact Peripheral IV Nutrition: Taking PO's Result Diagrams: 11/13/19 05:43 11/14/19 06:51 Additional Lab and Data: Laboratory Tests 11/13/19 11/14/19 11/14/19 19:47 06:51 07:17 Glucose 103 H POC Glucose (mg/dL) 124 H 118 H 11/14/19 11:19 Glucose POC Glucose (mg/dL) 150 H Microbiology and Other Data: Microbiology 11/11/19 20:20 Aerobic Blood Culture - Preliminary Blood Venous No Growth Day 2 Anaerobic Blood Culture - Preliminary No Growth Day 2 11/11/19 20:20 Aerobic Blood Culture - Preliminary Blood Venous No Growth Day 2 Anaerobic Blood Culture - Preliminary No Growth Day 2 Assess/Plan/Problems-Billing Assessment: Bhargav Dean is a 44 years old male with history of T2DM, COPD, mobid obesity s/ p gastric bypass, recent right BKA for OM on abx, presented with shortness of breath and chest pressure, found to have pulmonary edema, volume overload, with newly depressed EF on echo. - Patient Problems (1) Acute hypoxemic respiratory failure Current Visit: Yes Status: Acute Priority: High Code(s): J96.01 - ACUTE RESPIRATORY FAILURE WITH HYPOXIA SNOMED Code(s): 825203882 Comment: -pt presented w/ pulmonary edema -On PO lasix 40mg today strict I/O, daily weight, watch volume status closely (2) HFrEF (heart failure with reduced ejection fraction) Current Visit: Yes Status: Acute Code(s): I50.20 - UNSPECIFIED SYSTOLIC ( CONGESTIVE) HEART FAILURE SNOMED Code(s): 320433260 Comment: - newly depressed EF revealed in echo - appreciate cardiology consult - stress test on Friday - starting spironolactone tomorrow (3) COPD (chronic obstructive pulmonary disease) Current Visit: Yes Status: Acute Priority: Medium Code(s): J44.9 - CHRONIC OBSTRUCTIVE PULMONARY DISEASE, UNSPECIFIED SNOMED Code(s): 11221978 Comment: - not on exacebation - counseled on tobacco cessation - Continue Duolera and duoneb prn (4) Hx of BKA Current Visit: Yes Status: Acute Code(s): Z89.519 - ACQUIRED ABSENCE OF UNSPECIFIED LEG BELOW KNEE SNOMED Code(s): 005496703 Comment: - due to recent osteomyelitis will continue ceftriaxone and flagyl while inpatient, switch to Delvance on discharge, f/u ID (5) Morbid obesity Current Visit: No Status: Acute Code(s): E66.01 - MORBID (SEVERE) OBESITY DUE TO EXCESS CALORIES SNOMED Code(s): 849849565 Comment: BMI 40.2 (6) DVT prophylaxis Current Visit: No Status: Acute Code(s): Z29.9 - ENCOUNTER FOR PROPHYLACTIC MEASURES, UNSPECIFIED SNOMED Code(s): 761724886 Comment: - lovenox (7) Type 2 diabetes mellitus Current Visit: Yes Status: Acute Priority: Medium Comment: -glucose under good control at present -continue metformin (8) Hypokalemia due to excessive renal loss of potassium Current Visit: Yes Status: Acute Priority: Medium Code(s): E87.6 - HYPOKALEMIA SNOMED Code(s): 33280375 Comment: -Will cut down lasix, add spironolactone -KCl supplemented today, will stop tomorrow and recheck K,Mg (9) Homeless Current Visit: Yes Status: Acute Priority: Medium Code(s): Z59.0 - HOMELESSNESS SNOMED Code(s): 38378204 Comment: -Social work and discharge planning will begin addressing tomorrow. Status and Disposition: Inpatient.
[2019-11-14] MEDS: Atorvastatin* 80 MG TAB PO SCH (16:38)
[2019-11-14] MEDS: Pregabalin 50 mg CAP (*) PO SCH (21:06)
[2019-11-14] MEDS: Insulin GLARGINE(*) 1 UNITS UNIT SUBCUT SCH (21:07)
[2019-11-15] MEDS: metroNIDAZOLE * 500 MG TABLET PO SCH ×4 (00:35→23:50)
[2019-11-15 01:37] LABS: BUN/Creatinine Ratio 18.2 (8-20); Calcium 9.5 mg/dL (8.6-10.3); EGFR African American 131.6 (>60); EGFR Non-African American 108.8 (>60); Magnesium 1.9 mg/dL (1.9-2.7); Potassium 4.5 mmol/L (3.5-5.0)
[2019-11-15 06:47] LABS: BUN/Creatinine Ratio 18.6 (8-20); Calcium 9.1 mg/dL (8.6-10.3); EGFR African American 146.9 (>60); EGFR Non-African American 121.4 (>60); Potassium 3.7 mmol/L (3.5-5.0)
[2019-11-15] MEDS: Insulin LISPRO* 1 UNITS UNIT SUBCUT SCH ×4 (07:31→20:20)
[2019-11-15] MEDS: Mometasone/Formoter 200/5 MDI INH SCH ×2 (07:41→19:30)
[2019-11-15] MEDS: SPIRIVA Respimat* (tiotropium) 2.5 mcg/inh Inhaler INH SCH (07:41)
[2019-11-15] MEDS: busPIRone TAB* 30 MG PO SCH ×2 (09:03→21:19)
[2019-11-15] MEDS: cefTRIAXone(*) 1 GM in NS 0.9% 50 ML* 50 ML IVPB SCH (09:03)
[2019-11-15] MEDS: Potassium Chlor TAB* 20 MEQ TAB.ER PO SCH (09:04)
[2019-11-15] MEDS: Hydrochlorothiazide TAB* 25 MG PO SCH (09:04)
[2019-11-15] MEDS: Losartan TAB* 25 MG PO SCH (09:04)
[2019-11-15] MEDS: Venlafaxine EXT RELEASE CAP* 75 MG PO SCH (09:04)
[2019-11-15] MEDS: Furosemide TAB* 20 MG PO SCH (09:05)
[2019-11-15] MEDS: Carvedilol TAB* 3.125 MG PO SCH ×2 (09:05→21:19)
[2019-11-15] MEDS: Pregabalin 50 mg CAP (*) PO SCH ×3 (09:05→21:19)
[2019-11-15] MEDS: Spironolactone TAB* 25 MG PO SCH (09:06)
[2019-11-15] MEDS: metFORMIN* 1,000 MG TAB PO SCH ×2 (09:06→17:35)
--- NOTE | 2019-11-15 10:41 | PN ---
Subjective Date of Service: 11/15/19 Interval History: Patient was doing well, afebrile, no SOB, chest pain. 6 beats of NSVT. He felt his right leg swelling went down tremendously. Objective Active Medications: Albuterol/Ipratropium (Duoneb (Albuterol 2.5 Mg/Ipratropium 0.5 Mg)) 1 neb INH Q6H PRN PRN Reason: SOB/WHEEZING Last Admin: 11/12/19 20:37 Dose: 1 neb Atorvastatin Calcium (Lipitor*) 80 mg PO 1700 ON LICENSE OF [facility] Last Admin: 11/14/19 16:38 Dose: 80 mg Buspirone HCl (Buspar Tab*) 30 mg PO BID ON LICENSE OF [facility] Last Admin: 11/15/19 09:03 Dose: 30 mg Carvedilol (Coreg Tab*) 3.125 mg PO BID ON LICENSE OF [facility] Last Admin: 11/15/19 09:05 Dose: 3.125 mg Dextrose (D50w Syringe 50 Ml*) 25 gm IV PUSH .FOR FS < 60 - SS PRN PRN Reason: FS < 60 Furosemide (Lasix Tab*) 20 mg PO DAILY ON LICENSE OF [facility] Last Admin: 11/15/19 09:05 Dose: 20 mg Hydrochlorothiazide (Hydrodiuril Tab*) 12.5 mg PO DAILY ON [facility] OF [facility] Last Admin: 11/15/19 09:04 Dose: 12.5 mg Ceftriaxone Sodium 1 gm/ (Sodium Chloride) 50 mls @ 100 mls/hr IVPB Q24H ON LICENSE OF [facility] Last Admin: 11/15/19 09:03 Dose: 100 mls/hr Insulin Glargine (Lantus(*)) 12 units SUBCUT 2100 ON LICENSE OF [facility] Last Admin: 11/14/19 21:07 Dose: 12 units Insulin Human Lispro (Humalog*) 0 units SUBCUT ACHS ON LICENSE OF [facility]; Protocol Last Admin: 11/15/19 07:31 Dose: Not Given Losartan Potassium (Cozaar Tab*) 50 mg PO DAILY ON LICENSE OF [facility] Last Admin: 11/15/19 09:04 Dose: 50 mg Metformin HCl (Glucophage*) 1,000 mg PO 0800,1700 ON LICENSE OF [facility] Last Admin: 11/15/19 09:06 Dose: 1,000 mg Metronidazole (Flagyl) 500 mg PO Q8H ON LICENSE OF [facility] Last Admin: 11/15/19 09:03 Dose: 500 mg Mometasone Furoate/Formoterol Fumar (Dulera 200/5 Mdi*) 2 puff INH BID ON LICENSE OF [facility]; Protocol Last Admin: 11/15/19 07:41 Dose: 2 puff Pantoprazole Sodium (Protonix Tab*) 40 mg PO DAILY PRN PRN Reason: INDIGESTION Potassium Chloride (Klor Con Er Tab*) 20 meq PO BID ON LICENSE OF [facility] Stop: 11/15/19 13:59 Last Admin: 11/15/19 09:04 Dose: 20 meq Pregabalin (Lyrica 50 Mg Cap (*)) 150 mg PO TID ON LICENSE OF [facility] Last Admin: 11/15/19 09:05 Dose: 150 mg Spironolactone (Aldactone Tab*) 25 mg PO DAILY ON [facility] OF [facility] Last Admin: 11/15/19 09:06 Dose: 25 mg Tiotropium [place] (Spiriva Respimat 2.5 Mcg) 2 puff INH DAILY ON [facility] OF [facility] Last Admin: 11/15/19 07:41 Dose: 2 puff Venlafaxine HCl (Effexor Xr Cap*) 150 mg PO DAILY ON LICENSE OF [facility] Last Admin: 11/15/19 09:04 Dose: 150 mg Vital Signs - 8 hr 11/15/19 11/15/19 11/15/19 03:15 07:31 07:32 Temperature 97.4 F 98.1 F Pulse Rate 66 79 Respiratory 16 16 18 Rate Blood Pressure 108/68 131/72 (mmHg) O2 Sat by Pulse 95 96 Oximetry 11/15/19 11/15/19 07:43 09:05 Temperature Pulse Rate 68 Respiratory 18 16 Rate Blood Pressure (mmHg) O2 Sat by Pulse 96 Oximetry Oxygen Devices in Use Now: None Exam: Appearance: morbidly obese,sitting on recliner. Eyes: No Scleral Icterus, PERRLA Ears/Nose/Mouth/Throat: Mucous Membranes Moist Neck: NL Appearance and Movements; NL JVP, Trachea Midline Respiratory: Symmetrical Chest Expansion and Respiratory Effort, clear on auscultation Cardiovascular: NL Sounds; No Murmurs; No JVD, no peripheral edema Abdominal: NL Sounds; No Tenderness; No Distention Extremities: - - R BKA stumped on protector Neurological: Alert and Oriented x 3 Result Diagrams: 11/13/19 05:43 11/15/19 06:07 Additional Lab and Data: Laboratory Tests 11/13/19 11/14/19 11/14/19 19:47 06:51 07:17 Glucose 103 H POC Glucose (mg/dL) 124 H 118 H 11/14/19 11:19 Glucose POC Glucose (mg/dL) 150 H Microbiology and Other Data: Microbiology 11/11/19 20:20 Aerobic Blood Culture - Preliminary Blood Venous No Growth Day 2 Anaerobic Blood Culture - Preliminary No Growth Day 2 11/11/19 20:20 Aerobic Blood Culture - Preliminary Blood Venous No Growth Day 2 Anaerobic Blood Culture - Preliminary No Growth Day 2 Diagnostic Imaging: TTE: moderate to severe diffuse hypokinesis of left ventricle, EF 30-35%. 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 - Patient Problems (1) Acute hypoxemic respiratory failure Current Visit: Yes Status: Acute Priority: High Code(s): J96.01 - ACUTE RESPIRATORY FAILURE WITH HYPOXIA SNOMED Code(s): 044421139 Comment: -pt presented w/ pulmonary edema - continue oral lasix and spironolactone. - strict I/O, daily weight, watch volume status closely - monitor K (2) HFrEF (heart failure with reduced ejection fraction) Current Visit: Yes Status: Acute Code(s): I50.20 - UNSPECIFIED SYSTOLIC ( CONGESTIVE) HEART FAILURE SNOMED Code(s): 688495621 Comment: - newly depressed EF revealed in echo - appreciate cardiology consult - stress test today (3) COPD (chronic obstructive pulmonary disease) Current Visit: Yes Status: Acute Priority: Medium Code(s): J44.9 - CHRONIC OBSTRUCTIVE PULMONARY DISEASE, UNSPECIFIED SNOMED Code(s): 68486771 Comment: - not on exacebation - counseled on tobacco cessation - Continue Duolera and duoneb prn (4) Hx of BKA Current Visit: Yes Status: Acute Code(s): Z89.519 - ACQUIRED ABSENCE OF UNSPECIFIED LEG BELOW KNEE SNOMED Code(s): 995528384 Comment: - due to recent osteomyelitis will continue ceftriaxone and flagyl while inpatient, switch to Delvance on discharge, f/u ID (5) Morbid obesity Current Visit: No Status: Acute Code(s): E66.01 - MORBID (SEVERE) OBESITY DUE TO EXCESS CALORIES SNOMED Code(s): 002382321 Comment: BMI 40.2 (6) DVT prophylaxis Current Visit: No Status: Acute Code(s): Z29.9 - ENCOUNTER FOR PROPHYLACTIC MEASURES, UNSPECIFIED SNOMED Code(s): 796757697 Comment: - lovenox Status and Disposition: Inpatient. Attestation Documenting Resident: Stacey Hadley Supervising Physician: Sekou Steward Attending/Supervising Physician Comment: Stress test planned today, possible ischemic cardiomyopathy. Also has become homeless, SW aware. Attestation: This service has been performed in part by a resident under the direction of a teaching physician.I, Sekou Steward, performed the service, or was physically present during the critical, or bean portions of the service, furnished by the resident. I participated in the management of the patient.
[2019-11-15] MEDS ORDERED: Regadenoson* 0.4 MG/5 ML SYRINGE ONE (13:21)
--- NOTE | 2019-11-15 16:44 | PN ---
Progress Note - Progress Note Date of Service: 11/15/19 SOAP: Subjective: []Pt seen OOB in wheelchair. He feels well without fever or chills. Breathing easier. Objective: []Gen: NAD, nontoxic appearing RLE: Incision healing well, Incision well approximated. Swelling, erythema have resolved. There is no discharge. LLE: Lateral great toe wound improving, now pea sized without erythema or discharge. Assessment: []SP RLE BKA L great toe ulcer Plan: []WBAT LLE NWB RLE Keep leslie in place, keep dressed, cont stump shield. Will see later this week if still in house, otherwise fu Dr Hernandez Friday in clinic for wound check Vital Signs Temp 97.6 F 11/15/19 11:15 Pulse 84 11/15/19 11:15 Resp 18 11/15/19 15:09 BP 113/66 11/15/19 11:15 Pulse Ox 98 11/15/19 11:15 Intake & Output 11/14/19 11/15/19 11/15/19 18:59 06:59 18:59 Intake Total 1100 480 0 Output Total 500 1050 Balance 600 -570 0 Weight 328 lb 9.6 oz Intake: IVPB 60 ABX - CEFTRIAXONE 60 Oral 1040 480 0 Output: Urine 500 1050 Other: Date of Last Bowel 11/14/2019 Movement # Bowel Movements 1 Estimated Stool Amount Medium # Voids 2 Laboratory Last Values WBC 8.2 10^3/uL (3.5-10.8) 11/13/19 05:43 RBC 4.37 10^6 /uL (4.18-5.48) 11/13/19 05:43 Hgb 12.8 g/dL (14.0-18.0) L 11/13/19 05:43 Hct 38 % (42-52) L 11/13/19 05:43 MCV 86 fL (80-94) 11/13/19 05:43 MCH 29 pg (27-31) 11/13/19 05:43 MCHC 34 g/dL (31-36) 11/13/19 05:43 RDW 16 % (10-15) H 11/13/19 05:43 Plt Count 299 10^3/uL (150-450) 11/13/19 05:43 MPV 9.7 fL (7.4-10.4) 11/13/19 05:43 Neut % (Auto) 58.4 % 11/13/19 05:43 Lymph % (Auto) 31.6 % 11/13/19 05:43 [place]comb % (Auto) 7.7 % 11/13/19 05:43 Eos % (Auto) 1.6 % 11/13/19 05:43 Baso % (Auto) 0.7 % 11/13/19 05:43 Absolute Neuts (auto) 4.8 10^3/ul (1.5-7.7) 11/13/19 05:43 Absolute Lymphs (auto) 2.6 10^3/ul (1.0-4.8) 11/13/19 05:43 Absolute Monos (auto) 0.6 10^3/ul (0-0.8) 11/13/19 05:43 Absolute Eos (auto) 0.1 10^3/ul (0-0.6) 11/13/19 05:43 Absolute Basos (auto) 0.1 10^3/ul (0-0.2) 11/13/19 05:43 Absolute Nucleated RBC 0.0 10^3/ul 11/13/19 05:43 Nucleated RBC % 0.0 11/13/19 05:43 INR (Anticoag Therapy) 1.18 (0.82-1.09) H 11/11/19 20:20 APTT 38.3 seconds (26.0-38.0) H 11/11/19 20:20 Patient Temperature Not Reportable 11/11/19 20:16 ABG pH 7.38 (7.35-7.45) 11/11/19 20:16 ABG pH (Temp Correct) Not Reportable 11/11/19 20:16 ABG pCO2 40 mmHg (35-45) 11/11/19 20:16 ABG pCO2 (Temp Corrct Not Reportable 11/11/19 20:16 ABG pO2 87 mmHg (80-100) 11/11/19 20:16 ABG pO2 (Temp Correct Not Reportable 11/11/19 20:16 ABG HCO3 23.9 mmol/L (19-31) 11/11/19 20:16 ABG O2 Saturation 97.6 % (94.0-98.0) 11/11/19 20:16 ABG Base Excess -1.3 mmol/L (-2.0-2.0) 11/11/19 20:16 Respiration Rate Not Reportable 11/11/19 20:16 O2 Delivery Device N/c 11/11/19 20:16 Ventilator Type Not Reportable 11/11/19 20:16 Vent Mode Not Reportable 11/11/19 20:16 FiO2 Not Reportable 11/11/19 20:16 Inspiratory Time Not Reportable 11/11/19 20:16 PEEP Not Reportable 11/11/19 20:16 Pressure Support Not Reportable 11/11/19 20:16 Pressure Control Not Reportable 11/11/19 20:16 EPAP Not Reportable 11/11/19 20:16 IPAP Not Reportable 11/11/19 20:16 BiPAP Not Reportable 11/11/19 20:16 Sodium 139 mmol/L (135-145) 11/15/19 06:07 Potassium 3.7 mmol/L (3.5-5.0) 11/15/19 06:07 Chloride 101 mmol/L (101-111) 11/15/19 06:07 Carbon Dioxide 33 mmol/L (22-32) H 11/15/19 06:07 Anion Gap 5 mmol/L (2-11) 11/15/19 06:07 BUN 13 mg/dL (6-24) 11/15/19 06:07 Creatinine 0.70 mg/dL (0.67-1.17) 11/15/19 06:07 Est GFR ( Amer) 146.9 (>60) 11/15/19 06:07 Est GFR (Non-Af Amer) 121.4 (>60) 11/15/19 06:07 BUN/Creatinine Ratio 18.6 (8-20) 11/15/19 06:07 Glucose 108 mg/dL (70-100) H 11/15/19 06:07 POC Glucose (mg/dL) 147 mg/dL (70-100) H 11/15/19 14:45 Lactic Acid 1.2 mmol/L (0.5-2.0) 11/11/19 20:20 Calcium 9.1 mg/dL (8.6-10.3) 11/15/19 06:07 Magnesium 2.0 mg/dL (1.9-2.7) 11/15/19 06:07 Total Bilirubin 0.60 mg/dL (0.2-1.0) 11/11/19 20:20 AST 18 U/L (13-39) 11/11/19 20:20 ALT 14 U/L (7-52) 11/11/19 20:20 Alkaline Phosphatase 60 U/L (34-104) 11/11/19 20:20 Troponin I 0.02 ng/mL (<0.03) 11/11/19 23:13 B-Natriuretic Peptide 444 pg/mL (<=100) H 11/11/19 20:20 Total Protein 8.5 g/dL (6.4-8.9) 11/11/19 20:20 Albumin 3.7 g/dL (3.2-5.2) 11/11/19 20:20 Globulin 4.8 g/dL (2-4) H 11/11/19 20:20 Albumin/Globulin Ratio 0.8 (1-3) L 11/11/19 20:20 TSH 0.80 mcIU/mL (0.34-5.60) 11/13/19 05:43
[2019-11-15] MEDS: Atorvastatin* 80 MG TAB PO SCH (17:35)
[2019-11-15] MEDS: Insulin GLARGINE(*) 1 UNITS UNIT SUBCUT SCH (21:19)
[2019-11-16] MEDS: Insulin LISPRO* 1 UNITS UNIT SUBCUT SCH ×4 (06:35→21:05)
[2019-11-16] MEDS: Mometasone/Formoter 200/5 MDI INH SCH ×2 (08:17→19:29)
[2019-11-16] MEDS: SPIRIVA Respimat* (tiotropium) 2.5 mcg/inh Inhaler INH SCH (08:17)
[2019-11-16] MEDS: Hydrochlorothiazide TAB* 25 MG PO SCH (10:18)
[2019-11-16] MEDS: metroNIDAZOLE * 500 MG TABLET PO SCH ×3 (10:19→23:44)
[2019-11-16] MEDS: Pregabalin 50 mg CAP (*) PO SCH ×3 (10:19→21:05)
[2019-11-16] MEDS: Venlafaxine EXT RELEASE CAP* 75 MG PO SCH (10:19)
[2019-11-16] MEDS: busPIRone TAB* 30 MG PO SCH ×2 (10:19→21:06)
[2019-11-16] MEDS: Losartan TAB* 25 MG PO SCH (10:20)
[2019-11-16] MEDS: metFORMIN* 1,000 MG TAB PO SCH ×2 (10:20→17:00)
[2019-11-16] MEDS: Spironolactone TAB* 25 MG PO SCH (10:20)
[2019-11-16] MEDS: Furosemide TAB* 20 MG PO SCH (10:20)
[2019-11-16] MEDS: Carvedilol TAB* 3.125 MG PO SCH ×2 (10:20→21:06)
[2019-11-16] MEDS: cefTRIAXone(*) 1 GM in NS 0.9% 50 ML* 50 ML IVPB SCH (10:20)
--- NOTE | 2019-11-16 16:19 | PN ---
Subjective Date of Service: 11/16/19 Interval History: Patient is doing well. No chest pain, no palpitation. Patient is not keen for JANI, but would like manager social services help getting an apartment. Objective Active Medications: Albuterol/Ipratropium (Duoneb (Albuterol 2.5 Mg/Ipratropium 0.5 Mg)) 1 neb INH Q6H PRN PRN Reason: SOB/WHEEZING Last Admin: 11/12/19 20:37 Dose: 1 neb Atorvastatin Calcium (Lipitor*) 80 mg PO 1700 [facility] Last Admin: 11/15/19 17:35 Dose: 80 mg Buspirone HCl (Buspar Tab*) 30 mg PO BID [facility] Last Admin: 11/16/19 10:19 Dose: 30 mg Carvedilol (Coreg Tab*) 6.25 mg PO BID [facility] Dextrose (D50w Syringe 50 Ml*) 25 gm IV PUSH .FOR FS < 60 - SS PRN PRN Reason: FS < 60 Furosemide (Lasix Tab*) 20 mg PO DAILY [facility] Last Admin: 11/16/19 10:20 Dose: 20 mg Hydrochlorothiazide (Hydrodiuril Tab*) 12.5 mg PO DAILY [facility] Last Admin: 11/16/19 10:18 Dose: 12.5 mg Ceftriaxone Sodium 1 gm/ (Sodium Chloride) 50 mls @ 100 mls/hr IVPB Q24H [facility] Last Admin: 11/16/19 10:20 Dose: 100 mls/hr Insulin Glargine (Lantus(*)) 12 units SUBCUT 2100 [facility] Last Admin: 11/15/19 21:19 Dose: 12 units Insulin Human Lispro (Humalog*) 0 units SUBCUT ACHS [facility]; Protocol Last Admin: 11/16/19 12:31 Dose: 6 units Losartan Potassium (Cozaar Tab*) 50 mg PO DAILY [facility] Last Admin: 11/16/19 10:20 Dose: 50 mg Metformin HCl (Glucophage*) 1,000 mg PO 0800,1700 [facility] Last Admin: 11/16/19 10:20 Dose: 1,000 mg Metronidazole (Flagyl) 500 mg PO Q8H [facility] Last Admin: 11/16/19 10:19 Dose: 500 mg Mometasone Furoate/Formoterol Fumar (Dulera 200/5 Mdi*) 2 puff INH BID [facility]; Protocol Last Admin: 11/16/19 08:17 Dose: 2 puff Pantoprazole Sodium (Protonix Tab*) 40 mg PO DAILY PRN PRN Reason: INDIGESTION Pregabalin (Lyrica 50 Mg Cap (*)) 150 mg PO TID [facility] Last Admin: 11/16/19 13:58 Dose: 150 mg Spironolactone (Aldactone Tab*) 25 mg PO DAILY [facility] Last Admin: 11/16/19 10:20 Dose: 25 mg Tiotropium [place] (Spiriva Respimat 2.5 Mcg) 2 puff INH DAILY [facility] Last Admin: 11/16/19 08:17 Dose: 2 puff Venlafaxine HCl (Effexor Xr Cap*) 150 mg PO DAILY [facility] Last Admin: 11/16/19 10:19 Dose: 150 mg Vital Signs - 8 hr 11/16/19 11/16/19 11/16/19 08:18 10:19 10:56 Temperature 98.2 F Pulse Rate 82 89 Respiratory 18 18 16 Rate Blood Pressure 118/61 (mmHg) O2 Sat by Pulse 93 98 Oximetry 11/16/19 11/16/19 11/16/19 12:32 13:58 15:04 Temperature 97.1 F Pulse Rate 85 Respiratory 18 18 16 Rate Blood Pressure 104/68 (mmHg) O2 Sat by Pulse 97 Oximetry Oxygen Devices in Use Now: None Exam: Appearance: morbidly obese,sitting on recliner. Eyes: No Scleral Icterus, PERRLA Ears/Nose/Mouth/Throat: Mucous Membranes Moist Neck: NL Appearance and Movements; NL JVP, Trachea Midline Respiratory: Symmetrical Chest Expansion and Respiratory Effort, clear on auscultation Cardiovascular: NL Sounds; No Murmurs; No JVD, no peripheral edema Abdominal: NL Sounds; No Tenderness; No Distention Extremities: - - R BKA stumped on protector Neurological: Alert and Oriented x 3 Result Diagrams: 11/17/19 06:55 11/17/19 06:55 Additional Lab and Data: Laboratory Tests 11/13/19 11/14/19 11/14/19 19:47 06:51 07:17 Glucose 103 H POC Glucose (mg/dL) 124 H 118 H 11/14/19 11:19 Glucose POC Glucose (mg/dL) 150 H Microbiology and Other Data: Microbiology 11/11/19 20:20 Aerobic Blood Culture - Preliminary Blood Venous No Growth Day 2 Anaerobic Blood Culture - Preliminary No Growth Day 2 11/11/19 20:20 Aerobic Blood Culture - Preliminary Blood Venous No Growth Day 2 Anaerobic Blood Culture - Preliminary No Growth Day 2 Diagnostic Imaging: TTE: moderate to severe diffuse hypokinesis of left ventricle, EF 30-35%. 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 Awaiting for placement. - Patient Problems (1) Acute hypoxemic respiratory failure Current Visit: Yes Status: Acute Priority: High Code(s): J96.01 - ACUTE RESPIRATORY FAILURE WITH HYPOXIA SNOMED Code(s): 872558649 Comment: - pt presented w/ pulmonary edema - continue oral lasix and spironolactone. - strict I/O, daily weight, watch volume status closely - repeat BMP tomorrow (2) HFrEF (heart failure with reduced ejection fraction) Current Visit: Yes Status: Acute Code(s): I50.20 - UNSPECIFIED SYSTOLIC ( CONGESTIVE) HEART FAILURE SNOMED Code(s): 271922202 Comment: - newly depressed EF revealed in echo - appreciate cardiology consult - stress test showing fixed effect in inferolateral wall without definite reversibility - medically optimized, coreg, losartan, spironolactone (3) COPD (chronic obstructive pulmonary disease) Current Visit: Yes Status: Acute Priority: Medium Code(s): J44.9 - CHRONIC OBSTRUCTIVE PULMONARY DISEASE, UNSPECIFIED SNOMED Code(s): 01381484 Comment: - not on exacebation - counseled on tobacco cessation - Continue Duolera and duoneb prn (4) Hx of BKA Current Visit: Yes Status: Acute Code(s): Z89.519 - ACQUIRED ABSENCE OF UNSPECIFIED LEG BELOW KNEE SNOMED Code(s): 296763714 Comment: - due to recent osteomyelitis will continue ceftriaxone and flagyl while inpatient, switch to Delvance on discharge, f/u ID - orthopedic following (5) Morbid obesity Current Visit: No Status: Acute Code(s): E66.01 - MORBID (SEVERE) OBESITY DUE TO EXCESS CALORIES SNOMED Code(s): 175969646 Comment: BMI 40.2 (6) DVT prophylaxis Current Visit: No Status: Acute Code(s): Z29.9 - ENCOUNTER FOR PROPHYLACTIC MEASURES, UNSPECIFIED SNOMED Code(s): 536038311 Comment: - lovenox Status and Disposition: Inpatient. Awaiting [facility] placement Attestation Documenting Resident: Stacey Hadley Supervising Physician: Sekou Steward Attending/Supervising Physician Comment: Patient with new onset HFrEF, ischemic cardiomyopathy, but stress test shows no reversibility. Stable for discharge, housing issues, possible JANI due to recent BKA. Attestation: This service has been performed in part by a resident under the direction of a teaching physician.I, Sekou Steward, performed the service, or was physically present during the critical, or bean portions of the service, furnished by the resident. I participated in the management of the patient.
[2019-11-16] MEDS: Atorvastatin* 80 MG TAB PO SCH (17:00)
[2019-11-16] MEDS: Insulin GLARGINE(*) 1 UNITS UNIT SUBCUT SCH (21:04)
[2019-11-17 07:00] LABS: ABS Basophils 0.1 10^3/ul (0-0.2); ABS Eosinophils 0.3 10^3/ul (0-0.6); ABS Lymphocytes 2.9 10^3/ul (1.0-4.8); ABS Monocytes 0.7 10^3/ul (0-0.8); ABS Neutrophils 4.3 10^3/ul (1.5-7.7); Eosinophil % 4.1 %; Hematocrit 44 % (42-52); Hemoglobin 14.6 g/dL (14.0-18.0); Lymphocyte % 34.6 %; Mean Corpuscular HGB Conc 34 g/dL (31-36); Mean Corpuscular Hemoglobin 29 pg (27-31); Mean Corpuscular Volume 86 fL (80-94); Mean Platelet Volume 9.4 fL (7.4-10.4); Nucleated Red Blood Cells % 0.1; Platelet Count 265 10^3/uL (150-450); Red Blood Count 5.06 10^6 /uL (4.18-5.48); Red Cell Distribution Width 16 % (10-15); White Blood Count 8.4 10^3/uL (3.5-10.8)
[2019-11-17] MEDS: Insulin LISPRO* 1 UNITS UNIT SUBCUT SCH ×4 (07:11→19:56)
[2019-11-17 07:20] LABS: BUN/Creatinine Ratio 26.2 (8-20); Calcium 9.1 mg/dL (8.6-10.3); EGFR Non-African American 132.2 (>60); Potassium 3.8 mmol/L (3.5-5.0)
[2019-11-17] MEDS: Mometasone/Formoter 200/5 MDI INH SCH ×2 (07:38→20:02)
[2019-11-17] MEDS: SPIRIVA Respimat* (tiotropium) 2.5 mcg/inh Inhaler INH SCH (07:38)
[2019-11-17] MEDS: Pregabalin 50 mg CAP (*) PO SCH ×3 (08:23→19:57)
[2019-11-17] MEDS: Venlafaxine EXT RELEASE CAP* 75 MG PO SCH (08:23)
[2019-11-17] MEDS: metroNIDAZOLE * 500 MG TABLET PO SCH ×2 (08:24→17:10)
[2019-11-17] MEDS: metFORMIN* 1,000 MG TAB PO SCH ×2 (08:24→17:04)
[2019-11-17] MEDS: Losartan TAB* 25 MG PO SCH (08:24)
[2019-11-17] MEDS: busPIRone TAB* 30 MG PO SCH ×2 (08:24→19:57)
[2019-11-17] MEDS: Hydrochlorothiazide TAB* 25 MG PO SCH (08:24)
[2019-11-17] MEDS: Carvedilol TAB* 3.125 MG PO SCH ×2 (08:24→19:57)
[2019-11-17] MEDS: Furosemide TAB* 20 MG PO SCH (08:24)
[2019-11-17] MEDS: Spironolactone TAB* 25 MG PO SCH (08:24)
[2019-11-17] MEDS: cefTRIAXone(*) 1 GM in NS 0.9% 50 ML* 50 ML IVPB SCH (10:46)
--- NOTE | 2019-11-17 10:53 | PN ---
Subjective Date of Service: 11/17/19 Interval History: Patient remains well, no complain. Objective Active Medications: Albuterol/Ipratropium (Duoneb (Albuterol 2.5 Mg/Ipratropium 0.5 Mg)) 1 neb INH Q6H PRN PRN Reason: SOB/WHEEZING Last Admin: 11/12/19 20:37 Dose: 1 neb Atorvastatin Calcium (Lipitor*) 80 mg PO 1700 [facility] Last Admin: 11/16/19 17:00 Dose: 80 mg Buspirone HCl (Buspar Tab*) 30 mg PO BID [facility] Last Admin: 11/17/19 08:24 Dose: 30 mg Carvedilol (Coreg Tab*) 6.25 mg PO BID [facility] Last Admin: 11/17/19 08:24 Dose: 6.25 mg Dextrose (D50w Syringe 50 Ml*) 25 gm IV PUSH .FOR FS < 60 - SS PRN PRN Reason: FS < 60 Furosemide (Lasix Tab*) 20 mg PO DAILY [facility] Last Admin: 11/17/19 08:24 Dose: 20 mg Hydrochlorothiazide (Hydrodiuril Tab*) 12.5 mg PO DAILY [facility] Last Admin: 11/17/19 08:24 Dose: 12.5 mg Ceftriaxone Sodium 1 gm/ (Sodium Chloride) 50 mls @ 100 mls/hr IVPB Q24H [facility] Last Admin: 11/17/19 10:46 Dose: 100 mls/hr Insulin Glargine (Lantus(*)) 12 units SUBCUT 2100 [facility] Last Admin: 11/16/19 21:04 Dose: 12 units Insulin Human Lispro (Humalog*) 0 units SUBCUT ACHS [facility]; Protocol Last Admin: 11/17/19 07:11 Dose: Not Given Losartan Potassium (Cozaar Tab*) 50 mg PO DAILY [facility] Last Admin: 11/17/19 08:24 Dose: 50 mg Metformin HCl (Glucophage*) 1,000 mg PO 0800,1700 [facility] Last Admin: 11/17/19 08:24 Dose: 1,000 mg Metronidazole (Flagyl) 500 mg PO Q8H [facility] Last Admin: 11/17/19 08:24 Dose: 500 mg Mometasone Furoate/Formoterol Fumar (Dulera 200/5 Mdi*) 2 puff INH BID [facility]; Protocol Last Admin: 11/17/19 07:38 Dose: 2 puff Pantoprazole Sodium (Protonix Tab*) 40 mg PO DAILY PRN PRN Reason: INDIGESTION Pregabalin (Lyrica 50 Mg Cap (*)) 150 mg PO TID [facility] Last Admin: 11/17/19 08:23 Dose: 150 mg Spironolactone (Aldactone Tab*) 25 mg PO DAILY [facility] Last Admin: 11/17/19 08:24 Dose: 25 mg Tiotropium [place] (Spiriva Respimat 2.5 Mcg) 2 puff INH DAILY [facility] Last Admin: 11/17/19 07:38 Dose: 2 puff Venlafaxine HCl (Effexor Xr Cap*) 150 mg PO DAILY [facility] Last Admin: 11/17/19 08:23 Dose: 150 mg Vital Signs - 8 hr 11/17/19 11/17/19 11/17/19 03:04 07:12 07:31 Temperature 97.9 F 97.0 F Pulse Rate 72 73 Respiratory 18 18 16 Rate Blood Pressure 125/72 123/77 (mmHg) O2 Sat by Pulse 96 98 Oximetry 11/17/19 08:23 Temperature Pulse Rate Respiratory 16 Rate Blood Pressure (mmHg) O2 Sat by Pulse Oximetry Oxygen Devices in Use Now: None Exam: Appearance: morbidly obese,sitting on recliner. Eyes: No Scleral Icterus, PERRLA Ears/Nose/Mouth/Throat: Mucous Membranes Moist Neck: NL Appearance and Movements; NL JVP, Trachea Midline Respiratory: Symmetrical Chest Expansion and Respiratory Effort, clear on auscultation Cardiovascular: NL Sounds; No Murmurs; No JVD, no peripheral edema Abdominal: NL Sounds; No Tenderness; No Distention Extremities: - - R BKA stumped on protector Neurological: Alert and Oriented x 3 Result Diagrams: 11/17/19 06:55 11/17/19 06:55 Additional Lab and Data: Laboratory Tests 11/13/19 11/14/19 11/14/19 19:47 06:51 07:17 Glucose 103 H POC Glucose (mg/dL) 124 H 118 H 11/14/19 11:19 Glucose POC Glucose (mg/dL) 150 H Microbiology and Other Data: Microbiology 11/11/19 20:20 Aerobic Blood Culture - Preliminary Blood Venous No Growth Day 2 Anaerobic Blood Culture - Preliminary No Growth Day 2 11/11/19 20:20 Aerobic Blood Culture - Preliminary Blood Venous No Growth Day 2 Anaerobic Blood Culture - Preliminary No Growth Day 2 Diagnostic Imaging: TTE: moderate to severe diffuse hypokinesis of left ventricle, EF 30-35%. 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 Awaiting for placement. - Patient Problems (1) Acute hypoxemic respiratory failure Current Visit: Yes Status: Acute Priority: High Code(s): J96.01 - ACUTE RESPIRATORY FAILURE WITH HYPOXIA SNOMED Code(s): 779495680 Comment: - pt presented w/ pulmonary edema - continue oral lasix and spironolactone. - strict I/O, daily weight, watch volume status closely (2) HFrEF (heart failure with reduced ejection fraction) Current Visit: Yes Status: Acute Code(s): I50.20 - UNSPECIFIED SYSTOLIC ( CONGESTIVE) HEART FAILURE SNOMED Code(s): 281006053 Comment: - newly depressed EF revealed in echo - appreciate cardiology consult - stress test showing fixed effect in inferolateral wall without definite reversibility - medically optimized, coreg, losartan, spironolactone (3) COPD (chronic obstructive pulmonary disease) Current Visit: Yes Status: Acute Priority: Medium Code(s): J44.9 - CHRONIC OBSTRUCTIVE PULMONARY DISEASE, UNSPECIFIED SNOMED Code(s): 41734607 Comment: - not on exacebation - counseled on tobacco cessation - Continue Duolera and duoneb prn (4) Hx of BKA Current Visit: Yes Status: Acute Code(s): Z89.519 - ACQUIRED ABSENCE OF UNSPECIFIED LEG BELOW KNEE SNOMED Code(s): 129391987 Comment: - due to recent osteomyelitis will continue ceftriaxone and flagyl while inpatient, switch to Delvance on discharge, f/u ID - orthopedic following (5) Morbid obesity Current Visit: No Status: Acute Code(s): E66.01 - MORBID (SEVERE) OBESITY DUE TO EXCESS CALORIES SNOMED Code(s): 909663211 Comment: BMI 40.2 (6) DVT prophylaxis Current Visit: No Status: Acute Code(s): Z29.9 - ENCOUNTER FOR PROPHYLACTIC MEASURES, UNSPECIFIED SNOMED Code(s): 111584638 Comment: - lovenox Status and Disposition: Inpatient. Awaiting [facility] placement Attestation Documenting Resident: Stacey Hadley Supervising Physician: Sekou Steward Attending/Supervising Physician Comment: Patient remains in hospital due to need for STR placement. No home to return to. Continue osteomyelitis treatment. CHF compensated. Attestation: This service has been performed in part by a resident under the direction of a teaching physician.I, Sekou Steward, performed the service, or was physically present during the critical, or bean portions of the service, furnished by the resident. I participated in the management of the patient.
[2019-11-17 11:55] LABS: C Reactive Protein 2.5 mg/L (<8.01)
[2019-11-17] MEDS ORDERED: cefTRIAXone(*) 1 GM in NS 0.9% 50 ML* 50 ML IVPB ONE (12:00)
[2019-11-17] MEDS: Atorvastatin* 80 MG TAB PO SCH (17:05)
--- NOTE | 2019-11-17 18:38 | CONS ---
CONSULTATION REPORT: DATE OF CONSULT: 11/17/19 PRIMARY CARE PROVIDER: Ekaterina Rodriguez NP CONSULTING SERVICE: Infectious Disease. PROVIDER: Raquel Sow NP ATTENDING PROVIDER: Dr. Jason Farr* (dictated by Raquel Sow NP). REASON FOR CONSULT: Followup of right lower extremity infection and left first toe chronic osteomyelitis. IMPRESSION: 1. Left first toe chronic osteomyelitis. The patient presented to the hospital previously with a known chronic ulcer to the left first toe that had been present for approximately 1 year. He had an MRI on 10/27/19 showing equivocal marrow edema involving the distal first phalanx of the left with inability to exclude osteomyelitis with small effusion, soft tissue swelling of the dorsum of the foot, small ulceration at the plantar medial aspect of the great toe with mild swelling, patchy muscle edema suggestive of myositis or diabetic myopathy. While in the hospital previously from 10/24/19 to 11/03/19 and then while he was on the rehabilitation unit from 11/03/19 to 11/11/19, he was being treated with IV antibiotics for this infection. Previously, no cultures have been obtained from this chronic wound. He has been receiving local wound care. 2. History of right foot abscess with infectious myositis, status post right below- the-knee amputation. The patient is now day 20 postop. This wound was polymicrobial with group B strep, Staph aureus, pasteurella, peptoniphilus, alcaligenes, and bacteroides. During his previous hospitalization, blood cultures with no growth. Surgical pathology with gangrenous ischemic necrosis with ulceration and chronic vascular stasis. Since being readmitted to the hospital, he has been afebrile, initially had some leukocytosis that has been resolved. Last CRP checked on 11/05/19 was 9.90. This has improved from its peak at 313.33 during his previous hospitalization. 3. Diabetes mellitus type 2 with peripheral neuropathy. 4. Morbid obesity, BMI 36.3. 5. AMOXICILLIN allergy. 6. Heart failure with reduced ejection fraction. During his previous hospitalization, he had had significant left lower extremity edema. This has now resolved after diuresis. He is being medically optimized with oral medications. 7. AUGMENTIN allergy caused anaphylactic shock in the past. The patient is tolerating ceftriaxone without difficulty. RECOMMENDATIONS/PLAN: Recommend increasing ceftriaxone to 2 g IV daily. Today is day 24 . The patient's discharge plan for antibiotics will be based on his disposition. If he is to be discharged to an outpatient setting such as home or a relative's house, we would recommend Dalvance 1500 mg IV times once. If he is to be discharged to a long-term care facility or rehab, we would recommend continuing ceftriaxone 2 g IV daily to complete his 6-week course of antibiotics. He should have weekly labs with CBC, CRP, and CMP. I will add a CRP on to today's labs. He should follow up with ID outpatient after his discharge. HISTORY OF PRESENT ILLNESS: Mr. Dean is a 44-year-old male with past medical history significant for morbid obesity; diabetes mellitus type 2; peripheral neuropathy; depression; hypertension; hyperlipidemia; venous insufficiency; COPD ; chronic right foot ulcer, previously followed by Podiatry; and a chronic left first toe ulcer. He initially presented to the hospitalist last month with a right foot abscess. During that hospitalization, he underwent a right BKA. He was also noted to have a chronic left first toe ulcer for which he had an MRI showing the possibility of osteomyelitis. He was initially discharged to the inpatient rehabilitation unit and was discharged on 11/11/19. He returned to the hospital on that same day with complaints of shortness of breath and was admitted with heart failure and hypoxic respiratory failure. He has been doing well after diuresis. He has had workup including stress test, echocardiogram. He is overall doing well. His previous left lower extremity edema has resolved. He denies any fevers, chills, abdominal pain, nausea, vomiting, diarrhea. PAST MEDICAL HISTORY: 1. Morbid obesity. 2. Diabetes mellitus type 2. 3. Peripheral neuropathy. 4. Depression. 5. Hypertension. 6. Hyperlipidemia. 7. Venous insufficiency. 8. COPD. 9. Chronic foot ulcer. PAST SURGICAL HISTORY: 1. Status post gastric bypass. 2. Status post right great toe amputation. 3. Status post right thumb surgery. 4. Status post right glxuz-ugl-uraw amputation. MEDICATIONS: Home medications: 1. Metformin 1000 mg by mouth twice daily. 2. Buspar 30 mg by mouth twice daily. 3. Effexor 150 mg by mouth daily. 4. Spiriva 1 capsule inhalation daily. 5. Lyrica 150 mg by mouth 3 times daily. 6. Omeprazole 20 mg by mouth daily as needed for indigestion. 7. Losartan/hydrochlorothiazide 50/12.5 mg 1 tablet by mouth daily. 8. Victoza 1.8 mg subcutaneous daily. 9. Lasix 20 mg by mouth daily. 10. Steglatro 15 mg by mouth daily. 11. Lovenox 40 mg subcutaneous daily. 12. Vitamin B12 2500 mcg by mouth daily. 13. Vitamin D3 5000 units by mouth daily. 14. Symbicort 160/4.5 two puffs inhalation twice daily. 15. Atorvastatin 80 mg by mouth daily. 16. DuoNeb 1 neb inhalation every 6 hours as needed for shortness of breath or wheeze. 17. Albuterol HFA inhaler 2 puffs inhalation every 6 hours as needed for shortness of breath or wheeze. 18. Acetaminophen 975 mg by mouth every 8 hours as needed for pain. Hospital medications: 1. DuoNeb 2.5 mg/0.5 mg 1 nebulizer inhalation every 6 hours as needed for shortness of breath or wheeze. 2. Atorvastatin 80 mg by mouth daily. 3. Buspar 30 mg by mouth twice daily. 4. Carvedilol 6.25 mg by mouth twice daily. 5. Ceftriaxone 1 g IV daily. 6. Dextrose 25 g IV as needed for glucose less than 60. 7. Furosemide 20 mg by mouth daily. 8. Hydrochlorothiazide 12.5 mg by mouth daily. 9. Lantus insulin 12 units subcutaneous daily. 10. Humalog insulin sliding scale subcutaneous with meals and at bedtime. 11. Losartan 50 mg by mouth daily. 12. Metformin 1000 mg by mouth twice daily. 13. Flagyl 500 mg by mouth every 8 hours. 14. Dulera 200/5 two puffs inhalation twice daily. 15. Protonix 40 mg by mouth daily as needed for indigestion. 16. Lyrica 150 mg by mouth 3 times daily. 17. Spironolactone 25 mg by mouth daily. 18. Spiriva Respimat 2.5 mcg 2 puffs inhalation daily. 19. Effexor 150 mg by mouth daily. ALLERGIES: 1. AUGMENTIN caused anaphylactic shock. 2. GABAPENTIN. FAMILY HISTORY: Mother with a history of diabetes. Father with a history of coronary artery disease. SOCIAL HISTORY: He has been a current smoker, although not smoking since he has been in the hospital. Additionally, smokes marijuana. He denies alcohol use. REVIEW OF SYSTEMS: I performed a 10-point review of systems. All the pertinent positives and negatives are mentioned in the history of present illness. The remaining review of systems are negative. PHYSICAL EXAM: Vital Signs: Temperature 97.3, heart rate 93, respiratory rate 16, O2 sat 97% on room air, blood pressure 113/76. General Appearance: Appears to be in no acute distress. Head: Normocephalic, atraumatic. EENT: Extraocular movements are intact. No subconjunctival hemorrhage. Moist mucous membranes. Neurological: Alert and oriented. Cranial nerves II through XII are grossly intact. He moves all extremities. Cardiovascular: Regular rate and rhythm. Respiratory: Lungs are clear to auscultation. No accessory muscle use. Abdomen is obese. Extremities: No lower extremity edema. Musculoskeletal: No clubbing or cyanosis noted. Exhibits good strength in all extremities. He is noted to have a right cmagl-vel-[id number] amputation. Psychological: Calm and cooperative. Skin: No rashes seen. 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 His left lower extremity, he has hemosiderin staining. DIAGNOSTIC STUDIES/LAB DATA: Sodium 139, potassium 3.8, chloride 103, CO2 of 31 , BUN 17, creatinine 0.65, glucose 108. White blood cell count 8.4, hemoglobin 14.6, hematocrit 44, platelet count 265. Please see impression and recommendations outlined above, recommendations have been discussed with Dr. Sekou Steward. The case has been discussed with my attending, Dr. Jason Farr, who agrees with the plan of care. Reviewed by NERIS ALVARADO 11/19/19 0910 [id number]/[facility] #: [id number] [place]
[2019-11-17] MEDS: Insulin GLARGINE(*) 1 UNITS UNIT SUBCUT SCH (19:57)
[2019-11-18] MEDS: Mometasone/Formoter 200/5 MDI INH SCH (07:26)
[2019-11-18] MEDS: SPIRIVA Respimat* (tiotropium) 2.5 mcg/inh Inhaler INH SCH (07:27)
[2019-11-18] MEDS: Carvedilol TAB* 3.125 MG PO SCH ×2 (08:16→22:06)
[2019-11-18] MEDS: metFORMIN* 1,000 MG TAB PO SCH ×2 (08:16→16:19)
[2019-11-18] MEDS: Spironolactone TAB* 25 MG PO SCH (08:17)
[2019-11-18] MEDS: Pregabalin 50 mg CAP (*) PO SCH ×3 (08:17→22:06)
[2019-11-18] MEDS: busPIRone TAB* 30 MG PO SCH ×2 (08:17→22:07)
[2019-11-18] MEDS: Hydrochlorothiazide TAB* 25 MG PO SCH (08:17)
[2019-11-18] MEDS: Furosemide TAB* 20 MG PO SCH (08:17)
[2019-11-18] MEDS: Venlafaxine EXT RELEASE CAP* 75 MG PO SCH (08:17)
[2019-11-18] MEDS: Losartan TAB* 25 MG PO SCH (08:17)
[2019-11-18] MEDS: Insulin LISPRO* 1 UNITS UNIT SUBCUT SCH ×4 (08:18→22:07)
[2019-11-18] MEDS: cefTRIAXone(*) 2 GM in NS 0.9% 100 ML* 100 ML IVPB SCH (09:48)
--- NOTE | 2019-11-18 14:16 | PN ---
Progress Note - Progress Note Date of Service: 11/18/19 SOAP: Subjective: []Pt seen at bedside. He is feeling well without complaints. Objective: []Gen: NAD RLE: Incision healing well. Well approximated without erythema, discharge or tenderness. LLE: Lateral great toe wound improving, pea sized with clean base without surrounding erythema and without discharge. Assessment: []SP RLE BKA L great toe ulcer Plan: []WBAT LLE NWB RLE Keep leslie in place, keep dressed, cont stump shield. FU Dr Hernandez next week for wound check/ staple removal Cont wound care L great toe. Will see him weekly while admitted, call ortho with questions or concerns.
[2019-11-18] MEDS: Atorvastatin* 80 MG TAB PO SCH (16:19)
--- NOTE | 2019-11-18 16:23 | PN ---
Subjective Date of Service: 11/18/19 Interval History: Patient had no complains, doing well. He is agreeable to go to [facility], and agreeable to place a PICC for antibiotics. Objective Active Medications: Albuterol/Ipratropium (Duoneb (Albuterol 2.5 Mg/Ipratropium 0.5 Mg)) 1 neb INH Q6H PRN PRN Reason: SOB/WHEEZING Last Admin: 11/12/19 20:37 Dose: 1 neb Atorvastatin Calcium (Lipitor*) 80 mg PO 1700 [facility] Last Admin: 11/17/19 17:05 Dose: 80 mg Buspirone HCl (Buspar Tab*) 30 mg PO BID [facility] Last Admin: 11/18/19 08:17 Dose: 30 mg Carvedilol (Coreg Tab*) 6.25 mg PO BID [facility] Last Admin: 11/18/19 08:16 Dose: 6.25 mg Dextrose (D50w Syringe 50 Ml*) 25 gm IV PUSH .FOR FS < 60 - SS PRN PRN Reason: FS < 60 Furosemide (Lasix Tab*) 20 mg PO DAILY [facility] Last Admin: 11/18/19 08:17 Dose: 20 mg Hydrochlorothiazide (Hydrodiuril Tab*) 12.5 mg PO DAILY [facility] Last Admin: 11/18/19 08:17 Dose: 12.5 mg Ceftriaxone Sodium 2 gm/ (Sodium Chloride) 100 mls @ 200 mls/hr IVPB Q24H [facility] Last Admin: 11/18/19 09:48 Dose: 200 mls/hr Insulin Glargine (Lantus(*)) 12 units SUBCUT 2100 [facility] Last Admin: 11/17/19 19:57 Dose: 12 units Insulin Human Lispro (Humalog*) 0 units SUBCUT ACHS [facility]; Protocol Last Admin: 11/18/19 11:51 Dose: 3 units Losartan Potassium (Cozaar Tab*) 50 mg PO DAILY [facility] Last Admin: 11/18/19 08:17 Dose: 50 mg Metformin HCl (Glucophage*) 1,000 mg PO 0800,1700 [facility] Last Admin: 11/18/19 08:16 Dose: 1,000 mg Mometasone Furoate/Formoterol Fumar (Dulera 200/5 Mdi*) 2 puff INH BID [facility]; Protocol Last Admin: 11/18/19 07:26 Dose: 2 puff Pantoprazole Sodium (Protonix Tab*) 40 mg PO DAILY PRN PRN Reason: INDIGESTION Pregabalin (Lyrica 50 Mg Cap (*)) 150 mg PO TID [facility] Last Admin: 11/18/19 12:55 Dose: 150 mg Spironolactone (Aldactone Tab*) 25 mg PO DAILY [facility] Last Admin: 11/18/19 08:17 Dose: 25 mg Tiotropium [place] (Spiriva Respimat 2.5 Mcg) 2 puff INH DAILY [facility] Last Admin: 11/18/19 07:27 Dose: 2 puff Venlafaxine HCl (Effexor Xr Cap*) 150 mg PO DAILY [facility] Last Admin: 11/18/19 08:17 Dose: 150 mg Vital Signs - 8 hr 11/18/19 11/18/19 11/18/19 11:15 12:55 15:15 Temperature 97.6 F 97.8 F Pulse Rate 77 80 Respiratory 16 18 16 Rate Blood Pressure 100/61 103/68 (mmHg) O2 Sat by Pulse 99 99 Oximetry Oxygen Devices in Use Now: None Exam: Appearance: sitting on a wheelchair wheeling around. Eyes: No Scleral Icterus, PERRLA Ears/Nose/Mouth/Throat: Mucous Membranes Moist Neck: NL Appearance and Movements; NL JVP, Trachea Midline Respiratory: Symmetrical Chest Expansion and Respiratory Effort, clear on auscultation Cardiovascular: NL Sounds; No Murmurs; No JVD, no peripheral edema Abdominal: NL Sounds; No Tenderness; No Distention Extremities: - - R BKA stumped on protector Neurological: Alert and Oriented x 3 Result Diagrams: 11/17/19 06:55 11/17/19 06:55 Additional Lab and Data: Laboratory Tests 11/13/19 11/14/19 11/14/19 19:47 06:51 07:17 Glucose 103 H POC Glucose (mg/dL) 124 H 118 H 11/14/19 11:19 Glucose POC Glucose (mg/dL) 150 H Microbiology and Other Data: Microbiology 11/11/19 20:20 Aerobic Blood Culture - Preliminary Blood Venous No Growth Day 2 Anaerobic Blood Culture - Preliminary No Growth Day 2 11/11/19 20:20 Aerobic Blood Culture - Preliminary Blood Venous No Growth Day 2 Anaerobic Blood Culture - Preliminary No Growth Day 2 Diagnostic Imaging: TTE: moderate to severe diffuse hypokinesis of left ventricle, EF 30-35%. 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 Awaiting for placement. - Patient Problems (1) Acute hypoxemic respiratory failure Current Visit: Yes Status: Acute Priority: High Code(s): J96.01 - ACUTE RESPIRATORY FAILURE WITH HYPOXIA SNOMED Code(s): 012580482 Comment: - pt presented w/ pulmonary edema, resolved - continue oral lasix and spironolactone, stable - strict I/O, daily weight, watch volume status closely (2) HFrEF (heart failure with reduced ejection fraction) Current Visit: Yes Status: Acute Code(s): I50.20 - UNSPECIFIED SYSTOLIC ( CONGESTIVE) HEART FAILURE SNOMED Code(s): 777640097 Comment: - newly depressed EF revealed in echo - appreciate cardiology consult - stress test showing fixed effect in inferolateral wall without definite reversibility - medically optimized, coreg, losartan, spironolactone (3) COPD (chronic obstructive pulmonary disease) Current Visit: Yes Status: Acute Priority: Medium Code(s): J44.9 - CHRONIC OBSTRUCTIVE PULMONARY DISEASE, UNSPECIFIED SNOMED Code(s): 50307729 Comment: - not on exacebation - counseled on tobacco cessation - Continue Duolera and duoneb prn (4) Hx of BKA Current Visit: Yes Status: Acute Code(s): Z89.519 - ACQUIRED ABSENCE OF UNSPECIFIED LEG BELOW KNEE SNOMED Code(s): 802580469 Comment: - due to recent osteomyelitis will continue ceftriaxone and flagyl while inpatient - will need PICC insertion for another 17 days of antibiotics in [facility]. - appreciate orthopedic following (5) Morbid obesity Current Visit: No Status: Acute Code(s): E66.01 - MORBID (SEVERE) OBESITY DUE TO EXCESS CALORIES SNOMED Code(s): 331239767 Comment: BMI 40.2 (6) DVT prophylaxis Current Visit: No Status: Acute Code(s): Z29.9 - ENCOUNTER FOR PROPHYLACTIC MEASURES, UNSPECIFIED SNOMED Code(s): 600841869 Comment: - lovenox Status and Disposition: Inpatient. Awaiting [facility] placement. [facility] accepted but awaiting auth Attestation Documenting Resident: Stacey Hadley Supervising Physician: Sekou Steward Attending/Supervising Physician Comment: Awaiting PICC placement so he can go to [facility] [place] for 3 weeks IV antibiotics, vs home w/ Dalvance, apartment pending across the street. Attestation: This service has been performed in part by a resident under the direction of a teaching physician.I, Sekou Steward, performed the service, or was physically present during the critical, or bean portions of the service, furnished by the resident. I participated in the management of the patient.
[2019-11-18] MEDS: Insulin GLARGINE(*) 1 UNITS UNIT SUBCUT SCH (22:05)
[2019-11-19] MEDS: Mometasone/Formoter 200/5 MDI INH SCH ×2 (00:01→09:23)
[2019-11-19] MEDS: Insulin LISPRO* 1 UNITS UNIT SUBCUT SCH ×2 (08:07→11:54)
[2019-11-19] MEDS: Carvedilol TAB* 3.125 MG PO SCH (08:48)
[2019-11-19] MEDS: Hydrochlorothiazide TAB* 25 MG PO SCH (08:49)
[2019-11-19] MEDS: busPIRone TAB* 30 MG PO SCH (08:49)
[2019-11-19] MEDS: Venlafaxine EXT RELEASE CAP* 75 MG PO SCH (08:49)
[2019-11-19] MEDS: metFORMIN* 1,000 MG TAB PO SCH (08:49)
[2019-11-19] MEDS: Losartan TAB* 25 MG PO SCH (08:50)
[2019-11-19] MEDS: Pregabalin 50 mg CAP (*) PO SCH ×2 (08:50→14:33)
[2019-11-19] MEDS: Spironolactone TAB* 25 MG PO SCH (08:50)
[2019-11-19] MEDS: Furosemide TAB* 20 MG PO SCH (08:51)
[2019-11-19] MEDS: SPIRIVA Respimat* (tiotropium) 2.5 mcg/inh Inhaler INH SCH (09:23)
[2019-11-19] MEDS: cefTRIAXone(*) 2 GM in NS 0.9% 100 ML* 100 ML IVPB SCH (09:51)
[2019-11-19 16:06] VITALS: BP 113/75
--- NOTE | 2019-11-19 21:54 | TRS ---
CC: Ekaterina Rodriguez NP; Dr. Farr; [facility] TRANSFER SUMMARY: DATE OF ADMISSION: 11/11/19 DATE OF TRANSFER: 11/19/19 ACCEPTING FACILITY: [facility]. ATTENDING PHYSICIAN: Viner Operator, [facility]. PRIMARY DIAGNOSIS: New onset heart failure with reduced ejection fraction. SECONDARY DIAGNOSES: 1. Recent below the knee amputation on the right. 2. Chronic osteomyelitis, left great toe. 3. Morbid obesity. 4. History of gastric bypass. 5. Type 2 diabetes. 6. Peripheral neuropathy. 7. Depression. 8. Hypertension. 9. Hyperlipidemia. 10. Venous insufficiency. 11. Chronic obstructive pulmonary disease. 12. Gastroesophageal reflux disease. MEDICATIONS ON DISCHARGE: 1. Ceftriaxone 2 g IV q.24 hours x16 days. 2. Albuterol/ipratropium nebulizer 1 inhalation q.6 hours p.r.n. wheezing. 3. Atorvastatin 80 mg p.o. q.p.m. 4. Symbicort 160/4.5 2 inhalations b.i.d. 5. Buspirone 30 mg p.o. b.i.d. 6. Carvedilol 6.25 mg p.o. b.i.d. 7. Furosemide 20 mg p.o. daily. 8. Losartan 50 mg p.o. daily. 9. Metformin 1000 mg p.o. b.i.d. 10. Omeprazole 20 mg p.o. daily. 11. Lyrica 150 mg p.o. t.i.d. 12. Spironolactone 25 mg p.o. q.a.m. 13. Spiriva 1 inhalation daily. 14. Venlafaxine XR 150 mg p.o. daily. 15. Acetaminophen 975 mg p.o. q.8 hours p.r.n. mild pain. 16. Albuterol inhaler 2 puffs q.6 hours p.r.n. wheezing. 17. Vitamin D 5000 units daily. 18. Cyanocobalamin 2500 mcg p.o. daily. 19. Steglatro 15 mg p.o. daily. 20. Victoza 1.8 mg subcutaneously daily. ALLERGIES: AMOXICILLIN, CLAVULANIC ACID, GABAPENTIN. CONSULTATIONS: 1. Dr. Farr, Infectious Disease. 2. Dr. Tai, Cardiology. 3. GAVIOTA Harley, Orthopedics. PROCEDURES: None. COMPLICATIONS: None. HOSPITAL COURSE: A 44-year-old man with multiple medical problems as above, presented to the emergency room with dyspnea and chest pressure. He had a chest x- ray, which showed pulmonary edema and he was initially treated with intravenous Lasix. He had been discharged that day from the [facility] of this hospital. Investigation of his dyspnea included a chest x-ray on 11/11/19 that showed as I said congestive heart failure, less likely pneumonia. He had a transthoracic echocardiogram on 11/12/19 that demonstrated systolic function [id number] reduced with an ejection fraction of 30% to 35%. There were no significant valvular abnormalities. The patient was found to have a new onset heart failure with reduced ejection fraction. His BNP was also elevated at 444. Troponins were 0.02 on 2 occasions. Consultations with Cardiology led to change of the medication management for heart failure. He was continued on Cozaar and started on Carvedilol. This could be titrated up in the future if blood pressure tolerates. He was also started on spironolactone due to his low ejection fraction. Cardiac stress testing with nuclear imaging was obtained on 11/16/19, which showed again the reduced ejection fraction, but only fixed perfusion deficits in the inferolateral wall consistent with infarct without active ischemia. The patient appears to have ischemic cardiomyopathy, but did not require cardiac catheterization. He should have followup with Cardiology within 2 weeks of discharge. The patient also is status post right below the knee amputation on 10/28/19. The patient's stump is healing well, but he is still too swollen to apply a jack spooler tender and prosthetic. He is ambulatory on his left foot and crutches. Physical therapy evaluation on 11/17/19 showed him to be independent with a rolling walker. He does also have a smaller area of osteomyelitis on the left great toe. Orthopedic followup on 11/18/19 demonstrated a pea-sized ulcer with clean base without surrounding erythema and discharge. Due to his ongoing infection in his left great toe and the recent amputation of his right leg due to deep tissue infection, the patient was seen by Infectious Disease. Dr. Farr saw the patient on 11/17/19 and described MRI on 10/27/19 that showed possible marrow edema in the distal first phalanx of the left great toe. No culture data has been obtained, which has been helpful. He recommended completing 42 days of ceftriaxone. The day of discharge is day . He should have weekly labs and CBC, CRP, and CMP. He should have Infectious Disease follow up after discharge. This should be within 1 to 2 weeks. Orthopedics would like to see the patient for a wound check also within a week after discharge. Other laboratory tests of interest in the hospital presenting white count was 11.8, it fell to 8.4 on discharge. His blood sugars have been reasonably controlled ranging from 103 to 178. The patient has possible COPD and is continued on inhalers for COPD. I did not find any PFTs to demonstrate this fact equivocally. In any case, he quit smoking during this hospital stay and feels that his breathing is better. Nebulizers and inhalers should be continued and he may need a pulmonology visit at some point to further define his lung disease. DISPOSITION: To [facility]. CONDITION: Improved. STATUS: Inpatient. DIET: Diabetic, heart healthy. ACTIVITY: Should be to walk with a walker. FOLLOWUP: Follow up with primary care after discharge and assisted. Follow up with Dr. Farr within 1 to 2 weeks. Follow up with Orthopedics within 1 week. Follow up with Cardiology within 2 weeks. TIME SPENT: I spent more than 40 minutes with the patient and completed necessary paperwork on the day of discharge. [id number]/CPS #: [id number] GAILD
== END 2019-11-19 16:00 | DRG 194 ==
LOC: ED 19:40 → MEDTELE 22:17
PROVIDERS: ADMIT Student in an Organized Health Care Education/Training Program; ATTEND Internal Medicine
PROC: 4A02XM4 Measurement of Cardiac Total Activity, External Approach (ICD-10-PCS; principal; 2019-11-15)
PROC: 02HV33Z Insertion of Infusion Device into Superior Vena Cava, Percutaneous Approach (ICD-10-PCS; 2019-11-19)
DX: I11.0 Hypertensive heart disease with heart failure (principal); J96.01 Acute respiratory failure with hypoxia; M86.672 Other chronic osteomyelitis, left ankle and foot; I47.2 Ventricular tachycardia; Z68.41 Body mass index [BMI] 40.0-44.9, adult; E66.01 Morbid (severe) obesity due to excess calories; F41.8 Other specified anxiety disorders; E78.00 Pure hypercholesterolemia, unspecified; J44.9 Chronic obstructive pulmonary disease, unspecified; F40.240 Claustrophobia; K21.9 Gastro-esophageal reflux disease without esophagitis; E11.51 Type 2 diabetes mellitus with diabetic peripheral angiopathy without gangrene; I50.23 Acute on chronic systolic (congestive) heart failure; E11.69 Type 2 diabetes mellitus with other specified complication; E11.42 Type 2 diabetes mellitus with diabetic polyneuropathy; I87.2 Venous insufficiency (chronic) (peripheral); F17.210 Nicotine dependence, cigarettes, uncomplicated; G47.33 Obstructive sleep apnea (adult) (pediatric); I25.5 Ischemic cardiomyopathy; E78.5 Hyperlipidemia, unspecified; E11.621 Type 2 diabetes mellitus with foot ulcer; L97.529 Non-pressure chronic ulcer of other part of left foot with unspecified severity; E87.6 Hypokalemia; Z88.0 Allergy status to penicillin; Z88.1 Allergy status to other antibiotic agents; Z88.8 Allergy status to other drugs, medicaments and biological substances; Z91.5 Personal history of self-harm; Z91.19 Patient's noncompliance with other medical treatment and regimen; Z98.84 Bariatric surgery status; Z89.511 Acquired absence of right leg below knee; Z59.0 Homelessness; Z79.51 Long term (current) use of inhaled steroids; Z79.84 Long term (current) use of oral hypoglycemic drugs; Z79.899 Other long term (current) drug therapy
CPT/HCPCS: 36415; 71045; 78452; 80048; 80053; 82803; 83605; 83735; 83880; 84443; 84484; 85025; 85610; 85730; 86140; 87040; 93005; 93017; 93306; 94640; 94660; 96374; 99284; A9270-GY; A9502; C8929; J0696; J1940; J2785; J3535; J7611

== ENCOUNTER 2019-12-02 10:26 | Inpatient (IN) | payer OTHER ==
--- NOTE | 2019-12-02 10:55 | ED ---
Skin Complaint - HPI Summary HPI Summary: 44 year old M presenting to [facility] with a chief complaint of a wound dehiscence since falling onto his stump in physical therapy today. 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 His course was complicated with infection and he has a PICC line. He last received antibiotics yesterday. His amputation was performed by Dr. Hernandez and Dr. Alvarado. He last ate at 09:00 this morning. He has a history of diabetes and hypertension. Medication list reviewed. Allergy list reviewed. Home Medications Medication Instructions Recorded Confirmed Type Budesonide/Formote 160/4.5(NF) 2 puff INH BID 09/27/19 11/11/19 History [Symbicort 160/4.5 (NF)] Tiotropium CAPSULE (NF) [Spiriva 1 cap.inh INH DAILY 09/27/19 11/11/19 History CAPSULE (NF)] Albuterol HFA INHALER* [Ventolin 2 puff INH Q6H PRN mdi 10/04/19 11/11/19 Rx HFA Inhaler*] Liraglutide (NF) [Victoza (NF)] 1.8 mg SUBCUT DAILY ml 10/04/19 11/11/19 Rx Acetaminophen TAB* [Tylenol TAB*] 975 mg PO Q8H PRN tab 11/01/19 11/11/19 Rx Cholecalciferol (Vitamin D3) 5,000 unit PO DAILY 11/03/19 11/11/19 History [Vitamin D3] Cyanocobalamin (Vitamin B-12) 2,500 mcg PO DAILY 11/03/19 11/11/19 History [Vitamin B12] Ertugliflozin Pidolate [Steglatro] 15 mg PO DAILY 11/03/19 11/11/19 History Furosemide [Lasix] 20 mg PO DAILY 11/03/19 11/11/19 History Omeprazole 20 mg PO DAILY PRN 11/03/19 11/11/19 History Albuterol/Ipratropium NEB.HAL* 1 neb INH Q6H PRN neb.soln 11/09/19 11/11/19 Rx [Duoneb (Albuterol 2.5 MG/Ipratropium 0.5 MG)] Atorvastatin* [Lipitor 80 MG*] 80 mg PO 1700 tab 11/09/19 11/11/19 Rx Pregabalin 50 mg CAP (*) [Lyrica 150 mg PO TID cap 11/09/19 11/11/19 Rx 50 mg CAP (*)] Venlafaxine EXT RELEASE CAP* 150 mg PO DAILY cap.sr 11/09/19 11/11/19 Rx [Effexor Xr CAP*] busPIRone TAB* [Buspar TAB*] 30 mg PO BID tab 11/09/19 11/11/19 Rx metFORMIN* [Glucophage 500 MG TAB 1,000 mg PO 0800,1700 tab 11/09/19 11/11/19 Rx *] Carvedilol TAB* [Coreg TAB*] 6.25 mg PO BID tab 11/19/19 Rx Losartan TAB* [Cozaar TAB*] 50 mg PO DAILY #30 tab 11/19/19 Rx Spironolactone TAB* [Aldactone TAB 25 mg PO DAILY #0 tab 11/19/19 Rx 25 MG*] cefTRIAXone 2 GM/100 ML NS 2 gm IVPB Q24H #16 bag 11/19/19 Rx [Rocephin 2 GM/100 ML] - History of Current Complaint Chief Complaint: EDFall Stated Complaint: FALL Hx Obtained From: Patient Onset/Duration: Still Present Timing: Constant Current Severity: Moderate Pain Intensity: 7 Pain Scale Used: 0-10 Numeric Skin Location: Leg - Additional Pertinent History Primary Care Physician: [id number] - Allergy/Home Medications Allergies/Adverse Reactions: Allergies Allergy/AdvReac Type Severity Reaction Status Date / Time amoxicillin [From Augmentin] Allergy Anaphylatic Verified 12/02/19 10:36 Shock clavulanic acid Allergy Anaphylatic Verified 12/02/19 10:36 [From Augmentin] Shock gabapentin Allergy See Comment Verified 12/02/19 10:36 Home Medications: Home Medications Budesonide/Formote 160/4.5(NF) [Symbicort 160/4.5 (NF)] 2 puff INH BID 09/27/19 [History Confirmed 12/02/19] Tiotropium CAPSULE (NF) [Spiriva CAPSULE (NF)] 1 cap.inh INH DAILY 09/27/19 [ History Confirmed 12/02/19] Albuterol HFA INHALER* [Ventolin HFA Inhaler*] 2 puff INH Q6H PRN mdi 10/04/19 [Rx Confirmed 12/02/19] Liraglutide (NF) [Victoza (NF)] 1.8 mg SUBCUT DAILY ml 10/04/19 [Rx Confirmed 12/02/19] Cholecalciferol (Vitamin D3) [Vitamin D3] 5,000 unit PO DAILY 11/03/19 [History Confirmed 12/02/19] Cyanocobalamin (Vitamin B-12) [Vitamin B12] 2,500 mcg PO DAILY 11/03/19 [ History Confirmed 12/02/19] Ertugliflozin Pidolate [Steglatro] 15 mg PO DAILY 11/03/19 [History Confirmed ] Furosemide [Lasix] 20 mg PO DAILY 11/03/19 [History Confirmed 12/02/19] Omeprazole 20 mg PO DAILY 11/03/19 [History Confirmed 12/02/19] Albuterol/Ipratropium NEB.HAL* [Duoneb (Albuterol 2.5 MG/Ipratropium 0.5 MG)] 1 neb INH Q6H PRN neb.soln 11/09/19 [Rx Confirmed 12/02/19] Pregabalin 50 mg CAP (*) [Lyrica 50 mg CAP (*)] 150 mg PO TID cap 11/09/19 [Rx Confirmed 12/02/19] Venlafaxine EXT RELEASE CAP* [Effexor Xr CAP*] 150 mg PO DAILY cap.sr 11/09/19 [Rx Confirmed 12/02/19] busPIRone TAB* [Buspar TAB*] 30 mg PO BID tab 11/09/19 [Rx Confirmed 12/02/19] Carvedilol TAB* [Coreg TAB*] 6.25 mg PO BID tab 11/19/19 [Rx Confirmed 12/02/19 ] Spironolactone TAB* [Aldactone TAB 25 MG*] 25 mg PO DAILY #0 tab 11/19/19 [Rx Confirmed 12/02/19] Acetaminophen TAB* [Tylenol TAB*] 975 mg PO Q6H PRN 12/02/19 [History Confirmed 12/02/19] Atorvastatin* [Lipitor 80 MG*] 80 mg PO BEDTIME 12/02/19 [History Confirmed ] Enoxaparin(*) [Lovenox(*)] 40 mg SUBCUT DAILY 12/02/19 [History Confirmed ] Losartan/Hydrochlorothiazide [Losartan Potassium/Hydroc 50-12.5 mg] 1 tab PO DAILY 12/02/19 [History Confirmed 12/02/19] PPD (Tuberculin) [facility] [Tubersol] 0.1 ml INTRADERM ONCE 12/02/19 [History Confirmed 12/02/19] metFORMIN* [Glucophage 500 MG TAB *] 1,000 mg PO BID 12/02/19 [History Confirmed 12/02/19] PMH/Surg Hx/FS Hx/Imm Hx Endocrine/Hematology History: Reports: Hx Diabetes Denies: Hx Thyroid Disease Cardiovascular History: Reports: Hx Hypercholesterolemia, Hx Hypertension Denies: Hx Pacemaker/ICD, Hx Peripheral Vascular Disease Respiratory History: Reports: Hx Chronic Obstructive Pulmonary Disease (COPD), Hx Sleep Apnea - clastrofobic ,noncomplient with C-PAP Denies: Hx Asthma GI History: Reports: Hx Gall Bladder Disease, Other GI Disorders - gall bladder removed for gall stones History: Denies: Hx Dialysis, Hx Renal Disease Musculoskeletal History: Denies: Hx Arthritis, Hx Osteoporosis Sensory History: Denies: Hx Cataracts, Hx Contacts or Glasses, Hx Glaucoma, Hx Hearing Aid Opthamlomology History: Denies: Hx Cataracts, Hx Contacts or Glasses, Hx Glaucoma Neurological History: Reports: Other Neuro Impairments/Disorders - neuropathy Denies: Hx Dementia, Hx Headaches, Hx Seizures, Hx Transient Ischemic Attacks (TIA) Psychiatric History: Reports: Hx Anxiety, Hx Depression, Hx Community Mental Health Tx, Hx Suicide Attempt Denies: Hx Eating Disorder, Hx Panic Disorder, Hx Post Traumatic Stress Disorder, Hx Inpatient Treatment, Hx Schizophrenia, Hx Bipolar Disorder, Hx of Violent Episodes Against Others, Hx Substance Abuse - Surgical History Surgery Procedure, Year, and Place: GASTRIC BYPASS. GALLBLADDER. RIGHT GREAT TOE REMOVED. REATTACHED PART OF LEFT THUMB. RIGHT FOOT I&D- 10/25/2019. 2019- right BKA Infectious Disease History: No Infectious Disease History: Denies: Traveled Outside the [place] in Last 30 Days - Family History Known Family History: Positive: Hypertension, Diabetes Negative: Renal Disease - Social History Alcohol Use: None Alcohol Amount: 1 beer a month Hx Substance Use: Yes Substance Use Type: Reports: Marijuana Substance Use Comment - Amount & Last Used: once and a while Hx Tobacco Use: Yes Smoking Status (MU): Former Smoker Type: Cigarettes Review of Systems Positive: Other - Right BKA Positive: Other - Wound dehisce All Other Systems Reviewed And Are Negative: Yes Physical Exam - Summary Physical Exam Summary: Constitutional: Well-developed, Well-nourished, Alert. (-) Distressed Skin: Warm, Dry, stump is dehisced with bone showing, no active hemorrhage HENT: Normocephalic; Atraumatic Eyes: Conjunctiva normal Neck: Musculoskeletal ROM normal neck. (-) JVD, (-) Stridor, (-) Tracheal deviation Cardio: Rhythm regular, rate normal, Heart sounds normal; Intact distal pulses; Radial pulses are 2+ and symmetric. (-) Murmur Pulmonary/Chest wall: Effort normal. (-) Respiratory distress, (-) Wheezes, (-) Rales Abd: Soft, (-) tenderness, (-) Distension, (-) Guarding, (-) Rebound Musculoskeletal: (-) Edema Lymph: (-) Cervical adenopathy Neuro: Alert, Oriented x3 Psych: Mood and affect Normal Triage Information Reviewed: Yes Vital Signs On Initial Exam: Initial Vitals Pulse Pulse Ox 90 97 12/02/19 10:31 12/02/19 10:31 Vital Signs Reviewed: Yes Procedures - Sedation Patient Received Moderate/Deep Sedation with Procedure: No Diagnostics - Vital Signs Vital Signs Temp Pulse Resp BP Pulse Ox 12/02/19 10:34 96.8 F 95 18 92/68 96 12/02/19 10:31 90 97 - Laboratory Result Diagrams: 12/02/19 12:51 12/02/19 12:51 Lab Statement: Any lab studies that have been ordered have been reviewed, and results considered in the medical decision making process. Course/Dx - Course Course Of Treatment: Patient is here with dehiscence of his surgical site on his right leg. Patient's wound needs washout in the operating room. Orthopedic surgery was called to do it later tonight. Patient is admitted to the hospitalist. Orthopedic surgery did not want to give antibiotics here - Diagnoses Provider Diagnoses: Wound dehiscence, Diabetes, Below knee amputation - Physician Notifications Discussed Care Of Patient With: Lea Chan Time Discussed With Above Provider: 10:38 Instructed by Provider To: Other - Discussed with Dr. Chan. [11:47] Discussed with Dr. Hernandez who wants to take the patient to the operating room tonight. No antibiotics. [11:52] Discussed with Dr. Chan who accepts the patient for admission. Discharge ED - Sign-Out/Discharge Documenting (check all that apply): Patient Departure - Discharge Plan Condition: Stable Disposition: ADMITTED TO [facility] Referrals: Andrea Hazel MD [Primary Care Provider] - - Billing Disposition and Condition Condition: STABLE Disposition: Admitted to [facility] - Attestation Statements Document Initiated by Scribe: Yes Documenting Scribe: Mary Ford Provider For Whom Zenaida is Documenting (Include Credential): Keon Stone MD Scribe Attestation: Mary Cruz scribed for Keon Stone MD on 12/02/19 at 1607. Scribe Documentation Reviewed: Yes Provider Attestation: The documentation as recorded by the Mary knapp accurately reflects the service I personally performed and the decisions made by me, Keon Stone MD Status of Scribe Document: Viewed
--- OUTSIDE RECORDS SUMMARY | 2019-12-02 11:13 | XMS REPORT | Continuity of Care Document ---
:1975 External Reference #:[id number] Author Name Raquel Sow NP (transmitted by agent of provider Nasreen Glasgow) Address [address] [place] [address] Care Team Providers Name Role Phone Ekaterina Rodriguez NP - Nurse Care Team Information Outcome Analyst Practitioner Problems Active Problems Provider Date Type 2 diabetes mellitus with ulcer Miquel Hernandez MD Onset: 10/28/2019 Cellulitis of right lower limb Miquel Hernandez MD Onset: 10/28/2019 Amputated below knee Miquel Hernandez MD Onset: 11/24/2019 Social History Type Date Description Comments Sex Unknown Tobacco Use Start: 09/15/88 Current Cigarette Smoker 1 Pack Daily Smoking Status Reviewed: 11/24/19 Current Cigarette Smoker 1 Pack Daily ETOH [...] Medications SIG Qnty Indications Ordering Date Provider Ceftriaxone Sodium 2gm iv once Unknown 2gm daily at [facility] Spironolactone 1 by mouth every Unknown 25mg Tablets day Flagyl Unknown 375mg Capsules Venlafaxine HCL 1/2 by mouth Unknown 25mg every day Tablets Omeprazole 1 by mouth every Unknown 10mg Capsules DR day Steglatro 1 by mouth every Unknown 5mg Tablets day in the morning Carvedilol 1 by mouth twice Unknown 3.125mg Tablets a day Tiotropium Malin 2 puffs by mouth Unknown every day Sertraline HCL 2 by mouth every Unknown 100mg day (currently Tablets out 08/31/19) Pregabalin 1 by mouth daily Unknown 150mg Capsules Metformin HCL take one tablet Unknown 1000mg by mouth daily Tablets Losartan 1 by mouth every Unknown Potassium/Hydrochloroth day iazide 50-12.5mg Tablets Victoza inject 1.8 mg Unknown 18mg/3ML Solution Pen-Inject Ipratropium 1 unit as needed Unknown Malin/Albuterol Sulfate 0.5-2.5(3)mg/3ML Solution Ertugliflozin 15 MG daily Unknown Furosemide 1 by mouth every Unknown 20mg Tablets day Cholecalciferol 5000 units by Unknown mouth Buspirone HCL take 1 tablet Unknown 30mg Tablets twice a day Symbicort 2 puffs twice a Unknown 160-4.5mcg/Act day Aerosol Atorvastatin Calcium 1 by mouth every Unknown 80mg day Tablets Albuterol Sulfate HFA 2 puffs every 6 8.500gm Unknown hours as needed 108(90Base) mcg/Act Aerosol Immunizations Description No Information Available Vital Signs Date Vital Result Comment 11/24/2019 8:27am Height 76 inches 6'4" Weight 290.00 lb Heart Rate 84 /min BP Systolic 128 mmHg BP Diastolic 62 mmHg Respiratory Rate 12 /min Body Temperature 97.8 F Pain Level 0 BMI (Body Mass Index) 35.3 kg/m2 08/31/2019 10:25am Height 76 inches 6'4" Weight 336.00 lb Per pt Heart Rate 98 /min BP Systolic Sitting 124 mmHg Lue large cuff BP Diastolic Sitting 82 mmHg Lue large cuff O2 % BldC Oximetry 96 % On Ra BMI (Body Mass Index) 40.9 kg/m2 Results Test Acquired Date Facility Test Result H/L Range Note Inr/Protime 10/24/2019 [facility] Inr 1.29 High 0.82-1.09 1 [address] [place] [address] [phone] Laboratory test 10/24/2019 [facility] Partial 38.5 seconds High 26.0-38.[address] [place] [address] PTT [phone] Lactic Acid 1.2 mmol/L Normal 0.5-2.0 2 1 Standard intensity warfarin therapeutic range: 2.0-3.0 High intensity warfarin therapeutic range: 2.5-3.5 2 [place] Severe Sepsis and Septic Shock Management Bundle Measure requires all lactic acids initially measuring >2.0 mmol/L be repeated. Procedures Date Code Description Status 11/12/2019 89909 ECHO Transthorasic Realtime 2D W Doppler & Color Flow Hosp Completed 10/28/2019 01292 Amputation Leg Through Tibia & Fibula Completed 10/28/2019 89325 Amputation Leg Through Tibia & Fibula Completed 10/28/2019 92009 Amputation Leg Through Tibia & Fibula Completed 10/25/2019 29517 Debridement Muscle/Fascia,Epidermis/Dermis/Tissue,Addtl 20 Completed SQ CM 10/25/2019 84805 Debridement Muscle/Fascia,Epidermis/Dermis/Tissue,Addtl 20 Completed SQ CM 10/25/2019 23045 Debridement Muscle/Fascia,Epidermis/Dermis/Tissue,Addtl 20 Completed SQ CM 10/25/2019 82051 Debridement Muscle/Fascia,Epidermis/Dermis/Tissue,Addtl 20 Completed SQ CM 10/25/2019 82643 Debridement Skin, Subcutaneous Tissue & Muscle Completed 10/25/2019 40001 Debridement Skin, Subcutaneous Tissue & Muscle Completed Medical Devices Description No Information Available Encounters Type Date Location Provider Dx Diagnosis Office Visit 11/12/2019 [facility] Daniel Diomedes I50.20 Unspecified 11:03a Of Autumn Tai M.D., systolic FACC, FASNC (congestive) heart failure I10 Essential (primary) hypertension Z82.49 Family hx of ischem heart dis and oth dis of the circ sys I73.9 Peripheral vascular disease, unspecified I42.9 Cardiomyopathy, unspecified F17.210 Nicotine dependence, cigarettes, uncomplicated Office Visit 11/10/2019 11:49a [facility] Raquelleonardo Hoskins E11.621 Type 2 For Infectious Sow, PEDIATRIC PSYCHIATRIST diabetes Diseases mellitus with foot ulcer 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 E11.40 Type 2 diabetes mellitus with diabetic neuropathy, unsp Z89.511 Acquired absence of right leg below knee Office Visit 11/08/2019 11:46a [facility] Raquel Hsufatemeh E11.621 Type 2 For Infectious KAILA Sow diabetes Diseases mellitus with foot ulcer 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 E11.40 Type 2 diabetes mellitus with diabetic neuropathy, unsp Z89.511 Acquired absence of right leg below knee Office Visit 11/03/2019 8:14a [facility] Raquel Hsufatemeh E11.621 Type 2 For Infectious Juanjose, PEDIATRIC PSYCHIATRIST diabetes Diseases mellitus with foot ulcer 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 E11.40 Type 2 diabetes mellitus with diabetic neuropathy, unsp Z89.511 Acquired absence of right leg below knee Office Visit 11/03/2019 11:41a [facility] Kellie L02.415 Cutaneous Assoc,darren So MD abscess of Hospitalists right lower limb L97.519 Non-prs chronic ulcer oth prt right foot w unsp severity E11.621 Type 2 diabetes mellitus with foot ulcer E11.40 Type 2 diabetes mellitus with diabetic neuropathy, unsp A41.9 Sepsis, unspecified organism Z89.511 Acquired absence of right leg below knee E66.01 Morbid (severe) obesity due to excess calories I10 Essential (primary) hypertension F41.8 Other specified anxiety disorders J44.9 Chronic obstructive pulmonary disease, unspecified Z79.84 zipper ironer (current) use of oral hypoglycemic drugs Office Visit 11/03/2019 10:04a [facility] Elissa Case, Z47.81 Encounter for at [facility] orthopedic aftercare following surgical amp 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 Office Visit 11/02/2019 8:45a [facility] Raquel Wetzelnida E11.621 Type 2 diabetes Center [facility] Juanjose PEDIATRIC PSYCHIATRIST mellitus with foot ulcer 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 E11.40 Type 2 diabetes mellitus with diabetic neuropathy, unsp M86.672 Other chronic osteomyelitis, left ankle and foot E66.9 Obesity, unspecified Office Visit 11/02/2019 11:40a [facility] Susanna Dill, E11.40 Type 2 diabetes Assoc,darren BLOOM mellitus with Hospitalists diabetic neuropathy, unsp F41.8 Other specified anxiety disorders J44.9 Chronic obstructive pulmonary disease, unspecified Office Visit 11/01/2019 8:12a [facility] E11.621 Type 2 For Infectious Juanjose, PEDIATRIC PSYCHIATRIST diabetes Diseases mellitus with foot ulcer 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 E11.40 Type 2 diabetes mellitus with diabetic neuropathy, unsp Z89.511 Acquired absence of right leg below knee Office Visit 11/01/2019 11:40a [facility] Kellie J44.9 Chronic Assoc,darren So MD obstructive Hospitalists pulmonary disease, unspecified F41.8 Other specified anxiety disorders [facility] F[facility]9 Anxiety disorder, Assoc,pc MD Saray unspecified Hospitalists J44.9 Chronic obstructive pulmonary disease, unspecified Z79.84 zipper ironer (current) use of oral hypoglycemic drugs Z79.4 zipper ironer (current) use of insulin Office Visit 10/30/2019 11:38a [facility] F41.9 Anxiety disorder, Assoc,pc MD Saray unspecified Hospitalists J44.9 Chronic obstructive pulmonary disease, unspecified Z79.4 USP (current) use of insulin Z79.84 USP (current) use of oral hypoglycemic drugs Office Visit 10/29/2019 [facility] L97.529 Non- pressure 10:54a For Infectious Juanjose, PEDIATRIC PSYCHIATRIST chronic ulcer oth Diseases prt left foot w unsp severity E11.621 Type 2 diabetes mellitus with foot ulcer E11.40 Type 2 diabetes mellitus with diabetic neuropathy, unsp Z89.511 Acquired absence of right leg below knee Office Visit 10/29/2019 11:37a [facility] Mena Cao, E87.6 Hypokalemia Assoc,darren Hospitalists iTmur J44.9 Chronic obstructive pulmonary disease, unspecified Z79.4 zipper ironer (current) use of insulin Office Visit 10/28/2019 [facility] Miquel David, L97.419 Non-prs chr 1:01p at [facility] ulcer of right heel and midfoot w unsp severt [facility], E87.6 Hypokalemia 11:37a Assocdarren M.D. 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 unspecified Hospitalists organism E11.40 Type 2 diabetes mellitus with diabetic neuropathy, [facility] J44.9 Chronic obstructive pulmonary disease, unspecified Office Visit 10/27/2019 10:04a [facility] Giuliano E11.621 Type 2 diabetes at Johanna Alvarado M.D. 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, right foot E11.40 Type 2 diabetes mellitus with diabetic neuropathy, unsp Office Visit 10/25/2019 8:23a [facility] Elissa L03.115 Cellulitis of at GAVIOTA Salamanca right lower limb E11.621 Type 2 diabetes mellitus with foot ulcer L97.518 Non-prs chronic ulcer oth prt right foot with oth severity L97.418 Non-prs chronic ulcer of right heel/midft with oth severity Office Visit 10/25/2019 10:50a [facility] Raulito Dale E11.621 Type 2 Infectious Timur Varma diabetes Diseases mellitus with foot ulcer L97.419 Non-prs chr ulcer of right heel and midfoot w unsp severt L02.611 Cutaneous abscess of right foot E11.40 Type 2 diabetes mellitus with diabetic neuropathy, unsp Office Visit 10/25/2019 11:36a [facility] Jose Rafael J44.9 Chronic Assoc,darren Obrien M.D. 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 unspecified Hospitalists organism E11.40 Type 2 diabetes mellitus with diabetic neuropathy, unsp F32.9 Major depressive disorder, single episode, unspecified I10 Essential (primary) hypertension J44.9 Chronic obstructive pulmonary disease, unspecified Z79.84 USP (current) use of oral hypoglycemic drugs Office Visit 10/20/2019 1:00p [facility] Keya Valenzuela, E11.621 Type 2 diabetes [facility] MD mellitus with foot ulcer Office Visit 10/01/2019 8:00a [facility] Raquel Hoskins E11.40 Type 2 diabetes Center AT [facility] KAILA Sow mellitus with diabetic neuropathy, unsp L97.419 Non-prs chr ulcer of right heel and midfoot w unsp severt Office Visit 09/28/2019 8:15a [facility] Raquel Hoskins L97.419 Non- prs chr [facility] KAILA Sow ulcer of right heel and midfoot w unsp severt E11.621 Type 2 diabetes mellitus with foot ulcer L97.519 Non-prs chronic ulcer oth prt right foot w unsp severity E11.40 Type 2 diabetes mellitus with diabetic neuropathy, unsp E66.01 Morbid (severe) obesity due to excess calories Office Visit 09/28/2019 11:18a [facility] Susanna Dill, L97.519 Non-prs chronic Assoc,pc MD ulcer oth prt Hospitalists right foot w unsp severity E11.621 Type 2 diabetes mellitus with foot ulcer I10 Essential (primary) hypertension I87.2 Venous insufficiency (chronic) (peripheral) F41.9 Anxiety disorder, unspecified Z79.84 zipper ironer (current) use of oral hypoglycemic drugs Office Visit 08/31/2019 10:45a [facility], J44.9 Chronic [facility] Services Of obstructive Sausage Stuffer pulmonary disease, unspecified G47.30 Sleep apnea, unspecified Assessments Date Code Description Provider 11/24/2019 E11.621 Type 2 diabetes mellitus with foot Miquel Hernandez MD ulcer 11/24/2019 Z89.519 Acquired absence of unspecified leg Miquel Hernandez MD below knee 11/12/2019 I50.20 Unspecified systolic (congestive) Daniel Tai M.D., FACC, heart failure [facility] 11/12/2019 I10 Essential (primary) hypertension Daniel Tai M.D., FACC , [facility] 11/12/2019 Z82.49 Family history of ischemic heart Daniel Tai M.D., FACC, disease and other diseases of the [facility] circulatory system 11/12/2019 I73.9 Peripheral vascular disease, Daniel Tai M.D., FACC, unspecified [facility] 11/12/2019 I42.9 Cardiomyopathy, unspecified Daniel Tai M.D., FACC, [facility] 11/12/2019 F17.210 Nicotine dependence, cigarettes, Daniel Tai M.D., FACC, uncomplicated [facility] 11/10/2019 E11.621 Type 2 diabetes mellitus with foot Raquel Sow NP ulcer 11/10/2019 L97.529 Non-pressure chronic ulcer of other Raquel Sow NP part of left foot with unspecified severity 11/10/2019 E11.40 Type 2 diabetes mellitus with Raquel Sow NP diabetic neuropathy, unspecified 11/10/2019 Z89.511 Acquired absence of right leg below Raquel Swo NP knee 11/08/2019 E11.621 Type 2 diabetes mellitus with foot Raquel Sow, PEDIATRIC PSYCHIATRIST ulcer 11/08/2019 L97.529 Non-pressure chronic ulcer of other Raquel Sow, PEDIATRIC PSYCHIATRIST part of left foot with unspecified severity 11/08/2019 E11.40 Type 2 diabetes mellitus with Raquel Sow, PEDIATRIC PSYCHIATRIST diabetic neuropathy, unspecified 11/08/2019 Z89.511 Acquired absence of right leg below Raquel Sow, PEDIATRIC PSYCHIATRIST knee 11/03/2019 E11.621 Type 2 diabetes mellitus with foot Raquel Sow, PEDIATRIC PSYCHIATRIST ulcer 11/03/2019 L02.415 Cutaneous abscess of right lower Kellie So MD limb 11/03/2019 L97.529 Non-pressure chronic ulcer of other Raquel Sow, PEDIATRIC PSYCHIATRIST part of left foot with unspecified severity 11/03/2019 Z47.81 Encounter for orthopedic aftercare GAVIOTA Harley following surgical amputation 11/03/2019 E11.40 Type 2 diabetes mellitus with Raquel Sow, PEDIATRIC PSYCHIATRIST diabetic neuropathy, unspecified 11/03/2019 L97.519 Non-pressure chronic ulcer of other Kellie So MD part of right foot with unspecified severity 11/03/2019 Z89.511 Acquired absence of right leg below Raquel Sow, PEDIATRIC PSYCHIATRIST knee 11/03/2019 Z89.511 Acquired absence of right leg below GAVIOTA Harley knee 11/03/2019 E11.621 Type 2 diabetes mellitus with foot Kellie So MD ulcer 11/03/2019 L97.529 Non-pressure chronic ulcer of other GAVIOTA Harley part of left foot with unspecified severity 11/03/2019 E11.40 Type 2 diabetes mellitus with Kellie So MD diabetic neuropathy, unspecified 11/03/2019 A41.9 Sepsis, unspecified organism Kellie So MD 11/03/2019 Z89.511 Acquired absence of right leg below Kellie So MD knee 11/03/2019 E66.01 Morbid (severe) obesity due to Kellie So MD excess calories 11/03/2019 I10 Essential (primary) hypertension Kellie So MD 11/03/2019 F41.8 Other specified anxiety disorders Kellie So MD 11/03/2019 J44.9 Chronic obstructive pulmonary Kellie So MD disease, unspecified 11/03/2019 Z79.84 USP (current) use of oral Kellie So MD hypoglycemic drugs 11/02/2019 E11.621 Type 2 diabetes mellitus with foot Raquel Sow, PEDIATRIC PSYCHIATRIST ulcer 11/02/2019 E11.40 Type 2 diabetes mellitus with Susanna Gama MD diabetic neuropathy, unspecified 11/02/2019 L97.529 Non-pressure chronic ulcer of other Raquel Sow, PEDIATRIC PSYCHIATRIST part of left foot with unspecified severity 11/02/2019 F41.8 Other specified anxiety disorders Susanna Gama MD 11/02/2019 E11.40 Type 2 diabetes mellitus with Raquel Sow, PEDIATRIC PSYCHIATRIST diabetic neuropathy, unspecified 11/02/2019 M86.672 Other chronic osteomyelitis, left Raquel Sow, PEDIATRIC PSYCHIATRIST ankle and foot 11/02/2019 J44.9 Chronic obstructive pulmonary Susanna Gama MD disease, unspecified 11/02/2019 E66.9 Obesity, unspecified Raquel Sow, PEDIATRIC PSYCHIATRIST 11/01/2019 E11.621 Type 2 diabetes mellitus with foot Raquel Sow, PEDIATRIC PSYCHIATRIST ulcer 11/01/2019 J44.9 Chronic obstructive pulmonary Kellie So MD disease, unspecified 11/01/2019 L97.529 Non-pressure chronic ulcer of other Raquel Sow, PEDIATRIC PSYCHIATRIST part of left foot with unspecified severity 11/01/2019 F41.8 Other specified anxiety disorders Kellie So MD 11/01/2019 E11.40 Type 2 diabetes mellitus with Raquel Sow, PEDIATRIC PSYCHIATRIST diabetic neuropathy, unspecified 11/01/2019 Z89.511 Acquired absence of right leg below Raquel Sow, PEDIATRIC PSYCHIATRIST knee 10/31/2019 F41.9 Anxiety disorder, unspecified Kellie So MD 10/31/2019 J44.9 Chronic obstructive pulmonary Kellie So MD disease, unspecified 10/31/2019 Z79.84 USP (current) use of oral Kellie So MD hypoglycemic drugs 10/31/2019 Z79.4 zipper ironer (current) use of insulin Kellie So MD 10/30/2019 F41.9 Anxiety disorder, unspecified Kellie So MD 10/30/2019 J44.9 Chronic obstructive pulmonary Kellie So MD disease, unspecified 10/30/2019 Z79.4 zipper ironer (current) use of insulin Kellie So MD 10/30/2019 Z79.84 USP (current) use of oral Kellie So MD hypoglycemic drugs 10/29/2019 E87.6 Hypokalemia Mena Cao M.D. 10/29/2019 L97.529 Non-pressure chronic ulcer of other Raquel Sow NP part of left foot with unspecified severity 10/29/2019 J44.9 Chronic obstructive pulmonary Mena Cao M.D. disease, unspecified 10/29/2019 E11.621 Type 2 diabetes mellitus with foot Raquel Sow NP ulcer 10/29/2019 Z79.4 USP (current) use of insulin Mena Cao M.D. 10/29/2019 E11.40 Type 2 diabetes mellitus with Raquel Sow NP diabetic neuropathy, unspecified 10/29/2019 Z89.511 Acquired absence of right leg below Raquel Sow NP knee 10/28/2019 E11.621 Type 2 diabetes mellitus with foot Fran Gonzaelz M.D. ulcer 10/28/2019 L97.519 Non-pressure chronic ulcer of other Fran Gonzalez M.D. part of right foot with unspecified severity 10/28/2019 E87.6 Hypokalemia Mena Cao M.D. 10/28/2019 L97.529 Non-pressure chronic ulcer of other Fran Gonzalez M.D. part of left foot with unspecified severity 10/28/2019 L97.419 Non-pressure chronic ulcer of right Miquel Hernandez MD heel and midfoot with unspecified severity 10/28/2019 I70.213 Atherosclerosis of [place] arteries Fran Gonzalez M.D. of extremities with intermittent claudication, bilateral legs 10/28/2019 E11.40 Type 2 diabetes mellitus with Mena Cao M.D. diabetic neuropathy, unspecified 10/28/2019 L02.611 Cutaneous abscess of right foot Jason Varma M.D. 10/28/2019 J44.9 Chronic obstructive pulmonary Mena Cao M.D. 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 10/28/2019 E11.621 Type 2 diabetes mellitus with foot Miquel Hernandez MD ulcer 10/28/2019 E11.40 Type 2 diabetes mellitus with Jason Varma M.D. diabetic neuropathy, unspecified 10/28/2019 L03.115 Cellulitis of right lower limb JESSICA VelezC 10/28/2019 L03.115 Cellulitis of right lower limb Miquel Hernandez MD 10/27/2019 A41.9 Sepsis, unspecified organism Mena Cao M.D. 10/27/2019 E11.621 Type 2 diabetes mellitus with foot Giuliano Alvarado M.D. ulcer 10/27/2019 E11.40 Type 2 diabetes mellitus with Mena Cao M.D. diabetic neuropathy, unspecified 10/27/2019 L02.611 Cutaneous abscess of right foot Raquel Sow , KAILA 10/27/2019 J44.9 Chronic obstructive pulmonary Mena Cao M.D. disease, unspecified 10/27/2019 E11.40 Type 2 diabetes mellitus with Giuliano Alvarado M.D. 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 10/27/2019 E11.40 Type 2 diabetes mellitus with Raquel Sow, KAILA diabetic neuropathy, unspecified 10/26/2019 A41.9 Sepsis, unspecified organism Mena Cao M.D. 10/26/2019 L02.611 Cutaneous abscess of right foot Jason Varma M.D. 10/26/2019 E11.40 Type 2 diabetes mellitus with Mena Cao M.D. 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 10/26/2019 J44.9 Chronic obstructive pulmonary Mena Cao M.D. disease, unspecified 10/26/2019 E11.40 Type 2 diabetes mellitus with Jason Varma M.D. diabetic neuropathy, unspecified 10/25/2019 J44.9 Chronic obstructive pulmonary Jose Rafael Obrien M.D. disease, unspecified 10/25/2019 E11.610 Type 2 diabetes mellitus with Jose Rafael Obrien M.D. diabetic neuropathic arthropathy 10/25/2019 L97.529 Non-pressure chronic ulcer of other ERIN Rivas part of left foot with unspecified severity 10/25/2019 Z68.41 Body mass index (BMI) 40.0-44.9, Jose Rafael Obrien M.D. adult 10/25/2019 Z72.0 Tobacco use Jose Rafael Obrien M.D. 10/25/2019 L97.529 Non-pressure chronic ulcer of other Giuliano Alvarado M.D. part of left foot with unspecified severity 10/25/2019 L97.519 Non-pressure chronic ulcer of other Jose Rafael Obrien M.D. part of right foot with unspecified severity 10/25/2019 E11.621 Type 2 diabetes mellitus with foot Jose Rafael Obrien M.D. ulcer 10/25/2019 E11.621 Type 2 diabetes mellitus with foot ERIN Rivas ulcer 10/25/2019 E11.621 Type 2 diabetes mellitus with foot Jason Varma M.D. ulcer 10/25/2019 E11.621 Type 2 diabetes mellitus with foot Giuliano Alvarado M.D. ulcer 10/25/2019 L03.115 Cellulitis of right lower limb GAVIOTA Harley 10/25/2019 L97.419 Non-pressure chronic ulcer of right Jason Varma M.D. heel and midfoot with unspecified severity 10/25/2019 E11.621 Type 2 diabetes mellitus with foot GAVIOTA Harley ulcer 10/25/2019 L02.611 Cutaneous abscess of right foot Jason Varma M.D. 10/25/2019 L97.518 Non-pressure chronic ulcer of other Elissa Case GAVIOTA part of right foot with other specified severity 10/25/2019 E11.40 Type 2 diabetes mellitus with Jason Varma M.D. diabetic neuropathy, unspecified 10/25/2019 L97.418 Non-pressure chronic ulcer of right GAVIOTA Harley heel and midfoot with other specified severity 10/24/2019 A41.9 Sepsis, unspecified organism Ruperto Telles, N.P. 10/24/2019 E11.40 Type 2 diabetes mellitus with Ruperto Telles, N.P. diabetic neuropathy, unspecified 10/24/2019 F32.9 Major depressive disorder, single Ruperto Telles, N.P. episode, unspecified 10/24/2019 I10 Essential (primary) hypertension Ruperto Telles, N.P. 10/24/2019 J44.9 Chronic obstructive pulmonary Ruperto Telles, N.P. disease, unspecified 10/24/2019 Z79.84 zipper ironer (current) use of oral Ruperto Telles, N.P. hypoglycemic drugs 10/20/2019 E11.621 Type 2 diabetes mellitus with foot Keya Valenzuela MD ulcer 10/01/2019 E11.40 Type 2 diabetes mellitus with Raquelleonarod Sow NP diabetic neuropathy, unspecified 10/01/2019 L97.419 Non-pressure chronic ulcer of right Raquel Wetzelnida Sow NP heel and midfoot with unspecified severity 09/28/2019 L97.519 Non-pressure chronic ulcer of other Susanna Gama MD part of right foot with unspecified severity 09/28/2019 L97.419 Non-pressure chronic ulcer of right Raquel Wetzelnida Sow NP heel and midfoot with unspecified severity 09/28/2019 E11.621 Type 2 diabetes mellitus with foot Raquel Sow NP ulcer 09/28/2019 E11.621 Type 2 diabetes mellitus with foot Susanna Gama MD ulcer 09/28/2019 L97.519 Non-pressure chronic ulcer of other Raquel Aidee Sow NP part of right foot with unspecified severity 09/28/2019 I10 Essential (primary) hypertension Susanna Gama MD 09/28/2019 E11.40 Type 2 diabetes mellitus with Raquel Sow NP diabetic neuropathy, unspecified 09/28/2019 I87.2 Venous insufficiency (chronic) Susanna Gama MD (peripheral) 09/28/2019 E66.01 Morbid (severe) obesity due to Raquel Sow NP excess calories 09/28/2019 F41.9 Anxiety disorder, unspecified Susanna Gama MD 09/28/2019 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 Gama MD hypoglycemic drugs 08/31/2019 J44.9 Chronic obstructive pulmonary Quoc Del Real MD disease, unspecified 08/31/2019 G47.30 Sleep apnea, unspecified Quoc Del Real MD Plan of Treatment Future Appointment(s):12/08/2019 9:45 am - Daniel Tai M.D., FAC, FASRI at [facility]12/27/2019 8:30 am - Miquel Hernandez MD at [facility] at [id number]/24/2019 - Miquel Hernandez MDE11.621 Type 2 diabetes mellitus with foot ulcerReferral:Wound Clinic, Clinic/ZmerkpS21.519 Acquired absence of unspecified leg below kneeReferral:[facility] ,Follow up:Follow Up: 1 month Functional Status Description No Information Available Mental Status Description No Information Available Referrals Refer to Reason for Referral Status Appt Date Wound Clinic left great toe ulcer Sent [address] [place] [address] [phone] [facility] Right BKA, please start stump Closed shrinking process. [address] [facility] [address] [place] [address] [phone]
--- OUTSIDE RECORDS SUMMARY | 2019-12-02 11:13 | XMS REPORT | Continuity of Care Document ---
:1975 External Reference #:[id number] Author Name Raquel Sow NP (transmitted by agent of provider Nasreen Glasgow) Address [address] [place] [address] Care Team Providers Name Role Phone Ekaterina Rodriguez NP - Nurse Care Team Information Microbiology Manager [phone] Practitioner Problems Active Problems Provider Date Type [...] 2gm iv once Unknown 2gm daily at [facility] Spironolactone 1 by mouth every Unknown 25mg Tablets day Flagyl Unknown 375mg Capsules Venlafaxine HCL 1/2 by mouth Unknown 25mg every day Tablets Omeprazole 1 by mouth every Unknown 10mg Capsules DR day Steglatro 1 by mouth every Unknown 5mg Tablets day in the morning Carvedilol 1 by mouth twice Unknown 3.125mg Tablets a day Tiotropium Alden 2 puffs by mouth Unknown every day [...] Pen-Inject Ipratropium 1 unit as needed Unknown Alden/Albuterol Sulfate 0.5-2.5(3)mg/3ML Solution Ertugliflozin 15 MG daily [...] Test Result H/L Range Note Inr/Protime 10/24/2019 [facility] Inr 1.29 High 0.82-1.09 1 [address] [place] [address] [phone] Laboratory test 10/24/2019 [facility] Partial 38.5 seconds High 26.0-38.[address] [address] PTT [phone] Lactic Acid 1.2 mmol/L Normal 0.5-2.0 2 1 Standard intensity warfarin therapeutic range: 2.0-3.0 High intensity warfarin therapeutic range: 2.5-3.5 2 [place] Severe Sepsis and Septic Shock Management Bundle Measure requires all lactic acids initially measuring >2.0 mmol/L be repeated. Procedures Date Code Description Status 11/12/2019 66372 ECHO Transthorasic Realtime 2D W Doppler & Color Flow Hosp Completed 10/28/2019 66815 Amputation Leg Through Tibia & Fibula Completed 10/28/2019 33897 Amputation Leg Through Tibia & Fibula Completed 10/28/2019 54080 Amputation Leg Through Tibia & Fibula Completed 10/25/2019 60322 Debridement Muscle/Fascia,Epidermis/Dermis/Tissue,Addtl 20 Completed SQ CM 10/25/2019 73161 Debridement Muscle/Fascia,Epidermis/Dermis/Tissue,Addtl 20 Completed SQ CM 10/25/2019 93366 Debridement Muscle/Fascia,Epidermis/Dermis/Tissue,Addtl 20 Completed SQ CM 10/25/2019 14763 Debridement Muscle/Fascia,Epidermis/Dermis/Tissue,Addtl 20 Completed SQ CM 10/25/2019 58034 Debridement Skin, Subcutaneous Tissue & Muscle Completed 10/25/2019 13605 Debridement Skin, Subcutaneous Tissue & Muscle Completed Medical Devices Description No Information Available Encounters Type Date Location Provider Dx Diagnosis Office Visit 11/17/2019 [facility] Raquel Hoskins E11.69 Type 2 diabetes 1:30p Infectious Sow, [employer] mellitus with other Diseases specified complication M86.672 Other chronic osteomyelitis, left ankle and foot E11.621 Type 2 diabetes mellitus with foot ulcer 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 E11.40 Type 2 diabetes mellitus with diabetic neuropathy, unsp Office Visit 11/12/2019 11:03a [facility] Daniel Diomedes I50.20 Unspecified Of Autumn Tai M.D., systolic FACC, FASNC (congestive) heart failure I10 Essential (primary) hypertension Z82.49 Family hx of ischem heart dis and oth dis of the circ sys I73.9 Peripheral vascular disease, unspecified I42.9 Cardiomyopathy, unspecified F17.210 Nicotine dependence, cigarettes, uncomplicated Office Visit 11/10/2019 11:49a [facility] E11.621 Type 2 For Infectious Juanjose, [employer] diabetes Diseases mellitus with foot ulcer 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 E11.40 Type 2 diabetes mellitus with diabetic neuropathy, unsp Z89.511 Acquired absence of right leg below knee Office Visit 11/08/2019 11:46a [facility] E11.621 Type 2 For Infectious Juanjose, [employer] diabetes Diseases mellitus with foot ulcer 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 E11.40 Type 2 diabetes mellitus with diabetic neuropathy, unsp Z89.511 Acquired absence of right leg below knee Office Visit 11/03/2019 8:14a [facility] E11.621 Type 2 For Infectious Juanjose, [employer] diabetes Diseases mellitus with foot ulcer 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 E11.40 Type 2 diabetes mellitus with diabetic neuropathy, unsp Z89.511 Acquired absence of right leg below knee Office Visit 11/03/2019 11:41a [facility] Kellie L02.415 Cutaneous Assoc,darren So MD abscess [...] J44.9 Chronic obstructive pulmonary disease, unspecified Z79.84 senior care (current) use of oral hypoglycemic drugs Office Visit 11/03/2019 10:04a [facility] Elissa Case, Z47.81 Encounter for at [facility] orthopedic aftercare following surgical amp 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 Office Visit 11/02/2019 8:45a [facility] Raquel Wetzelgonzaloyueverónica E11.621 Type 2 diabetes [facility] Juanjose [employer] mellitus with foot ulcer 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 E11.40 Type 2 diabetes mellitus with diabetic neuropathy, unsp M86.672 Other chronic osteomyelitis, left ankle and foot E66.9 Obesity, unspecified Office Visit 11/02/2019 11:40a [facility] Susanna Dill, E11.40 Type 2 diabetes Assocdarren MD mellitus with Hospitalists diabetic neuropathy, unsp F41.8 Other specified anxiety disorders J44.9 Chronic obstructive pulmonary disease, unspecified Office Visit 11/01/2019 8:12a [facility] Raquel Hsufatemeh E11.621 Type 2 For Infectious Sow, [employer] diabetes Diseases mellitus with foot ulcer 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 E11.40 Type 2 diabetes mellitus with diabetic neuropathy, unsp Z89.511 Acquired absence of right leg below knee Office Visit 11/01/2019 11:40a [facility] Kellie J44.9 Chronic Assoc,darren So MD obstructive Hospitalists pulmonary disease, unspecified F41.8 Other specified anxiety disorders Office Visit 10/31/2019 11:38a [facility] Kellie F41.9 Anxiety disorder, Assoc,darren So MD unspecified Hospitalists J44.9 Chronic obstructive pulmonary disease, unspecified Z79.84 meterman (current) use of oral hypoglycemic drugs Z79.4 senior care (current) use of insulin [facility] F[facility].9 Anxiety disorder, Assoc,darren So MD unspecified Hospitalists J44.9 Chronic obstructive pulmonary disease, unspecified Z79.4 senior care (current) use of insulin Z79.84 senior care (current) use of oral hypoglycemic drugs Office Visit 10/29/2019 [facility] Aidee L97.529 Non- pressure 10:54a For Infectious Sow, [employer] chronic ulcer oth Diseases prt left foot w unsp severity E11.621 Type 2 diabetes mellitus with foot ulcer E11.40 Type 2 diabetes mellitus with diabetic neuropathy, unsp Z89.511 Acquired absence of right leg below knee [facility] E87.6 Hypokalemia Assdarren palencia Hospitalists Timur J44.9 Chronic obstructive pulmonary disease, unspecified Z79.4 meterman (current) use of insulin Office Visit 10/28/2019 [facility] David, L97.419 Non-prs chr 1:01p at [facility] ulcer of right heel and midfoot w unsp severt Office Visit 10/[facility]2019 [facility], E87.6 Hypokalemia 11:37a Assdarren palencia M.D. 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 unspecified Hospitalists organism E11.40 Type 2 diabetes mellitus with diabetic neuropathy, unsp J44.9 Chronic obstructive pulmonary disease, unspecified Office Visit 10/27/2019 10:04a [facility] Giuliano E11.621 Type 2 diabetes at Johanna Alvarado M.D. 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 unspecified Hospitalists organism E11.40 Type 2 diabetes mellitus with diabetic neuropathy, unsp J44.9 Chronic obstructive pulmonary disease, unspecified Office Visit 10/26/2019 10:51a [facility] Raulito Dale L02.611 Cutaneous Infectious Macqueen, M.D. 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, right foot E11.40 Type 2 diabetes mellitus with diabetic neuropathy, unsp Office Visit 10/25/2019 8:23a [facility] Elissa L03.115 Cellulitis of at [facility] [place] right lower limb E11.621 Type 2 diabetes mellitus with foot ulcer L97.518 Non-prs chronic ulcer oth prt right foot with oth severity L97.418 Non-prs chronic ulcer of right heel/midft with oth severity Office Visit 10/25/2019 10:50a [facility] Raulito Dale E11.621 Type 2 Infectious Timur Varma diabetes Diseases mellitus with foot ulcer L97.419 Non-prs chr ulcer of right heel and midfoot w uns severt L02.611 Cutaneous abscess of right foot E11.40 Type 2 diabetes mellitus with diabetic neuropathy, unsp Office Visit 10/25/2019 11:36a [facility] Jose Rafael J44.9 Chronic Assoc,darren Obrien M.D. 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 unspecified Hospitalists organism E11.40 Type 2 diabetes mellitus with diabetic neuropathy, unsp F32.9 Major depressive disorder, single episode, unspecified I10 Essential (primary) hypertension J44.9 Chronic obstructive pulmonary disease, unspecified Z79.84 senior care (current) use of oral hypoglycemic drugs Office Visit 10/20/2019 1:00p [facility] Keya Valenzuela E11.621 Type 2 diabetes [facility] MD mellitus with foot ulcer Office Visit 10/01/2019 8:00a [facility] Raquel Hoskins E11.40 Type 2 diabetes [facility] KAILA Sow mellitus with diabetic neuropathy, unsp L97.419 Non-prs chr ulcer of right heel and midfoot w unsp severt Office Visit 09/28/2019 8:15a [facility] Raquel Hoskins L97.419 Non- prs chr [facility] KAILA Sow ulcer of right heel and midfoot w unsp severt E11.621 Type 2 diabetes mellitus with foot ulcer L97.519 Non-prs chronic ulcer oth prt right foot w unsp severity E11.40 Type 2 diabetes mellitus with diabetic neuropathy, unsp E66.01 Morbid (severe) obesity due to excess calories Office Visit 09/28/2019 11:18a [facility] Susanna Gama, L97.519 Non-prs chronic Assoc,pc MD ulcer oth prt Hospitalists right foot w unsp severity E11.621 Type 2 diabetes mellitus with foot ulcer I10 Essential (primary) hypertension I87.2 Venous insufficiency (chronic) (peripheral) F41.9 Anxiety disorder, unspecified Z79.84 meterman (current) use of oral hypoglycemic drugs Office Visit 08/31/2019 10:45a [facility], J44.9 Chronic Sleep Services Of obstructive [employer] pulmonary disease, unspecified G47.30 Sleep apnea, unspecified Assessments Date Code Description Provider 11/24/2019 E11.621 Type 2 diabetes mellitus with foot Miquel Hernandez MD ulcer 11/24/2019 Z89.519 Acquired absence of unspecified leg Miquel Hernandez MD below knee 11/17/2019 E11.69 Type 2 diabetes mellitus with other Raquel Sow NP specified complication 11/17/2019 M86.672 Other chronic osteomyelitis, left Raquel Sow NP ankle and foot 11/17/2019 E11.621 Type 2 diabetes mellitus with foot Raquel Sow NP ulcer 11/17/2019 L97.529 Non-pressure chronic ulcer of other Raquel Sow NP part of left foot with unspecified severity 11/17/2019 E11.40 Type 2 diabetes mellitus with Raquel Sow NP diabetic neuropathy, unspecified 11/12/2019 I50.20 Unspecified systolic (congestive) Daniel Tai M.D., [facility], heart failure FASTN 11/12/2019 I10 Essential (primary) hypertension Daniel Tai M.D., FACC , [facility] 11/12/2019 Z82.49 Family history of ischemic heart Daniel Tai M.D., [facility], disease and other diseases of the [facility] circulatory system 11/12/2019 I73.9 Peripheral vascular disease, Daniel Tai M.D., [facility], unspecified [facility] 11/12/2019 I42.9 Cardiomyopathy, unspecified Daniel Tai M.D., [facility], [facility] 11/12/2019 F17.210 Nicotine dependence, cigarettes, Daniel Tai M.D., [facility], uncomplicated [facility] 11/10/2019 E11.621 Type 2 diabetes mellitus with foot Raquel Sow, [employer] ulcer 11/10/2019 L97.529 Non-pressure chronic ulcer of other Raquel Sow, [employer] part of left foot with unspecified severity 11/10/2019 E11.40 Type 2 diabetes mellitus with Raquel Sow, [employer] diabetic neuropathy, unspecified 11/10/2019 Z89.511 Acquired absence of right leg below Raquel Sow, [employer] knee 11/08/2019 E11.621 Type 2 diabetes mellitus with foot Raquel Sow, [employer] ulcer 11/08/2019 L97.529 Non-pressure chronic ulcer of other Raquel Sow, [employer] part of left foot with unspecified severity 11/08/2019 E11.40 Type 2 diabetes mellitus with Raquel Sow, [employer] diabetic neuropathy, unspecified 11/08/2019 Z89.511 Acquired absence of right leg below Raquel Sow, [employer] knee 11/03/2019 E11.621 Type 2 diabetes mellitus with foot Raquel Sow, [employer] ulcer 11/03/2019 L02.415 Cutaneous abscess of right lower Kellie So MD limb 11/03/2019 L97.529 Non-pressure chronic ulcer of other Raquel Sow, [employer] part of left foot with unspecified severity 11/03/2019 Z47.81 Encounter for orthopedic aftercare GAVIOTA Harley following surgical amputation 11/03/2019 E11.40 Type 2 diabetes mellitus with Raquel Hoskins Sow, [employer] diabetic neuropathy, unspecified 11/03/2019 L97.519 Non-pressure chronic ulcer of other Kellie So MD part of right foot with unspecified severity 11/03/2019 Z89.511 Acquired absence of right leg below Raquelleonardo Sow NP knee 11/03/2019 Z89.511 Acquired absence of right [...] Kellie So MD disease, unspecified 11/03/2019 Z79.84 meterman (current) use of oral Kellie So MD hypoglycemic drugs 11/02/2019 E11.621 Type 2 diabetes mellitus with foot Raquel Sow NP ulcer 11/02/2019 E11.40 Type 2 diabetes mellitus with Susanna Gama MD diabetic neuropathy, unspecified 11/02/2019 L97.529 Non-pressure chronic ulcer of other Raquel Sow NP part of left foot with unspecified severity 11/02/2019 F41.8 Other specified anxiety disorders Susanna Gama MD 11/02/2019 E11.40 Type 2 diabetes mellitus with Raquel Sow NP diabetic neuropathy, unspecified 11/02/2019 M86.672 Other chronic osteomyelitis, left Raquel Sow NP ankle and foot 11/02/2019 J44.9 Chronic obstructive pulmonary Susanna Gama MD disease, unspecified 11/02/2019 E66.9 Obesity, unspecified Raquelleonardo Sow, [employer] 11/01/2019 E11.621 Type 2 diabetes mellitus with foot Raquel Sow, [employer] ulcer 11/01/2019 J44.9 Chronic obstructive pulmonary Kellie So MD disease, unspecified 11/01/2019 L97.529 Non-pressure chronic ulcer of other Raquel Sow, [employer] part of left foot with unspecified severity 11/01/2019 F41.8 Other specified anxiety disorders Kellie So MD 11/01/2019 E11.40 Type 2 diabetes mellitus with Raquel Sow, [employer] diabetic neuropathy, unspecified 11/01/2019 Z89.511 Acquired absence of right leg below Raquel Sow, [employer] knee 10/31/2019 F41.9 Anxiety disorder, unspecified Kellie So MD 10/31/2019 J44.9 Chronic obstructive pulmonary Kellie So MD disease, unspecified 10/31/2019 Z79.84 senior care (current) use of oral Kellie So MD hypoglycemic drugs 10/31/2019 Z79.4 senior care (current) use of insulin Kellie So MD 10/30/2019 F41.9 Anxiety disorder, unspecified Kellie So MD 10/30/2019 J44.9 Chronic obstructive pulmonary Kellie So MD disease, unspecified 10/30/2019 Z79.4 meterman (current) use of maurilio So MD 10/30/2019 Z79.84 meterman (current) use of vladimir So MD hypoglycemic drugs 10/29/2019 E87.6 Hypokalemia Mena Cao M.D. 10/29/2019 L97.529 Non-pressure chronic ulcer of other Raquel Sow, [employer] part of left foot with unspecified severity 10/29/2019 J44.9 Chronic obstructive pulmonary Mena Cao M.D. disease, unspecified 10/29/2019 E11.621 Type 2 diabetes mellitus with foot Raquel Sow, [employer] ulcer 10/29/2019 Z79.4 senior care (current) use of insulin Mena Cao M.D. 10/29/2019 E11.40 Type 2 diabetes mellitus with Raquel Sow, [employer] diabetic neuropathy, unspecified 10/29/2019 Z89.511 Acquired absence of right leg below Raquel Berhaneverónica Juanjose, [employer] knee 10/28/2019 E11.621 Type 2 diabetes mellitus with foot Fran Gonzalez M.D. ulcer 10/28/2019 L97.519 Non-pressure chronic ulcer of other Fran Gonzalez M.D. part of right foot with unspecified severity 10/28/2019 E87.6 Hypokalemia Mena Cao M.D. 10/28/2019 L97.529 Non-pressure chronic ulcer of other Fran Gonzalez M.D. part of left foot with unspecified severity 10/28/2019 L97.419 Non-pressure chronic ulcer of right Miquel Hernandez MD heel and midfoot with unspecified severity 10/28/2019 I70.213 Atherosclerosis of zuni arteries Fran Gonzalez M.D. of extremities with intermittent claudication, bilateral legs 10/28/2019 E11.40 Type 2 diabetes mellitus with Mena Cao M.D. diabetic neuropathy, unspecified 10/28/2019 L02.611 Cutaneous abscess of right foot Jason Varma M.D. 10/28/2019 J44.9 Chronic obstructive pulmonary Mena Cao M.D. 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 10/28/2019 E11.621 Type 2 diabetes mellitus with foot Miquel Hernandez MD ulcer 10/28/2019 E11.40 Type 2 diabetes mellitus with Jason Varma M.D. diabetic neuropathy, unspecified 10/28/2019 L03.115 Cellulitis of right lower limb ERIN Velez 10/28/2019 L03.115 Cellulitis of right lower limb Miquel Hernandez MD 10/27/2019 A41.9 Sepsis, unspecified organism Mena Cao M.D. 10/27/2019 E11.621 Type 2 diabetes mellitus with foot Giuliano Alvarado M.D. ulcer 10/27/2019 E11.40 Type 2 diabetes mellitus with Mena Cao M.D. diabetic neuropathy, unspecified 10/27/2019 L02.611 Cutaneous abscess of right foot Raquel Sow , [employer] 10/27/2019 J44.9 Chronic obstructive pulmonary Mena Cao M.D. disease, unspecified 10/27/2019 E11.40 Type 2 diabetes mellitus with Giuliano Alvarado M.D. 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 10/27/2019 E11.40 Type 2 diabetes mellitus with Raquel Sow, [employer] diabetic neuropathy, unspecified 10/26/2019 A41.9 Sepsis, unspecified [...] 10/25/2019 L97.529 Non-pressure chronic ulcer of other Tanmay Rivera, MICHAEL-C part of left foot with unspecified severity 10/25/2019 Z68.41 Body mass index (BMI) 40.0-44.9, Jose Rafael Obrien M.D. adult 10/25/2019 Z72.0 Tobacco use Jose Rafael Obrien M.D. 10/25/2019 L97.529 Non-pressure chronic ulcer of other Giuliano Avlarado M.D. part of left foot with unspecified severity 10/25/2019 L97.519 Non-pressure chronic ulcer of other Jose Rafael Obrien M.D. part of right foot with unspecified severity 10/25/2019 E11.621 Type 2 diabetes mellitus with foot Jose Rafael Obrien M.D. ulcer 10/25/2019 E11.621 Type 2 diabetes mellitus with foot Tanmay Rivera RPA-C ulcer 10/25/2019 E11.621 Type 2 diabetes mellitus [...] 10/25/2019 L97.518 Non-pressure chronic ulcer of other GAVIOTA Harley part of right foot with other specified [...] Ruperto Telles, N.P. disease, unspecified 10/24/2019 Z79.84 meterman (current) use of oral Ruperto Telles, N.P. hypoglycemic drugs 10/20/2019 E11.621 Type 2 diabetes mellitus with foot Keya Valenzuela MD ulcer 10/01/2019 E11.40 Type 2 diabetes mellitus with Raquel Sow [employer] diabetic neuropathy, unspecified 10/01/2019 L97.419 Non-pressure chronic ulcer of right Raquel Sow [employer] heel and midfoot with unspecified severity 09/28/2019 L97.519 Non-pressure chronic ulcer of other Susanna Gama MD part of right foot with unspecified severity 09/28/2019 L97.419 Non-pressure chronic ulcer of right Raquel Sow [employer] heel and midfoot with unspecified severity 09/28/2019 E11.621 Type 2 diabetes mellitus with foot Raquel SowKAILA ulcer 09/28/2019 E11.621 Type 2 diabetes mellitus with foot Susanna Gama MD ulcer 09/28/2019 L97.519 Non-pressure chronic ulcer of other Raquel Sow NP part of right foot with unspecified severity 09/28/2019 I10 Essential (primary) hypertension Susanna Gama MD 09/28/2019 E11.40 Type 2 diabetes mellitus with Raquel SowKAILA diabetic neuropathy, unspecified 09/28/2019 I87.2 Venous insufficiency (chronic) Susanna Gama MD (peripheral) 09/28/2019 E66.01 Morbid (severe) obesity due to Raquel SowKAILA excess calories 09/28/2019 F41.9 Anxiety disorder, unspecified Susanna Gama MD 09/28/2019 Z79.84 senior care (current) use of oral Susanna Gama MD hypoglycemic drugs 08/31/2019 J44.9 Chronic obstructive pulmonary Quoc Del Real MD disease, unspecified 08/31/2019 G47.30 Sleep apnea, unspecified Quoc Del Real MD Plan of Treatment Future Appointment(s):12/08/2019 9:45 am - Daniel Tai M.D., [facility], [facility] at [facility]12/27/2019 8:30 am - Miquel Hernandez MD at [facility] at [id number]/24/2019 - Miquel Hernandez MDE11.621 Type 2 diabetes mellitus with foot ulcerReferral:Wound Clinic, Clinic/XgmyptV65.519 Acquired absence of unspecified leg below kneeReferral:[facility] ,Follow up:Follow Up: 1 month Functional Status Description No Information Available Mental Status Description No Information Available Referrals Refer to Reason for Referral Status Appt Date Wound Clinic left great toe ulcer Sent [address] [place] [address] [phone] [facility] Right BKA, please start stump Closed shrinking process. [address] [facility] [address] [place] [address] [phone]
--- OUTSIDE RECORDS SUMMARY | 2019-12-02 11:13 | XMS REPORT | Continuity of Care Document ---
:1975 External Reference #:[id number] Author Name Raquel Sow NP (transmitted by agent of provider Nasreen Glasgow) Address [address] [place] [address] Care Team Providers Name Role Phone Ekaterina Rodriguez NP - Nurse Care Team Information National Account Manager [phone] Practitioner Problems Active Problems Provider Date Type [...] 2gm iv once [facility] Spironolactone 1 by mouth every Unknown 25mg Tablets day Flagyl Unknown 375mg Capsules Venlafaxine HCL 1/2 by mouth Unknown 25mg every day Tablets Omeprazole 1 by mouth every Unknown 10mg Capsules DR day Steglatro 1 by mouth every Unknown 5mg Tablets day in the morning Carvedilol 1 by mouth twice Unknown 3.125mg Tablets a day Tiotropium [place] 2 puffs by mouth Unknown every day [...] Pen-Inject Ipratropium 1 unit as needed Unknown [place]/Albuterol Sulfate 0.5-2.5(3)mg/3ML Solution Ertugliflozin 15 MG daily [...] Test Result H/L Range Note Inr/Protime 10/24/2019 [facility] Inr 1.29 High 0.82-1.09 1 [address] [place] [address] [phone] Laboratory test 10/24/2019 [facility] Partial 38.5 seconds High 26.0-38.[address] [place] [address] PTT [phone] Lactic Acid 1.2 mmol/L Normal 0.5-2.0 2 1 Standard intensity warfarin therapeutic range: 2.0-3.0 High intensity warfarin therapeutic range: 2.5-3.5 2 [place] Severe Sepsis and Septic Shock Management Bundle Measure requires all lactic acids initially measuring >2.0 mmol/L be repeated. Procedures Date Code Description Status 11/12/2019 86463 ECHO Transthorasic Realtime 2D W Doppler & Color Flow Hosp Completed 10/28/2019 05881 Amputation Leg Through Tibia & Fibula Completed 10/28/2019 54809 Amputation Leg Through Tibia & Fibula Completed 10/28/2019 96722 Amputation Leg Through Tibia & Fibula Completed 10/25/2019 82431 Debridement Muscle/Fascia,Epidermis/Dermis/Tissue,Addtl 20 Completed SQ CM 10/25/2019 36071 Debridement Muscle/Fascia,Epidermis/Dermis/Tissue,Addtl 20 Completed SQ CM 10/25/2019 07609 Debridement Muscle/Fascia,Epidermis/Dermis/Tissue,Addtl 20 Completed SQ CM 10/25/2019 98592 Debridement Muscle/Fascia,Epidermis/Dermis/Tissue,Addtl 20 Completed SQ CM 10/25/2019 64819 Debridement Skin, Subcutaneous Tissue & Muscle Completed 10/25/2019 56296 Debridement Skin, Subcutaneous Tissue & Muscle Completed Medical Devices Description No Information Available Encounters Type Date Location Provider Dx Diagnosis Office Visit 11/12/2019 [facility] Daniel Diomedes I50.20 Unspecified 11:03a Of Autumn Tai M.D., systolic FACC, FASNC (congestive) heart failure I10 Essential (primary) hypertension Z82.49 Family hx of ischem heart dis and oth dis of the circ sys I73.9 Peripheral vascular disease, unspecified I42.9 Cardiomyopathy, unspecified F17.210 Nicotine dependence, cigarettes, uncomplicated Office Visit 11/10/2019 11:49a [facility] Raquelleonardo Hoskins E11.621 Type 2 For Infectious Sow, PROTOHISTORIAN diabetes Diseases mellitus with foot ulcer 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 E11.40 Type 2 diabetes mellitus with diabetic neuropathy, unsp Z89.511 Acquired absence of right leg below knee Office Visit 11/08/2019 11:46a [facility] Raquel Hsufatemeh E11.621 Type 2 For Infectious KAILA Sow diabetes Diseases mellitus with foot ulcer 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 E11.40 Type 2 diabetes mellitus with diabetic neuropathy, unsp Z89.511 Acquired absence of right leg below knee Office Visit 11/03/2019 8:14a [facility] Raquel Hsufatemeh E11.621 Type 2 For Infectious Juanjose, PROTOHISTORIAN diabetes Diseases mellitus with foot ulcer 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 E11.40 Type 2 diabetes mellitus with diabetic neuropathy, unsp Z89.511 Acquired absence of right leg below knee Office Visit 11/03/2019 11:41a [facility] Kellie L02.415 Cutaneous Assoc,darren So MD abscess [...] J44.9 Chronic obstructive pulmonary disease, unspecified Z79.84 assistant terminal manager (current) use of oral hypoglycemic drugs Office Visit 11/03/2019 10:04a [facility] Elissa Case, Z47.81 Encounter for at [facility] orthopedic aftercare following surgical amp 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 Office Visit 11/02/2019 8:45a [facility] Raquel Wetzelnida E11.621 Type 2 diabetes Center AT [facility] Juanjose PROTOHISTORIAN mellitus with foot ulcer 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 E11.40 Type 2 diabetes mellitus with diabetic neuropathy, unsp M86.672 Other chronic osteomyelitis, left ankle and foot E66.9 Obesity, unspecified Office Visit 11/02/2019 11:40a [facility] Susanna Dill, E11.40 Type 2 diabetes Assoc,darren BLOOM mellitus with Hospitalists diabetic neuropathy, unsp F41.8 Other specified anxiety disorders J44.9 Chronic obstructive pulmonary disease, unspecified Office Visit 11/01/2019 8:12a [facility] E11.621 Type 2 For Infectious Juanjose, PROTOHISTORIAN diabetes Diseases mellitus with foot ulcer 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 E11.40 Type 2 diabetes mellitus with diabetic neuropathy, unsp Z89.511 Acquired absence of right leg below knee Office Visit 11/01/2019 11:40a [facility] Kellie J44.9 Chronic Assoc,darren So MD obstructive Hospitalists pulmonary disease, unspecified F41.8 Other specified anxiety disorders [facility] F[facility].9 Anxiety disorder, Assoc,pc MD Saray unspecified Hospitalists J44.9 Chronic obstructive pulmonary disease, unspecified Z79.84 assistant terminal manager (current) use of oral hypoglycemic drugs Z79.4 assistant terminal manager (current) use of insulin Office Visit 10/30/2019 11:38a [facility] F41.9 Anxiety disorder, Assoc,pc MD Saray unspecified Hospitalists J44.9 Chronic obstructive pulmonary disease, unspecified Z79.4 penitentiary (current) use of insulin Z79.84 penitentiary (current) use of oral hypoglycemic drugs Office Visit 10/29/2019 [facility] L97.529 Non- pressure 10:54a For Infectious Juanjose, PROTOHISTORIAN chronic ulcer oth Diseases prt left foot w unsp severity E11.621 Type 2 diabetes mellitus with foot ulcer E11.40 Type 2 diabetes mellitus with diabetic neuropathy, unsp Z89.511 Acquired absence of right leg below knee Office Visit 10/29/2019 11:37a [facility] Mena Cao, E87.6 Hypokalemia Assoc,darren Hospitalists Timur J44.9 Chronic obstructive pulmonary disease, unspecified Z79.4 assistant terminal manager (current) use of insulin Office Visit 10/28/2019 [facility] Miquel David, L97.419 Non-prs chr 1:01p at [facility] ulcer of right heel and midfoot w unsp severt [facility] E87.6 Hypokalemia 11:37a Assocdarren M.D. Hospitalists E11.40 Type 2 diabetes mellitus with diabetic neuropathy, [facility] J44.9 Chronic obstructive pulmonary disease, unspecified Office Visit 10/28/2019 10:53a [facility] Raulito Dale L02.611 Cutaneous Infectious Timur Varma 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, right foot E11.40 Type 2 diabetes mellitus with diabetic neuropathy, unsp Office Visit 10/27/2019 11:36a [facility] A41.9 Sepsis, Assoc,darren Cao M.D. unspecified Hospitalists organism E11.40 Type 2 diabetes mellitus with diabetic neuropathy, [facility] J44.9 Chronic obstructive pulmonary disease, unspecified Office Visit 10/27/2019 10:04a [facility] Giuliano E11.621 Type 2 diabetes at Joahnna Alvarado M.D. 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, right foot E11.40 Type 2 diabetes mellitus with diabetic neuropathy, unsp Office Visit 10/25/2019 8:23a [facility] Elissa L03.115 Cellulitis of at GAVIOTA Salamanca right lower limb E11.621 Type 2 diabetes mellitus with foot ulcer L97.518 Non-prs chronic ulcer oth prt right foot with oth severity L97.418 Non-prs chronic ulcer of right heel/midft with oth severity Office Visit 10/25/2019 10:50a [facility] Raulito Dale E11.621 Type 2 Infectious Timur Varma diabetes Diseases mellitus with foot ulcer L97.419 Non-prs chr ulcer of right heel and midfoot w unsp severt L02.611 Cutaneous abscess of right foot E11.40 Type 2 diabetes mellitus with diabetic neuropathy, unsp Office Visit 10/25/2019 11:36a [facility] Jose Rafael J44.9 Chronic Assoc,darren Obrien M.D. 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 unspecified Hospitalists organism E11.40 Type 2 diabetes mellitus with diabetic neuropathy, unsp F32.9 Major depressive disorder, single episode, unspecified I10 Essential (primary) hypertension J44.9 Chronic obstructive pulmonary disease, unspecified Z79.84 penitentiary (current) use of oral hypoglycemic drugs Office Visit 10/20/2019 1:00p [facility] Keya Valenzuela, E11.621 Type 2 diabetes Center AT [facility] MD mellitus with foot ulcer Office Visit 10/01/2019 8:00a [facility] Raquel Hoskins E11.40 Type 2 diabetes Center AT [facility] KIALA Sow mellitus with diabetic neuropathy, unsp L97.419 Non-prs chr ulcer of right heel and midfoot w unsp severt Office Visit 09/28/2019 8:15a [facility] Raquel Hoskins L97.419 Non- prs chr Center AT [facility] KAILA Sow ulcer of right heel and midfoot w unsp severt E11.621 Type 2 diabetes mellitus with foot ulcer L97.519 Non-prs chronic ulcer oth prt right foot w unsp severity E11.40 Type 2 diabetes mellitus with diabetic neuropathy, unsp E66.01 Morbid (severe) obesity due to excess calories Office Visit 09/28/2019 11:18a [facility] Susanna Dill, L97.519 Non-prs chronic Assoc,pc MD ulcer oth prt Hospitalists right foot w unsp severity E11.621 Type 2 diabetes mellitus with foot ulcer I10 Essential (primary) hypertension I87.2 Venous insufficiency (chronic) (peripheral) F41.9 Anxiety disorder, unspecified Z79.84 assistant terminal manager (current) use of oral hypoglycemic drugs Office Visit 08/31/2019 10:45a [facility], J44.9 Chronic Sleep Services Of obstructive Shucker pulmonary disease, unspecified G47.30 Sleep apnea, unspecified Assessments Date Code Description Provider 11/24/2019 E11.621 Type 2 diabetes mellitus with foot Miquel Hernandez MD ulcer 11/24/2019 Z89.519 Acquired absence of unspecified leg Miquel Hernandez MD below knee 11/12/2019 I50.20 Unspecified systolic (congestive) Daniel Tai M.D., FACC, heart failure [facility] 11/12/2019 I10 Essential (primary) hypertension Daniel Tai M.D., FACC , [facility] 11/12/2019 Z82.49 Family history of ischemic heart Daniel Tai M.D., FACC, disease and other diseases of the [facility] circulatory system 11/12/2019 I73.9 Peripheral vascular disease, Daniel Tai M.D., FACC, unspecified [facility] 11/12/2019 I42.9 Cardiomyopathy, unspecified Daniel Tai M.D., FACC, [facility] 11/12/2019 F17.210 Nicotine dependence, cigarettes, Daniel Tai M.D., FACC, uncomplicated [facility] 11/10/2019 E11.621 Type 2 diabetes mellitus with foot Raquel Sow NP ulcer 11/10/2019 L97.529 Non-pressure chronic ulcer of other Raquel Sow NP part of left foot with unspecified severity 11/10/2019 E11.40 Type 2 diabetes mellitus with Raquel Sow NP diabetic neuropathy, unspecified 11/10/2019 Z89.511 Acquired absence of right leg below Raquel Sow NP knee 11/08/2019 E11.621 Type 2 diabetes mellitus with foot Raquel Sow, PROTOHISTORIAN ulcer 11/08/2019 L97.529 Non-pressure chronic ulcer of other Raquel Sow, PROTOHISTORIAN part of left foot with unspecified severity 11/08/2019 E11.40 Type 2 diabetes mellitus with Raquel Sow, PROTOHISTORIAN diabetic neuropathy, unspecified 11/08/2019 Z89.511 Acquired absence of right leg below Raquel Sow, PROTOHISTORIAN knee 11/03/2019 E11.621 Type 2 diabetes mellitus with foot Raquel Sow, PROTOHISTORIAN ulcer 11/03/2019 L02.415 Cutaneous abscess of right lower Kellie So MD limb 11/03/2019 L97.529 Non-pressure chronic ulcer of other Raquel Sow, PROTOHISTORIAN part of left foot with unspecified severity 11/03/2019 Z47.81 Encounter for orthopedic aftercare GAVIOTA Harley following surgical amputation 11/03/2019 E11.40 Type 2 diabetes mellitus with Raquel Sow, PROTOHISTORIAN diabetic neuropathy, unspecified 11/03/2019 L97.519 Non-pressure chronic ulcer of other Kellie So MD part of right foot with unspecified severity 11/03/2019 Z89.511 Acquired absence of right leg below Raquel Sow, PROTOHISTORIAN knee 11/03/2019 Z89.511 Acquired absence of right [...] Kellie So MD disease, unspecified 11/03/2019 Z79.84 penitentiary (current) use of oral Kellie So MD hypoglycemic drugs 11/02/2019 E11.621 Type 2 diabetes mellitus with foot Raquel Sow, PROTOHISTORIAN ulcer 11/02/2019 E11.40 Type 2 diabetes mellitus with Susanna Gama MD diabetic neuropathy, unspecified 11/02/2019 L97.529 Non-pressure chronic ulcer of other Raquel Sow, PROTOHISTORIAN part of left foot with unspecified severity 11/02/2019 F41.8 Other specified anxiety disorders Susanna Gama MD 11/02/2019 E11.40 Type 2 diabetes mellitus with Raquel Sow, PROTOHISTORIAN diabetic neuropathy, unspecified 11/02/2019 M86.672 Other chronic osteomyelitis, left Raquel Sow, PROTOHISTORIAN ankle and foot 11/02/2019 J44.9 Chronic obstructive pulmonary Susanna Gama MD disease, unspecified 11/02/2019 E66.9 Obesity, unspecified Raquel Sow, PROTOHISTORIAN 11/01/2019 E11.621 Type 2 diabetes mellitus with foot Raquel Sow, PROTOHISTORIAN ulcer 11/01/2019 J44.9 Chronic obstructive pulmonary Kellie So MD disease, unspecified 11/01/2019 L97.529 Non-pressure chronic ulcer of other Raquel Sow, PROTOHISTORIAN part of left foot with unspecified severity 11/01/2019 F41.8 Other specified anxiety disorders Kellie So MD 11/01/2019 E11.40 Type 2 diabetes mellitus with Raquel Sow, PROTOHISTORIAN diabetic neuropathy, unspecified 11/01/2019 Z89.511 Acquired absence of right leg below Raquel Sow, PROTOHISTORIAN knee 10/31/2019 F41.9 Anxiety disorder, unspecified Kellie So MD 10/31/2019 J44.9 Chronic obstructive pulmonary Kellie So MD disease, unspecified 10/31/2019 Z79.84 penitentiary (current) use of oral Kellie So MD hypoglycemic drugs 10/31/2019 Z79.4 assistant terminal manager (current) use of insulin Kellie So MD 10/30/2019 F41.9 Anxiety disorder, unspecified Kellie So MD 10/30/2019 J44.9 Chronic obstructive pulmonary Kellie So MD disease, unspecified 10/30/2019 Z79.4 assistant terminal manager (current) use of insulin Kellie So MD 10/30/2019 Z79.84 penitentiary (current) use of oral Kellie So MD hypoglycemic drugs 10/29/2019 E87.6 Hypokalemia Mena Cao M.D. 10/29/2019 L97.529 Non-pressure chronic ulcer of other Raquel Sow NP part of left foot with unspecified severity 10/29/2019 J44.9 Chronic obstructive pulmonary Mena Cao M.D. disease, unspecified 10/29/2019 E11.621 Type 2 diabetes mellitus with foot Raquel Sow NP ulcer 10/29/2019 Z79.4 penitentiary (current) use of insulin Mena Cao M.D. [...] with unspecified severity 10/28/2019 I70.213 Atherosclerosis of iliamna arteries Fran Gonzalez M.D. of extremities with [...] Ruperto Telles, N.P. disease, unspecified 10/24/2019 Z79.84 assistant terminal manager (current) use of oral Ruperto Telles, N.P. hypoglycemic drugs 10/20/2019 E11.621 Type 2 diabetes mellitus with foot Keya Valenzuela MD ulcer 10/01/2019 E11.40 Type 2 diabetes mellitus with Raquelleonardo Sow NP diabetic neuropathy, unspecified 10/01/2019 L97.419 [...] disorder, unspecified Susanna Gama MD 09/28/2019 Z79.84 assistant terminal manager (current) use of oral Susanna Gama MD hypoglycemic drugs 08/31/2019 J44.9 Chronic obstructive pulmonary [facility]oc Del Real MD disease, unspecified 08/31/2019 G47.30 Sleep apnea, unspecified Quoc Del Real MD Plan of Treatment Future Appointment(s):12/08/2019 9:45 am - Daniel Tai M.D., FAC, FASWY at [facility]12/27/2019 8:30 am - Miquel Hernandez MD at [facility] at [facility]2011/24/2019 - Miquel Hernandez MDE11.621 Type 2 diabetes mellitus with foot ulcerReferral:Wound Clinic, Clinic/MidftyS22.519 Acquired absence of unspecified leg below kneeReferral:[facility] ,Follow up:Follow Up: 1 month Functional Status Description No Information Available Mental Status Description No Information Available Referrals Refer to Reason for Referral Status Appt Date Wound Clinic left great toe ulcer Sent [address] [place] [address] [phone] [facility] Right BKA, please start stump Closed shrinking process. [address] [facility] [address] [place] [address] [phone]
--- OUTSIDE RECORDS SUMMARY | 2019-12-02 11:13 | XMS REPORT | Continuity of Care Document ---
:1975 External Reference #:[id number] Author Name Daniel Tai M.D., [facility], [facility] (transmitted by agent of provider Ekaterina Cook) Address [address] [place] [address] Care Team Providers Name Role Phone Ekaterina Rodriguez, PROTOTYPE MACHINE OPERATOR - Nurse Care Team Information Tank Builder And Erector [phone] Practitioner Problems Active Problems Provider Date Type [...] Medications SIG Qnty Indications Ordering Date Provider Spironolactone 1 by mouth Unknown 25mg Tablets every day Flagyl Unknown 375mg Capsules Venlafaxine HCL 1/2 by mouth Unknown 25mg every day Tablets Omeprazole 1 by mouth Unknown 10mg Capsules DR every day Steglatro 1 by mouth Unknown 5mg Tablets every day in the morning Carvedilol 1 by mouth Unknown 3.125mg Tablets twice a day Tiotropium [place] 2 puffs by Unknown mouth every day Sertraline HCL 2 by mouth Unknown 100mg every day Tablets (currently out 08/31/19) Pregabalin 1 by mouth Unknown 150mg Capsules daily Metformin HCL take one tablet Unknown 1000mg by mouth daily Tablets Losartan 1 by mouth Unknown Potassium/Hydrochloroth every day iazide 50-12.5mg Tablets Victoza inject 1.8 mg Unknown 18mg/3ML Solution Pen-Inject Ipratropium 1 unit as Unknown [place]/Albuterol needed Sulfate 0.5-2.5(3)mg/3ML Solution Ertugliflozin 15 MG daily Unknown Furosemide 1 by mouth Unknown 20mg Tablets every day Cholecalciferol 5000 units by Unknown mouth Buspirone HCL take 1 tablet Unknown 30mg Tablets twice a day Symbicort 2 puffs twice a Unknown 160-4.5mcg/Act day Aerosol Atorvastatin Calcium 1 by mouth Unknown 80mg every day Tablets Albuterol Sulfate HFA 2 puffs [...] Test Result H/L Range Note Inr/Protime 10/24/2019 [facility] Inr 1.29 High 0.82-1.[address] [place] [address] [phone] Laboratory test 10/24/2019 [facility] Partial 38.5 seconds High 26.0-38.[address] [place] [address] PTT [phone] Lactic Acid 1.2 mmol/L Normal 0.5-2.0 2 1 Standard intensity warfarin therapeutic range: 2.0-3.0 High intensity warfarin therapeutic range: 2.5-3.5 2 [place] Severe Sepsis and Septic Shock Management Bundle Measure requires all lactic acids initially measuring >2.0 mmol/L be repeated. Procedures Date Code Description Status 11/12/2019 19213 ECHO Transthorasic Realtime 2D W Doppler & Color Flow Hosp Completed 10/28/2019 62996 Amputation Leg Through Tibia & Fibula Completed 10/28/2019 49287 Amputation Leg Through Tibia & Fibula Completed 10/28/2019 01002 Amputation Leg Through Tibia & Fibula Completed 10/25/2019 96005 Debridement Muscle/Fascia,Epidermis/Dermis/Tissue,Addtl 20 Completed SQ CM 10/25/2019 76208 Debridement Muscle/Fascia,Epidermis/Dermis/Tissue,Addtl 20 Completed SQ CM 10/25/2019 62387 Debridement Muscle/Fascia,Epidermis/Dermis/Tissue,Addtl 20 Completed SQ CM 10/25/2019 59069 Debridement Muscle/Fascia,Epidermis/Dermis/Tissue,Addtl 20 Completed SQ CM 10/25/2019 70592 Debridement Skin, Subcutaneous Tissue & Muscle Completed 10/25/2019 38833 Debridement Skin, Subcutaneous Tissue & Muscle Completed Medical Devices Description No Information Available Encounters Type Date Location Provider Dx Diagnosis Office Visit 11/12/2019 [facility] Daniel Diomedes I50.20 Unspecified 11:03a Of Autumn Tai M.D., systolic FACC, FASNC (congestive) heart failure I10 Essential (primary) hypertension Z82.49 Family hx of ischem heart dis and oth dis of the circ sys I73.9 Peripheral vascular disease, unspecified I42.9 Cardiomyopathy, unspecified F17.210 Nicotine dependence, cigarettes, uncomplicated Office Visit 11[facility]03/2019 8[facility] Raquel Hoskins E11.621 Type 2 For Infectious Sow, PROTOTYPE MACHINE OPERATOR diabetes Diseases mellitus with foot ulcer 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 Kellie L02.415 Cutaneous Assoc,darren So MD abscess [...] J44.9 Chronic obstructive pulmonary disease, unspecified Z79.84 long-term (current) use of oral hypoglycemic drugs Office Visit 11/03/2019 10:04a [facility] Elissa Case, Z47.[address] 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 Kellie J44.9 Chronic Assoc,darren So MD obstructive Hospitalists pulmonary disease, unspecified F41.8 Other specified anxiety disorders Office Visit 10/31/2019 11:38a [facility] F41.9 Anxiety disorder, Assoc,pc MD Saray unspecified Hospitalists J44.9 Chronic obstructive pulmonary disease, unspecified Z79.84 long-term (current) use of oral hypoglycemic drugs Z79.4 long-term (current) use of insulin Office Visit 10/30/2019 11:38a [facility] F41.9 Anxiety disorder, Assoc,pc MD Saray unspecified Hospitalists J44.9 Chronic obstructive pulmonary disease, unspecified Z79.4 long-term (current) use of insulin Z79.84 long-term (current) use of oral hypoglycemic drugs Office Visit 10/29/2019 11:37a [facility] Mena Cao, E87.6 Hypokalemia Asstalha,darren Allen M.D. J44.9 Chronic obstructive pulmonary disease, unspecified Z79.4 rn long term care (current) use of insulin Office Visit 10/29/2019 [facility] Raquel Hoskins L97.529 Non- pressure 10:54a For Infectious Sow, PROTOTYPE MACHINE OPERATOR chronic ulcer oth Diseases prt left foot w unsp severity E11.621 Type 2 diabetes mellitus with foot ulcer E11.40 Type 2 diabetes mellitus with diabetic neuropathy, unsp Z89.511 Acquired absence of right leg below knee Office [facility] L[facility].419 [facility]-prs [place] [place] ulcer of right [place] heel and midfoot w unsp severt Office Visit 10/28/2019 10:53a [facility] Raulito Dale L02.611 Cutaneous Infectious Timur Varma 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 Mena Cao, E87.6 Hypokalemia darren Khan M.D. E11.40 Type 2 diabetes mellitus with diabetic neuropathy, unsp J44.9 Chronic obstructive pulmonary disease, unspecified Office Visit 10/27/2019 10:04a [facility] Giuliano E11.621 Type 2 diabetes at Johanna Alvarado M.D. mellitus with foot ulcer E11.40 Type 2 diabetes mellitus with diabetic neuropathy, unsp L02.611 Cutaneous abscess of right foot [facility] A[facility] Sepsis, Assoc,darren Cao M.D. 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 Mena A41.9 Sepsis, Assoc,darren Cao M.D. 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 Jose Rafael J44.9 Chronic Assoc,darren Obrien M.D. 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 diabetes Diseases mellitus with foot ulcer L97.419 Non-prs chr ulcer of right heel and midfoot w unsp severt L02.611 Cutaneous abscess of right foot E11.40 Type 2 diabetes mellitus with diabetic neuropathy, unsp Office Visit 10/24/2019 [facility] Ruperto A41.9 Sepsis, 11:35a Assoc,pc Walter Telles unspecified Hospitalists organism E11.40 Type 2 diabetes mellitus with diabetic neuropathy, unsp F32.9 Major depressive disorder, single episode, unspecified I10 Essential (primary) hypertension J44.9 Chronic obstructive pulmonary disease, unspecified Z79.84 long-term (current) use of oral hypoglycemic drugs Office Visit 10/20/2019 1:00p [facility] Keya Valenzuela, E11.621 Type 2 diabetes Center AT [facility] mellitus with foot ulcer Office Visit 10/01/2019 8:00a [facility] Raquel Hoskins E11.40 Type 2 diabetes Center AT [facility] KAILA Sow mellitus with diabetic neuropathy, unsp L97.419 Non-prs chr ulcer of right heel and midfoot w unsp severt Office Visit 09/28/2019 8:15a [facility] Raquel Hoskins L97.419 Non- prs chr Center AT [facility] Juanjose, PROTOTYPE MACHINE OPERATOR ulcer of right heel and midfoot w unsp severt E11.621 Type 2 diabetes mellitus with foot ulcer L97.519 Non-prs chronic ulcer oth prt right foot w unsp severity E11.40 Type 2 diabetes mellitus with diabetic neuropathy, unsp E66.01 Morbid (severe) obesity due to excess calories Office Visit 09/28/2019 11:18a [facility] Susanna Gama, L97.519 Non-prs chronic Assoc,darren BLOOM ulcer oth prt Hospitalists right foot w unsp severity E11.621 Type 2 diabetes mellitus with foot ulcer I10 Essential (primary) hypertension I87.2 Venous insufficiency (chronic) (peripheral) F41.9 Anxiety disorder, unspecified Z79.84 rn long term care (current) use of oral hypoglycemic drugs Office Visit 08/31/2019 10:45a Pulmon[facility] And Quoc Del Real, J44.9 Chronic Sleep Services Of obstructive Occupational Nurse pulmonary disease, unspecified G47.30 Sleep apnea, unspecified Assessments Date Code Description Provider 11/24/2019 E11.621 Type 2 diabetes mellitus with foot Miquel Hernandez MD ulcer 11/24/2019 Z89.519 Acquired absence of unspecified leg Miquel Hernandez MD below knee 11/12/2019 I50.20 Unspecified systolic (congestive) Daniel Tai M.D., [facility], heart failure [facility] 11/12/2019 I10 Essential (primary) hypertension Daniel Tai M.D., [facility] , [facility] 11/12/2019 Z82.49 Family history of ischemic heart Daniel Tai M.D., [facility], disease and other diseases of the [facility] circulatory system 11/12/2019 I73.9 Peripheral vascular disease, Daniel Tai M.D., [facility], unspecified [facility] 11/12/2019 I42.9 Cardiomyopathy, unspecified Daniel Tai M.D., [facility], [facility] 11/12/2019 F17.210 Nicotine dependence, cigarettes, Daniel Tai M.D., [facility], uncomplicated [facility] 11/03/2019 E11.621 Type 2 diabetes mellitus with foot Raquel Sow NP ulcer 11/03/2019 L02.415 Cutaneous abscess of right lower Kellie So MD limb 11/03/2019 L97.529 Non-pressure chronic ulcer of other Raquel Sow NP part of left foot with unspecified severity 11/03/2019 Z47.81 Encounter for orthopedic aftercare GAVIOTA Harley following surgical amputation 11/03/2019 E11.40 Type 2 diabetes mellitus with Raquel Sow NP diabetic neuropathy, unspecified 11/03/2019 L97.519 Non-pressure chronic ulcer of other Kellie So MD part of right foot with unspecified severity 11/03/2019 Z89.511 Acquired absence of right leg below Raquel Sow, PROTOTYPE MACHINE OPERATOR knee 11/03/2019 Z89.511 Acquired absence of right [...] Kellie So MD disease, unspecified 11/03/2019 Z79.84 long-term (current) use of oral Kellie So MD hypoglycemic drugs 11/02/2019 E11.621 Type 2 diabetes mellitus with foot Raquel Sow, PROTOTYPE MACHINE OPERATOR ulcer 11/02/2019 E11.40 Type 2 diabetes mellitus with Susanna Gama MD diabetic neuropathy, unspecified 11/02/2019 L97.529 Non-pressure chronic ulcer of other Raquelleonardo Sow, PROTOTYPE MACHINE OPERATOR part of left foot with unspecified severity 11/02/2019 F41.8 Other specified anxiety disorders Susanna Gama MD 11/02/2019 E11.40 Type 2 diabetes mellitus with Raquel Sow, PROTOTYPE MACHINE OPERATOR diabetic neuropathy, unspecified 11/02/2019 M86.672 Other chronic osteomyelitis, left Raquel Sow, PROTOTYPE MACHINE OPERATOR ankle and foot 11/02/2019 J44.9 Chronic obstructive pulmonary Susanna Gama MD disease, unspecified 11/02/2019 E66.9 Obesity, unspecified Raquel Sow, PROTOTYPE MACHINE OPERATOR 11/01/2019 E11.621 Type 2 diabetes mellitus with foot Raquel Sow, PROTOTYPE MACHINE OPERATOR ulcer 11/01/2019 J44.9 Chronic obstructive pulmonary Kellie So MD disease, unspecified 11/01/2019 L97.529 Non-pressure chronic ulcer of other Raquelleonardo Sow, PROTOTYPE MACHINE OPERATOR part of left foot with unspecified severity 11/01/2019 F41.8 Other specified anxiety disorders Kellie So MD 11/01/2019 E11.40 Type 2 diabetes mellitus with Raquel Sow, PROTOTYPE MACHINE OPERATOR diabetic neuropathy, unspecified 11/01/2019 Z89.511 Acquired absence of right leg below Raquel Sow, PROTOTYPE MACHINE OPERATOR knee 10/31/2019 F41.9 Anxiety disorder, unspecified Kellie So MD 10/31/2019 J44.9 Chronic obstructive pulmonary Kellie So MD disease, unspecified 10/31/2019 Z79.84 long-term (current) use of oral Kellie So MD hypoglycemic drugs 10/31/2019 Z79.4 long-term (current) use of insulin Kellie So MD 10/30/2019 F41.9 Anxiety disorder, unspecified Kellie So MD 10/30/2019 J44.9 Chronic obstructive pulmonary Kellie So MD disease, unspecified 10/30/2019 Z79.4 rn long term care (current) use of insulin Kellie So MD 10/30/2019 Z79.84 long-term (current) use of oral Kellie So MD hypoglycemic drugs 10/29/2019 E87.6 Hypokalemia Mena Cao M.D. 10/29/2019 L97.529 Non-pressure chronic ulcer of other Raquel Sow NP part of left foot with unspecified severity 10/29/2019 J44.9 Chronic obstructive pulmonary Mena Cao M.D. disease, unspecified 10/29/2019 E11.621 Type 2 diabetes mellitus with foot Raquel Sow NP ulcer 10/29/2019 Z79.4 rn long term care (current) use of insulin Mena Cao [...] L97.419 Non-pressure chronic ulcer of right Miquel David, MD heel and midfoot with unspecified severity 10/28/2019 I70.213 Atherosclerosis of [place] arteries Fran Gonzalez M.D. of extremities with intermittent claudication, bilateral legs 10/28/2019 E11.40 Type 2 diabetes mellitus with Mena Cao M.D. diabetic neuropathy, unspecified 10/28/2019 L02.611 Cutaneous abscess of right foot Jason Varma M.D. 10/28/2019 J44.9 Chronic obstructive pulmonary Mena Cao M.D. 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 10/24/2019 E11.40 Type 2 diabetes mellitus with Ruperto Telles, N.P. diabetic neuropathy, unspecified 10/24/2019 F32.9 Major depressive disorder, single Ruperto Telles, N.P. episode, unspecified 10/24/2019 I10 Essential (primary) hypertension Ruperto Telles, N.P. 10/24/2019 J44.9 Chronic obstructive pulmonary Ruperto Telles, N.P. disease, unspecified 10/24/2019 Z79.84 rn long term care (current) use of oral Ruperto Telles, N.P. hypoglycemic drugs 10/20/2019 E11.621 Type 2 diabetes mellitus with foot Keya Valenzuela MD ulcer 10/01/2019 E11.40 Type 2 diabetes mellitus with Raquel Sow NP diabetic neuropathy, unspecified 10/01/2019 L97.419 Non-pressure chronic ulcer of right Raquel Sow NP heel and midfoot with unspecified severity 09/28/2019 L97.519 Non-pressure chronic ulcer of other Susanna Gama MD part of right foot with unspecified severity 09/28/2019 L97.419 Non-pressure chronic ulcer of right Raquel Sow NP heel and midfoot with unspecified [...] disorder, unspecified Susanna Gama MD 09/28/2019 Z79.84 rn long term care (current) use of oral Susanna Gama MD hypoglycemic drugs 08/31/2019 J44.9 Chronic obstructive pulmonary Quoc Del Real MD disease, unspecified 08/31/2019 G47.30 Sleep apnea, unspecified Quoc Del Real MD Plan of Treatment Future Appointment(s):12/08/2019 9:45 am - Daniel Tai M.D., FACC, FASME at [facility]12/27/2019 8:30 am - Miquel Hernandez MD at [facility] at [id number]/24/2019 - Miquel Hernandez MDE11.621 Type 2 diabetes mellitus with foot ulcerReferral:Wound Clinic, Clinic/YotwupC43.519 Acquired absence of unspecified leg below kneeReferral:[facility] ,Follow up:Follow Up: 1 month Functional Status Description No Information Available Mental Status Description No Information Available Referrals Refer to Reason for Referral Status Appt Date [facility] Right BKA, please start stump Sent shrinking process. [address] [facility] [address] [place], [place] [id number] [phone] Wound Clinic left great toe ulcer Sent [address] [place], [place] [address] [phone]
--- OUTSIDE RECORDS SUMMARY | 2019-12-02 11:13 | XMS REPORT | Continuity of Care Document ---
:1975 External Reference #:[id number] Author Name Tk Aviles M.D. (transmitted by agent of provider Ekaterina Cook) Address [address] [place] [address] Care Team Providers Name Role Phone Ekaterina Rodriguez, SERVICE ORDER DISPATCHER CHIEF - Nurse Care Team Information Final Assembly Inspector [phone] Practitioner Problems Active Problems Provider Date Type [...] 2gm iv once Unknown 2gm daily at [facility] Spironolactone 1 by mouth every Unknown 25mg Tablets day Flagyl Unknown 375mg Capsules Venlafaxine HCL 1/2 by mouth Unknown 25mg every day Tablets Omeprazole 1 by mouth every Unknown 10mg Capsules DR day Steglatro 1 by mouth every Unknown 5mg Tablets day in the morning Carvedilol 1 by mouth twice Unknown 3.125mg Tablets a day Tiotropium Irma 2 puffs by mouth Unknown every day [...] Pen-Inject Ipratropium 1 unit as needed Unknown Irma/Albuterol Sulfate 0.5-2.5(3)mg/3ML Solution Ertugliflozin 15 MG daily [...] Date Facility Test Result H/L Range Note CBC Auto 11/26/2019 [facility] White Blood 6.6 10^3/uL Normal 3.5-10.[address] [place] [address] [phone] Red Blood Count 4.94 10^6/uL Normal 4.18-5.48 Hemoglobin 14.3 g/dL Normal 14.0-18.0 Hematocrit 43 % Normal 42-52 Mean Corpuscular Volume 87 fL Normal 80-94 Mean Corpuscular Hemoglobin 29 pg Normal 27-31 Mean Corpuscular HGB Conc 33 g/dL Normal 31-36 Red Cell Distribution Width 15 % Normal 10-15 Platelet Count 196 10^3/uL Normal 150-450 Mean Platelet Volume 10.4 fL Normal 7.4-10.4 Abs Neutrophils 2.6 10^3/uL Normal 1.5-7.7 Abs Lymphocytes 2.5 10^3/uL Normal 1.0-4.8 Abs Monocytes 1.1 10^3/uL High 0-0.8 Abs Eosinophils 0.3 10^3/uL Normal 0-0.6 Abs Basophils 0.1 10^3/uL Normal 0-0.2 Abs Nucleated RBC 0.0 10^3/uL Granulocyte % 39.5 % Lymphocyte % 37.9 % Monocyte % 17.2 % Eosinophil % 4.6 % Basophil % 0.8 % Nucleated Red Blood Cells % 0.1 Inr/Protime 10/24/2019 [facility] Inr 1.29 High 0.82-1.[address] [place], [place] [id number] [phone] Laboratory test 10/24/2019 [facility] Partial 38.5 High 26.0- 38.[address] [place] [address] Time PTT [phone] Lactic Acid 1.2 mmol/L Normal 0.5-2.0 3 1 [facility] - Floor: , Rm #: [id number] 2 Standard intensity warfarin therapeutic range: 2.0-3.0 High intensity warfarin therapeutic range: 2.5-3.5 3 [place] Severe Sepsis and Septic Shock Management Bundle Measure requires all lactic acids initially measuring >2.0 mmol/L be repeated. Procedures Date Code Description Status 11/12/2019 19288 ECHO Transthorasic Realtime 2D W Doppler & Color Flow Hosp Completed 10/28/2019 03953 Amputation Leg Through Tibia & Fibula Completed 10/28/2019 19940 Amputation Leg Through Tibia & Fibula Completed 10/28/2019 12895 Amputation Leg Through Tibia & Fibula Completed 10/25/2019 57172 Debridement Muscle/Fascia,Epidermis/Dermis/Tissue,Addtl 20 Completed SQ CM 10/25/2019 27151 Debridement Muscle/Fascia,Epidermis/Dermis/Tissue,Addtl 20 Completed SQ CM 10/25/2019 64727 Debridement Muscle/Fascia,Epidermis/Dermis/Tissue,Addtl 20 Completed SQ CM 10/25/2019 99740 Debridement Muscle/Fascia,Epidermis/Dermis/Tissue,Addtl 20 Completed SQ CM 10/25/2019 39568 Debridement Skin, Subcutaneous Tissue & Muscle Completed 10/25/2019 62965 Debridement Skin, Subcutaneous Tissue & Muscle Completed Medical Devices Description No Information Available Encounters Type Date Location Provider Dx Diagnosis Office Visit 11/17/2019 [facility] Raquel Hoskins E11.69 Type 2 diabetes 1:30p Infectious Juanjose SERVICE ORDER DISPATCHER CHIEF mellitus with other Diseases specified complication M86.672 Other chronic osteomyelitis, left ankle and foot E11.621 Type 2 diabetes mellitus with foot ulcer 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 unspecified I42.9 Cardiomyopathy, unspecified Office Visit 11/12/2019 11:03a [facility] Daniel Hercules I50.20 Unspecified Of Autumn Tai M.D., systolic FACC, FASNC (congestive) heart failure I10 Essential (primary) hypertension Z82.49 Family hx of ischem heart dis and oth dis of the circ sys I73.9 Peripheral vascular disease, unspecified I42.9 Cardiomyopathy, unspecified F17.210 Nicotine dependence, cigarettes, uncomplicated Office Visit 11/10/2019 11:49a 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 E11.40 Type 2 diabetes mellitus with diabetic neuropathy, unsp Z89.511 Acquired absence of right leg below knee Office Visit 11/03/2019 11:41a [facility] Kellie L02.415 Cutaneous Assoc,pc MD Saray abscess of Hospitalists right lower limb L97.519 [...] J44.9 Chronic obstructive pulmonary disease, unspecified Z79.84 longterm (current) use of oral hypoglycemic drugs Office Visit 11/03/2019 10:04a [facility] Elissa Case, Z47.81 Encounter for at [facility] orthopedic aftercare following surgical amp 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 Office Visit 11/02/2019 8:45a [facility] Raquel Aidee E11.621 Type 2 diabetes Center AT [facility] Juanjose SERVICE ORDER DISPATCHER CHIEF mellitus with foot ulcer 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 E11.40 Type 2 diabetes mellitus with diabetic neuropathy, unsp M86.672 Other chronic osteomyelitis, left ankle and foot E66.9 Obesity, unspecified Office Visit 11/02/2019 11:40a [facility] Susanna Dill, E11.40 Type 2 diabetes Assoc,darren BLOOM mellitus with Hospitalists diabetic neuropathy, unsp F41.8 Other specified anxiety disorders J44.9 Chronic obstructive pulmonary disease, unspecified Office Visit 11/01/2019 8:12a [facility] E11.621 Type 2 For Infectious Juanjose, SERVICE ORDER DISPATCHER CHIEF diabetes Diseases mellitus with foot ulcer 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 E11.40 Type 2 diabetes mellitus with diabetic neuropathy, unsp Z89.511 Acquired absence of right leg below knee Office Visit 11/01/2019 11:40a [facility] Kellie J44.9 Chronic Assoc,darren So MD obstructive Hospitalists pulmonary disease, unspecified F41.8 Other specified anxiety disorders [facility] Anxiety disorder, Assoc,darren So MD unspecified Hospitalists J44.9 Chronic obstructive pulmonary disease, unspecified 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 Z79.4 longterm (current) use of insulin Office [facility] Anxiety disorder, Assoc,darren So MD unspecified Hospitalists J44.9 Chronic obstructive pulmonary disease, unspecified Z79.4 longterm (current) use of insulin 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 Office Visit 10/29/2019 11:37a [facility] Mena Cao, E87.6 Hypokalemia Assoc, Hospitalists Timur J44.9 Chronic obstructive pulmonary disease, unspecified Z79.4 longterm (current) use of insulin Office Visit 10/29/2019 [facility] L97.529 Non- pressure 10:54a For Infectious Juanjose, SERVICE ORDER DISPATCHER CHIEF chronic ulcer oth Diseases prt left foot w unsp severity E11.621 Type 2 diabetes mellitus with foot ulcer E11.40 Type 2 diabetes mellitus with diabetic neuropathy, unsp Z89.511 Acquired absence of right leg below knee Office Visit 10/28/2019 11:37a [facility] Mena Cao, E87.6 Hypokalemia Assoc, Hospitalists MDianna E11.40 Type 2 diabetes mellitus with diabetic neuropathy, unsp J44.9 Chronic obstructive pulmonary disease, unspecified Office Visit 10/28/2019 1:01p [facility] David, L97.419 Non-prs [facility] ulcer of right [place] heel and midfoot w unsp severt Office Visit 10/28/2019 10:53a 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 unspecified Hospitalists organism E11.40 Type 2 diabetes mellitus with diabetic neuropathy, unsp J44.9 Chronic obstructive pulmonary disease, unspecified Office Visit 10/27/2019 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 mellitus with foot ulcer E11.40 Type 2 diabetes mellitus with diabetic neuropathy, unsp L02.611 Cutaneous abscess of right foot Office Visit 10/26/2019 10:51a 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 unspecified Hospitalists organism E11.40 Type 2 diabetes mellitus with diabetic neuropathy, unsp J44.9 Chronic obstructive pulmonary disease, unspecified Office Visit 10/25/2019 11:36a [facility] Jose Rafael J44.9 Chronic Assocdarren M.D. 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 [place] Raulito Dale E11.621 Type 2 Infectious Tracie Varma. diabetes Diseases mellitus with foot ulcer L97.419 Non-prs chr ulcer of right heel and midfoot w unsp severt L02.611 Cutaneous abscess of right foot E11.40 Type 2 diabetes mellitus with diabetic neuropathy, unsp Office Visit 10/25/2019 8:23a [facility] Leissa L03.115 Cellulitis of at GAVIOTA Salamanca right lower limb E11.621 Type 2 diabetes mellitus with foot ulcer L97.518 Non-prs chronic ulcer oth prt right foot with oth severity L97.418 Non-prs chronic ulcer of right heel/midft with oth severity Office Visit 10/24/2019 [facility] Ruperto A41.9 Sepsis, 11:35a Assoc,pc Elfego, N.P. unspecified Hospitalists organism E11.40 Type 2 diabetes mellitus with diabetic neuropathy, unsp F32.9 Major depressive disorder, single episode, unspecified I10 Essential (primary) hypertension J44.9 Chronic obstructive pulmonary disease, unspecified Z79.84 longterm (current) use of oral hypoglycemic drugs Office Visit 10/20/2019 1:00p [facility] Keya Valenzuela E11.621 Type 2 diabetes Center AT [facility] mellitus with foot ulcer Office Visit 10/01/2019 8:00a Wound [facility] Raquel Hoskins E11.40 Type 2 diabetes Center AT [facility] KAILA Sow mellitus with diabetic neuropathy, unsp L97.419 Non-prs chr ulcer of right heel and midfoot w unsp severt Office Visit 09/28/2019 8:15a [facility] Raquel Hoskins L97.419 Non- prs chr Center AT [facility] KAILA Sow ulcer of right heel and midfoot w unsp severt E11.621 Type 2 diabetes mellitus with foot ulcer L97.519 Non-prs chronic ulcer oth prt right foot w unsp severity E11.40 Type 2 diabetes mellitus with diabetic neuropathy, unsp E66.01 Morbid (severe) obesity due to excess calories Office Visit 09/28/2019 11:18a [facility] Susanna Gama, L97.519 Non-prs chronic Assoc,darren BLOOM ulcer oth prt Hospitalists right foot w unsp severity E11.621 Type 2 diabetes mellitus with foot ulcer I10 Essential (primary) hypertension I87.2 Venous insufficiency (chronic) (peripheral) F41.9 Anxiety disorder, unspecified Z79.84 longterm (current) use of oral hypoglycemic drugs Office Visit 08/31/2019 10:45a [facility] Del Real, J44.9 Chronic Sleep Services Of obstructive Canoe Maker pulmonary disease, unspecified G47.30 Sleep apnea, unspecified [...] with Raquel Sow NP diabetic neuropathy, unspecified 11/16/2019 I50.9 Heart failure, unspecified Tk Aviles M.D. 11/16/2019 I42.9 Cardiomyopathy, unspecified Tk Aviles M.D. 11/12/2019 I50.20 Unspecified systolic (congestive) Daniel Tai M.D., ARCENIO, heart failure [facility] 11/12/2019 I10 Essential (primary) hypertension Daniel Tai M.D., ARCENIO , [facility] 11/12/2019 Z82.49 Family history of ischemic heart Daniel Tai M.D., ARCENIO, disease and other diseases of the [facility] circulatory system 11/12/2019 I73.9 Peripheral vascular disease, Daniel Tai M.D., ARCENIO, unspecified [facility] 11/12/2019 I42.9 Cardiomyopathy, unspecified Daniel Tai M.D., [facility], FASNC 11/12/2019 F17.210 Nicotine dependence, cigarettes, Daniel Diomedes Tai M.D., [facility], uncomplicated FASNC 11/10/2019 E11.621 Type 2 diabetes mellitus with foot Raquel Sow, SERVICE ORDER DISPATCHER CHIEF ulcer 11/10/2019 L97.529 Non-pressure chronic ulcer of other Raquel Sow, SERVICE ORDER DISPATCHER CHIEF part of left foot with unspecified severity 11/10/2019 E11.40 Type 2 diabetes mellitus with Raquel Sow, SERVICE ORDER DISPATCHER CHIEF diabetic neuropathy, unspecified 11/10/2019 Z89.511 Acquired absence of right leg below Raquel Sow, SERVICE ORDER DISPATCHER CHIEF knee 11/08/2019 E11.621 Type 2 diabetes mellitus with foot Raquel Sow, SERVICE ORDER DISPATCHER CHIEF ulcer 11/08/2019 L97.529 Non-pressure chronic ulcer of other Raquel Sow, SERVICE ORDER DISPATCHER CHIEF part of left foot with unspecified severity 11/08/2019 E11.40 Type 2 diabetes mellitus with Raquel Sow, SERVICE ORDER DISPATCHER CHIEF diabetic neuropathy, unspecified 11/08/2019 Z89.511 Acquired absence of right leg below Raquel Sow, SERVICE ORDER DISPATCHER CHIEF knee 11/03/2019 E11.621 Type 2 diabetes mellitus with foot Raquel Sow, SERVICE ORDER DISPATCHER CHIEF ulcer 11/03/2019 L02.415 Cutaneous abscess of right lower Kellie So MD limb 11/03/2019 L97.529 Non-pressure chronic ulcer of other Raquel Sow, SERVICE ORDER DISPATCHER CHIEF part of left foot with unspecified severity 11/03/2019 Z47.81 Encounter for orthopedic aftercare GAVIOTA Harley following surgical amputation 11/03/2019 E11.40 Type 2 diabetes mellitus with Raquel Sow, SERVICE ORDER DISPATCHER CHIEF diabetic neuropathy, unspecified 11/03/2019 L97.519 Non-pressure chronic ulcer of other Kellie So MD part of right foot with unspecified severity 11/03/2019 Z89.511 Acquired absence of right leg below Raquel Sow, SERVICE ORDER DISPATCHER CHIEF knee 11/03/2019 Z89.511 Acquired absence of right leg below GAVIOTA Harley knee 11/03/2019 E11.621 Type 2 diabetes mellitus with foot Kellie So MD ulcer 11/03/2019 L97.529 Non-pressure chronic ulcer of other Elissa GAVIOTA Case part of left foot with unspecified severity [...] Kellie So MD disease, unspecified 11/03/2019 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.84 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 oral Kellie So MD hypoglycemic drugs 11/02/2019 E11.621 Type 2 diabetes mellitus with foot Raquelleonardo Sow, SERVICE ORDER DISPATCHER CHIEF ulcer 11/02/2019 E11.40 Type 2 diabetes mellitus with Susanna Gama MD diabetic neuropathy, unspecified 11/02/2019 L97.529 Non-pressure chronic ulcer of other Raquel Wetzelgonzaloyueverónica Sow, SERVICE ORDER DISPATCHER CHIEF part of left foot with unspecified severity 11/02/2019 F41.8 Other specified anxiety disorders Susanna Gama MD 11/02/2019 E11.40 Type 2 diabetes mellitus with Raquel Aidee Sow SERVICE ORDER DISPATCHER CHIEF diabetic neuropathy, unspecified 11/02/2019 M86.672 Other chronic osteomyelitis, left Raquelleonardo Sow SERVICE ORDER DISPATCHER CHIEF ankle and foot 11/02/2019 J44.9 Chronic obstructive pulmonary Susanna Gama MD disease, unspecified 11/02/2019 E66.9 Obesity, unspecified Raquel Donnatamyfatemeh Sow, SERVICE ORDER DISPATCHER CHIEF 11/01/2019 E11.621 Type 2 diabetes mellitus with foot Raquel Aidee Sow, SERVICE ORDER DISPATCHER CHIEF ulcer 11/01/2019 J44.9 Chronic obstructive pulmonary Kellie So MD disease, unspecified 11/01/2019 L97.529 Non-pressure chronic ulcer of other Raquel Lastverónica Sow, SERVICE ORDER DISPATCHER CHIEF part of left foot with unspecified severity 11/01/2019 F41.8 Other specified anxiety disorders Kellie So MD 11/01/2019 E11.40 Type 2 diabetes mellitus with Raquel Sow NP diabetic neuropathy, unspecified 11/01/2019 Z89.511 Acquired absence of right leg below Raquel Sow NP knee 10/31/2019 F41.9 Anxiety disorder, unspecified Kellie So MD 10/31/2019 J44.9 Chronic obstructive pulmonary Kellie So MD disease, unspecified 10/31/2019 Z79.84 longterm (current) use of oral Kellie So MD hypoglycemic drugs 10/31/2019 Z79.4 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 insulin Kellie So MD 10/30/2019 F41.9 Anxiety disorder, unspecified Kellie So MD 10/30/2019 J44.9 Chronic obstructive pulmonary Kellie So MD disease, unspecified 10/30/2019 Z79.4 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 maurilio So MD 10/30/2019 Z79.84 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 vladimir So MD hypoglycemic drugs 10/29/2019 E87.6 Hypokalemia Mena Cao M.D. 10/29/2019 L97.529 Non-pressure chronic ulcer of other Raquel Sow NP part of left foot with unspecified severity 10/29/2019 J44.9 Chronic obstructive pulmonary Mena Cao M.D. disease, unspecified 10/29/2019 E11.621 Type 2 diabetes mellitus with foot Raquel Sow NP ulcer 10/29/2019 Z79.4 longterm (current) use of insulin Mena Cao M.D. [...] with unspecified severity 10/28/2019 I70.213 Atherosclerosis of [place] arteries Fran Gonzalez M.D. of extremities with [...] Cutaneous abscess of right foot Raquel Sow NP 10/27/2019 J44.9 Chronic obstructive pulmonary Mena Cao M.D. disease, unspecified 10/27/2019 E11.40 Type 2 diabetes mellitus with Giuliano Alvarado M.D. 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 10/27/2019 E11.40 Type 2 diabetes mellitus with Raquel Sow, SERVICE ORDER DISPATCHER CHIEF diabetic neuropathy, unspecified 10/26/2019 A41.9 Sepsis, unspecified [...] severity 10/24/2019 A41.9 Sepsis, unspecified organism Ruperto Elfego, N.P. 10/24/2019 E11.40 Type 2 diabetes mellitus with Ruperto Telles, N.P. diabetic neuropathy, unspecified 10/24/2019 F32.9 Major depressive disorder, single Ruperto Telles, N.P. episode, unspecified 10/24/2019 I10 Essential (primary) hypertension Ruperto Telles, N.P. 10/24/2019 J44.9 Chronic obstructive pulmonary Ruperto Telles, N.P. disease, unspecified 10/24/2019 Z79.84 longterm (current) use of oral Ruperto Telles, N.P. [...] L97.419 Non-pressure chronic ulcer of right Raquel Aidee Sow NP heel and midfoot with unspecified severity 09/28/2019 E11.621 Type 2 diabetes mellitus with foot Raquel Wetzelgonzalotamyfatemeh Sow NP ulcer 09/28/2019 E11.621 Type 2 diabetes mellitus with foot Susanna Gama MD ulcer 09/28/2019 L97.519 Non-pressure chronic ulcer of other Raquel Wetzelnida Sow NP part of right foot with unspecified severity 09/28/2019 I10 Essential (primary) hypertension Susanna Gama MD 09/28/2019 E11.40 Type 2 diabetes mellitus with Raquelleonardo Sow NP diabetic neuropathy, unspecified 09/28/2019 I87.2 Venous insufficiency (chronic) Susanna Gama MD (peripheral) 09/28/2019 E66.01 Morbid (severe) obesity due to Raquelleonardo Sow NP excess calories 09/28/2019 F41.9 Anxiety disorder, unspecified Susnana Gama MD 09/28/2019 Z79.84 longterm (current) use of oral Susanna Gama MD hypoglycemic drugs 08/31/2019 J44.9 Chronic obstructive pulmonary Quoc Del Real MD disease, unspecified 08/31/2019 G47.30 Sleep apnea, unspecified Quoc Del Real MD Plan of Treatment Future Appointment(s):12/10/2019 1:30 pm - Raquel Sow NP at [facility]18/25/2020 9:45 am - Daniel Tai M.D., FACC, FASNC at [facility] [place] [facility]12/27/2019 8:30 am - Miquel Hernandez MD at [facility] at [id number]/24/2019 - Miquel Hernandez MDE11.621 Type 2 diabetes mellitus with foot ulcerReferral:Wound Clinic, Clinic/QdhycyW75.519 Acquired absence of unspecified leg below kneeReferral:[facility],Follow up:Follow Up: 1 month Functional Status Description No Information Available Mental Status Description No Information Available Referrals Refer to Reason for Referral Status Appt Date Wound Clinic left great toe ulcer Sent [address] [place] [address] [phone] [facility] Right BKA, please start stump Closed shrinking process. [address] [facility] [address] [place] [address] [phone]
--- OUTSIDE RECORDS SUMMARY | 2019-12-02 11:14 | XMS REPORT ---
:1975 Author Organization [facility] Care Team Providers Name Role Phone Unavailable Unavailable Unavailable Problems Condition Condition Condition Status Onset Resolution Last Treating Comments Name Details Category Date Date Treatment Clinician Date Acquired Acquired Diagnosis Active 2020-0 Ashlie absence of absence of 2-25 Wendela unspecified unspecified [id number] leg below leg below knee knee Allergies, Adverse Reactions, Alerts Allergy Name Allergy Status Severity Reaction(s) Onset Inactive Treating Comments Type Date Date Clinician amoxicillin Base Active Unknown Anaphylaxis 2020-0 Maryam Beam Ingredient 2-25 clavulanic Base Active Unknown Anaphylaxis 2020-0 Maryam Beam acid Ingredient 2-25 gabapentin Base Active Unknown Reaction 2020-0 Maryam Beam Ingredient Unknown 2-25 Medications Ordered Filled Start Stop Current Ordering Indication Dosage Frequency Signature Comments Components Medication Medication Date Date Medication? Clinician (SIG) Name Name No Known No Known No None None None Medications Medications For This For This Patient Patient Procedures This patient has no known procedures. Results This patient has no known results.
--- OUTSIDE RECORDS SUMMARY | 2019-12-02 11:14 | XMS REPORT | Continuity of Care Document ---
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 Problems Active Problems Provider Date Type [...] Unknown 3.125mg Tablets twice a day Tiotropium Tiger 2 puffs by Unknown mouth every day Sertraline HCL 2 by mouth Unknown 100mg every day Tablets (currently out 08/31/19) Pregabalin 1 by mouth Unknown 150mg Capsules daily Metformin HCL take one tablet Unknown 1000mg by mouth daily Tablets Losartan 1 by mouth Unknown Potassium/Hydrochloroth every day iazide 50-12.5mg Tablets Victoza inject 1.8 mg Unknown 18mg/3ML Solution Pen-Inject Ipratropium 1 unit as Unknown Tiger/Albuterol needed Sulfate 0.5-2.5(3)mg/3ML Solution Ertugliflozin 15 MG [...] Test Result H/L Range Note Inr/Protime 10/24/2019 [facility] Inr 1.29 High 0.82-1.[address] [place] [address] [phone] Laboratory test 10/24/2019 [facility] Partial 38.5 seconds High 26.0-38.[address] [place] [address] PTT [phone] Lactic Acid 1.2 mmol/L Normal 0.5-2.0 2 1 Standard intensity warfarin therapeutic range: 2.0-3.0 High intensity warfarin therapeutic range: 2.5-3.5 2 [place] Severe Sepsis and Septic Shock Management Bundle Measure requires all lactic acids initially measuring >2.0 mmol/L be repeated. Procedures Date Code Description Status 11/12/2019 27604 ECHO Transthorasic Realtime 2D W Doppler & Color Flow Hosp Completed 10/28/2019 42348 Amputation Leg Through Tibia & Fibula Completed 10/28/2019 00668 Amputation Leg Through Tibia & Fibula Completed 10/28/2019 54168 Amputation Leg Through Tibia & Fibula Completed 10/25/2019 68851 Debridement Muscle/Fascia,Epidermis/Dermis/Tissue,Addtl 20 Completed SQ CM 10/25/2019 87643 Debridement Muscle/Fascia,Epidermis/Dermis/Tissue,Addtl 20 Completed SQ CM 10/25/2019 12413 Debridement Muscle/Fascia,Epidermis/Dermis/Tissue,Addtl 20 Completed SQ CM 10/25/2019 03296 Debridement Muscle/Fascia,Epidermis/Dermis/Tissue,Addtl 20 Completed SQ CM 10/25/2019 12407 Debridement Skin, Subcutaneous Tissue & Muscle Completed 10/25/2019 21690 Debridement Skin, Subcutaneous Tissue & Muscle Completed Medical Devices Description No Information Available Encounters Type Date Location Provider Dx Diagnosis Office Visit 11/03/2019 [facility] Elissa Case, Z47.81 Encounter for 10:04a at [facility] orthopedic aftercare following surgical amp 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 Office Visit 11/03/2019 11:41a [facility] Kellie L02.415 Cutaneous Assoc,pc MD Saray abscess [...] J44.9 Chronic obstructive pulmonary disease, unspecified Z79.84 [facility] (current) use of oral hypoglycemic drugs Office Visit 11/03/2019 8:14a [facility] E11.621 Type 2 For Infectious Juanjose, BONDERIZER diabetes Diseases mellitus with foot ulcer 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 E11.40 Type 2 diabetes mellitus with diabetic neuropathy, unsp Z89.511 Acquired absence of right leg below knee Office Visit 11/02/2019 8:45a [facility] E11.621 Type 2 diabetes [facility] Juanjose, BONDERIZER mellitus with foot ulcer 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 E11.40 Type 2 diabetes mellitus with diabetic neuropathy, unsp M86.672 Other chronic osteomyelitis, left ankle and foot E66.9 Obesity, unspecified Office Visit 11/02/2019 11:40a [facility] Susanna Dill, E11.40 Type 2 diabetes Assoc,darren BLOOM mellitus with Hospitalists diabetic neuropathy, unsp F41.8 Other specified anxiety disorders J44.9 Chronic obstructive pulmonary disease, unspecified Office Visit 11/01/2019 8:12a [facility] Ed E11.621 Type 2 For Infectious Juanjose, BONDERIZER diabetes Diseases mellitus with foot ulcer 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 E11.40 Type 2 diabetes mellitus with diabetic neuropathy, unsp Z89.511 Acquired absence of right leg below knee Office Visit 11/01/2019 11:40a [facility] Kellie J44.9 Chronic Assoc,darren So MD obstructive Hospitalists pulmonary disease, unspecified F41.8 Other specified anxiety disorders Office Visit 10/31/2019 11:38a [facility] Kellie F41.9 Anxiety disorder, Assoc,darren So MD unspecified Hospitalists J44.9 Chronic obstructive pulmonary disease, unspecified Z79.84 terminal make up operator (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 J44.9 Chronic obstructive pulmonary disease, unspecified Z79.4 [facility] (current) use of insulin Office Visit 10/29/2019 [facility] Raquel Hoskins L97.529 Non- pressure 10:54a For Infectious KAILA Sow chronic ulcer oth Diseases prt left foot w unsp severity E11.621 Type 2 diabetes mellitus with foot ulcer E11.40 Type 2 diabetes mellitus with diabetic neuropathy, unsp Z89.511 Acquired absence of right leg below knee Office Visit 10/28/2019 11:37a [facility] Mena Cao, E87.6 Hypokalemia Assdarren palencia M.D. E11.40 Type 2 diabetes mellitus with diabetic neuropathy[facility] J[facility]9 Chronic obstructive pulmonary disease, unspecified Office Visit 10/28/2019 1:01p [facility] David, L97.419 Non-prs chr Orthopedics at MD ulcer of right [place] heel and midfoot w unsp severt Office Visit 10/28/2019 10:53a 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 mellitus with foot ulcer E11.40 Type 2 diabetes mellitus with diabetic neuropathy, unsp L02.611 Cutaneous abscess of right foot Office Visit 10/27/2019 11:36a [facility] Mena A41.9 Sepsis, Assdarren palencia M.D. unspecified Hospitalists organism E11.40 Type 2 diabetes mellitus with diabetic neuropathy, unsp J44.9 Chronic obstructive pulmonary disease, unspecified Office Visit 10/26/2019 11:36a [facility] Mena A41.9 Sepsis, Assoc,darren Cao M.D. unspecified Hospitalists organism E11.40 Type 2 diabetes mellitus with diabetic neuropathy, unsp J44.9 Chronic obstructive pulmonary disease, unspecified Office Visit 10/26/2019 10:51a 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 Raulito Dale E11.621 Type 2 Infectious Timur Varma diabetes Diseases mellitus with foot ulcer L97.419 Non-prs chr ulcer of right heel and midfoot w unsp severt L02.611 Cutaneous abscess of right foot E11.40 Type 2 diabetes mellitus with diabetic neuropathy, unsp Office Visit 10/25/2019 8:23a [facility] Elissa L03.115 Cellulitis of at [place] right lower limb E11.621 Type 2 diabetes mellitus with foot ulcer L97.518 Non-prs chronic ulcer oth prt right foot with oth severity L97.418 Non-prs chronic ulcer of right heel/midft with oth severity Office Visit 10/24/2019 [facility] Ruperto A41.9 Sepsis, 11:35a Assoc,darren Telles, N.P. unspecified Hospitalists organism E11.40 Type 2 diabetes mellitus with diabetic neuropathy, unsp F32.9 Major depressive disorder, single episode, unspecified I10 Essential (primary) hypertension J44.9 Chronic obstructive pulmonary disease, unspecified Z79.84 terminal make up operator (current) use of oral hypoglycemic drugs Office Visit 10/20/2019 1:00p Wound [facility] [place] Ashvin Valenzuela, E11.621 Type 2 diabetes Center [facility] MD mellitus with foot ulcer Office Visit 10/01/2019 8:00a Wound Care Raquel Donnatiffani E11.40 Type 2 diabetes Center AT [facility] Sow, BONDERIZER mellitus with diabetic neuropathy, unsp L97.419 Non-prs chr ulcer of right heel and midfoot w unsp severt Office Visit 09/28/2019 8:15a Wound Care Raquel Donnatamyfatemeh L97.419 Non- prs chr [facility] Sow, BONDERIZER ulcer of right heel and midfoot w unsp severt E11.621 Type 2 diabetes mellitus with foot ulcer L97.519 Non-prs chronic ulcer oth prt right foot w unsp severity E11.40 Type 2 diabetes mellitus with diabetic neuropathy, unsp E66.01 Morbid (severe) obesity due to excess calories Office Visit 09/28/2019 11:18a [facility] Susanna Gama L97.519 Non-prs chronic Assoc,pc MD ulcer oth prt Hospitalists right foot w unsp severity E11.621 Type 2 diabetes mellitus with foot ulcer I10 Essential (primary) hypertension I87.2 Venous insufficiency (chronic) (peripheral) F41.9 Anxiety disorder, unspecified Z79.84 terminal make up operator (current) use of oral hypoglycemic drugs Office Visit 08/31/2019 10:45a [facility] Del Real, J44.9 Chronic [facility] Services Of obstructive Wrecker Driver pulmonary disease, unspecified G47.30 Sleep apnea, unspecified Assessments Date Code Description Provider 11/24/2019 E11.621 Type 2 diabetes mellitus with foot Miquel Hernandez MD ulcer 11/24/2019 Z89.519 Acquired absence of unspecified leg Miquel Hernandez MD below knee 11/12/2019 I50.20 Unspecified systolic (congestive) Daniel Tai M.D., [facility], heart failure [facility] 11/12/2019 I10 Essential (primary) hypertension Daniel Tai M.D., FAC , [facility] 11/12/2019 Z82.49 Family history of ischemic heart Daniel Tai M.D., [facility], disease and other diseases of the [facility] circulatory system 11/12/2019 I73.9 Peripheral vascular disease, Daniel Tai M.D., [facility], unspecified [facility] 11/12/2019 I42.9 Cardiomyopathy, unspecified Daniel Tai M.D., [facility], [facility] 11/12/2019 F17.210 Nicotine dependence, cigarettes, Daniel Tai M.D., [facility], uncomplicated [facility] 11/03/2019 E11.621 Type 2 diabetes mellitus with foot Raquel Sow BONDERIZER ulcer 11/03/2019 L02.415 Cutaneous abscess of right [...] right leg below Raquel Sow NP knee 11/03/2019 Z89.511 Acquired absence [...] Kellie So MD disease, unspecified 11/03/2019 Z79.84 terminal make up operator (current) use of oral Kellie So MD hypoglycemic drugs 11/02/2019 E11.621 Type 2 diabetes mellitus with foot Raquel Sow, BONDERIZER ulcer 11/02/2019 E11.40 Type 2 diabetes mellitus with Susanna Gama MD diabetic neuropathy, unspecified 11/02/2019 L97.529 Non-pressure chronic ulcer of other Raquel Sow, BONDERIZER part of left foot with unspecified severity 11/02/2019 F41.8 Other specified anxiety disorders Susanna Gama MD 11/02/2019 E11.40 Type 2 diabetes mellitus with Raquel Sow, BONDERIZER diabetic neuropathy, unspecified 11/02/2019 M86.672 Other chronic osteomyelitis, left Raquel Sow, BONDERIZER ankle and foot 11/02/2019 J44.9 Chronic obstructive pulmonary Susanna Gama MD disease, unspecified 11/02/2019 E66.9 Obesity, unspecified Raquel Sow, BONDERIZER 11/01/2019 E11.621 Type 2 diabetes mellitus with foot Raquel Sow, BONDERIZER ulcer 11/01/2019 J44.9 Chronic obstructive pulmonary Kellie So MD disease, unspecified 11/01/2019 L97.529 Non-pressure chronic ulcer of other Raquel Sow, BONDERIZER part of left foot with unspecified severity 11/01/2019 F41.8 Other specified anxiety disorders Kellie So MD 11/01/2019 E11.40 Type 2 diabetes mellitus with Raquel Sow, BONDERIZER diabetic neuropathy, unspecified 11/01/2019 Z89.511 Acquired absence of right leg below Raquel Sow, BONDERIZER knee 10/31/2019 F41.9 Anxiety disorder, unspecified Kellie So MD 10/31/2019 J44.9 Chronic obstructive pulmonary Kellie So MD disease, unspecified 10/31/2019 Z79.84 terminal make up operator (current) use of oral Kellie So MD hypoglycemic drugs 10/31/2019 Z79.4 [facility] (current) use of insulin Kellie So MD 10/30/2019 F41.9 Anxiety disorder, unspecified Kellie So MD 10/30/2019 J44.9 Chronic obstructive pulmonary Kellie So MD disease, unspecified 10/30/2019 Z79.4 terminal make up operator (current) use of insulin Kellie So MD 10/30/2019 Z79.84 terminal make up operator (current) use of oral Kellie So MD hypoglycemic drugs 10/29/2019 E87.6 Hypokalemia Mena Cao M.D. 10/29/2019 L97.529 Non-pressure chronic ulcer of other Raquel Sow NP part of left foot with unspecified severity 10/29/2019 J44.9 Chronic obstructive pulmonary Mena Cao M.D. disease, unspecified 10/29/2019 E11.621 Type 2 diabetes mellitus with foot Raquel Sow NP ulcer 10/29/2019 Z79.4 [facility] (current) use of insulin Mena Cao M.D. [...] with unspecified severity 10/28/2019 I70.213 Atherosclerosis of [place] arteries Fran Gonzalez M.D. of extremities with [...] abscess of right foot Raquel Sow , BONDERIZER 10/27/2019 J44.9 Chronic obstructive pulmonary Mena Cao M.D. disease, unspecified 10/27/2019 E11.40 Type 2 diabetes mellitus with Giuliano Alvarado M.D. 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 10/27/2019 E11.40 Type 2 diabetes mellitus with Raquel Sow, BONDERIZER diabetic neuropathy, unspecified 10/26/2019 A41.9 Sepsis, unspecified [...] L97.518 Non-pressure chronic ulcer of other GAVIOTA Hraley part of right foot with other specified [...] Ruperto Telles, N.P. disease, unspecified 10/24/2019 Z79.84 [facility] (current) use of oral Ruperto Telles, N.P. hypoglycemic drugs 10/20/2019 E11.621 Type 2 diabetes mellitus with foot Keya Valenzuela MD ulcer 10/01/2019 E11.40 Type 2 diabetes mellitus with Raquel Sow NP diabetic neuropathy, unspecified 10/01/2019 L97.419 Non-pressure chronic ulcer of right Raquelleonardo Sow NP heel and midfoot with unspecified severity 09/28/2019 L97.519 Non-pressure chronic ulcer of other Susanna Gama MD part of right foot with unspecified severity 09/28/2019 L97.419 Non-pressure chronic ulcer of right Raquelleonardo Sow NP heel and midfoot with unspecified [...] disorder, unspecified Susanna Gama MD 09/28/2019 Z79.84 terminal make up operator (current) use of oral Susanna Gama MD hypoglycemic drugs 08/31/2019 J44.9 Chronic obstructive pulmonary Quoc Del Real MD disease, unspecified 08/31/2019 G47.30 Sleep apnea, unspecified Quoc Del Real MD Plan of Treatment 11/24/2019 - Miquel Hernandez MDE11.621 Type 2 diabetes mellitus with foot ulcerReferral:Wound Clinic, Clinic/YgydraH39.519 Acquired absence of unspecified leg below kneeReferral:[facility] Capture [facility],Follow up: Follow Up: 1 month Functional Status Description No Information Available Mental Status Description No Information Available Referrals Refer to Reason for Referral Status Appt Date Data [facility]ure [facility] Right BKA, please start stump Created shrinking process. [address] [place] [address] [phone] Wound Clinic left great toe ulcer Created [address] [place] [address] [phone]
--- OUTSIDE RECORDS SUMMARY | 2019-12-02 11:14 | XMS REPORT ---
:1975 Author Organization [facility] Care Team Providers Name Role Phone Unavailable Unavailable Unavailable Problems Condition Condition Condition Status Onset Resolution Last Treating Comments Name Details Category Date Date Treatment Clinician Date Acquired Acquired Diagnosis Active 2020-0 Ashlie absence of absence of 2-25 Wendela unspecified unspecified [id number] leg below leg below knee knee Allergies, [...]
--- OUTSIDE RECORDS SUMMARY | 2019-12-02 11:14 | XMS REPORT ---
:1975 Author Organization [facility] Care Team Providers Name Role Phone Unavailable Unavailable Unavailable Problems Condition Condition Condition Status Onset Resolution Last Treating Comments Name Details Category Date Date Treatment Clinician Date Acquired Acquired Diagnosis Active 2020-0 Ashlie absence of absence of 2-25 Wendela unspecified unspecified [id number] leg below leg below knee knee Allergies, [...]
--- OUTSIDE RECORDS SUMMARY | 2019-12-02 11:14 | XMS REPORT ---
:1975 Author Organization [facility] Care Team Providers Name Role Phone Unavailable Unavailable Unavailable Problems This patient has no known problems. Allergies, Adverse Reactions, Alerts Allergy Allergy Status Severity Reaction(s) Onset Inactive Treating Comments Name Type Date Date Clinician Unknown None Active Unknown None Unknown No Known Allergies For This Patient Medications Ordered Filled Start Stop Current Ordering Indication Dosage Frequency Signature Comments Components Medication Medication Date Date Medication? Clinician (SIG) Name Name No Known No Known No None None None Medications Medications For This For This Patient Patient Procedures This patient has no known procedures. Results This patient has no known results.
--- OUTSIDE RECORDS SUMMARY | 2019-12-02 11:14 | XMS REPORT ---
:1975 Author Organization [facility] Care Team Providers Name Role Phone Unavailable Unavailable Unavailable Problems Condition Condition Condition Status Onset Resolution Last Treating Comments Name Details Category Date Date Treatment Clinician Date Acquired Acquired Diagnosis Active 2020-0 Ashlie absence of absence of 2-25 Wendela unspecified unspecified [id number] leg below leg below knee knee Allergies, [...]
[2019-12-02] MEDS ORDERED: Ondansetron INJ* 2 MG/ML VIAL IV PRN ×2 (12:44→17:49)
[2019-12-02] MEDS ORDERED: Morphine INJ* 2 MG/ML 1 ML SYRINGE (TWO MG - NEW SYRINGE VERSION) IV PRN (12:44)
[2019-12-02] MEDS ORDERED: Al Hydrox/Mg Hydrox/Simet LIQ* 30 ML UDC PO PRN (12:44)
[2019-12-02] MEDS ORDERED: Albuterol HFA INHALER* 8 gm MDI INH PRN ×2 (12:49→18:50)
[2019-12-02] MEDS ORDERED: Dextrose 50% Syringe 50 ML* 25 GM/50 ML SYRINGE IV PUSH PRN (12:51)
[2019-12-02 13:05] LABS: ABS Basophils 0.1 10^3/ul (0-0.2); ABS Eosinophils 0.2 10^3/ul (0-0.6); ABS Lymphocytes 2.7 10^3/ul (1.0-4.8); ABS Neutrophils 5.6 10^3/ul (1.5-7.7); Hematocrit 43 % (42-52); Hemoglobin 14.4 g/dL (14.0-18.0); Lymphocyte % 27.9 %; Mean Corpuscular HGB Conc 33 g/dL (31-36); Mean Corpuscular Hemoglobin 29 pg (27-31); Mean Corpuscular Volume 86 fL (80-94); Mean Platelet Volume 9.3 fL (7.4-10.4); Nucleated Red Blood Cells % 0.1; Platelet Count 238 10^3/uL (150-450); Red Blood Count 4.99 10^6 /uL (4.18-5.48); Red Cell Distribution Width 15 % (10-15); White Blood Count 9.5 10^3/uL (3.5-10.8)
[2019-12-02] MEDS ORDERED: Polyethylene Glycol 3350* 17 GM PACKET PO PRN (13:08)
[2019-12-02 13:14] LABS: Albumin/Globulin Ratio 1.3 (1-3); Calcium 9.2 mg/dL (8.6-10.3); EGFR African American 172.2 (>60); EGFR Non-African American 142.3 (>60); Globulin 3.2 g/dL (2-4); Total Bilirubin 0.6 mg/dL (0.2-1.0); Total Protein 7.2 g/dL (6.4-8.9)
[2019-12-02 13:17] LABS: Activated Partial Thrombo Time 33.8 seconds (26.0-38.0); INR 0.98 (0.82-1.09)
[2019-12-02] MEDS ORDERED: Pregabalin 50 mg CAP (*) PO SCH (14:00)
--- NOTE | 2019-12-02 14:31 | HP ---
CC: Dr. Andrea Hazel, [facility] * ADMISSION HISTORY AND PHYSICAL: DATE OF ADMISSION: 12/02/19 ATTENDING PHYSICIAN WHILE IN THE HOSPITAL: Dr. Magaly Putnam * (dictated by GAVIOTA Holliday). CONSULTING ORTHOPEDIST: Dr. Hernandez. PRIMARY CARE PROVIDER: Dr. Andrea Hazel, provider at [facility]. CHIEF COMPLAINT: Mechanical fall onto right BKA stump. 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 The patient tells me that leading up to today his wound of his right BKA has been healing very well. He tells me that it "looked beautiful." He denied erythema or purulence surrounding or coming out of the wound recently. He did not have his stump protector on when he was transferring from bed into the wheelchair and he somehow fell during this action and landed directly on the right stump. He immediately was in a lot of pain and presented to the emergency department. It appears that the stump wound was bleeding in the emergency department and the orthopedic team has already seen the patient and done some wound management and put an Parish wrap. Otherwise, the patient has been feeling like his normal self. He denies fevers , chills, difficulty breathing, chest pain, abdominal pain, nausea, vomiting, diarrhea. He mentions that he does have loose bowel movements chronically. He denies head trauma or loss of consciousness after this fall. PAST MEDICAL HISTORY: 1. Diabetes mellitus type 2. 2. Ischemic cardiomyopathy with EF of 30% to 35%. 3. Chronic osteomyelitis of the left first toe. 4. GERD. 5. COPD. 6. Hypertension. 7. Hyperlipidemia. 8. Diabetic peripheral neuropathy. 9. Depression. 10. Anxiety. 11. JODIE, prescribed CPAP, frequently does not use. PAST SURGICAL HISTORY: 1. Gastric bypass surgery. 2. Cardiac catheterization. 3. Left thumb fracture repair. 4. Right first toe amputation. 5. Right BKA on 10/28/[address] David. 6. Cholecystectomy. HOME MEDICATIONS: 1. Lasix 20 mg p.o. daily. 2. Omeprazole 20 mg p.o. daily. 3. Carvedilol 6.25 mg p.o. b.i.d. 4. DuoNeb 1 inhaled nebulizer q.6 hours p.r.n. shortness of breath/wheezing. 5. Vitamin D3 5000 units p.o. daily. 6. Venlafaxine 150 mg p.o. daily. 7. Lyrica 150 mg p.o. t.i.d. 8. Metformin 1000 mg p.o. b.i.d. 9. Lovenox 40 mg subcu daily. 10. BuSpar 30 mg p.o. b.i.d. 11. Vitamin B12 2500 mcg p.o. daily. 12. Lipitor 80 mg p.o. at bedtime. 13. Losartan/hydrochlorothiazide 50 mg/12.5 mg 1 tab p.o. daily. 14. Ertugliflozin 15 mg p.o. daily. 15. Tylenol 975 mg p.o. q.6 hours p.r.n. 16. Liraglutide 1.8 mg subcu daily. 17. Symbicort 160/4.5 two puffs inhaled b.i.d. 18. Ventolin inhaler 2 puffs inhaled q.6 hours p.r.n. shortness of breath/ wheezing. 19. Spiriva 1 cap inhaled daily. 20. Spironolactone 25 mg p.o. daily. ALLERGIES: Reaction of stumbling and slurred speech to GABAPENTIN, anaphylactic shock to AUGMENTIN. FAMILY HISTORY: The patient's father at age 67 due to CT. The patient 's mother at age 65 due to renal failure. She had a history of diabetes. SOCIAL HISTORY: The patient quit smoking in October of this year. Prior to that, he had a 35-year history of smoking at the minimum of 1 pack per day, but at times 2 to 3 packs per day. The patient denies alcohol use. The patient does at times smoke marijuana, but has not in the recent months. He is currently on social security disability. 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 The patient's surrogate medical decision maker is his nephew, Andrea Dean, phone number is [phone]. REVIEW OF SYSTEMS: An 11-point review of systems was completed and all pertinent positives and negatives are above in the HPI. All other systems are negative. PHYSICAL EXAMINATION GENERAL: An obese, young white male, lying in hospital bed, appearing comfortable, in minimal distress. VITAL SIGNS: Temperature 96.8 degrees Fahrenheit; pulse 96 beats per minute; respiratory rate 18; oxygen saturation 98% on room air; blood pressure 92/68, later 110/65. HEENT: Eyes: PERRL. Sclerae anicteric. ENT: Mucous membranes moist. LUNGS: Clear to auscultation throughout. CARDIO: Regular rate and rhythm without murmurs, rubs, or gallops. ABDOMEN: Soft, nontender, nondistended. EXTREMITIES: Brown pigmentation to the left lower extremity consistent with venous stasis. No clubbing, cyanosis, or edema. Right BKA with gauze and Parish wrap surrounding the stump, which are currently clean, dry, and intact. There is blood on the sheet indicating that the wound was bleeding previous to the orthopedic team placing the dressing. NEURO: The patient is alert and oriented x3 without focal deficits. DIAGNOSTIC STUDIES/LAB DATA: Labs are currently pending. ASSESSMENT AND PLAN: Bhargav Dean is a 44-year-old white male with past medical history significant for recent right BKA in October 2019, chronic osteomyelitis of the left first toe, ischemic cardiomyopathy with EF of 30% to 35%, diabetes mellitus type 2, chronic obstructive pulmonary disease, peripheral neuropathy, who presents to the emergency department due to trauma to his right BKA wound after a mechanical fall. The patient is being admitted inpatient for: 1. Right BKA wound dehiscence. It appears that the wound dehiscence is related only to the trauma of him falling onto it today. It sounds based on the patient's description that there was no wound infection prior to this. The orthopedic team has already evaluated the patient. Dr. Hernandez is planning to take him to the OR later this evening. He is already n.p.o. I will hold off on DVT prophylaxis and we will await Orthopedics' recommendations after surgery. I am currently still awaiting lab work; however, at this time I do believe that this patient is already medically optimized for surgery. If that does change, I will be sure to addend this note. The patient has at this time presumed RCRI risk score of 2, indicating a 10.1% 30-day risk of myocardial infarction, , or cardiac arrest. The patient will be participating in physical therapy after his surgery and I appreciate Orthopedic Surgery's involvement. Pain control: I have ordered IV morphine for pain control p.r.n. as the patient is n.p.o. and we will be able to adjust this after surgery when he is able to have a diet. 2. Diabetes mellitus type 2. The patient takes metformin, liraglutide, and ertugliflozin at home. I will be continuing ertugliflozin for now, but we will start tomorrow morning. The patient will have fingersticks a.c. and h.s. and sliding scale lispro. 3. Ischemic cardiomyopathy. The patient has last known EF of 30% to 35%. I will continue his home Lasix, carvedilol, and spironolactone. I recommend using fluids judiciously given his systolic function. I am at this point using normal saline at the rate of 75 cc per hour, continuing his n.p.o. status. 4. Chronic obstructive pulmonary disease. I will continue the patient's home Spiriva, Symbicort, and p.r.n. albuterol. 5. Gastroesophageal reflux disease. I will continue the patient's home omeprazole. 6. Depression and anxiety. I will continue the patient's home Effexor and BuSpar. 7. Hyperlipidemia. I will continue the patient's home statin. 8. Obstructive sleep apnea. The patient is prescribed a CPAP. He tells me that he frequently does not use it due to claustrophobia. I will order his CPAP while he is in the hospital. 9. DVT prophylaxis: The patient has a DVT risk score of 2. At this time, I am holding chemoprophylaxis due to the patient's surgery, which is anticipated this evening. I will order SCDs and further chemoprophylaxis will be determined by the orthopedic team. He was previously on Lovenox since his BKA, which he has been receiving at [facility]. 10. Code status: The patient is full code. TIME SPENT: Approximately 50 minutes was spent on this admission, approximately half this time was spent at bedside evaluating the patient and discussing the plan of care. This case has been reviewed by my attending, Dr. Magaly Putnam, and she agrees with my plan of care. GAVIOTA HOLLIDAY [id number]/[facility] #: [id number] GAGAN
[2019-12-02] MEDS ORDERED: Vancomycin(*) 2,000 MG in NS 0.9% 500 ML* 500 ML IVPB ONE (16:30)
[2019-12-02] MEDS ORDERED: Famotidine IV* 10 MG/ML 2 ML (20 mg) ONE (17:08)
[2019-12-02] MEDS ORDERED: KETAMINE HCL* 50 MG/ML 10 ML VIAL ONE (17:10)
[2019-12-02] MEDS ORDERED: Midazolam* 1 MG/ML 2 ML VIAL (2 MG) ONE ×2 (17:10→17:25)
[2019-12-02] MEDS ORDERED: Bupivacaine 0.5%* 50 ML MDV VIAL ONE (17:15)
[2019-12-02] MEDS ORDERED: Propofol* 10 MG/ML 20 ML BTL ONE (17:19)
[2019-12-02] MEDS ORDERED: Lidocaine 2% PF * 5 ML VIAL ONE (17:19)
[2019-12-02] MEDS ORDERED: diPHENhydraMINE IV* 50 MG/ML 1 ml VIAL (BENADRYL) ONE (17:25)
--- NOTE | 2019-12-02 17:26 | CONS ---
CONSULTATION REPORT: DATE OF CONSULT: 12/02/19 SURGEON: Dr. Miquel Hernandez. CHIEF COMPLAINT: Right lower extremity wound dehisced. HISTORY OF PRESENT ILLNESS: Mr. Dean is a 44-year-old gentleman who had a BKA on 10/28/19. This morning, he was at home transferring and without a stump protector on, lost his balance, and fell, landing directly on his right lower extremity stump. He reports it immediately opened up and he came to the emergency room. He denies any recent fever, shakes, or chills. PAST MEDICAL HISTORY: Diabetes, high cholesterol, hypertension, sleep apnea, CHF. PAST SURGICAL HISTORY: Gastric bypass, cholecystectomy, right great toe removal , right BKA. CURRENT MEDICATIONS: 1. Symbicort. 2. Spiriva. 3. Albuterol inhaler. 4. Victoza. 5. Tylenol. 6. Vitamin D3. 7. Vitamin B12. 8. Steglatro. 9. Lasix. 10. Omeprazole. 11. Atorvastatin. 12. Pregabalin. 13. BuSpar. 14. Glucophage. 15. Coreg. 16. Cozaar. 17. Spironolactone. 18. Rocephin. ALLERGIES: To AMOXICILLIN, AUGMENTIN, and GABAPENTIN. FAMILY HISTORY: Hypertension, diabetes, renal disease. SOCIAL HISTORY: He is a 44-year-old gentleman. Former smoker. Reports occasional marijuana and alcohol. REVIEW OF SYSTEMS: A complete 14-point review of systems was reviewed with the patient, negative or noncontributory. PHYSICAL EXAM: General: He is well developed, well nourished. He is in no acute distress. HEENT: Normocephalic, atraumatic. Cardio: Regular rate and rhythm. Strong S1, S2. Pulmonary: The lungs are clear to auscultation bilaterally. The abdomen is soft, nontender, nondistended. Musculoskeletal: Right lower extremity: The right lower extremity wound has approximately 4 to 5 cm of dehiscence with active bloody drainage. No erythema or warmth. ASSESSMENT: This is a 44-year-old status post below knee amputation with wound dehiscence status post fall. PLAN: N.p.o. He will be admitted under hospitalist service and the plan will be to take him to the OR [facility] for an I and D with wound closure. GAVIOTA FLOREZ [id number]/[facility] #: [id number] [facility]uben
[2019-12-02] MEDS ORDERED: DiMENhydriNATE IV* 50 MG/ML VIAL IV PUSH PRN (17:49)
[2019-12-02] MEDS ORDERED: Naloxone* 0.4 MG/ML 1 ML VIAL IV PRN (17:49)
[2019-12-02] MEDS ORDERED: HYDROcodone/ACETAMIN 5-325 MG* 1 TAB PO PRN (17:49)
[2019-12-02] MEDS ORDERED: Acetaminophen TAB* 325 MG PO PRN (17:49)
[2019-12-02] MEDS ORDERED: Levalbuterol 0.63MG/3ML NEB* UNIT OF USE INH PRN (17:49)
--- NOTE | 2019-12-02 18:42 | OP ---
Operative Report - Blank - Operative Report Date of Operation: 12/02/19 Note: PATIENT: Bhargav Dean DATE OF : 1975 DATE OF SURGERY: 12/02/2019 SURGEON: Miquel Hernandez MD SEISMOGRAPH HELPER: None ANESTHESIOLOGIST: Dr. Castro PREOPERATIVE DIAGNOSIS: Right below the knee amputation traumatic surgical wound dehiscence POSTOPERATIVE DIAGNOSIS: Right below the knee amputation traumatic surgical wound dehiscence OPERATION: Right below the knee amputation stump irrigation and debridement and complex secondary closure of surgical wound dehiscence. ANESTHESIA: MAC IMPLANTS: none TOURNIQUET TIME: Less than 1 hour with a well-padded thigh tourniquet at 250mmHg SPECIMENS: Culture swabs to micro ESTIMATED BLOOD LOSS: minimal COMPLICATIONS: none STATUS: Stable from the operating room to the recovery room and then readmitted to the hospital floor. INDICATIONS FOR PROCEDURE: Bhargav had a right [id number] amputation on 10/28/19. He had been recovering great until this morning. He was getting out of bed and had not put on his stump shield. He slipped and fell landing on his right stump. He did have a dehiscence of his surgical wound. He came into the ER afterwards. Both operative and non-operative treatment alternatives were reviewed. Further, the nature and risks of surgery were reviewed in careful detail. Our discussions regarding the risks of surgery included, but were not limited to, infection, wound problems, nerve injury, neuroma, RSD, persistent symptoms, blood clot, need for further surgery, failure of the surgery, and even the remote chance of catastrophic complication. DESCRIPTION OF PROCEDURE: The patient was seen in the preoperative holding unit and informed written consent was obtained. The appropriate extremity was marked. The patient was then brought to the operating room and carefully positioned on the operating room table. Anesthesia was induced. All bony prominences were padded with great care. A well-padded thigh tourniquet was placed. A chlorhexidine based pre- scrub was performed followed by a betadine prep and drape in standard sterile fashion. A surgical safety pause was then conducted in which we confirmed the appropriate patient, extremity, planned procedure, availability of equipment, indication and administration of prophylactic antibiotics, and DVT prophylaxis in the form of a compression boot on the non-surgical extremity. I began with a gravity exsanguination of the limb and inflated the tourniquet. I then examined his wound. It measured 13 cm in length by 4 cm in width by 6 cm in depth. It was full-thickness down to the level of bone. Overall, the tissue looked quite good. There was some devascularized tissue deep within the wound, which was excised sharply with a 15 blade scalpel. I presume this is mostly fascial and muscular tissue. Culture swabs were taken and sent to microbiology. There was some undermining of the wound posteriorly. I used cystoscopy tubing and sterile saline to perform a thorough irrigation of the wound. Once all devitalized tissue was sharply excised. I trimmed up the edges of the skin with a 15 blade scalpel to make sure I was healthy bleeding skin and subcutaneous tissue. I then performed an extensive layered closure. I used #1 Vicryl for the deepest layer, which included fascial and periosteum. I then used #1 Vicryl, the deep subcutaneous and muscular layers. I then used 3 -0 Monocryl for the dermal layer. I then used 2-0 Prolene in a vertical mattress pattern on the skin with intermixed leslie. A sterile dressing was then applied. The patient was then awakened from anesthesia and transferred to the recovery room in stable condition. There were no complications. All needle and sponge counts were correct at the end of the case. ATTESTATION: I attest I was present and scrubbed and performed the entire procedure myself. POSTOPERATIVE PLAN: Nonweightbearing, right lower extremity. Antibiotics per ID.
[2019-12-02] MEDS: Insulin LISPRO* 1 UNITS UNIT SUBCUT SCH (20:08)
[2019-12-02] MEDS ORDERED: Vancomycin per Pharmacy* NOTE FOLLOW UP PRN ×2 (20:49→21:45)
[2019-12-02] MEDS ORDERED: Carvedilol TAB* 3.125 MG PO SCH (21:00)
[2019-12-02] MEDS ORDERED: busPIRone TAB* 30 MG PO SCH (21:00)
[2019-12-02] MEDS ORDERED: Budesonide/Formote 160/4.5(NF) MDI INH SCH (21:00)
[2019-12-02] MEDS ORDERED: Atorvastatin* 80 MG TAB PO SCH (21:00)
[2019-12-02] MEDS: Pregabalin 50 mg CAP (*) PO SCH (21:49)
[2019-12-02] MEDS: Carvedilol TAB* 6.25 MG PO SCH (21:49)
[2019-12-02] MEDS: busPIRone TAB* 30 MG PO SCH (21:50)
[2019-12-02] MEDS: Mometasone/Formoter 200/5 MDI INH SCH (21:51)
[2019-12-02] MEDS: NS 0.9% 1000 ML** 1,000 ML IV SCH (21:54)
[2019-12-03] MEDS: Vancomycin(*) 1,500 MG in NS 0.9% 250 ML* 250 ML IVPB SCH ×2 (04:08→12:04)
[2019-12-03 05:26] LABS: ABS Basophils 0.1 10^3/ul (0-0.2); ABS Eosinophils 0.2 10^3/ul (0-0.6); ABS Lymphocytes 3.1 10^3/ul (1.0-4.8); ABS Monocytes 0.8 10^3/ul (0-0.8); Hematocrit 44 % (42-52); Hemoglobin 14.5 g/dL (14.0-18.0); Lymphocyte % 33.7 %; Mean Corpuscular HGB Conc 33 g/dL (31-36); Mean Corpuscular Hemoglobin 29 pg (27-31); Mean Corpuscular Volume 87 fL (80-94); Mean Platelet Volume 9.9 fL (7.4-10.4); Platelet Count 236 10^3/uL (150-450); Red Blood Count 5.01 10^6 /uL (4.18-5.48); Red Cell Distribution Width 15 % (10-15); White Blood Count 9.1 10^3/uL (3.5-10.8)
[2019-12-03] MEDS: Insulin LISPRO* 1 UNITS UNIT SUBCUT SCH ×2 (08:17→11:48)
[2019-12-03] MEDS ORDERED: Spironolactone TAB* 25 MG PO SCH (09:00)
[2019-12-03] MEDS ORDERED: SPIRIVA Respimat* (tiotropium) 2.5 mcg/inh Inhaler INH SCH (09:00)
[2019-12-03] MEDS ORDERED: LOSARTAN PO SCH (09:00)
[2019-12-03] MEDS ORDERED: HYDROCHLOROTHIAZIDE PO SCH (09:00)
[2019-12-03] MEDS ORDERED: Pantoprazole TAB * 40 MG TAB PO SCH (09:00)
[2019-12-03] MEDS ORDERED: Venlafaxine EXT RELEASE CAP* 75 MG PO SCH (09:00)
[2019-12-03] MEDS ORDERED: Furosemide TAB* 20 MG PO SCH (09:00)
[2019-12-03] MEDS ORDERED: ERTUGLIFLOZIN PIDOLATE 15 MG PO SCH ×2 (09:00)
[2019-12-03] MEDS: Carvedilol TAB* 6.25 MG PO SCH (09:05)
[2019-12-03] MEDS: busPIRone TAB* 30 MG PO SCH (09:06)
[2019-12-03] MEDS: Mometasone/Formoter 200/5 MDI INH SCH (09:06)
[2019-12-03] MEDS: Pregabalin 50 mg CAP (*) PO SCH ×2 (09:07→13:59)
--- NOTE | 2019-12-03 09:24 | PN ---
Subjective Date of Service: 12/03/19 Interval History: Mr. Dean is feeling much better today. Pain still present, currently 6/10, but manageable, and he does not want to take pain medications. Denies CP, SOB, cough , N/V. He would like to get back to [facility] as soon as possible. No concerns from nursing. Family History: Unchanged from Admission Social History: Unchanged from Admission Past Medical History: Unchanged from Admission Objective Active Medications: Al Hydrox/Mg Hydrox/Simethicone (Maalox Plus*) 30 ml PO Q6H PRN INDIGESTION Albuterol (Ventolin Hfa Inhaler*) 2 puff INH Q6H PRN SHORTNESS OF BREATH Atorvastatin Calcium (Lipitor*) 80 mg PO BEDTIME [facility] Buspirone HCl (Buspar Tab*) 30 mg PO BID [facility] Carvedilol (Coreg Tab*) 6.25 mg PO BID [facility] Dextrose (D50w Syringe 50 Ml*) 12.5 gm IV PUSH .FOR FS < 60 - SS PRN FS < 60 Enoxaparin Sodium (Lovenox(*)) 40 mg SUBCUT DAILY [facility] Furosemide (Lasix Tab*) 20 mg PO DAILY [facility] Sodium Chloride (Ns 0.9% 1000 Ml) 1,000 mls @ 75 mls/hr IV PER RATE [facility] Vancomycin HCl 1,500 mg/ (Sodium Chloride) 250 mls @ 166.667 mls/hr IVPB Q8H [facility] Insulin Human Lispro (Humalog*) 0 units SUBCUT AC [facility]; Protocol Mometasone Furoate/Formoterol Fumar (Dulera 200/5 Mdi*) 2 puff INH BID [facility]; Protocol Morphine Sulfate (Morphine Inj (Syringe))*) 2 mg IV Q4H PRN PAIN - MILD Non-Formulary Medication (Ertugliflozin Pidolate [Steglatro]) 15 mg PO DAILY [facility] Ondansetron HCl (Zofran Inj*) 4 mg IV Q4H PRN NAUSEA/VOMITING Pantoprazole Sodium (Protonix Tab*) 40 mg PO DAILY [facility] Polyethylene Glycol/Electrolytes (Miralax (17 Gm Dose Daniel)) 17 gm PO DAILY PRN CONSTIPATION Pregabalin (Lyrica 50 Mg Cap (*)) 150 mg PO TID [facility] Spironolactone (Aldactone Tab*) 25 mg PO DAILY [facility] Tiotropium [place] (Spiriva Respimat 2.5 Mcg) 2 puff INH DAILY [facility] Venlafaxine HCl (Effexor Xr Cap*) 150 mg PO DAILY [facility] Vital Signs - 8 hr 12/03/19 12/03/19 12/03/19 02:16 04:20 05:28 Temperature 97.6 F Pulse Rate 88 Respiratory 16 18 16 Rate Blood Pressure 141/78 (mmHg) O2 Sat by Pulse 99 Oximetry 12/03/19 12/03/19 08:36 09:07 Temperature 97.5 F Pulse Rate 94 Respiratory 16 18 Rate Blood Pressure 101/66 (mmHg) O2 Sat by Pulse 94 Oximetry Oxygen Devices in Use Now: None Appearance: Middle-aged male sitting in chair in NAD Ears/Nose/Mouth/Throat: Mucous Membranes Moist Neck: NL Appearance and Movements; NL JVP, Trachea Midline Respiratory: Symmetrical Chest Expansion and Respiratory Effort, Clear to Auscultation Cardiovascular: NL Sounds; No Murmurs; No JVD, RRR Abdominal: NL Sounds; No Tenderness; No Distention Skin: - - Dressing intact right stump Neurological: Alert and Oriented x 3 Lines/Tubes/Other Access: Clean, Dry and Intact Peripheral IV Nutrition: Taking PO's Result Diagrams: 12/03/19 04:45 12/02/19 12:51 Assess/Plan/Problems-Billing Assessment: Mr. Dean is a 44 yo M with PMH of DM, ischemic cardiomyopathy, COPD, HTN, right BKA 10/28/19; presented to the ED after a fall with resulting wound dehiscence to the BKA site. Status and Disposition: Inpatient. Anticipate d/c back to [facility] when cleared by Ortho and ID. Attending: Izzy Siddiqui
--- NOTE | 2019-12-03 10:34 | PN ---
Progress Note - Progress Note Date of Service: 12/03/19 SOAP: Subjective: POD #1 right leg I&D and secondary closure of traumatic stump wound. Doing well , moderate pain but controlled with meds. Denies CP/SOB, f/c, n/v. Objective: Vital Signs: Temp Pulse Resp BP Pulse Ox 97.5 F 94 18 101/66 94 12/03/19 08:36 12/03/19 08:36 12/03/19 09:07 12/03/19 08:36 12/03/19 08:36 Gen: A&Ox3, NAD at rest in chair RLE: Dressing C/D/I, stump protector in place. Labs: Laboratory Results - last 24 hr 12/02/19 12/02/19 12/02/19 12:51 12:51 12:51 WBC 9.5 RBC 4.99 Hgb 14.4 Hct 43 MCV 86 MCH 29 MCHC 33 RDW 15 Plt Count 238 MPV 9.3 Neut % (Auto) 58.3 Lymph % (Auto) 27.9 [place] % (Auto) 11.0 Eos % (Auto) 2.0 Baso % (Auto) 0.8 Absolute Neuts (auto) 5.6 Absolute Lymphs (auto) 2.7 Absolute Monos (auto) 1.0 H Absolute Eos (auto) 0.2 Absolute Basos (auto) 0.1 Absolute Nucleated RBC 0.0 Nucleated RBC % 0.1 INR (Anticoag Therapy) 0.98 APTT 33.8 Sodium 139 Potassium 4.0 Chloride 104 Carbon Dioxide 28 Anion Gap 7 BUN 11 Creatinine 0.61 L Est GFR ( Amer) 172.2 Est GFR (Non-Af Amer) 142.3 BUN/Creatinine Ratio 18.0 Glucose 101 H POC Glucose (mg/dL) Calcium 9.2 Total Bilirubin 0.60 AST 18 ALT 28 Alkaline Phosphatase 63 Total Protein 7.2 Albumin 4.0 Globulin 3.2 Albumin/Globulin Ratio 1.3 12/02/19 12/02/19 12/03/19 18:40 21:28 04:45 WBC 9.1 RBC 5.01 Hgb 14.5 Hct 44 MCV 87 MCH 29 MCHC 33 RDW 15 Plt Count 236 MPV 9.9 Neut % (Auto) 55.0 Lymph % (Auto) 33.7 [place] % (Auto) 8.7 Eos % (Auto) 2.0 Baso % (Auto) 0.6 Absolute Neuts (auto) 5.0 Absolute Lymphs (auto) 3.1 Absolute Monos (auto) 0.8 Absolute Eos (auto) 0.2 Absolute Basos (auto) 0.1 Absolute Nucleated RBC 0.0 Nucleated RBC % 0.0 INR (Anticoag Therapy) APTT Sodium Potassium Chloride Carbon Dioxide Anion Gap BUN Creatinine Est GFR ( Amer) Est GFR (Non-Af Amer) BUN/Creatinine Ratio Glucose POC Glucose (mg/dL) 98 113 H Calcium Total Bilirubin AST ALT Alkaline Phosphatase Total Protein Albumin Globulin Albumin/Globulin Ratio 12/03/19 07:26 WBC RBC Hgb Hct MCV MCH MCHC RDW Plt Count MPV Neut % (Auto) Lymph % (Auto) [place] % (Auto) Eos % (Auto) Baso % (Auto) Absolute Neuts (auto) Absolute Lymphs (auto) Absolute Monos (auto) Absolute Eos (auto) Absolute Basos (auto) Absolute Nucleated RBC Nucleated RBC % INR (Anticoag Therapy) APTT Sodium Potassium Chloride Carbon Dioxide Anion Gap BUN Creatinine Est GFR ( Amer) Est GFR (Non-Af Amer) BUN/Creatinine Ratio Glucose POC Glucose (mg/dL) 113 H Calcium Total Bilirubin AST ALT Alkaline Phosphatase Total Protein Albumin Globulin Albumin/Globulin Ratio Assessment: POD #1 right stump I&D and wound closure Plan: Ok for d/c to [facility] today, cont NWB RLE Abx per ID F/u with Dr. Hernandez 14 days post op
[2019-12-03 11:35] VITALS: BP 106/73
[2019-12-03] MEDS ORDERED: Enoxaparin(*) 40 MG/0.4 ML SYR SUBCUT SCH (12:00)
[2019-12-03] MEDS: NS 0.9% 1000 ML** 1,000 ML IV SCH (12:04)
--- NOTE | 2019-12-03 14:29 | DS ---
CC: Dr. Andrea Hazel, [facility]; Dr. Miquel Hernandez* DISCHARGE SUMMARY: DATE OF ADMISSION: 12/02/19 DATE OF DISCHARGE: 12/03/19 PRIMARY CARE PROVIDER: Dr. Andrea Hazel. ORTHOPEDIC SURGEON: Dr. Miquel Hernandez. ATTENDING PHYSICIAN: Dr. 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 SECONDARY DIAGNOSES: 1. Diabetes mellitus type 2. 2. Ischemic cardiomyopathy, EF 30% to 35%. 3. Chronic obstructive pulmonary disease. 4. Gastroesophageal reflux disease. 5. Depression. 6. Anxiety. 7. Hyperlipidemia. 8. Obstructive sleep apnea. STUDIES WHILE IN THE HOSPITAL: None. PROCEDURES WHILE IN THE HOSPITAL: 1. Right BKA stump irrigation and debridement and complex secondary closure of surgical wound dehiscence with Dr. Hernandez on 12/02/19. HISTORY OF PRESENT ILLNESS AND HOSPITAL COURSE: Mr. Dean is a 44-year-old male with past medical history of diabetes, ischemic cardiomyopathy, osteomyelitis, GERD, COPD, hypertension, and neuropathy, who presented to the emergency room on 12/02/19 after a mechanical fall onto his right BKA stump. Please see the history and physical by GAVIOTA Holliday, for a complete summary of the events leading up to this hospitalization. In short, the patient underwent a right fqjic-vub-swkt amputation at this facility on 10/28/19. Since that time, he was discharged for rehab to [facility]. He has been receiving IV ceftriaxone while there per Infectious Disease recommendations. On the day of presentation , the patient did have a mechanical fall, which unfortunately caused some trauma to the BKA stump and subsequent dehiscence. The patient was admitted by the hospitalist service. Orthopedics was consulted and the patient underwent an incision and debridement with secondary closure of the dehisced wound on 12/02/[address] Hernandez. The patient did well intra and postoperatively. There was minimal blood loss. The patient was seen by Orthopedics again this morning and at that point they advised that he is stable for discharge from their perspective with appropriate antibiotic therapy per Infectious Disease recommendations. At this point, there is no obvious evidence of infection and wound culture at this point is still pending, though preliminary results show no growth. I did speak with Infectious Disease and Raquel Spence NP, does recommend that the patient receive 2 weeks of ceftriaxone to cover any possible infection. The patient reports feeling well today and he is anxious to return back to [facility]. Please see my note from today for physical exam. Mr. Dean is stable for discharge. Most recent vitals are as follows: Temp 97.8, heart rate 80, respiratory rate 18, oxygen saturation 98% on room air, blood pressure 106/73. DISCHARGE MEDICATIONS: New: 1. Ceftriaxone 1 g IV q.24 hours x2 weeks. Continued: 1. Albuterol 2 puffs q.6 hours p.r.n. shortness of breath. 2. Atorvastatin 80 mg p.o. at bedtime. 3. Symbicort 160/4.5 two puffs b.i.d. 4. Buspirone 30 mg p.o. b.i.d. 5. Carvedilol 6.25 mg p.o. b.i.d. 6. Steglatro 15 mg p.o. daily. 7. Furosemide 20 mg p.o. daily. 8. Omeprazole 20 mg p.o. daily. 9. Lyrica 150 mg p.o. t.i.d. 10. Spironolactone 25 mg p.o. daily. 11. Spiriva 1 cap inhalation daily. 12. Venlafaxine 150 mg p.o. daily. 13. Acetaminophen 975 mg p.o. q.6 hours p.r.n. pain. 14. DuoNeb 1 neb q.6 hours p.r.n. shortness of breath, wheezing. 15. Vitamin D3 5000 units p.o. daily. 16. Vitamin B12 2500 mcg p.o. daily. 17. Lovenox 40 mg subcu daily. 18. Victoza 1.8 mg subcu daily. 19. Losartan/hydrochlorothiazide 50/12.5 one tab p.o. daily. 20. Metformin 1000 mg p.o. b.i.d. DISCHARGE PLAN: Mr. Dean will be discharged back to rehab at [facility]. Activity per Orthopedics will be nonweightbearing on the right lower extremity. Diet will be consistent carb. Medications are noted above. He can resume his usual medications and in addition will need to go back on ceftriaxone for an additional 2 weeks. The patient already does have a PICC line in place to the left upper extremity and this can be used for antibiotic administration. PICC care should be performed per protocol. He will need to follow up with Dr. Hernandez in 2 weeks. He will additionally need to follow up with infectious Disease and Raquel Sow, [facility], indicated that she would have a telemedicine visit with the patient in 2 weeks. At that point, he may need to transition to oral antibiotics, though they will make any further determinations at that time. He should follow up with a provider upon his arrival to [facility]. He should return to the emergency room or nearest hospital for any worsening of symptoms, shortness of breath, lightheadedness, dizziness, chest discomfort, high fevers, chills, night sweats, loss of consciousness, or any other worrisome signs or symptoms. DISCHARGE CONDITION: Stable. DISCHARGE DISPOSITION: correction [facility], [facility]. This is a summarized report of a complex medical history and hospital stay. For further details, please see the entire medical record. TIME SPENT: Approximately 45 minutes was spent on this discharge. HALLE MORALES NP [id number]/[facility] #: [id number] GAGAN
--- NOTE | 2019-12-03 20:58 | CONS ---
CONSULTATION REPORT: DATE OF CONSULT: 12/03/19 TIME OF CONSULT: 11:30 a.m. PRIMARY CARE PROVIDER: Ekaterina Rodriguez NP PROVIDER REQUESTING CONSULTATION: GAVIOTA Velez CONSULTING SERVICE: Infectious Disease. PROVIDER: Yunier Sow NP ATTENDING PROVIDER: Dr. Jason Farr.* (DICTATED BY YUNIER SOW NP) REASON FOR CONSULT: Right lower extremity BKA wound dehiscence after a fall. IMPRESSION: 1. Right BKA wound dehiscence. While attempting to get up out of bed, Mr. Dean fell directly onto his right lower extremity BKA and had a wound dehiscence. The patient was taken to the OR by Dr. Hernandez. This was debrided. He has been on vancomycin for 1 day. No leukocytosis. CRP previously not elevated on 11/26/19 at last check at 7.59 and wound cultures with no growth on day 1. 2. Left first toe chronic osteomyelitis. The patient had presented to the hospital previously in October with a chronic ulcer that had been present for approximately a year. He had an MRI in October showing equivocal marrow edema involving the distal first phalanx of the left with inability to exclude osteomyelitis with a small effusion, soft tissue swelling of the dorsum of the foot, and a small ulceration on the plantar medial aspect of the left great toe with mild swelling, patchy muscle edema suggestive of myositis or diabetic myopathy. No cultures of this area. The wound is healing and looking improved. He was due to complete a 6-week course of IV ceftriaxone on 12/05/19. 3. History of a right foot abscess with infectious myositis, status post right BKA. This was previously polymicrobial with group B strep, Staph aureus, pasteurella, Peptoniphilus, and bacteroides. Surgical pathology with gangrenous ischemic necrosis and chronic vascular stasis. 4. Diabetes mellitus type 2 with peripheral neuropathy. 5. Morbid obesity, BMI 35.5. 6. AMOXICILLIN allergy caused anaphylactic shock; AUGMENTIN allergy, he has tolerated ceftriaxone without difficulty. 7. Heart failure. RECOMMENDATIONS/PLAN: Recommend continuing ceftriaxone 2 g IV daily for 14 more days followed by a course of oral antibiotics, which will be determined at a later date outpatient. He should have weekly labs while on IV antibiotics, CBC, CRP, and CMP. Follow up with ID outpatient either in person in the office or via telemedicine. HISTORY OF PRESENT ILLNESS: Mr. Dean is a 44-year-old male with past medical history significant for morbid obesity, diabetes mellitus type 2, peripheral neuropathy, depression, hypertension, hyperlipidemia, venous insufficiency, COPD , chronic right foot ulcer, chronic left first toe ulcer, who previously presented to the hospital in September and was on the behavioral services unit at that time with a wound VAC being managed by Podiatry for wounds to his right foot that had been chronic for many months. He then presented on 10/24/19 with ulcer and infection in the right lower extremity. He underwent a right BKA and was ultimately discharged on 11/03/19 to the rehabilitation unit. While on the rehabilitation unit, he was continued on ceftriaxone. He was then discharged to home, had only been home for a few hours when he developed some shortness of breath, and he returned to the emergency room. He was admitted through for heart failure. He was then ultimately discharged to [facility] [place] to complete his 6-week course of IV antibiotics, which he was scheduled to be done with his IV antibiotics on 12/05/19. He was doing well and then while attempting to get up without his stump protector on he fell landing directly on his right lower extremity stump and the wound dehisced. He was then brought to the emergency room for further evaluation of this. While in the emergency room, he had labs that showed no leukocytosis. He was seen in consultation by Orthopedic Surgery and recommendations were made to go to the OR. While in the hospital he went to the OR last evening and underwent a debridement and secondary closure of the surgical wound dehiscence with Dr. Hernandez. He states that he was doing well. He denies any fevers, chills, nausea, vomiting, diarrhea. He has some discomfort in the right stump. He continues to have a left first toe ulcer that he has been managing and feels that it is improving with no signs of infection. He denies any urinary symptoms or other complaints. PAST MEDICAL HISTORY: 1. Morbid obesity. 2. Diabetes mellitus type 2. 3. Peripheral neuropathy. 4. Depression. 5. Hypertension. 6. Hyperlipidemia. 7. Venous insufficiency. 8. COPD. 9. Chronic left first toe ulcer. PAST SURGICAL HISTORY: 1. Status post gastric bypass. 2. Status post right first toe amputation. 3. Status post right thumb surgery. 4. Status post right gpqkz-mob-bumx amputation. MEDICATIONS: Hospital medications: 1. Maalox Plus 30 mL by mouth every 6 hours as needed for indigestion. 2. Albuterol 2 puffs inhalation every 4 hours as needed for shortness of breath or wheeze. 3. Atorvastatin 80 mg by mouth daily at bedtime. 4. BuSpar 30 mg by mouth twice daily. 5. Carvedilol 6.25 mg by mouth daily. 6. Dextrose 12.5 mg IV push for glucose less than 60 as needed. 7. Lovenox 40 mg by mouth subcutaneous daily. 8. Furosemide 20 mg by mouth daily. 9. Sodium chloride 75 mL intravenously an hour. 10. Vancomycin 1500 mg IV every 8 hours. 11. Humalog insulin sliding scale subcutaneous before meals. 12. Dulera 200/5 MDI 2 puffs inhalation twice daily. 13. Morphine sulfate 2 mg IV every 4 hours as needed for sonf-vd-qxwoxhua pain. 14. Steglatro 15 mg by mouth daily. 15. Zofran 4 mg IV every 4 hours as needed for nausea, vomiting. 16. Protonix 40 mg by mouth daily. 17. MiraLAX 17 g by mouth daily as needed for constipation. 18. Lyrica 150 mg by mouth 3 times daily. 19. Spironolactone 25 mg by mouth daily. 20. Spiriva Respimat 2.5 mcg 2 puffs inhalation daily. 21. Effexor 150 mg by mouth daily. ALLERGIES: AUGMENTIN caused anaphylactic shock, GABAPENTIN. FAMILY HISTORY: Mother with a history of diabetes. Father with a history of coronary artery disease. No family history of recurrent or resistant infections or cancer. SOCIAL HISTORY: Former smoker. He quit at the time of his hospitalization in October. Prior to that, he had a 35-year minimum 1 pack a day smoking history , but at times up to 2 to 3 packs. Denies alcohol use. Previously smoked marijuana, but not recently. REVIEW OF SYSTEMS: I performed an 11-point review of systems. All the pertinent positives and negatives are mentioned in the history of present illness. The remaining review of systems are negative. PHYSICAL EXAM: Vital Signs: Temperature 97.8, heart rate 88, respiratory rate 16, O2 sat 98% on room air, blood pressure 106/73. General Appearance: Alert, appears to be in no acute distress, sitting up in his chair. Head: Normocephalic, atraumatic. EENT: Extraocular movements are intact. No subconjunctival hemorrhage. Moist mucous membranes. Neurological: Alert and oriented. Cranial nerves II through XII are grossly intact. Cardiovascular: Regular rate and rhythm. S1 and S2 present. No murmurs, rubs, or gallops heard. Respiratory: No accessory muscle use. The lungs are clear to auscultation bilaterally. Abdomen: Bowel sounds present. Abdomen is obese, nontender. Extremities: No lower extremity edema. 1+ DP pulse on the left. Right lower extremity is in a brace. Musculoskeletal: No clubbing or cyanosis noted. Exhibits good strength in all extremities. Psychological: Calm and cooperative. Skin: No rashes or abnormalities seen on the exposed skin. He has a surgical dressing to the right lower extremity stump. The left first toe on the medial plantar aspect with a diabetic ulcer surrounded by callus. Additionally, he is noted to have callus on the left heel. The ulcers are approximately 0.4 cm x 0.2 x 0.2. The wound base is combination of granulation tissue and minimal necrotic tissue. There is scant drainage surrounding the skin with no erythema. DIAGNOSTIC STUDIES/LAB DATA: Sodium 139, potassium 4.0, chloride 104, CO2 of 28 , BUN 11, creatinine 0.61, glucose 101. White blood cell count 9.1, hemoglobin 14.5, hematocrit 44, platelet count 236. Please see impression and recommendations outlined above, recommendations have been discussed with Orin Tripathi NP and GAVIOTA Velez. Thank you for asking us to see Mr. Dean in consultation. The case has been discussed with my attending, Dr. Jason Farr, who agrees with the plan of care. Reviewed by YUNIER SOW, NERIS 12/09/19 2048 [id number]/[facility] #: [id number] GAGAN
[2019-12-04] MEDS ORDERED: Vancomycin Trough Check NOTE FOLLOW UP ONE (11:30)
== END 2019-12-03 15:00 | DRG 317 ==
LOC: ED 10:26 → OR 18:49 → SSU 20:21
PROVIDERS: ADMIT Hospitalist; ATTEND Orthopaedic Surgery
PROC: 0KBS0ZZ Excision of Right Lower Leg Muscle, Open Approach (ICD-10-PCS; principal; 2019-12-02 17:45)
DX: T87.81 Dehiscence of amputation stump (principal); M86.60 Other chronic osteomyelitis, unspecified site; W06.XXXA Fall from bed, initial encounter; I25.5 Ischemic cardiomyopathy; J44.9 Chronic obstructive pulmonary disease, unspecified; I50.9 Heart failure, unspecified; E11.42 Type 2 diabetes mellitus with diabetic polyneuropathy; E11.621 Type 2 diabetes mellitus with foot ulcer; L97.529 Non-pressure chronic ulcer of other part of left foot with unspecified severity; F32.9 Major depressive disorder, single episode, unspecified; F41.9 Anxiety disorder, unspecified; E78.5 Hyperlipidemia, unspecified; K21.9 Gastro-esophageal reflux disease without esophagitis; G47.33 Obstructive sleep apnea (adult) (pediatric); I87.8 Other specified disorders of veins; Y92.129 Unspecified place in nursing home as the place of occurrence of the external cause; Z98.84 Bariatric surgery status; E66.01 Morbid (severe) obesity due to excess calories; Z89.511 Acquired absence of right leg below knee; Z79.84 Long term (current) use of oral hypoglycemic drugs; Z79.51 Long term (current) use of inhaled steroids; Z79.899 Other long term (current) drug therapy; Z88.8 Allergy status to other drugs, medicaments and biological substances; Z82.49 Family history of ischemic heart disease and other diseases of the circulatory system; Z83.3 Family history of diabetes mellitus; Z87.891 Personal history of nicotine dependence; Z68.35 Body mass index [BMI] 35.0-35.9, adult; Z88.1 Allergy status to other antibiotic agents; Z84.1 Family history of disorders of kidney and ureter
CPT/HCPCS: 36415; 80053; 85025; 85610; 85730; 87070; 87073; 87205; 99285; A9270-GY; J1200; J1650; J2250; J2270; J2704; J3370; J3490; J3535

== ENCOUNTER 2021-01-11 18:13 | Inpatient (IN) ==
[2021-01-11 21:43] LABS: ABS Basophils 0.1 10^3/ul (0-0.2); ABS Eosinophils 0.2 10^3/ul (0-0.6); ABS Lymphocytes 2.6 10^3/ul (1.0-4.8); ABS Monocytes 1.4 10^3/ul (0-0.8); ABS Neutrophils 12.6 10^3/ul (1.5-7.7); Eosinophil % 0.9 %; Hematocrit 48 % (42-52); Hemoglobin 16.3 g/dL (14.0-18.0); Lymphocyte % 15.5 %; Mean Corpuscular HGB Conc 34 g/dL (31-36); Mean Corpuscular Hemoglobin 31 pg (27-31); Mean Corpuscular Volume 89 fL (80-94); Platelet Count 218 10^3/uL (150-450); Red Blood Count 5.33 10^6 /uL (4.18-5.48); Red Cell Distribution Width 14 % (10-15); White Blood Count 16.8 10^3/uL (3.5-10.8)
[2021-01-11 22:06] LABS: Albumin 4.2 g/dL (3.2-5.2); Albumin/Globulin Ratio 1.2 (1-3); C Reactive Protein 147.53 mg/L (<8.01); Calcium 9.4 mg/dL (8.6-10.3); EGFR African American 115.3 (>60); EGFR Non-African American 95.3 (>60); Globulin 3.6 g/dL (2-4); Potassium 3.3 mmol/L (3.5-5.0); Total Bilirubin 0.9 mg/dL (0.2-1.0); Total Protein 7.8 g/dL (6.4-8.9)
[2021-01-11] MEDS ORDERED: Albuterol HFA INHALER 8 gm MDI INH PRN (22:27)
[2021-01-11] MEDS ORDERED: Piperacillin/Tazobac ADVAN 3.375 GM in NS 0.9% 100 ml BAG 100 ML IV ONE (22:28)
[2021-01-11] MEDS ORDERED: Dextrose 50% Syringe 50 ml 25 GM/50 ML SYRINGE IV PUSH PRN (22:37)
[2021-01-11] MEDS ORDERED: Zosyn per Pharmacy NOTE FOLLOW UP SCH (23:00)
[2021-01-11] MEDS ORDERED: Enoxaparin 40 MG/0.4 ML SYR SUBCUT SCH (23:00)
[2021-01-11] MEDS ORDERED: Vancomycin 2,000 MG in NS 0.9% 500 ml BAG 500 ML IVPB ONE (23:00)
[2021-01-11] MEDS ORDERED: Vancomycin per Pharmacy 1 EA NOTE FOLLOW UP PRN (23:05)
[2021-01-12] MEDS ORDERED: Potassium Chlor 20 meq TAB.ER PO ONE (01:02)
[2021-01-12] MEDS: ZOSYN 3.375 GM Q8H per EXTENDED INFUSION IV SCH ×2 (03:26→11:20)
[2021-01-12] MEDS: Mometasone/Formoter 200/5 MDI INH SCH ×2 (07:48→20:34)
[2021-01-12] MEDS: Venlafaxine XR 75 mg PO SCH (10:19)
[2021-01-12] MEDS: Vancomycin 2,000 MG in NS 0.9% 500 ml BAG 500 ML IVPB SCH (13:41)
[2021-01-12] MEDS ORDERED: Iodixanol (CONTRAST) 320 MG/ML 100 ML SDV IV ONE (14:07)
[2021-01-12] MEDS: Cefepime 2 GM in Dextrose 2 GM/50 ML BAG IV SCH (18:27)
[2021-01-12] MEDS: metroNIDAZOLE IV 500 MG/100ML 500 MG/100 ML BAG IVPB SCH (20:52)
[2021-01-12] MEDS ORDERED: Heparin 5000 UNITS/ML 1 mL VIAL SUBCUT SCH (22:00)
[2021-01-13] MEDS: Vancomycin 2,000 MG in NS 0.9% 500 ml BAG 500 ML IVPB SCH ×2 (00:50→14:05)
[2021-01-13 04:46] LABS: ABS Basophils 0.1 10^3/ul (0-0.2); ABS Eosinophils 0.2 10^3/ul (0-0.6); ABS Lymphocytes 2.6 10^3/ul (1.0-4.8); ABS Monocytes 0.8 10^3/ul (0-0.8); Eosinophil % 3.1 %; Hematocrit 42 % (42-52); Hemoglobin 14.2 g/dL (14.0-18.0); Mean Corpuscular HGB Conc 33 g/dL (31-36); Mean Corpuscular Hemoglobin 30 pg (27-31); Mean Corpuscular Volume 91 fL (80-94); Mean Platelet Volume 8.7 fL (7.4-10.4); Platelet Count 194 10^3/uL (150-450); Red Blood Count 4.68 10^6 /uL (4.18-5.48); Red Cell Distribution Width 14 % (10-15); White Blood Count 7.7 10^3/uL (3.5-10.8)
[2021-01-13 05:03] LABS: Calcium 8.7 mg/dL (8.6-10.3); EGFR African American 141.6 (>60); Potassium 3.7 mmol/L (3.5-5.0)
[2021-01-13] MEDS: metroNIDAZOLE IV 500 MG/100ML 500 MG/100 ML BAG IVPB SCH ×3 (05:29→22:17)
[2021-01-13] MEDS: Cefepime 2 GM in Dextrose 2 GM/50 ML BAG IV SCH ×2 (05:45→17:57)
[2021-01-13] MEDS: Mometasone/Formoter 200/5 MDI INH SCH ×2 (08:02→19:49)
[2021-01-13] MEDS ORDERED: Rocuronium 50 mg VIAL 10 mg/ml 5 ml VIAL (50 mg) ONE (11:00)
[2021-01-13] MEDS ORDERED: Midazolam 2 mg/2 ml VIAL 1 mg/ml 2 ml VIAL (2 mg) ONE (11:00)
[2021-01-13] MEDS ORDERED: fentaNYL 100 mcg/2 ml 50 MCG/ML VIAL ONE ×2 (11:00→11:47)
[2021-01-13] MEDS ORDERED: Propofol 10 MG/ML 20 ML BTL ONE (11:02)
[2021-01-13] MEDS ORDERED: Phenylephrine 40 mcg/mL 10mL (400mcg) SYRINGE ONE (11:26)
[2021-01-13] MEDS ORDERED: Vancomycin Trough Check NOTE FOLLOW UP ONE (11:30)
[2021-01-13] MEDS ORDERED: Ondansetron 4 mg VIAL 2 MG/ML 2 ml VIAL ONE (11:39)
[2021-01-13] MEDS ORDERED: Naloxone 0.4 mg VIAL 0.4 mg/ml 1 ml VIAL IV PRN (11:48)
[2021-01-13] MEDS ORDERED: HYDROmorphone 1 MG/1 ML SYRINGE IV PRN (11:48)
[2021-01-13] MEDS ORDERED: fentaNYL 100 mcg/2 ml 50 MCG/ML VIAL IV PRN (11:48)
[2021-01-13] MEDS ORDERED: Ondansetron 4 mg VIAL 2 MG/ML 2 ml VIAL IV PRN (11:48)
[2021-01-13] MEDS ORDERED: Acetaminophen IV 1 GM/100ML 100 ML ONE (12:36)
[2021-01-13] MEDS: Heparin 5000 UNITS/ML 1 mL VIAL SUBCUT SCH ×3 (14:00→22:19)
[2021-01-13] MEDS: Venlafaxine XR 75 mg PO SCH (16:35)
[2021-01-14] MEDS: Vancomycin 2,000 MG in NS 0.9% 500 ml BAG 500 ML IVPB SCH ×2 (00:20→13:51)
[2021-01-14] MEDS: metroNIDAZOLE IV 500 MG/100ML 500 MG/100 ML BAG IVPB SCH ×3 (05:25→21:27)
[2021-01-14] MEDS: Heparin 5000 UNITS/ML 1 mL VIAL SUBCUT SCH ×3 (05:26→21:26)
[2021-01-14] MEDS: Cefepime 2 GM in Dextrose 2 GM/50 ML BAG IV SCH ×2 (05:26→17:20)
[2021-01-14] MEDS: Venlafaxine XR 75 mg PO SCH (08:27)
[2021-01-14] MEDS: Mometasone/Formoter 200/5 MDI INH SCH ×2 (10:22→19:53)
[2021-01-14] MEDS ORDERED: Vancomycin Trough Check NOTE FOLLOW UP ONE (11:30)
[2021-01-14 12:44] LABS: EGFR African American 153.8 (>60); EGFR Non-African American 127.1 (>60)
[2021-01-14 13:41] LABS: Vancomycin Trough 9.9 mcg/mL
[2021-01-14] MEDS: Vancomycin 1,250 MG in NS 0.9% 250 ml 250 ML IVPB SCH ×2 (13:59→21:27)
[2021-01-15 05:23] LABS: ABS Eosinophils 0.2 10^3/ul (0-0.6); ABS Lymphocytes 2.3 10^3/ul (1.0-4.8); ABS Monocytes 0.7 10^3/ul (0-0.8); ABS Neutrophils 4.3 10^3/ul (1.5-7.7); Eosinophil % 2.7 %; Hematocrit 42 % (42-52); Hemoglobin 14.2 g/dL (14.0-18.0); Lymphocyte % 30.1 %; Mean Corpuscular HGB Conc 34 g/dL (31-36); Mean Corpuscular Hemoglobin 30 pg (27-31); Mean Corpuscular Volume 90 fL (80-94); Mean Platelet Volume 8.7 fL (7.4-10.4); Platelet Count 202 10^3/uL (150-450); Red Blood Count 4.68 10^6 /uL (4.18-5.48); Red Cell Distribution Width 13 % (10-15); White Blood Count 7.5 10^3/uL (3.5-10.8)
[2021-01-15 05:24] LABS: ABS Eosinophils 0.2 10^3/ul (0-0.6); ABS Lymphocytes 2.5 10^3/ul (1.0-4.8); ABS Monocytes 0.8 10^3/ul (0-0.8); ABS Neutrophils 4.2 10^3/ul (1.5-7.7); Eosinophil % 2.5 %; Hematocrit 42 % (42-52); Hemoglobin 13.9 g/dL (14.0-18.0); Lymphocyte % 32.2 %; Mean Corpuscular HGB Conc 33 g/dL (31-36); Mean Corpuscular Hemoglobin 30 pg (27-31); Mean Corpuscular Volume 90 fL (80-94); Mean Platelet Volume 8.8 fL (7.4-10.4); Platelet Count 199 10^3/uL (150-450); Red Blood Count 4.67 10^6 /uL (4.18-5.48); Red Cell Distribution Width 14 % (10-15); White Blood Count 7.7 10^3/uL (3.5-10.8)
[2021-01-15] MEDS: Vancomycin 1,250 MG in NS 0.9% 250 ml 250 ML IVPB SCH ×3 (05:26→23:39)
[2021-01-15] MEDS: Cefepime 2 GM in Dextrose 2 GM/50 ML BAG IV SCH ×2 (05:27→19:18)
[2021-01-15 05:48] LABS: Calcium 8.5 mg/dL (8.6-10.3); EGFR African American 143.9 (>60); EGFR Non-African American 118.9 (>60); Potassium 3.7 mmol/L (3.5-5.0)
[2021-01-15] MEDS: metroNIDAZOLE IV 500 MG/100ML 500 MG/100 ML BAG IVPB SCH ×3 (06:20→21:54)
[2021-01-15] MEDS: Mometasone/Formoter 200/5 MDI INH SCH ×2 (08:55→19:56)
[2021-01-15] MEDS: Venlafaxine XR 75 mg PO SCH (09:45)
[2021-01-15] MEDS ORDERED: Heparin 5000 UNITS/ML 1 mL VIAL SUBCUT ONE (21:00)
[2021-01-15] MEDS ORDERED: Insulin GLARGINE 100 un/ml 10 ml VIAL SUBCUT ONE (21:00)
[2021-01-16] MEDS: metroNIDAZOLE IV 500 MG/100ML 500 MG/100 ML BAG IVPB SCH ×2 (05:01→15:44)
[2021-01-16] MEDS ORDERED: Vancomycin Trough Check NOTE FOLLOW UP ONE (05:30)
[2021-01-16 05:46] LABS: ABS Basophils 0.1 10^3/ul (0-0.2); ABS Eosinophils 0.2 10^3/ul (0-0.6); ABS Lymphocytes 2.7 10^3/ul (1.0-4.8); ABS Monocytes 0.8 10^3/ul (0-0.8); ABS Neutrophils 6.4 10^3/ul (1.5-7.7); Hematocrit 42 % (42-52); Hemoglobin 14.2 g/dL (14.0-18.0); Lymphocyte % 26.2 %; Mean Corpuscular HGB Conc 34 g/dL (31-36); Mean Corpuscular Hemoglobin 30 pg (27-31); Mean Corpuscular Volume 90 fL (80-94); Mean Platelet Volume 8.6 fL (7.4-10.4); Platelet Count 216 10^3/uL (150-450); Red Blood Count 4.67 10^6 /uL (4.18-5.48); Red Cell Distribution Width 13 % (10-15); White Blood Count 10.2 10^3/uL (3.5-10.8)
[2021-01-16 05:51] LABS: INR 1.09 (0.82-1.09)
[2021-01-16] MEDS ORDERED: Buffered Lidocaine 1% SYRIN 1 ml INTRADERM ONE (06:00)
[2021-01-16] MEDS ORDERED: Lactated Ringers 1000 ml BAG 1,000 ML IV SCH (06:00)
[2021-01-16 06:04] LABS: Calcium 8.5 mg/dL (8.6-10.3); EGFR African American 156.5 (>60); EGFR Non-African American 129.4 (>60); Potassium 3.7 mmol/L (3.5-5.0)
[2021-01-16 06:43] LABS: Vancomycin Trough 13.5 mcg/mL
[2021-01-16] MEDS: Vancomycin 1,250 MG in NS 0.9% 250 ml 250 ML IVPB SCH ×2 (07:14→15:44)
[2021-01-16] MEDS ORDERED: Ondansetron 4 mg VIAL 2 MG/ML 2 ml VIAL IV PRN (07:59)
[2021-01-16] MEDS ORDERED: Naloxone 0.4 mg VIAL 0.4 mg/ml 1 ml VIAL IV PRN (07:59)
[2021-01-16] MEDS ORDERED: oxyCODONE/Acetamin 5/325 mg TAB PO PRN (07:59)
[2021-01-16] MEDS ORDERED: DiMENhydriNATE IV 50 mg/ml 1 ml VIAL IV PUSH PRN (07:59)
[2021-01-16] MEDS ORDERED: fentaNYL 100 mcg/2 ml 50 MCG/ML VIAL IV PRN (07:59)
[2021-01-16] MEDS ORDERED: cefTRIAXone 2 GM ADDV.VIAL 2 GM in NS 0.9% 100 ml BAG 100 ML IV SCH (08:00)
[2021-01-16] MEDS: Mometasone/Formoter 200/5 MDI INH SCH ×2 (08:56→20:40)
[2021-01-16] MEDS: Venlafaxine XR 75 mg PO SCH (10:15)
[2021-01-16] MEDS ORDERED: Propofol 10 MG/ML 20 ML BTL ONE ×2 (12:31→14:35)
[2021-01-16] MEDS ORDERED: Midazolam 2 mg/2 ml VIAL 1 mg/ml 2 ml VIAL (2 mg) ONE (12:31)
[2021-01-16] MEDS ORDERED: fentaNYL 100 mcg/2 ml 50 MCG/ML VIAL ONE ×2 (12:32→14:05)
[2021-01-16] MEDS ORDERED: Rocuronium 50 mg VIAL 10 mg/ml 5 ml VIAL (50 mg) ONE (12:32)
[2021-01-16] MEDS ORDERED: Phenylephrine IV 10 MG/ML 1 ml VIAL ONE (13:33)
[2021-01-16] MEDS ORDERED: Bupivacaine 0.5% SDV PF 30ML VIAL ONE (13:33)
[2021-01-16] MEDS ORDERED: Ondansetron 4 mg VIAL 2 MG/ML 2 ml VIAL ONE (14:36)
[2021-01-16] MEDS ORDERED: DALBAVANCIN HCL (NF) 500 MG/25 ML VIAL IVPB ONE (19:56)
[2021-01-16] MEDS ORDERED: Vancomycin 1,250 MG in NS 0.9% 250 ml 250 ML IVPB ONE (20:00)
[2021-01-16] MEDS ORDERED: metroNIDAZOLE IV 500 MG/100ML 500 MG/100 ML BAG IVPB ONE (20:00)
[2021-01-16] MEDS ORDERED: DALVANCE 1500 MG IV ONCE (for CrCl >/= 30 or regular HD) IVPB ONE (20:30)
[2021-01-16 21:20] VITALS: BP 136/72
[2021-01-17] MEDS ORDERED: Enoxaparin 40 MG/0.4 ML SYR SUBCUT SCH (12:00)
[2021-01-19] MEDS ORDERED: Vancomycin Trough Check NOTE FOLLOW UP ONE (05:30)
== END 2021-01-16 22:00 | disposition left against medical advice (07) | DRG 710 ==
LOC: ED 18:13 → MEDTELE 22:20
PROVIDERS: ADMIT Internal Medicine; ATTEND Pediatrics